=== PATIENT | female | born 1985 | race African-American/Black ===

== ENCOUNTER → 2017-11-16 | Outpatient (CLI) | payer OTHER | END | disposition home or self-care (01) | LOC: C.LAB1850 15:55 | PROVIDERS: ATTEND Obstetrics & Gynecology | DX: Z34.82 Encounter for supervision of other normal pregnancy, second trimester (principal); Z3A.00 Weeks of gestation of pregnancy not specified ==

== ENCOUNTER 2018-06-05 04:02 | Inpatient (IN) ==
[2018-06-05] MEDS ORDERED: ONDANSETRON 4 MG OD TAB ONE (04:14)
[2018-06-05] MEDS ORDERED: METOCLOPRAMIDE HCL INJ 5 MG/ML 2 ML VIAL IV STA (04:15)
[2018-06-05] MEDS ORDERED: ONDANSETRON 4 MG OD TAB PO STA (04:15)
[2018-06-05] MEDS ORDERED: SODIUM CHLORIDE 0.9% 1000ML 1,000 ML IV SCH ×2 (04:15→08:00)
[2018-06-05] MEDS: HYDROmorphone INJ 1 MG/ML SYRINGE IV PRN ×4 (04:26→06:47)
[2018-06-05 04:38] LABS: Basophils # (auto) 0.02 K/uL (0-0.2); Basophils % (auto) 0.2 %; Eosinophils # (auto) 0.07 K/uL (0-0.5); Eosinophils % (auto) 0.6 %; Hematocrit (blood only) 37.9 % (37-47); Hemoglobin 12.5 g/dL (12.0-16.0); Immature Granulocytes # (auto) 0.02 K/uL (0.00-0.02); Immature Granulocytes % (auto) 0.2 %; Lymphocytes # (auto) 1.43 K/uL (1.2-3.4); Lymphocytes % (auto) 13.1 %; Mean Corpuscular Volume 78.5 fL (80-100); Mean Platelet Volume 10.9 fL (7.4-10.4); Monocytes % (auto) 5.5 %; Neutrophils # (auto) 8.79 K/uL (1.4-6.5); Neutrophils % (auto) 80.4 %; Platelet Count 328 K/uL (130-400); RDW Coefficient of Variation 15.3 % (11.5-14.5); Red Blood Count 4.83 M/uL (4.2-5.4); White Blood Count 10.93 K/uL (4.8-10.8)
[2018-06-05 04:58] LABS: Albumin Level 3.6 gm/dl (3.4-5.0); BUN Creatinine Ratio 10.3 (10-20); Calcium 9.3 mg/dl (8.5-10.1); Est GFR (African American) 65.6; Est GFR (Non-African American) 56.6; Potassium 3.5 mmol/L (3.5-5.1)
[2018-06-05 05:08] LABS: Pregnancy Test, Serum Negative (Negative)
[2018-06-05 05:17] LABS: Albumin Globulin Ratio 0.8 (0.9-2); Bilirubin,Total 3.6 mg/dl (0.2-1); Globulin 4.5 gm/dl (2.5-4.0); Total Protein 8.1 gm/dl (6.4-8.2)
[2018-06-05] MEDS ORDERED: cefOXitin 2,000 MG/60 ML BAG IV STA (05:32)
--- NOTE | 2018-06-05 05:55 | History & Physical Report ---
Date of Service June 05, 2018 Assessment & Plan (1) Cholecystitis: Patient afebrile, hemodynamically stable, non-toxic in appearance. In considerable upper abdominal pain -Admit to medical floor -NPO -NSS at 125mL/hr x 2 liters -Zosyn 3.375gm IV q 8 -Dilaudid 1mg IV q 2 hours PRN -Zofran PRN nausea -Awaiting results of CT abdomen prior to transfer to floor - patient s/p c- section 5 weeks ago -Consult General Surgery - appreciate assistance -Consult GI - appreciate assistance (2) Choledocholithiasis: Plan as above. -Pain, nausea control -Zosyn -GI and Surgical consults -Repeat labs in AM - CBC, LFTs, BMP. (3) state: -Breast pump at bedside for use as needed -Continue PNV daily F/E/N- NSS at 125mL/hr x 2 liters, electrolytes WNL, NPO Ppx - SCDs to bilateral LE Code - Full Dispo - Admit to medical floor for acute cholecystitis/choledocholithiasis History of Present Illness Chief Complaint: RUQ pain Primary Care Provider: Vivek Urban, Patient is a 32yo female presenting with RUQ pain, intermittent x 1 week, more severe this AM since 02:00. Associated with nausea and non-bloody/non-bilious vomiting. Patient denies fevers, chills, sweats, diarrhea or constipation. No additional complaints at this time. She is PP s/p 5 weeks ago. ER Course: Cefoxitin, Dilaudid, Zofran, NSS Allergies Allergy/AdvReac Type Severity Reaction Status Date / Time Sulfa (Sulfonamide AdvReac Intermediate Nausea/Vomi Verified 06/05/18 04:25 Antibiotics) ting Home Medications Home Medications Medication Instructions Recorded Confirmed Type PNV cmb#95-ferrous fumarate-FA 1 tab PO DAILY 01/08/18 06/05/18 History [] acetaminophen 1,000 mg PO Q6 PRN 01/08/18 06/05/18 History oxycodone-acetaminophen [Percocet] 1 - 2 tab PO Q4H PRN #20 tab 05/01/18 Rx Past Med/Surg History Family History Other Family history non-contributory Social History marital status: Current Living Situation: Spouse Feels Safe at Home: Yes Smoking Status: Never smoker Hx Alcohol Use: No Hx Substance Use: No Review of Systems All systems reviewed & are unremarkable except as noted in HPI & below Physical Exam 2 Vital Signs (Past 24 Hours): Last Vital Signs Temp 36.3 C L 06/05/18 04:06 Pulse 68 06/05/18 05:25 Resp 18 06/05/18 05:25 BP 156/107 H 06/05/18 05:25 Pulse Ox 98 06/05/18 05:25 Physical Exam: General: patient in mild distress secondary to abdominal pain , AA&O x 4 Skin: warm, dry, intact, no rashes or lesions HEENT: NC/AT, PERRL, EOMI, anicteric sclera, conjunctiva without injection, external ear normal to inspection and nontender, nares patent, moist mucus membranes, dentition intact, no oropharyngeal lesions, neck supple, trachea midline, no LAD, no thyromegaly, no JVD Heart: +S1/S2, regular, no m/r/g Lungs: equal air entry bilaterally, no rales/rhonchi/wheezes Abd: +BS, soft, nondistended, diffusely tender in RUQ/LUQ, no rebound/guarding , negative Cummins's, no masses/organomegaly/ascites Ext: warm, 2+ pulses in UE/LE bilaterally, no clubbing/cyanosis or edema Neuro: nonfocal, patient AA&O x 4, speech intact, no facial droop, moving all extremities on command with equal strength 5/5 Results & Data Diagnostic Findings Dilated CBD at 1cm. GB stones, distention, pericholecystic fluid and edema and wall thickness consistent with choledocholithiasis. PANC: DUCT 3 mm. TRACE FLUID AROUND PANC AND SPLENIC VEIN. CBD AT HEAD OF PANC 1 cm. LIVER: 19.4 cm. ECHOGENIC. DILATED DUCTS RL AND LL. TRACE FF IN MORRISONS POUCH. GB: STONES IN FUNDUS, SLUDGE, AND DISTENDED GB VIS PREVIOUSLY. NEW FROM PREVIOUS: MODERATE PERICHOLECYSTIC FLUID, WALL EDEMA, THICKENED WALL 4.4 mm, RING DOWN ARTIFACT IN FUNDAL WALL, SMALL STONES ?DEEP WITHIN NECK VS CYSTIC DUCT. PT GIVEN PAIN MEDS PRIOR TO EVAL, UNABLE TO ASSESS CUMMINS'S Code Status & VTE Plan Code Status full VTE Prophylaxis Plan VTE Prophylaxis will be ordered: Yes Critical Care Time Critical Care Time: No
--- NOTE | 2018-06-05 06:31 | Emergency Department Note ---
Entered by Oscar Brown acting as a scribe for Stephon Alvarado MD History of Present Illness General Chief complaint: Abdominal Pain Stated complaint: ACUTE GALLBLADDER PAIN Time Seen by Provider: 06/05/18 04:09 Source: patient Mode of arrival: ambulatory Limitations: no limitations History of Present Illness Onset (ago): week(s) 1 Location: abdomen Pain Consistency: + other (Waxing and waning) Relieved By: + none Associated symptoms: + nausea/vomiting The patient is a 32 year old female who presents to the ER due to complaints of waxing and waning right-sided abdominal pain that began a week ago and has worsened over the past two hours. Patient states she believes the pain is due to her gallbladder as she has a history of gallbladder problems. Patient adds that she has also been nauseas and vomiting. She states she last ate saltine crackers 6 hours ago. She adds that she had a 5 weeks ago and took her last two pain medications from her tonight but vomited them back up. Home Medications Home Medications Medication Instructions Recorded Confirmed Type PNV cmb#[id number] fumarate-FA 1 tab PO DAILY 01/08/18 06/05/18 History [] acetaminophen 1,000 mg PO Q6 PRN 01/08/18 06/05/18 History oxycodone-acetaminophen [Percocet] 1 - 2 tab PO Q4H PRN #20 tab 05/01/18 Rx Allergies Allergy/AdvReac Type Severity Reaction Status Date / Time Sulfa (Sulfonamide AdvReac Intermediate Nausea/Vomi Verified 06/05/18 04:25 Antibiotics) ting Past Med/Surg History Medical History Gastroesophageal reflux in History of depression Surgical History History of section Done for failure to progress, 10 days over due date. JONATHAN Leary. Had epidural dosed for C/S. S/P wrist surgery CYST REMOVAL (LEFT) Family History Other Family history non-contributory Social History marital status: Current Living Situation: Spouse and Family Other Information That Helps Us Care for You: No Feels Safe at Home: Yes Safety Concerns: Feels Safe At This Time Smoking Status: Never smoker Do You Dip or Chew Tobacco: No Hx Alcohol Use: No Hx Substance Use: No Beliefs That Will Affect Care: None Preferred Language: Hungarian Communication Ability: Effective Extrusion Engineer Required: No Review of Systems See HPI for pertinent positives & negatives. and A total of 10 systems reviewed and were otherwise negative Physical Exam Vital Signs Vital Signs - 24 hr 06/06/18 14:42 06/06/18 19:15 06/06/18 19:20 Temperature 37.1 C 37.9 C H 37.7 C H Temperature Source Oral Oral Oral Pulse Rate [Left Finger] 109 H Pulse Rate [Right Finger] 99 H Pulse Rhythm [Left Finger] Pulse Rhythm [Right Finger] Regular Pulse Strength [Left Finger] Pulse Strength [Right Finger] Bounding Respiratory Rate 16 16 Respiratory Effort / Characteristics Non-Labored Respiratory Depth Normal Blood Pressure [Left Arm] 161/110 H 155/53 H Blood Pressure [Right Arm] Blood Pressure Mean [Left Arm] 127 87 Blood Pressure Mean [Right Arm] Blood Pressure Position [Left Arm] Lying Blood Pressure Position [Right Arm] Pulse Oximetry 90 92 Oxygen Delivery Method Room Air Room Air 06/06/18 23:00 06/07/18 07:20 06/07/18 11:52 Temperature 37.2 C 36.9 C 36.8 C Temperature Source Oral Oral Oral Pulse Rate [Left Finger] 102 H 104 H 123 H Pulse Rate [Right Finger] Pulse Rhythm [Left Finger] Pulse Rhythm [Right Finger] Pulse Strength [Left Finger] Pulse Strength [Right Finger] Respiratory Rate 16 17 18 Respiratory Effort / Characteristics Respiratory Depth Blood Pressure [Left Arm] 127/88 152/90 H Blood Pressure [Right Arm] 141/91 H Blood Pressure Mean [Left Arm] 101 110 Blood Pressure Mean [Right Arm] 107 Blood Pressure Position [Left Arm] Lying Standing Blood Pressure Position [Right Arm] Lying Pulse Oximetry 91 95 95 Oxygen Delivery Method Room Air Room Air 06/07/18 13:20 06/07/18 13:37 Temperature 37.8 C H Temperature Source Oral Pulse Rate [Left Finger] 115 H Pulse Rate [Right Finger] Pulse Rhythm [Left Finger] Regular Pulse Rhythm [Right Finger] Pulse Strength [Left Finger] Normal Pulse Strength [Right Finger] Respiratory Rate 18 Respiratory Effort / Characteristics Non-Labored Respiratory Depth Normal Blood Pressure [Left Arm] 157/111 H Blood Pressure [Right Arm] 165/101 H Blood Pressure Mean [Left Arm] 126 Blood Pressure Mean [Right Arm] 122 Blood Pressure Position [Left Arm] Semi-fowlers Blood Pressure Position [Right Arm] Sitting Pulse Oximetry 94 Oxygen Delivery Method Room Air GENERAL: Patient is a healthy-appearing well-nourished female HEAD: Normocephalic atraumatic EYES: Ocular movements intact pupils equal and react to light OROPHARYNX mucous membranes are moist no exudates present no erythema or edema present NECK: Supple no nuchal rigidity CHEST: Good equal expansion LUNGS: Clear and equal to auscultation CARDIAC: Normal S1 and S2 ABDOMEN: Soft tender in RUQ no guarding BACK: No CVA tenderness EXTREMITIES: No pain upon palpation normal muscle strength in all groups no clubbing cyanosis or edema NEURO: Patient is following commands is answering questions appropriately. Alert and oriented x3 Cranial Nerves 2-12 grossly intact Course 0411: Past medical records reviewed. The patient was evaluated in room A9B, and a complete history and physical examination were performed. 0545: Upon reevaluation, the patient will be further evaluated. I updated the patient on his treatment plan and findings. Patient is agreeable to the treatment plan. Patient will be assessed for further evaluation. Consultations Consultation #1: I reviewed the patient's case with Dr. Kennedy. She will evaluate the patient for further management. Time: 05:37 Administered Medications Hydromorphone HCl (Dilaudid Fence Laborer) 25 mg IV PRN PRN; Protocol PRN Reason: Pain Stop: 06/19/18 09:44 Last Admin: 06/06/18 07:10 Dose: 25 mg Admin: 06/05/18 10:39 Dose: 25 mg Lactated Ringer's (Lr) 1,000 mls @ 80 mls/hr IV .[id number] DEON Stop: 07/06/18 11:29 Last Admin: 06/07/18 14:04 Dose: Not Given Infusion: 06/07/18 14:02 Dose: 80 mls/hr Infusion: 06/07/18 12:27 Dose: 175 mls/hr Admin: 06/07/18 10:16 Dose: 150 mls/hr Infusion: 06/07/18 10:08 Dose: 150 mls/hr Infusion: 06/07/18 09:09 Dose: 150 mls/hr Infusion: 06/07/18 08:36 Dose: 0 mls/hr Infusion: 06/07/18 07:32 Dose: 150 mls/hr Admin: 06/07/18 02:55 Dose: 150 mls/hr Infusion: 06/07/18 02:19 Dose: 0 mls/hr Admin: 06/06/18 19:37 Dose: 150 mls/hr Infusion: 06/06/18 17:48 Dose: 150 mls/hr Infusion: 06/06/18 14:20 Dose: 150 mls/hr Infusion: 06/06/18 13:33 Dose: 150 mls/hr Admin: 06/06/18 11:44 Dose: 200 mls/hr Ioversol (Optiray 320 100ml) 93 ml IV ONCE PRN PRN Reason: Interaction Checking Stop: 06/09/18 07:37 Last Admin: 06/05/18 07:38 Dose: 93 ml Ioversol (Optiray 320 100ml) 92 ml IV ONCE PRN PRN Reason: Interaction Checking Stop: 06/11/18 12:54 Last Admin: 06/07/18 12:56 Dose: 92 ml Prenat Multivit/Avery/Iron/Folic Ac ( Vitamin) 1 tab PO DAILY DEON Stop: 07/05/18 08:59 Last Admin: 06/07/18 08:37 Dose: 1 tab Admin: 06/06/18 07:25 Dose: 1 tab Admin: 06/05/18 08:23 Dose: 1 tab Discontinued Medications Hydromorphone HCl (Dilaudid) 1 mg IV Q15M PRN PRN Reason: Pain Stop: 06/19/18 04:14 Last Admin: 06/05/18 06:47 Dose: 1 mg Admin: 06/05/18 05:43 Dose: 1 mg Admin: 06/05/18 04:44 Dose: 1 mg Admin: 06/05/18 04:26 Dose: 1 mg Hydromorphone HCl (Dilaudid) 1 mg IV Q2H PRN PRN Reason: Pain Stop: 06/19/18 07:59 Last Admin: 06/05/18 08:21 Dose: 1 mg Hydromorphone HCl (Dilaudid) 1.5 mg IV NOW STA Stop: 06/05/18 09:56 Last Admin: 06/05/18 10:11 Dose: 1.5 mg Sodium Chloride (Nss 1000ml) 1,000 mls @ 999 mls/hr IV .Q1H1M DEON Stop: 06/05/18 05:15 Last Infusion: 06/05/18 05:19 Dose: Admin: 06/05/18 04:25 Dose: 999 mls/hr Cefoxitin Sodium (Mefoxin) 2,000 mg in 60 mls @ 100 mls/hr IV NOW STA Stop: 06/05/18 06:07 Last Infusion: 06/05/18 06:54 Dose: 0 mls/hr Admin: 06/05/18 06:14 Dose: 100 mls/hr Promethazine HCl 12.5 mg/ (Sodium Chloride) 50.5 mls @ 202 mls/hr IV NOW STA Stop: 06/05/18 07:07 Last Admin: 06/05/18 07:11 Dose: Not Given Sodium Chloride (Nss 1000ml) 1,000 mls @ 200 mls/hr IV .Q5H DEON Stop: 06/05/18 17:59 Last Infusion: 06/05/18 10:12 Dose: 0 mls/hr Admin: 06/05/18 08:15 Dose: 125 mls/hr Piperacillin Sod/Tazobactam (Sod 3.375 gm/ Dextrose) 115 mls @ 200 mls/hr IV NOW STA Stop: 06/05/18 08:51 Last Infusion: 06/05/18 08:58 Dose: 0 mls/hr Admin: 06/05/18 08:21 Dose: 200 mls/hr Lactated Ringer's (Lr) 1,000 mls @ 200 mls/hr IV .Q5H DEON Stop: 07/05/18 09:59 Last Admin: 06/05/18 20:39 Dose: Not Given Infusion: 06/05/18 15:20 Dose: 0 mls/hr Admin: 06/05/18 10:11 Dose: 200 mls/hr Sodium Chloride (Nss 1000ml) 1,000 mls @ 200 mls/hr IV .Q5H DEON Stop: 06/19/18 10:14 Last Infusion: 06/06/18 11:44 Dose: 0 mls/hr Admin: 06/06/18 07:24 Dose: 200 mls/hr Infusion: 06/06/18 06:57 Dose: 200 mls/hr Infusion: 06/06/18 06:54 Dose: 200 mls/hr Admin: 06/06/18 01:56 Dose: 200 mls/hr Infusion: 06/06/18 01:30 Dose: 200 mls/hr Admin: 06/05/18 20:30 Dose: 200 mls/hr Admin: 06/05/18 10:14 Dose: Not Given Piperacillin Sod/Tazobactam (Sod 3.375 gm/ Dextrose) 115 mls @ 230 mls/hr IV Q8H DEON Stop: 06/06/18 18:00 Last Infusion: 06/06/18 16:00 Dose: 0 mls/hr Admin: 06/06/18 15:14 Dose: 230 mls/hr Infusion: 06/06/18 10:05 Dose: 0 mls/hr Infusion: 06/06/18 06:54 Dose: 28.8 mls/hr Admin: 06/06/18 05:57 Dose: 28.8 mls/hr Infusion: 06/06/18 01:10 Dose: 0 mls/hr Admin: 06/05/18 21:10 Dose: 28.8 mls/hr Infusion: 06/05/18 19:25 Dose: 0 mls/hr Admin: 06/05/18 15:12 Dose: 28.8 mls/hr Lactated Ringer's (Lr) 1,000 mls @ 999 mls/hr IV .Q1H1M ONE Stop: 06/06/18 15:39 Last Infusion: 06/06/18 17:50 Dose: 0 mls/hr Admin: 06/06/18 16:20 Dose: 999 mls/hr Piperacillin Sod/Tazobactam (Sod 3.375 gm/ Dextrose) 115 mls @ 230 mls/hr IV Q6H DEON; Protocol Stop: 06/15/18 13:59 Last Infusion: 06/07/18 09:09 Dose: 0 mls/hr Admin: 06/07/18 08:32 Dose: 230 mls/hr Infusion: 06/07/18 02:55 Dose: 0 mls/hr Admin: 06/07/18 02:18 Dose: 230 mls/hr Infusion: 06/06/18 22:03 Dose: 0 mls/hr Admin: 06/06/18 20:47 Dose: 230 mls/hr Indomethacin (Indocin) 100 mg UT ONE ONE Stop: 06/05/18 09:54 Last Admin: 06/05/18 17:27 Dose: 100 mg Indomethacin (Indocin) 100 mg UT NOW STA Stop: 06/05/18 15:43 Last Admin: 06/05/18 19:40 Dose: Not Given Labetalol HCl (Normodyne) Confirm Administered Dose 10 mg IV .STK-MED ONE Stop: 06/05/18 18:08 Last Admin: 06/05/18 18:08 Dose: 10 mg Methylnaltrexone [place] (Relistor) 12 mg SQ ONE ONE Stop: 06/06/18 16:01 Last Admin: 06/06/18 16:25 Dose: 12 mg Metoclopramide HCl (Reglan) 10 mg IV NOW STA Stop: 06/05/18 04:16 Last Admin: 06/05/18 04:25 Dose: 10 mg Ondansetron HCl (Zofran Odt) Confirm Administered Dose 4 mg .ROUTE .STK-MED ONE Stop: 06/05/18 04:15 Last Admin: 06/05/18 04:18 Dose: 4 mg Ondansetron HCl (Zofran Odt) 4 mg PO NOW STA Stop: 06/05/18 04:16 Last Admin: 06/05/18 04:18 Dose: Not Given Promethazine HCl (Phenergan) Confirm Administered Dose 12.5 mg IV .STK-MED ONE Stop: 06/05/18 07:08 Last Admin: 06/05/18 07:11 Dose: 12.5 mg Propranolol HCl (Inderal) 40 mg PO NOW STA Stop: 06/06/18 01:00 Last Admin: 06/06/18 01:21 Dose: 40 mg Medical Decision Making Differential Diagnosis Differential diagnosis: Etiologies such as biliary colic, cholecystitis, hepatitis, pancreatitis, cardiac disease, pancreatitis, gastritis, peptic ulcer disease, appendicitis, cystitis, diverticulitis, mesenteric ischemia, inflammatory bowel disease, ileus , bowel obstruction, testicular torsion, aortic pathology, shingles, as well as others were considered. Medical Records Attestation: I reviewed the patient's medical records. Home Medications Current Medication List: was personally reviewed by me Laboratory Data Attestation: I reviewed the patient's lab results. Result diagrams: 06/07/18 06:54 06/07/18 06:54 Lab Results 06/05/18 06/05/18 06/05/18 Range/Units 04:25 04:25 04:25 WBC 10.93 H (4.8-10.8) K/uL RBC 4.83 (4.2-5.4) M/uL Hgb 12.5 (12.0-16.0) g/dL Hct 37.9 (37-47) % MCV 78.5 L (80-100) fL MCH 25.9 (25-34) pg MCHC 33.0 (32-36) g/dL RDW Std Deviation 44.0 (36.4-46.3) fL RDW Coeff of Latoya 15.3 H (11.5-14.5) % Plt Count 328 (130-400) K/uL MPV 10.9 H (7.4-10.4) fL Immature Gran % (Auto) 0.2 % Neut % (Auto) 80.4 % Lymph % (Auto) 13.1 % Mobile % (Auto) 5.5 % Eos % (Auto) 0.6 % Baso % (Auto) 0.2 % Immature Gran # (Auto) 0.02 (0.00-0.02) K/uL Neut # (Auto) 8.79 H (1.4-6.5) K/uL Lymph # (Auto) 1.43 (1.2-3.4) K/uL Mobile # (Auto) 0.60 H (0.11-0.59) K/uL Eos # (Auto) 0.07 (0-0.5) K/uL Baso # (Auto) 0.02 (0-0.2) K/uL PT (9.0-12.0) Seconds INR (0.9-1.1) Sodium 139 (136-145) mmol/L Potassium 3.5 (3.5-5.1) mmol/L Chloride 106 (98-107) mmol/L Carbon Dioxide 25 (21-32) mmol/L Anion Gap 8.0 (3-11) BUN 13 (7-18) mg/dl Creatinine 1.27 H (0.6-1.2) mg/dl Est Cr Clr Drug Dosing 73.0 ml/min Est GFR ( Amer) 65.6 Est GFR (Non-Af Amer) 56.6 BUN/Creatinine Ratio 10.3 (10-20) Glucose 132 H (70-99) mg/dl Calcium 9.3 (8.5-10.1) mg/dl Total Bilirubin 3.6 H (0.2-1) mg/dl Direct Bilirubin (0-0.2) mg/dl AST 423 H (15-37) U/L ALT 425 H (12-78) U/L Alkaline Phosphatase 244 H (45-117) U/L Total Protein 8.1 (6.4-8.2) gm/dl Albumin 3.6 (3.4-5.0) gm/dl Globulin 4.5 H (2.5-4.0) gm/dl Albumin/Globulin Ratio 0.8 L (0.9-2) Lipase 76503 H (73-393) U/L HCG, Qual Negative (Negative) Urine Color Urine Appearance (Clear) Urine pH (4.5-7.5) Ur Specific [place] (1.000-1.030) Urine Protein (Negative) Urine Glucose (UA) (Negative) Urine Ketones (Negative) Urine Blood (Negative) Urine Nitrite (Negative) Urine Bilirubin (Negative) Urine Urobilinogen (Negative) Ur Leukocyte Esterase (Negative) Urine WBC (Auto) (0-5) /hpf Urine RBC (Auto) (0-4) /hpf U Hyaline Cast (Auto) (0-5) /lpf U Epithel Cells (Auto) (0-5) /lpf Urine Bacteria (Auto) (Negative) Ur Renal Epithelial Cell (0-5) /lpf Urine Crystals Calcium Oxalate Crystal (None Prsent) Granular Casts (0) /lpf 06/05/18 06/05/18 06/06/18 Range/Units 04:25 06:45 07:37 WBC (4.8-10.8) K/uL RBC (4.2-5.4) M/uL Hgb (12.0-16.0) g/dL Hct (37-47) % MCV (80-100) fL MCH (25-34) pg MCHC (32-36) g/dL RDW Std Deviation (36.4-46.3) fL RDW Coeff of Latoya (11.5-14.5) % Plt Count (130-400) K/uL MPV (7.4-10.4) fL Immature Gran % (Auto) % Neut % (Auto) % Lymph % (Auto) % Mobile % (Auto) % Eos % (Auto) % Baso % (Auto) % Immature Gran # (Auto) (0.00-0.02) K/uL Neut # (Auto) (1.4-6.5) K/uL Lymph # (Auto) (1.2-3.4) K/uL Mobile # (Auto) (0.11-0.59) K/uL Eos # (Auto) (0-0.5) K/uL Baso # (Auto) (0-0.2) K/uL PT 10.7 (9.0-12.0) Seconds INR 1.1 (0.9-1.1) Sodium 138 (136-145) mmol/L Potassium 4.0 (3.5-5.1) mmol/L Chloride 107 (98-107) mmol/L Carbon Dioxide 25 (21-32) mmol/L Anion Gap 6.0 (3-11) BUN 15 (7-18) mg/dl Creatinine 0.99 (0.6-1.2) mg/dl Est Cr Clr Drug Dosing 93.7 ml/min Est GFR ( Amer) 88.6 Est GFR (Non-Af Amer) 76.5 BUN/Creatinine Ratio 15.4 (10-20) Glucose 112 H (70-99) mg/dl Calcium 8.3 L (8.5-10.1) mg/dl Total Bilirubin (0.2-1) mg/dl Direct Bilirubin (0-0.2) mg/dl AST (15-37) U/L ALT (12-78) U/L Alkaline Phosphatase (45-117) U/L Total Protein (6.4-8.2) gm/dl Albumin (3.4-5.0) gm/dl Globulin (2.5-4.0) gm/dl Albumin/Globulin Ratio (0.9-2) Lipase 46161 H (73-393) U/L HCG, Qual (Negative) Urine Color Dark Yellow Urine Appearance Cloudy H (Clear) Urine pH 5.0 (4.5-7.5) Ur Specific [place] 1.017 (1.000-1.030) Urine Protein Negative (Negative) Urine Glucose (UA) Negative (Negative) Urine Ketones Trace H (Negative) Urine Blood 2+ H (Negative) Urine Nitrite Negative (Negative) Urine Bilirubin 2+ H (Negative) Urine Urobilinogen Negative (Negative) Ur Leukocyte Esterase Trace H (Negative) Urine WBC (Auto) 1-5 (0-5) /hpf Urine RBC (Auto) 0-4 (0-4) /hpf U Hyaline Cast (Auto) 1-5 (0-5) /lpf U Epithel Cells (Auto) 20-30 H (0-5) /lpf Urine Bacteria (Auto) Negative (Negative) Ur Renal Epithelial Cell (0-5) /lpf Urine Crystals Not Reportable Calcium Oxalate Crystal Present H (None Prsent) Granular Casts (0) /lpf 06/06/18 06/06/18 06/07/18 Range/Units 07:37 07:37 06:54 WBC 15.24 H 19.00 H (4.8-10.8) K/uL RBC 4.67 4.35 (4.2-5.4) M/uL Hgb 11.6 L 10.7 L (12.0-16.0) g/dL Hct 36.8 L 33.6 L (37-47) % MCV 78.8 L 77.2 L (80-100) fL MCH 24.8 L 24.6 L (25-34) pg MCHC 31.5 L 31.8 L (32-36) g/dL RDW Std Deviation 45.5 45.7 (36.4-46.3) fL RDW Coeff of Latoya 15.9 H 16.2 H (11.5-14.5) % Plt Count 345 301 (130-400) K/uL MPV 10.8 H 11.2 H (7.4-10.4) fL Immature Gran % (Auto) 0.2 % Neut % (Auto) 88.0 % Lymph % (Auto) 5.7 % Mobile % (Auto) 6.0 % Eos % (Auto) 0.0 % Baso % (Auto) 0.1 % Immature Gran # (Auto) 0.03 H (0.00-0.02) K/uL Neut # (Auto) 13.42 H (1.4-6.5) K/uL Lymph # (Auto) 0.87 L (1.2-3.4) K/uL Mobile # (Auto) 0.91 H (0.11-0.59) K/uL Eos # (Auto) 0.00 (0-0.5) K/uL Baso # (Auto) 0.01 (0-0.2) K/uL PT (9.0-12.0) Seconds INR (0.9-1.1) Sodium (136-145) mmol/L Potassium (3.5-5.1) mmol/L Chloride (98-107) mmol/L Carbon Dioxide (21-32) mmol/L Anion Gap (3-11) BUN (7-18) mg/dl Creatinine (0.6-1.2) mg/dl Est Cr Clr Drug Dosing ml/min Est GFR ( Amer) Est GFR (Non-Af Amer) BUN/Creatinine Ratio (10-20) Glucose (70-99) mg/dl Calcium (8.5-10.1) mg/dl Total Bilirubin 1.3 H D (0.2-1) mg/dl Direct Bilirubin 0.6 H (0-0.2) mg/dl AST 330 H (15-37) U/L ALT 425 H (12-78) U/L Alkaline Phosphatase 165 H (45-117) U/L Total Protein 6.7 (6.4-8.2) gm/dl Albumin 2.9 L (3.4-5.0) gm/dl Globulin (2.5-4.0) gm/dl Albumin/Globulin Ratio (0.9-2) Lipase (73-393) U/L HCG, Qual (Negative) Urine Color Urine Appearance (Clear) Urine pH (4.5-7.5) Ur Specific [place] (1.000-1.030) Urine Protein (Negative) Urine Glucose (UA) (Negative) Urine Ketones (Negative) Urine Blood (Negative) Urine Nitrite (Negative) Urine Bilirubin (Negative) Urine Urobilinogen (Negative) Ur Leukocyte Esterase (Negative) Urine WBC (Auto) (0-5) /hpf Urine RBC (Auto) (0-4) /hpf U Hyaline Cast (Auto) (0-5) /lpf U Epithel Cells (Auto) (0-5) /lpf Urine Bacteria (Auto) (Negative) Ur Renal Epithelial Cell (0-5) /lpf Urine Crystals Calcium Oxalate Crystal (None Prsent) Granular Casts (0) /lpf 06/07/18 06/07/18 Range/Units 06:54 12:37 WBC (4.8-10.8) K/uL RBC (4.2-5.4) M/uL Hgb (12.0-16.0) g/dL Hct (37-47) % MCV (80-100) fL MCH (25-34) pg MCHC (32-36) g/dL RDW Std Deviation (36.4-46.3) fL RDW Coeff of Latoya (11.5-14.5) % Plt Count (130-400) K/uL MPV (7.4-10.4) fL Immature Gran % (Auto) % Neut % (Auto) % Lymph % (Auto) % Mobile % (Auto) % Eos % (Auto) % Baso % (Auto) % Immature Gran # (Auto) (0.00-0.02) K/uL Neut # (Auto) (1.4-6.5) K/uL Lymph # (Auto) (1.2-3.4) K/uL [place] # (Auto) (0.11-0.59) K/uL Eos # (Auto) (0-0.5) K/uL Baso # (Auto) (0-0.2) K/uL PT (9.0-12.0) Seconds INR (0.9-1.1) Sodium 135 L (136-145) mmol/L Potassium 3.6 (3.5-5.1) mmol/L Chloride 103 (98-107) mmol/L Carbon Dioxide 26 (21-32) mmol/L Anion Gap 6.0 (3-11) BUN 12 (7-18) mg/dl Creatinine 0.81 (0.6-1.2) mg/dl Est Cr Clr Drug Dosing 114.5 ml/min Est GFR ( Amer) 113.0 Est GFR (Non-Af Amer) 97.5 BUN/Creatinine Ratio 14.7 (10-20) Glucose 109 H (70-99) mg/dl Calcium 8.5 (8.5-10.1) mg/dl Total Bilirubin 1.0 (0.2-1) mg/dl Direct Bilirubin 0.5 H (0-0.2) mg/dl AST 105 H (15-37) U/L ALT 221 H (12-78) U/L Alkaline Phosphatase 130 H (45-117) U/L Total Protein 6.3 L (6.4-8.2) gm/dl Albumin 2.6 L (3.4-5.0) gm/dl Globulin (2.5-4.0) gm/dl Albumin/Globulin Ratio (0.9-2) Lipase 4189 H (73-393) U/L HCG, Qual (Negative) Urine Color Dark Yellow Urine Appearance Cloudy H (Clear) Urine pH 6.0 (4.5-7.5) Ur Specific [place] 1.036 H (1.000-1.030) Urine Protein 1+ H (Negative) Urine Glucose (UA) Negative (Negative) Urine Ketones Trace H (Negative) Urine Blood 2+ H (Negative) Urine Nitrite Negative (Negative) Urine Bilirubin Negative (Negative) Urine Urobilinogen Negative (Negative) Ur Leukocyte Esterase 2+ H (Negative) Urine WBC (Auto) >30 H (0-5) /hpf Urine RBC (Auto) 5-10 H (0-4) /hpf U Hyaline Cast (Auto) 10-30 H (0-5) /lpf U Epithel Cells (Auto) >30 H (0-5) /lpf Urine Bacteria (Auto) Negative (Negative) Ur Renal Epithelial Cell 10-20 H (0-5) /lpf Urine Crystals Calcium Oxalate Crystal Present H (None Prsent) Granular Casts 1-5 H (0) /lpf Imaging Data Radiologist's Impression: Radiology results as stated below per my review and the radiologist's interpretation: US RUQ: Dilated CBD, 1 cm. Gallbladder stones, distension, pericholecystic fluid, intramural edema, and wall thickening at 4 mm, consistent with cholecystitis. Radiologist: Wilber Ludwig MD CT abd pelvis oral and IV con CLINICAL HISTORY: 32 years-old Female presenting with Pt c/o RUQ abd pain. TECHNIQUE: Multidetector CT of the abdomen and pelvis was performed after the administration of oral and intravenous contrast. IV contrast: 93 mL of Optiray 320. One or more dose lowering techniques were used consistent with the principles of ALARA (as low as reasonably achievable), including automatic exposure control, mA or kV adjustment to individual patient size, and/or use of iterative reconstruction. COMPARISON: Ultrasound of the abdomen performed earlier today. CT DOSE (mGy.cm): The estimated cumulative dose is 545.48 mGy.cm. FINDINGS: Water Resource Engineer topogram: Unremarkable. Lung bases: Minimal dependent changes likely atelectasis. Top normal cardiac size. No pericardial or pleural effusion. Liver: Normal morphology. No liver lesion. Patent hepatic vasculature. Biliary: Mild central predominant intrahepatic biliary ductal dilatation. The common duct is not well delineated due to the significant surrounding edema. Significant gallbladder wall thickening, mucosal hyperenhancement, and mild distention. Layering gallstones evident at the fundus. Pancreas: Diffusely edematous pancreatic parenchyma with exuberant surrounding peripancreatic fluid. The degree of parenchymal edema makes assessment for nonenhancing portions of the pancreatic parenchyma difficult. Due to the degree of edema, the pancreatic duct is also not well-defined linear dated. Spleen: Normal. Splenule noted. Splenic artery and vein patent. Adrenal glands: Normal. Kidneys and ureters: Normal. No hydronephrosis. Bladder: Incompletely evaluated secondary to underdistention. Pelvic organs: Uterus and ovaries normal. Bowel: The cecum is medialized and displaced in the left upper quadrant. There is no resulting obstruction. An underlying internal hernia cannot be excluded. No evidence of small bowel malrotation. Mild wall thickening of the duodenum descending and horizontal portion may be present. Peritoneal cavity: Small amount of abdominal pelvic free fluid. No free intraperitoneal gas. Exuberant retroperitoneal fluid centered at the pancreas on both the dorsum and the ventral aspects of the pancreas involving the entire length of the pancreatic head to the tail. Fluid tracks inferiorly in the retroperitoneum, left greater than right. Lymph nodes: No enlarged lymph nodes in the abdomen or pelvis. Vasculature: Aorta and IVC patent and normal in caliber. Abdominal wall: Postsurgical changes of prior Pfannenstiel incision suspected. Mild nonspecific body wall edema. Musculoskeletal: Normal. IMPRESSION: 1. Either severe interstitial edematous pancreatitis or developing necrotizing pancreatitis. This is presumably due to choledocholithiasis. Exuberant associated acute peripancreatic fluid. No intraparenchymal collection. 2. Cholelithiasis with acute calculus cholecystitis evidenced by gallbladder wall thickening, mild distention, and surrounding inflammatory change. Surgical consultation advised. 3. Small volume ascites. The report will be called/faxed according to standard departmental protocol. Blood Pressure Blood Pressure Findings: Elevated blood pressure Blood Pressure Disposition: further management by hospitalist ODALIS Narrative This is a 32-year-old female who presents emergency department complaining of epigastric pain. Using shared medical decision making the patient was sent for a CAT scan of the abdomen and pelvis as well as an ultrasound. The patient's laboratory work is concerning for choledocholithiasis with an elevation in her lipase as well as her liver enzymes. Patient was placed on broad-spectrum antibiotics. She was given Dilaudid for her pain. Repeat examination revealed improvement in the patient's symptoms. I did discuss the case with the on-call hospitalist who agreed to admit the patient. Patient was in agreement with the treatment plan. Impression & Plan Abdominal pain, Choledocholithiasis Critical Care Time I have personally spent greater than 30 minutes of critical care time in the direct management of this patient. This includes bedside care, interpretation of diagnostic studies, and testing, discussion with consultants, patient, and family members, and other required patient management activities. This 30 minutes is in excess of all separately billable procedures. Discharge Plan Visit Data *Final* Discharge Date/Time: 06/05/18 07:38 Chief Complaint: Abdominal Pain Stated Complaint: ACUTE GALLBLADDER PAIN ED Provider: Stephon Alvarado Discharge Problem: Abdominal pain, Choledocholithiasis Patient Disposition: Admitted As Inpatient Discharge Instructions Interventions: ED Discharge Assessment Last Done: 06/05/18 07:38 The scribe's documentation has been prepared under my direction and personally reviewed by me in its entirety. I confirm that the note above accurately reflects all work, treatment, procedures, and medical decision making performed by me.
[2018-06-05] MEDS ORDERED: PROMETHAZINE HCL 12.5 MG in SODIUM CHLORIDE 0.9% 50 ML IV STA (06:53)
[2018-06-05] MEDS ORDERED: PROMETHAZINE 12.5 MG/50.5 ML NSS IV ONE (07:07)
[2018-06-05 07:22] LABS: Appearance Urine Cloudy (Clear); Bacteria Urine Automated Negative (Negative); Blood Urine 2+ (Negative); Color Urine Dark Yellow; Epithelial Cell Urine Auto 20-30 /lpf (0-5); Glucose Urine UA Negative (Negative); Ketones Urine Trace (Negative); Leukocyte Esterase Urine Trace (Negative); Nitrite Urine Negative (Negative); Protein Urine Negative (Negative); RBC Urine Automated 0-4 /hpf (0-4); Specific Gravity Urine 1.017 (1.000-1.030); Urobilinogen Urine Negative (Negative)
--- NOTE | 2018-06-05 07:31 | Ultrasound Report ---
US abdomen limited CLINICAL HISTORY: 32 years-old Female presenting with RUQ R/o Gallbladder. TECHNIQUE: Real-time grayscale and limited color Doppler ultrasound imaging of the abdomen limited to the right upper quadrant was performed. COMPARISON: 02/07/2018.. FINDINGS: Pancreas: Visualized portions of the pancreatic parenchyma normal, however, there is pancreatic ducta l prominence. There is also trace fluid along the dorsum of the pancreatic neck. Trace fluid is also evident along the ventral pancreatic body. Liver: Normal echogenicity and echotexture. The liver measures 19.4 cm in maximal sagittal dimension. No sonographic evidence of hepatic mass. Main portal vein patent with normal directional flow. Biliary: Mild to moderate diffuse intrahepatic biliary ductal dilatation. Common bile duct measures u p to 10 mm in diameter at the level of the liver hilum and pancreatic head. No sonographic evidence o f choledocholithiasis Gallbladder: The gallbladder is distended measuring over 15 cm in long axis. Layering sludge and gall stones evident at the gallbladder neck as well as shadowing gallstones at the fundus. Pericholecystic fluid also present. There is gallbladder wall thickening. Additionally hyperechogenic foci in the ga llbladder wall may indicate underlying adenomyomatosis or less likely intramural gas. Unable to asses s sonographic Cummins's sign. Right kidney: Normal in appearance without evidence of hydronephrosis. Ascites: No large free fluid.. Other: None. IMPRESSION: 1. Acute calculus cholecystitis. Surgical consultation warranted. Given the presence of intrahepatic and extra hepatic biliary ductal as well as borderline pancreatic ductal dilatation, impacted choled ocholithiasis at the ampulla of Vater cannot be excluded. 2. Hyperechogenic foci in the gallbladder wall may indicate underlying pneumatosis or, less likely, emphysematous cholecystitis. 3. Borderline hepatomegaly. The report will be called/faxed according to standard departmental protocol. Electronically signed by: Brandon Gonzales M.D. 06/05/2018 7:29 AM
[2018-06-05 07:37] LABS: Bilirubin Urine 2+ (Negative); Ictotest Urine Positive (Negative)
[2018-06-05] MEDS ORDERED: IOVERSOL 100ml IV PRN (07:38)
[2018-06-05 07:56] LABS: Calcium Oxalate Crystals Urine Present (None Prsent)
[2018-06-05] MEDS ORDERED: DOCUSATE SODIUM 100 MG CAP PO PRN (08:00)
[2018-06-05] MEDS ORDERED: HYDROmorphone INJ 1 MG/ML SYRINGE IV PRN ×2 (08:00→09:36)
[2018-06-05] MEDS ORDERED: ACETAMINOPHEN 65 ML IV PRN (08:00)
[2018-06-05] MEDS ORDERED: ONDANSETRON INJ 2 MG/ML 2 ML VIAL IV PRN ×2 (08:00→16:00)
[2018-06-05] MEDS ORDERED: PIPERACILL/TAZOBAC CONSULT ACTIVE PRN (08:00)
--- NOTE | 2018-06-05 08:05 | CT Scan Report ---
CT abd pelvis oral and IV con CLINICAL HISTORY: 32 years-old Female presenting with Pt c/o RUQ abd pain. TECHNIQUE: Multidetector CT of the abdomen and pelvis was performed after the administration of oral and intravenous contrast. IV contrast: 93 mL of Optiray 320. One or more dose lowering techniques wer e used consistent with the principles of ALARA (as low as reasonably achievable), including automatic exposure control, mA or kV adjustment to individual patient size, and/or use of iterative reconstruc tion. COMPARISON: Ultrasound of the abdomen performed earlier today. CT DOSE (mGy.cm): The estimated cumulative dose is 545.48 mGy.cm. FINDINGS: Housing Inspector topogram: Unremarkable. Lung bases: Minimal dependent changes likely atelectasis. Top normal cardiac size. No pericardial or pleural effusion. Liver: Normal morphology. No liver lesion. Patent hepatic vasculature. Biliary: Mild central predominant intrahepatic biliary ductal dilatation. The common duct is not well delineated due to the significant surrounding edema. Significant gallbladder wall thickening, mucosa l hyperenhancement, and mild distention. Layering gallstones evident at the fundus. Pancreas: Diffusely edematous pancreatic parenchyma with exuberant surrounding peripancreatic fluid. The degree of parenchymal edema makes assessment for nonenhancing portions of the pancreatic parenchy ma difficult. Due to the degree of edema, the pancreatic duct is also not well-defined linear dated. Spleen: Normal. Splenule noted. Splenic artery and vein patent. Adrenal glands: Normal. Kidneys and ureters: Normal. No hydronephrosis. Bladder: Incompletely evaluated secondary to underdistention. Pelvic organs: Uterus and ovaries normal. Bowel: The cecum is medialized and displaced in the left upper quadrant. There is no resulting obstru ction. An underlying internal hernia cannot be excluded. No evidence of small bowel malrotation. Mild wall thickening of the duodenum descending and horizontal portion may be present. Peritoneal cavity: Small amount of abdominal pelvic free fluid. No free intraperitoneal gas. Exuberan t retroperitoneal fluid centered at the pancreas on both the dorsum and the ventral aspects of the pa ncreas involving the entire length of the pancreatic head to the tail. Fluid tracks inferiorly in the retroperitoneum, left greater than right. Lymph nodes: No enlarged lymph nodes in the abdomen or pelvis. Vasculature: Aorta and IVC patent and normal in caliber. Abdominal wall: Postsurgical changes of prior Pfannenstiel incision suspected. Mild nonspecific body wall edema. Musculoskeletal: Normal. IMPRESSION: 1. Either severe interstitial edematous pancreatitis or developing necrotizing pancreatitis. This is presumably due to choledocholithiasis. Exuberant associated acute peripancreatic fluid. No intrapare nchymal collection. 2. Cholelithiasis with acute calculus cholecystitis evidenced by gallbladder wall thickening, mild d istention, and surrounding inflammatory change. Surgical consultation advised. 3. Small volume ascites. The report will be called/faxed according to standard departmental protocol. Electronically signed by: Brandon Gonzales M.D. 06/05/2018 8:03 AM
[2018-06-05] MEDS ORDERED: PIPERACILLIN/TAZOBACTAM 3.375 GM in DEXTROSE 5% 100 ML IV STA (08:17)
[2018-06-05] MEDS: PRENATAL VITAMIN 1 TAB PO SCH (08:23)
[2018-06-05 08:26] LABS: INR 1.1 (0.9-1.1); Prothrombin Time 10.7 Seconds (9.0-12.0)
--- NOTE | 2018-06-05 09:37 | Surgery Consultation ---
Date of Consultation June 05, 2018 Assessment & Plan (1) Biliary acute pancreatitis: Eventual lap alejandra once pancreatitis resolves, could be several days or more. GI is seeing for possible ERCP. I increased IVF and analgesics. Continue Zosyn. Will follow. as above. pt seen. recommend lap alejandra this admission once pancreatitis improves. will follow along closely. History of Present Illness Attending Physician: Valentín Moore DO History of Present Illness 32 y/o female 5 weeks with 1 week increasing abdominal pain becoming severe overnight with back pain, N/V. Was in the ER once for biliary symptoms during . Continues to have severe pain. Allergies Allergy/AdvReac Type Severity Reaction Status Date / Time Sulfa (Sulfonamide AdvReac Intermediate Nausea/Vomi Verified 06/05/18 04:25 Antibiotics) ting Home Medications Home Medications Medication Instructions Recorded Confirmed Type PNV cmb#95-ferrous fumarate-FA 1 tab PO DAILY 01/08/18 06/05/18 History [] acetaminophen 1,000 mg PO Q6 PRN 01/08/18 06/05/18 History oxycodone-acetaminophen [Percocet] 1 - 2 tab PO Q4H PRN #20 tab 05/01/18 Rx Patient History Medical History Gastroesophageal reflux in History of depression Surgical History History of section Done for failure to progress, 10 days over due date. [place], [place]. Had epidural dosed for C/S. S/P wrist surgery CYST REMOVAL (LEFT) Family History Other Family history non-contributory Social History marital status: Current Living Situation: Spouse and Family Other Information That Helps Us Care for You: No Feels Safe at Home: Yes Safety Concerns: Feels Safe At This Time Smoking Status: Never smoker Do You Dip or Chew Tobacco: No Hx Alcohol Use: No Hx Substance Use: No Beliefs That Will Affect Care: None Preferred Language: Guinean Communication Ability: Effective Agricultural Sciences Professor Required: No Review of Systems Constitutional: no fever and no chills Gastrointestinal: + abdominal pain, + nausea and + vomiting Physical Exam 2 Vital Signs (Past 24 Hours): Last Vital Signs Temp 36.6 C 06/05/18 08:00 Pulse 59 L 06/05/18 08:00 Resp 18 06/05/18 08:00 BP 166/109 H 06/05/18 08:00 Pulse Ox 97 06/05/18 08:00 Constitutional: + in distress Respiratory: normal respiratory effort, lungs clear to auscultation Cardiovascular: RRR, no murmur, no edema Gastrointestinal (Abdomen): Percussion/Palpation: + abdomen tender (epigastric )
[2018-06-05] MEDS ORDERED: INDOMETHACIN 50 MG SUPP PR ONE (09:53)
[2018-06-05] MEDS ORDERED: HYDROmorphone INJ 2 MG/ML SYR/VIAL IV STA (09:55)
--- NOTE | 2018-06-05 10:03 | Gastrointestinal Consultation ---
Date of Consultation June 05, 2018 Assessment & Plan (1) Cholecystitis: (2) Choledocholithiasis: (3) Biliary acute pancreatitis: Pt is a 32 y/o female w RUQ abd pain, n/v, elevated LFTs and lipase; imaging studies suspicious for gallstone pancreatitis, developing nectrotizing pancreatitis. - Keep NPO - IVF w LR@ 200ml/hr - Plan for ERCP this afternoon with Dr. Guerrero. Procedure risks, benefits had been explained to pt and . Pls send Indomethacin 100mg NV to OR holding to be given pre ERCP - Symptomatic management w antiemetics and analgesics prn. - Surgery consulted, appreciate recs. Supervising Physician Co-Signing Physician Notes I performed a history and physical examination of the patient, including specifically on physical exam - soft, nontender abdomen. I have discussed the patient's management with [place]. Please refer to the nurse practitioner's note for the documented findings and plan of care. Elevated Bilirubin with dilated CBD, high probability for CBD stone, Needs ERCP. Mild acute pancreatitis. History of Present Illness Reason for Consultation: Gallstone pancreatitis Requesting Physician: Dr. Valentín Moore Attending Physician: Dr. Reny Guerrero History of Present Illness Pt is a 32 y/o Patient w c/o RUQ abd pain, nausea, vomiting x 1 week but became worse starting 3 days ago. She is 5 weeks s/p Csection. Upon eval her labs showed mildly elevated WBC 10.6, H/H normal. Cr 1.2 (increased from baseline), LFTs are up: Tbili 3.6, AST/ALT in 400s, Alk phos 200s, Lipase 62K. Abd imaging w CT abd/pelvis and u/s showed possible necrotizing pancreatitis, w suspected choledocholithiasis, cholelithiasis, cholecystitis, and presence of intra/extra hepatic biliary ductal dilation, borderline pancreatic duct dilation. Allergies Allergy/AdvReac Type Severity Reaction Status Date / Time Sulfa (Sulfonamide AdvReac Intermediate Nausea/Vomi Verified 06/05/18 04:25 Antibiotics) ting Home Medications Home Medications Medication Instructions Recorded Confirmed Type PNV cmb#95-ferrous fumarate-FA 1 tab PO DAILY 01/08/18 06/05/18 History [] acetaminophen 1,000 mg PO Q6 PRN 01/08/18 06/05/18 History oxycodone-acetaminophen [Percocet] 1 - 2 tab PO Q4H PRN #20 tab 05/01/18 Rx Patient History Medical History Gastroesophageal reflux in History of depression Surgical History History of section Done for failure to progress, 10 days over due date. [place]. Had epidural dosed for C/S. S/P wrist surgery CYST REMOVAL (LEFT) Family History Other Family history non-contributory Social History marital status: Current Living Situation: Spouse and Family Other Information That Helps Us Care for You: No Feels Safe at Home: Yes Safety Concerns: Feels Safe At This Time Smoking Status: Never smoker Do You Dip or Chew Tobacco: No Second Hand Exposure: No Tobacco Cessation Education Requested by Patient: No Hx Alcohol Use: No Hx Substance Use: No Beliefs That Will Affect Care: None Preferred Language: Croatian Communication Ability: Effective Call Center Recruiter Required: No Review of Systems Constitutional: as per Subjective / HPI Respiratory: no cough and no dyspnea Cardiovascular: no chest pain, no lightheadedness and no edema Gastrointestinal: as per Subjective / HPI, + abdominal pain, + nausea and + vomiting Physical Exam 2 Vital Signs (Past 24 Hours): Last Vital Signs Temp 36.6 C 06/05/18 08:00 Pulse 59 L 06/05/18 08:00 Resp 18 06/05/18 08:00 BP 166/109 H 06/05/18 08:00 Pulse Ox 97 06/05/18 08:00 Constitutional: WD/WN, vitals as above well groomed, cooperative and + in distress (c/o pain ) Eyes: PERRL, conjunctivae normal, anicteric sclerae ENMT: external ear and nose normal, oropharynx normal Respiratory: normal respiratory effort, lungs clear to auscultation Cardiovascular: RRR, no murmur, no edema Gastrointestinal (Abdomen): Percussion/Palpation: + abdomen tender and abdomen soft Skin: no rashes, warm and dry no jaundice Neurologic: Motor/Sensory: no asterixis Psychiatric: A+Ox3, euthymic affect Lymphatic: no lymphedema Results & Data Laboratory Results Laboratory Results - last 48 hr 06/05/18 06/05/18 06/05/18 04:25 04:25 04:25 WBC 10.93 H RBC 4.83 Hgb 12.5 Hct 37.9 MCV 78.5 L MCH 25.9 MCHC 33.0 RDW Std Deviation 44.0 RDW Coeff of Latoya 15.3 H Plt Count 328 MPV 10.9 H Immature Gran % (Auto) 0.2 Neut % (Auto) 80.4 Lymph % (Auto) 13.1 [place] % (Auto) 5.5 Eos % (Auto) 0.6 Baso % (Auto) 0.2 Immature Gran # (Auto) 0.02 Neut # (Auto) 8.79 H Lymph # (Auto) 1.43 [place] # (Auto) 0.60 H Eos # (Auto) 0.07 Baso # (Auto) 0.02 PT INR Sodium 139 Potassium 3.5 Chloride 106 Carbon Dioxide 25 Anion Gap 8.0 BUN 13 Creatinine 1.27 H Est Cr Clr Drug Dosing 73.0 Est GFR ( Amer) 65.6 Est GFR (Non-Af Amer) 56.6 BUN/Creatinine Ratio 10.3 Glucose 132 H Calcium 9.3 Total Bilirubin 3.6 H AST 423 H ALT 425 H Alkaline Phosphatase 244 H Total Protein 8.1 Albumin 3.6 Globulin 4.5 H Albumin/Globulin Ratio 0.8 L Lipase 53502 H HCG, Qual Negative Urine Color Urine Appearance Urine pH Ur Specific [place] Urine Protein Urine Glucose (UA) Urine Ketones Urine Blood Urine Nitrite Urine Bilirubin Urine Urobilinogen Ur Leukocyte Esterase Urine WBC (Auto) Urine RBC (Auto) U Hyaline Cast (Auto) U Epithel Cells (Auto) Urine Bacteria (Auto) Urine Crystals Calcium Oxalate Crystal 06/05/18 06/05/18 04:25 06:45 WBC RBC Hgb Hct MCV MCH MCHC RDW Std Deviation RDW Coeff of Latoya Plt Count MPV Immature Gran % (Auto) Neut % (Auto) Lymph % (Auto) [place] % (Auto) Eos % (Auto) Baso % (Auto) Immature Gran # (Auto) Neut # (Auto) Lymph # (Auto) [place] # (Auto) Eos # (Auto) Baso # (Auto) PT 10.7 INR 1.1 Sodium Potassium Chloride Carbon Dioxide Anion Gap BUN Creatinine Est Cr Clr Drug Dosing Est GFR ( Amer) Est GFR (Non-Af Amer) BUN/Creatinine Ratio Glucose Calcium Total Bilirubin AST ALT Alkaline Phosphatase Total Protein Albumin Globulin Albumin/Globulin Ratio Lipase HCG, Qual Urine Color Dark Yellow Urine Appearance Cloudy H Urine pH 5.0 Ur Specific [place] 1.017 Urine Protein Negative Urine Glucose (UA) Negative Urine Ketones Trace H Urine Blood 2+ H Urine Nitrite Negative Urine Bilirubin 2+ H Urine Urobilinogen Negative Ur Leukocyte Esterase Trace H Urine WBC (Auto) 1-5 Urine RBC (Auto) 0-4 U Hyaline Cast (Auto) 1-5 U Epithel Cells (Auto) 20-30 H Urine Bacteria (Auto) Negative Urine Crystals Not Reportable Calcium Oxalate Crystal Present H Diagnostic Findings CT abd/pelvis and u/s reviewed
[2018-06-05] MEDS ORDERED: NALOXONE HCL 0.4 MG/1 ML VIAL/CARP IV PRN (10:09)
[2018-06-05] MEDS: LACTATED RINGER'S 1,000 ML IV SCH ×2 (10:11→20:39)
[2018-06-05] MEDS: SODIUM CHLORIDE 0.9% 1000ML 1,000 ML IV SCH ×2 (10:14→20:30)
[2018-06-05] MEDS: HYDROmorphone HCL 0.5MG/ML 50 ML CASSETTE IV PRN (10:39)
[2018-06-05] MEDS: PIPERACILLIN/TAZOBACTAM 3.375 GM in DEXTROSE 5% 100 ML IV SCH ×2 (15:12→21:10)
[2018-06-05] MEDS ORDERED: INDOMETHACIN 50 MG SUPP PR STA (15:42)
--- NOTE | 2018-06-05 15:56 | Anesthesiology Consultation ---
Date of Service June 05, 2018 Assessment & Plan (1) Encounter for pre-operative examination: Chart Review Chart Review: Acceptable Risk for Surgery Consults Requested none ASA ASA2 Proposed Anesthesia Anesthesia Type: General Risk / Benefits Reviewed With: PT / POA / Parent / Guardian, Accepts Plan and Informed Consent Obtained NPO Date Last Intake of Fluids: 06/05/18 Time Last Intake of Fluids: 05:45 Last Intake of Fluids Comment: CT contrast Date Last Intake of Solids: 06/04/18 Time Last Intake of Solids: 00:00 Last Intake of Solids Comment: saltine crackers but states she vomitted them up History Surgery Operation Date: 06/05/18 11:50 Proposed Procedures p Endoscopic Retrograde Cholangiopancreatogram - Reny Guerrero MD Height/Weight Height: 5 ft 5 in Weight: 93.1 kg Allergies Allergy/AdvReac Type Severity Reaction Status Date / Time Sulfa (Sulfonamide AdvReac Intermediate Nausea/Vomi Verified 06/05/18 04:25 Antibiotics) ting Medications Home Medications Medication Instructions Recorded Confirmed Last Taken PNV cmb#95-ferrous fumarate-FA 1 tab PO DAILY 01/08/18 06/05/18 06/04/18 [] acetaminophen 1,000 mg PO Q6 PRN 01/08/18 06/05/18 06/04/18 19:00 oxycodone-acetaminophen [Percocet] 1 - 2 tab PO Q4H PRN #20 tab 05/01/1806/05/18 Active Medications Generic Name Dose Route Start Last Admin Trade Name Freq PRN Reason Stop Dose Admin Hydromorphone HCl 25 mg 06/05/18 09:45 06/05/18 10:39 Dilaudid Quality Officer IV 06/19/18 09:44 25 mg PRN PRN Administration Pain Protocol Lactated Ringer's 1,000 mls @ 200 mls/hr 06/05/18 10:00 06/05/18 15:20 Lr IV 07/05/18 09:59 Infused .Q5H DEON Infusion Sodium Chloride 1,000 mls @ 15 mls/hr 06/05/18 10:15 06/05/18 10:14 Nss 1000ml IV 06/19/18 10:14 Not Given .Q24H DENO Piperacillin Sod/Tazobactam 115 mls @ 28.75 mls/hr 06/05/18 14:00 06/05/18 15 :12 Sod 3.375 gm/ Dextrose IV 06/15/18 13:59 28.8 mls/hr Q8H DEON Administration Protocol Ioversol 93 ml 06/05/18 07:38 06/05/18 07:38 Optiray 320 100ml IV 06/09/18 07:37 93 ml ONCE PRN Administration Interaction Checking Prenat Multivit/Masonry Inspector/Iron/Folic Ac 1 tab 06/05/18 09:00 06/05/18 08:23 Vitamin PO 07/05/18 08:59 1 tab DAILY DEON Administration Past Medical History Medical History Gastroesophageal reflux in History of depression Past Family History Family History Other Family history non-contributory Past Surgical History Surgical History History of section Done for failure to progress, 10 days over due date. [place], [place]. Had epidural dosed for C/S. S/P wrist surgery CYST REMOVAL (LEFT) Past Anesthesia History No Hx of Anesthesia Complications and No Family Hx of Anesthesia Complications History of PONV No Motion Sickness Screening History of Motion Sickness: No Social History Smoking Status: Never smoker Do You Dip or Chew Tobacco: No Hx Alcohol Use: No Hx Substance Use: No substance use type: does not use Exercise / Class Metabolic Activity II 4-5 Yardwork/Stairs/Walk up hill Physical Exam Vital Signs Last Vital Signs Temp 98.6 F 06/05/18 15:37 Pulse 79 06/05/18 15:37 Resp 16 06/05/18 15:37 BP 156/104 H 06/05/18 15:37 Pulse Ox 98 06/05/18 15:37 ENMT Mouth: no dentition abnormality Thyromental Distance: > or= 3.5 Finger Breadths Mallampati Class: II Neck normal visual inspection Respiratory normal respiratory effort Auscultation: lungs clear to auscultation bilaterally Cardiovascular Rate/Rhythm: regular rate and regular rhythm Testing Laboratory Results 06/05/18 04:25 06/05/18 04:25 PT 10.7 Seconds (9.0-12.0) 06/05/18 04:25 INR 1.1 (0.9-1.1) 06/05/18 04:25 Urine Color Dark Yellow 06/05/18 06:45 Urine Appearance Cloudy (Clear) H 06/05/18 06:45 Urine pH 5.0 (4.5-7.5) 06/05/18 06:45 Ur Specific [place] 1.017 (1.000-1.030) 06/05/18 06:45 Urine Protein Negative (Negative) 06/05/18 06:45 Urine Glucose (UA) Negative (Negative) 06/05/18 06:45 Urine Ketones Trace (Negative) H 06/05/18 06:45 Urine Nitrite Negative (Negative) 06/05/18 06:45 Ur Leukocyte Esterase Trace (Negative) H 06/05/18 06:45 Urine WBC (Auto) 1-5 /hpf (0-5) 06/05/18 06:45 Urine RBC (Auto) 0-4 /hpf (0-4) 06/05/18 06:45 U Hyaline Cast (Auto) 1-5 /lpf (0-5) 06/05/18 06:45 U Epithel Cells (Auto) 20-30 /lpf (0-5) H 06/05/18 06:45 Urine Bacteria (Auto) Negative (Negative) 06/05/18 06:45
[2018-06-05] MEDS ORDERED: ePHEDrine sulfate 50 MG/ML AMP IV PRN (16:00)
[2018-06-05] MEDS ORDERED: fentaNYL citrate 100 MCG/2 ML VIAL IV PRN (16:00)
[2018-06-05] MEDS ORDERED: ATROPINE SULFATE 0.1 MG/ML 10ML SYR IV PRN (16:00)
[2018-06-05] MEDS ORDERED: SUCCINYLCHOLINE CHLORIDE 20 MG/ML 10 ML VIAL ONE (16:15)
[2018-06-05] MEDS ORDERED: PROPOFOL IV EMULSION 10 MG/ML 20 ML VIAL IV ONE (16:15)
[2018-06-05] MEDS ORDERED: LIDOCAINE HCL 2% 2 ML VIAL/AMP(20MG/ML) INFIL ONE (16:15)
[2018-06-05] MEDS ORDERED: fentaNYL citrate 100 MCG/2 ML VIAL ONE ×2 (16:15→17:01)
[2018-06-05] MEDS ORDERED: MIDAZOLAM HCL 1 MG/ML 2ML VIAL ONE (16:15)
[2018-06-05] MEDS ORDERED: ONDANSETRON INJ 2 MG/ML 2 ML VIAL ONE (17:00)
--- NOTE | 2018-06-05 17:24 | Operative Report ---
Post Operative Report Pre & Post Diagnosis Operation Date: 06/05/18 11:50 <No data on this case meets the specified criteria> Procedure Operation Date: 06/05/18 11:50 <No data on this case meets the specified criteria> Surgeon Reny Guerrero MD Crocheter Hand None Estimated Blood Loss 0 Findings See Below (Shpincterotomy, balloown sweep, CBD stone removal, CBD and PD stenting.) Specimens None Description of Procedure ERCP I attest to the content of the Intraoperative Record and any orders documented therein. Any exceptions are noted below.
--- NOTE | 2018-06-05 17:43 | GI REPORT ---
Patient Name: Mayela Daniel Procedure Date: 06/05/2018 1:44 PM Date of : 1985 Admit Type: Inpatient Age: 32 Gender: Female Attending MD: Reny Guerrero MD Procedure: ERCP Providers: Reny Guerrero MD Referring MD: Valentín Moore, Roxanne Kennedy Do, Bravo Martinez MD Indications: Abdominal pain of suspected biliary origin, Evaluation and possible treatment of bile duct stone(s), Jaundice, Elevated liver enzymes, Gallstone associated acute pancreatitis Medicines: General Anesthesia Complications: No immediate complications. Estimated Blood Loss: Estimated blood loss: none. Procedure: Pre-Anesthesia Assessment: - Prior to the procedure, a History and Physical was performed, and patient medications and allergies were reviewed. The patient is competent. The risks and benefits of the procedure and the sedation options and risks were discussed with the patient. All questions were answered and informed consent was obtained. Patient identification and proposed procedure were verified by the physician and the nurse in the procedure room. Mental Status Examination: alert and oriented. Airway Examination: normal oropharyngeal airway and neck mobility. Respiratory Examination: clear to auscultation. CV Examination: normal. ASA Grade Assessment: II - A patient with mild systemic disease. After reviewing the risks and benefits, the patient was deemed in satisfactory condition to undergo the procedure. The anesthesia plan was to use general anesthesia. Immediately prior to administration of medications, the patient was re-assessed for adequacy to receive sedatives. The heart rate, respiratory rate, oxygen saturations, blood pressure, adequacy of pulmonary ventilation, and response to care were monitored throughout the procedure. The physical status of the patient was re-assessed after the procedure. After obtaining informed consent, the scope was passed under direct vision. Throughout the procedure, the patient's blood pressure, pulse, and oxygen saturations were monitored continuously. The scope was introduced through the mouth, and advanced to the duodenum and used to inject contrast into the bile duct. The ERCP was accomplished without difficulty. The patient tolerated the procedure well. Findings: The corporate associate film was normal. The esophagus was successfully intubated under direct vision. The scope was advanced to a normal major papilla in the descending duodenum without detailed examination of the pharynx, larynx and associated structures, and upper GI tract. The upper GI tract was grossly normal. The ventral pancreatic duct was inadvertently cannulated with the Fusion OMNI sphincterotome. The guidewire was kept in place to assist in biliary cannulation (double wire technique) and to place a prophylactic PD stent. A 0.035 inch straight standard wire was passed into the biliary tree from the first attempt. The Fusion OMNI sphincterotome was passed over the guidewire and the bile duct was then deeply cannulated. Contrast was injected. I personally interpreted the bile duct images. Ductal flow of contrast was adequate. Image quality was adequate. Contrast extended to the main bile duct. The main bile duct was moderately dilated. The largest diameter was 9 mm. The lower third of the main bile duct contained filling defect(s) thought to be a stone. Biliary sphincterotomy was made with a monofilament Fusion OMNI sphincterotome using ERBE electrocautery. There was no post-sphincterotomy bleeding. The biliary tree was swept with an 11.5 mm balloon starting at the bifurcation. Sludge was swept from the duct. One stone was removed. No stones remained. One 5 Fr by 7 cm plastic stent with a 3/4 external pigtail and no internal flaps was placed into the ventral pancreatic duct. Clear fluid flowed through the stent. The stent was in good position. One 10 Fr by 7 cm plastic stent with a single external flap and a single internal flap was placed into the common bile duct. Bile flowed through the stent. The stent was in good position. Indomethacin 100 mg was given via suppository to decrease the risk of post-ERCP pancreatitis (PEP). The total fluoroscopy exposure time was 1 minute and 21 seconds. Impression: - A filling defect consistent with a stone was seen on the cholangiogram. The entire main bile duct was moderately dilated. - Choledocholithiasis was found. Complete removal was accomplished by biliary sphincterotomy and balloon extraction. - One plastic stent was placed into the ventral pancreatic duct. - One plastic stent was placed into the common bile duct. Recommendation: - [facility]. - Clear liquid diet today. - IV Hydration. - Monitor LFTs. - Repeat ERCP in 4- 6 weeks to remove stent. - Refer to a surgeon for cholecystectomy prior to discharge. Reny Guerrero MD 06/05/2018 5:42:52 PM This report has been signed electronically. Note Initiated On: 06/05/2018 1:44 PM Number of Addenda: 0 I attest to the content of the Intraoperative Record and orders documented therein, exceptions below {[id number]}
--- NOTE | 2018-06-05 17:43 | Fluoroscopy Report ---
[place] ERCP biliary ductal CLINICAL HISTORY: EXPLORE DUCTS COMPARISON STUDY: CT of the abdomen and pelvis and abdominal ultrasound June 05, 2018. FLUOROSCOPY TIME: 1 minute and 21 seconds. FLUOROSCOPIC IMAGES: 8 FINDINGS: These images demonstrate cannulation of the common bile duct with balloon sweep through the common bile duct. Final image demonstrates placement of a biliary stent as well as a pancreatic sten t. Contrast within the gallbladder is noted. IMPRESSION: Fluoroscopic images from ERCP with placement of biliary and pancreatic stents. Electronically signed by: Rubén Nicholson M.D. 06/05/2018 5:42 PM
[2018-06-05] MEDS ORDERED: LABETALOL HCL IV 5 MG/ML 20ML IV STA (18:05)
[2018-06-05] MEDS ORDERED: LABETALOL HCL IV 5 MG/ML 20ML IV ONE (18:07)
--- NOTE | 2018-06-05 18:13 | XRay Report ---
XR chest 1V portable CLINICAL HISTORY: Respiratory difficulty COMPARISON STUDY: 01/08/2018 FINDINGS: The heart is mildly enlarged. There is mild soft tissue prominence the right paratracheal r egion which may in part be due to film rotation the AP portable technique. There are patchy bilateral airspace opacities. These could be atelectatic or secondary to aspiration. There are no significant pleural effusions.[ IMPRESSION: 1. Mild cardiomegaly 2. Patchy bilateral airspace opacities, atelectasis versus aspiration. Clinical and radiographic foll ow-up is recommended 3. Mild soft tissue prominence of the right paratracheal region. Electronically signed by: Khadar Adamson M.D. 06/05/2018 6:11 PM
--- NOTE | 2018-06-05 18:39 | Anesthesiology Progress Note ---
Date of Service June 05, 2018 Anesthesia Post Procedure Vital Signs Vital Signs: Temp Pulse Pulse Pulse Pulse Pulse Resp 06/05/18 17:45 97.7 F 105 H 24 06/05/18 15:37 98.6 F 79 16 06/05/18 15:10 98.1 F 69 17 06/05/18 13:10 98.1 F 65 20 06/05/18 11:40 97.9 F 58 L 17 06/05/18 10:40 98.2 F 70 16 06/05/18 08:00 97.9 F 59 L 18 06/05/18 07:38 67 18 06/05/18 06:38 65 18 06/05/18 05:25 68 18 06/05/18 04:06 97.3 F L 84 24 BP BP BP Pulse Ox 06/05/18 17:45 134/84 93 06/05/18 15:37 156/104 H 98 06/05/18 15:10 166/106 H 96 06/05/18 13:10 154/108 H 100 06/05/18 11:40 163/101 H 99 06/05/18 10:40 162/108 H 93 06/05/18 08:00 166/109 H 97 06/05/18 07:38 157/103 H 98 06/05/18 06:38 166/111 H 98 06/05/18 05:25 156/107 H 98 06/05/18 04:06 148/90 H 99 Pain Intensity Medial Abdomen: Pain Intensity: 0 Notes Mental Status: alert / awake / arousable and participated in evaluation Patient Amnestic to Procedure: Yes Nausea / Vomiting: adequately controlled Pain: adequately controlled Airway Patency, RR, SpO2: stable & adequate BP & HR: stable & adequate Hydration State: stable & adequate Anesthetic Complications: see Notes below and Pt Satisfied with anesthetic care Notes: see attached progress note
--- NOTE | 2018-06-05 18:43 | Anesthesiology Progress Note ---
Date of Service June 05, 2018 Subjective The patient underwent an ERCP under general anesthesia with endotracheal tube. The patient was induced under general anesthesia using rapid sequence induction. The induction/intubation were uneventful, but prior to endotracheal tube insertion, there was noted bile in the oropharynx. The oropharynx was suctioned. The endotracheal tube was inserted in the trachea, and there was no visual evidence of bile in the tube and the patient's lung sounds were clear. The patient's vital signs were stable throughout the procedure. Prior to extubation, it was noted that there was some bile in the endotracheal tube. The tube was suctioned, and the patient was extubated uneventfully. I ordered a CXR in PACU, which stated "Patchy bilateral airspace opacities, atelectasis versus aspiration." Again, the patient was resting comfortably in PACU. She stated no issues with her breathing. Her lung sounds were clear. I spoke with Dr. Guerrero about the patient's status. I also spoke with Dr. Moore, who is following the patient. I also spoke to the patient about the likely aspiration of bile, and I told her to notify her nurse if she has any issues with her breathing or increased coughing. A continuous pulse oximeter was ordered. Outside of her baseline hypertension, the patient's vital signs were stable throughout her PACU stay. Physical Exam Vital Signs Last Vital Signs Temp 97.7 F 06/05/18 17:45 Pulse 105 H 06/05/18 17:45 Resp 24 06/05/18 17:45 BP 134/84 06/05/18 17:45 Pulse Ox 93 06/05/18 17:45 Respiratory normal respiratory effort; no respiratory distress Auscultation: lungs clear to auscultation bilaterally Results & Data Medications Administered Hydromorphone HCl (Dilaudid Manager Trade Marketing) 25 mg IV PRN PRN; Protocol PRN Reason: Pain Stop: 06/19/18 09:44 Last Admin: 06/05/18 10:39 Dose: 25 mg Lactated Ringer's (Lr) 1,000 mls @ 200 mls/hr IV .Q5H DEON Stop: 07/05/18 09:59 Last Infusion: 06/05/18 15:20 Dose: 0 mls/hr Admin: 06/05/18 10:11 Dose: 200 mls/hr Sodium Chloride (Nss 1000ml) 1,000 mls @ 15 mls/hr IV .Q24H DEON Stop: 06/19/18 10:14 Last Admin: 06/05/18 10:14 Dose: Not Given Piperacillin Sod/Tazobactam (Sod 3.375 gm/ Dextrose) 115 mls @ 28.75 mls/hr IV Q8H DEON; Protocol Stop: 06/15/18 13:59 Last Admin: 06/05/18 15:12 Dose: 28.8 mls/hr Ioversol (Optiray 320 100ml) 93 ml IV ONCE PRN PRN Reason: Interaction Checking Stop: 06/09/18 07:37 Last Admin: 06/05/18 07:38 Dose: 93 ml Prenat Multivit/[place]/Iron/Folic Ac ( Vitamin) 1 tab PO DAILY DEON Stop: 07/05/18 08:59 Last Admin: 06/05/18 08:23 Dose: 1 tab
--- NOTE | 2018-06-05 21:31 | Hospitalist Progress Note ---
Date of Service June 05, 2018 Subjective Pt admitted in the AM of 06/05. U/S and CT suggests acute cholecystitis and choledocholithiais; suggests possible pneumatosis of the GB and possibly necrotizing pancreatitis Appears to be in severe pain and given loading dose of dilaudid and SENIOR UI DESIGNER initiated. Reassessment in afternoon and she is looking more comfortable than the AM but still not completely relieved. She then went for ERCP with sphincterotomy and stents of the pancreatic duct and CBD She was noted to have some bile in the airway prior to intubation and also on the ET tube on extubation but doing well from a respiratory standpoint at this time She is actively but confirmed she plans to pump/dump while on pain medication Discussed with Gen Surg this AM; planning on cholecystectomy this week but awaiting clinical improvement prior to surgical intervention Physical Exam 2 Vital Signs (Past 24 Hours): Last Vital Signs Temp 36.5 C 06/05/18 19:28 Pulse 93 H 06/05/18 20:58 Resp 17 06/05/18 20:58 BP 144/89 H 06/05/18 20:58 Pulse Ox 97 06/05/18 20:58 Constitutional: well developed, well nourished, + acute distress and + ill appearing Eyes: + anicteric sclerae Neck: trachea midline Respiratory: normal respiratory effort, lungs clear to auscultation Cardiovascular: Rate/Rhythm: regular rate and regular rhythm Gastrointestinal (Abdomen): Inspection/Auscultation: normal bowel sounds Percussion/Palpation: + abdomen tender and abdomen soft; no guarding and abdomen not rigid Musculoskeletal: Head/Neck/Chest: normocephalic and neck supple Skin: no rashes, warm and dry healed incision Neurologic: moves all extremities Psychiatric: Orientation: alert and oriented x 3
[2018-06-06] MEDS ORDERED: PROPRANOLOL HCL 10 MG TAB PO STA (00:59)
[2018-06-06] MEDS: SODIUM CHLORIDE 0.9% 1000ML 1,000 ML IV SCH ×2 (01:56→07:24)
[2018-06-06] MEDS: PIPERACILLIN/TAZOBACTAM 3.375 GM in DEXTROSE 5% 100 ML IV SCH ×3 (05:57→20:47)
[2018-06-06] MEDS: HYDROmorphone HCL 0.5MG/ML 50 ML CASSETTE IV PRN (07:10)
[2018-06-06] MEDS: PRENATAL VITAMIN 1 TAB PO SCH (07:25)
--- NOTE | 2018-06-06 08:01 | Surgery Progress Note ---
Date of Service June 06, 2018 Assessment & Plan (1) Biliary acute pancreatitis: s/p ERCP AM labs pending will need lap alejandra this admission after pancreatitis improves perhaps later this week will follow along closely Subjective still with abdominal pain but improved from yesterday Physical Exam 2 Vital Signs (Past 24 Hours): Last Vital Signs Temp 37.0 C 06/06/18 07:28 Pulse 87 06/06/18 07:28 Resp 18 06/06/18 07:28 BP 142/96 H 06/06/18 07:28 Pulse Ox 92 06/06/18 07:28 Physical Exam: alert. mild discomfort abd: soft. +diffuse upper abd ttp.
[2018-06-06 08:14] LABS: Basophils # (auto) 0.01 K/uL (0-0.2); Basophils % (auto) 0.1 %; Hematocrit (blood only) 36.8 % (37-47); Hemoglobin 11.6 g/dL (12.0-16.0); Immature Granulocytes # (auto) 0.03 K/uL (0.00-0.02); Immature Granulocytes % (auto) 0.2 %; Lymphocytes # (auto) 0.87 K/uL (1.2-3.4); Lymphocytes % (auto) 5.7 %; Mean Corpuscular Hgb Conc 31.5 g/dL (32-36); Mean Corpuscular Volume 78.8 fL (80-100); Mean Platelet Volume 10.8 fL (7.4-10.4); Monocytes # (auto) 0.91 K/uL (0.11-0.59); Neutrophils # (auto) 13.42 K/uL (1.4-6.5); Platelet Count 345 K/uL (130-400); RDW Coefficient of Variation 15.9 % (11.5-14.5); RDW Standard Deviation 45.5 fL (36.4-46.3); Red Blood Count 4.67 M/uL (4.2-5.4); White Blood Count 15.24 K/uL (4.8-10.8)
[2018-06-06 08:25] LABS: BUN Creatinine Ratio 15.4 (10-20); Calcium 8.3 mg/dl (8.5-10.1); Creatinine Clr Calc Pharmacy 93.7 ml/min; Est GFR (African American) 88.6; Est GFR (Non-African American) 76.5
[2018-06-06 08:56] LABS: Albumin Level 2.9 gm/dl (3.4-5.0); Bilirubin Direct 0.6 mg/dl (0-0.2); Bilirubin,Total 1.3 mg/dl (0.2-1); Total Protein 6.7 gm/dl (6.4-8.2)
--- NOTE | 2018-06-06 11:01 | Anesthesiology Progress Note ---
Date of Service June 06, 2018 Patient seen in her room; pt. is not in any visible resp. distress;pt denies having any significant SOB or dyspnea; pt has consistent pulse ox spo2% 93 on RA ;on auscultation BS's are clear. Physical Exam Vital Signs Last Vital Signs Temp 37.0 C 06/06/18 07:28 Pulse 87 06/06/18 07:28 Resp 18 06/06/18 07:28 BP 142/96 H 06/06/18 07:28 Pulse Ox 92 06/06/18 07:28 Results & Data Medications Administered Hydromorphone HCl (Dilaudid Electronic Equipment Set Up Operator) 25 mg IV PRN PRN; Protocol PRN Reason: Pain Stop: 06/19/18 09:44 Last Admin: 06/06/18 07:10 Dose: 25 mg Admin: 06/05/18 10:39 Dose: 25 mg Sodium Chloride (Nss 1000ml) 1,000 mls @ 200 mls/hr IV .Q5H DEON Stop: 06/19/18 10:14 Last Admin: 06/06/18 07:24 Dose: 200 mls/hr Infusion: 06/06/18 06:57 Dose: 200 mls/hr Infusion: 06/06/18 06:54 Dose: 200 mls/hr Admin: 06/06/18 01:56 Dose: 200 mls/hr Infusion: 06/06/18 01:30 Dose: 200 mls/hr Admin: 06/05/18 20:30 Dose: 200 mls/hr Admin: 06/05/18 10:14 Dose: Not Given Piperacillin Sod/Tazobactam (Sod 3.375 gm/ Dextrose) 115 mls @ 28.75 mls/hr IV Q8H DEON; Protocol Stop: 06/15/18 13:59 Last Infusion: 06/06/18 10:05 Dose: 0 mls/hr Infusion: 06/06/18 06:54 Dose: 28.8 mls/hr Admin: 06/06/18 05:57 Dose: 28.8 mls/hr Infusion: 06/06/18 01:10 Dose: 0 mls/hr Admin: 06/05/18 21:10 Dose: 28.8 mls/hr Infusion: 06/05/18 19:25 Dose: 0 mls/hr Admin: 06/05/18 15:12 Dose: 28.8 mls/hr Ioversol (Optiray 320 100ml) 93 ml IV ONCE PRN PRN Reason: Interaction Checking Stop: 06/09/18 07:37 Last Admin: 06/05/18 07:38 Dose: 93 ml Prenat Multivit/[place]/Iron/Folic Ac ( Vitamin) 1 tab PO DAILY DEON Stop: 07/05/18 08:59 Last Admin: 06/06/18 07:25 Dose: 1 tab Admin: 06/05/18 08:23 Dose: 1 tab
--- NOTE | 2018-06-06 11:21 | Gastroenterology Progress Note ---
Date of Service June 06, 2018 Assessment & Plan (1) Cholecystitis: Present on Admission?: Yes (2) Choledocholithiasis: Present on Admission?: Yes (3) Biliary acute pancreatitis: Pt is a 32 y/o female w RUQ abd pain, n/v, elevated LFTs and lipase; imaging studies suspicious for gallstone pancreatitis, developing nectrotizing pancreatitis. ERCP performed 06/05/18 w choledocholithiasis removal, biliary sphincterectomy, stent placements in CBD and ventral pancreatic ducts. LFTs and Lipase improving, symptomatically better. - OK to start sips of CL - IVF w LR@ 150ml/hr - Monitor LFTs and Lipase - Symptomatic management w antiemetics and analgesics prn. - Surgery following, plan for lap cholecystectomy during this admission. - She will need repeat ERCP in 4-6 week's time to remove her stents. We will help schedule Attg add: I interviewed and examined pt, reviewed chart and labs. Pt with persistent, albeit improved pain. Mild tachy, O2 sat 90-99.On dilaudid RECOVERER. + lack of hunger, min flatus. Plan relistor for possible narc induced ileus, CT if pain is persistent to eval for panc necrosis. Diet as stewart - at present stewart clear liquids, will follow. Suspect low O2 sat is related to splinting, narcs - follow for now, encourage mobility and IS, and cont SCD's for DVT prophy. Present on Admission?: Yes Subjective Pt s/p ERCP yesterday for choledoholithiasis extraction, biliary sphincterectomy and plastic stents placement in CBD and ventral pancreatic ducts. She is on RECOVERER pump. Having still some abd pain but better than yesterday. No N/V, but not much of an appetite. LFTs and Lipase decreasing. Afebrile overnight. Physical Exam 2 Vital Signs (Past 24 Hours): Last Vital Signs Temp 37.0 C 06/06/18 07:28 Pulse 87 06/06/18 07:28 Resp 18 06/06/18 07:28 BP 142/96 H 06/06/18 07:28 Pulse Ox 92 06/06/18 07:28 Constitutional: WD/WN, vitals as above well groomed, cooperative and comfortable Eyes: PERRL, conjunctivae normal, anicteric sclerae ENMT: external ear and nose normal, oropharynx normal Respiratory: normal respiratory effort, lungs clear to auscultation Cardiovascular: RRR, no murmur, no edema Gastrointestinal (Abdomen): normal bowel sounds, soft, nontender, no hepatosplenomegaly Skin: no rashes, warm and dry no jaundice Neurologic: Motor/Sensory: no asterixis Psychiatric: A+Ox3, euthymic affect Lymphatic: no lymphedema Results & Data Laboratory Results Laboratory Results - last 48 hr 06/05/18 06/05/18 06/05/18 04:25 04:25 04:25 WBC 10.93 H RBC 4.83 Hgb 12.5 Hct 37.9 MCV 78.5 L MCH 25.9 MCHC 33.0 RDW Std Deviation 44.0 RDW Coeff of Latoya 15.3 H Plt Count 328 MPV 10.9 H Immature Gran % (Auto) 0.2 Neut % (Auto) 80.4 Lymph % (Auto) 13.1 Bonner % (Auto) 5.5 Eos % (Auto) 0.6 Baso % (Auto) 0.2 Immature Gran # (Auto) 0.02 Neut # (Auto) 8.79 H Lymph # (Auto) 1.43 Bonner # (Auto) 0.60 H Eos # (Auto) 0.07 Baso # (Auto) 0.02 PT INR Sodium 139 Potassium 3.5 Chloride 106 Carbon Dioxide 25 Anion Gap 8.0 BUN 13 Creatinine 1.27 H Est Cr Clr Drug Dosing 73.0 Est GFR ( Amer) 65.6 Est GFR (Non-Af Amer) 56.6 BUN/Creatinine Ratio 10.3 Glucose 132 H Calcium 9.3 Total Bilirubin 3.6 H Direct Bilirubin AST 423 H ALT 425 H Alkaline Phosphatase 244 H Total Protein 8.1 Albumin 3.6 Globulin 4.5 H Albumin/Globulin Ratio 0.8 L Lipase 98768 H HCG, Qual Negative Urine Color Urine Appearance Urine pH Ur Specific [place] Urine Protein Urine Glucose (UA) Urine Ketones Urine Blood Urine Nitrite Urine Bilirubin Urine Urobilinogen Ur Leukocyte Esterase Urine WBC (Auto) Urine RBC (Auto) U Hyaline Cast (Auto) U Epithel Cells (Auto) Urine Bacteria (Auto) Urine Crystals Calcium Oxalate Crystal 06/05/18 06/05/18 06/06/18 04:25 06:45 07:37 WBC RBC Hgb Hct MCV MCH MCHC RDW Std Deviation RDW Coeff of Latoya Plt Count MPV Immature Gran % (Auto) Neut % (Auto) Lymph % (Auto) Bonner % (Auto) Eos % (Auto) Baso % (Auto) Immature Gran # (Auto) Neut # (Auto) Lymph # (Auto) Bonner # (Auto) Eos # (Auto) Baso # (Auto) PT 10.7 INR 1.1 Sodium 138 Potassium 4.0 Chloride 107 Carbon Dioxide 25 Anion Gap 6.0 BUN 15 Creatinine 0.99 Est Cr Clr Drug Dosing 93.7 Est GFR ( Amer) 88.6 Est GFR (Non-Af Amer) 76.5 BUN/Creatinine Ratio 15.4 Glucose 112 H Calcium 8.3 L Total Bilirubin Direct Bilirubin AST ALT Alkaline Phosphatase Total Protein Albumin Globulin Albumin/Globulin Ratio Lipase 49356 H HCG, Qual Urine Color Dark Yellow Urine Appearance Cloudy H Urine pH 5.0 Ur Specific [place] 1.017 Urine Protein Negative Urine Glucose (UA) Negative Urine Ketones Trace H Urine Blood 2+ H Urine Nitrite Negative Urine Bilirubin 2+ H Urine Urobilinogen Negative Ur Leukocyte Esterase Trace H Urine WBC (Auto) 1-5 Urine RBC (Auto) 0-4 U Hyaline Cast (Auto) 1-5 U Epithel Cells (Auto) 20-30 H Urine Bacteria (Auto) Negative Urine Crystals Not Reportable Calcium Oxalate Crystal Present H 06/06/18 06/06/18 07:37 07:37 WBC 15.24 H RBC 4.67 Hgb 11.6 L Hct 36.8 L MCV 78.8 L MCH 24.8 L MCHC 31.5 L RDW Std Deviation 45.5 RDW Coeff of Latoya 15.9 H Plt Count 345 MPV 10.8 H Immature Gran % (Auto) 0.2 Neut % (Auto) 88.0 Lymph % (Auto) 5.7 Bonner % (Auto) 6.0 Eos % (Auto) 0.0 Baso % (Auto) 0.1 Immature Gran # (Auto) 0.03 H Neut # (Auto) 13.42 H Lymph # (Auto) 0.87 L Bonner # (Auto) 0.91 H Eos # (Auto) 0.00 Baso # (Auto) 0.01 PT INR Sodium Potassium Chloride Carbon Dioxide Anion Gap BUN Creatinine Est Cr Clr Drug Dosing Est GFR ( Amer) Est GFR (Non-Af Amer) BUN/Creatinine Ratio Glucose Calcium Total Bilirubin 1.3 H D Direct Bilirubin 0.6 H AST 330 H ALT 425 H Alkaline Phosphatase 165 H Total Protein 6.7 Albumin 2.9 L Globulin Albumin/Globulin Ratio Lipase HCG, Qual Urine Color Urine Appearance Urine pH Ur Specific [place] Urine Protein Urine Glucose (UA) Urine Ketones Urine Blood Urine Nitrite Urine Bilirubin Urine Urobilinogen Ur Leukocyte Esterase Urine WBC (Auto) Urine RBC (Auto) U Hyaline Cast (Auto) U Epithel Cells (Auto) Urine Bacteria (Auto) Urine Crystals Calcium Oxalate Crystal
[2018-06-06] MEDS: LACTATED RINGER'S 1,000 ML IV SCH ×2 (11:44→19:37)
--- NOTE | 2018-06-06 13:10 | Anesthesiology Progress Note ---
Date of Service June 06, 2018 Anesthesia Post Procedure Vital Signs Vital Signs: Temp Pulse Pulse Pulse Resp BP BP 06/06/18 12:47 37.0 C 95 H 18 156/88 H 06/06/18 07:28 37.0 C 87 18 06/06/18 03:05 36.9 C 80 18 06/05/18 23:54 36.8 C 93 H 15 147/103 H 06/05/18 22:05 36.9 C 95 H 17 142/94 H 06/05/18 20:58 93 H 17 144/89 H 06/05/18 19:55 88 17 142/91 H 06/05/18 19:28 36.5 C 88 17 138/90 06/05/18 19:00 36.6 C 64 18 145/101 H 06/05/18 18:50 87 16 06/05/18 18:46 82 15 147/104 H 06/05/18 18:45 82 17 06/05/18 18:40 37.0 C 86 18 06/05/18 18:37 80 16 06/05/18 18:36 84 17 153/101 H 06/05/18 18:35 83 18 06/05/18 18:31 85 20 147/104 H 06/05/18 18:30 82 17 06/05/18 18:26 88 19 147/101 H 06/05/18 18:25 82 15 06/05/18 18:21 80 17 149/101 H 06/05/18 18:20 80 16 06/05/18 18:16 82 17 148/102 H 06/05/18 18:15 86 17 06/05/18 18:11 87 22 133/106 H 06/05/18 18:10 89 18 06/05/18 18:06 89 19 06/05/18 18:05 87 21 148/106 H 06/05/18 18:01 90 21 146/101 H 06/05/18 18:00 92 H 23 06/05/18 17:56 91 H 22 149/100 H 06/05/18 17:55 99 H 14 06/05/18 17:51 98 H 18 144/98 H 06/05/18 17:50 99 H 19 06/05/18 17:45 36.5 C 104 H 105 H 25 H 134/84 134/84 06/05/18 15:37 37 C 79 16 06/05/18 15:10 36.7 C 69 17 166/106 H 06/05/18 13:10 36.7 C 65 20 BP Pulse Ox 06/06/18 12:47 95 06/06/18 07:28 142/96 H 92 06/06/18 03:05 143/99 H 99 06/05/18 23:54 99 06/05/18 22:05 98 06/05/18 20:58 97 06/05/18 19:55 97 06/05/18 19:28 96 06/05/18 19:00 93 06/05/18 18:50 97 06/05/18 18:46 98 06/05/18 18:45 98 06/05/18 18:40 98 06/05/18 18:37 98 06/05/18 18:36 98 06/05/18 18:35 98 06/05/18 18:31 99 06/05/18 18:30 99 06/05/18 18:26 99 06/05/18 18:25 98 06/05/18 18:21 99 06/05/18 18:20 99 06/05/18 18:16 98 06/05/18 18:15 97 06/05/18 18:11 98 06/05/18 18:10 99 06/05/18 18:06 98 06/05/18 18:05 98 06/05/18 18:01 98 06/05/18 18:00 98 06/05/18 17:56 97 06/05/18 17:55 96 06/05/18 17:51 96 06/05/18 17:50 95 06/05/18 17:45 93 06/05/18 15:37 156/104 H 98 06/05/18 15:10 96 06/05/18 13:10 154/108 H 100 Notes Mental Status: alert / awake / arousable and participated in evaluation Nausea / Vomiting: adequately controlled Pain: adequately controlled Airway Patency, RR, SpO2: stable & adequate BP & HR: stable & adequate Hydration State: stable & adequate
[2018-06-06] MEDS ORDERED: LACTATED RINGER'S 1,000 ML IV ONE (14:39)
[2018-06-06] MEDS ORDERED: METHYLNALTREXONE BROMIDE 12 MG/0.6 ML VIAL SQ ONE (16:00)
--- NOTE | 2018-06-06 17:44 | Hospitalist Progress Note ---
Date of Service June 06, 2018 Assessment & Plan (1) Choledocholithiasis with acute cholecystitis: - Remains afebrile and hemodynamically stable; WBC is elevating and will monitor - S/P ERCP with stone removal and stents x 2 (pancreatic/CBD) placed and will need repeat ERCP in 4-6 weeks for stent removal - Started on clear liquids and will monitor closely for tolerance; may need to consider KUB vs repeat CT in AM pending pain control/bowel movements and monitor for ileus - Zosyn therapy; Aggressive IVFs; Continue Dilaudid VULCANIZED FIBER UNIT OPERATOR for now - Daily BMP/Hepatic Panel - GI and Gen Surg following - appreciate recommendations - anticipating cholecystectomy later this week Present on Admission?: Yes (2) Necrotizing pancreatitis: - CT evidence of such - possible; Zosyn and treatment as above - Consideration for repeat CT prior to D/C but definitely will need on in coming weeks for monitoring - [place] [id number] [place] [id number] with some symptom improvement but still clinically ill Present on Admission?: Yes (3) state: - S/P C Section with well healed incision; breast pump provided at bedside - patient aware to pump/dump due to pain medication Present on Admission?: Yes (4) DVT prophylaxis: Disposition: Planning on cholecystectomy prior to discharge but awaiting acute nature to calm down to reduce surgical risk; will be slow to advance diet pending tolerance; suspect prolonged stay due to severe nature of illness - possible 5-7 days Subjective Reports ongoing abdominal pain but slightly improved and does look more comfortable than yesterday but remains ill appearing. She is about to try some clear liquids and discussed going slowly and stop if her pain worsens She is using the VULCANIZED FIBER UNIT OPERATOR pretty consistent so normally getting about 1 mg an hour and will monitor for adjustments Constitutional: + fatigue, + weakness and + anorexia; no fever and no chills Respiratory: no cough and no dyspnea Cardiovascular: no chest pain, no palpitations and no edema Gastrointestinal: + abdominal pain and + bloating; no nausea, no vomiting, no constipation and no diarrhea/loose stools Genitourinary (Female): no dysuria Integumentary: no rash Physical Exam 2 Vital Signs (Past 24 Hours): Last Vital Signs Temp 37.1 C 06/06/18 14:42 Pulse 99 H 06/06/18 14:42 Resp 16 06/06/18 14:42 BP 161/110 H 06/06/18 14:42 Pulse Ox 90 06/06/18 14:42 Constitutional: well developed, well nourished, + acute distress and + ill appearing Eyes: + anicteric sclerae Neck: trachea midline Respiratory: normal respiratory effort, lungs clear to auscultation Cardiovascular: Rate/Rhythm: regular rate and regular rhythm Gastrointestinal (Abdomen): Inspection/Auscultation: normal bowel sounds Percussion/Palpation: + abdomen tender and abdomen soft (but slightly bloated); no guarding and abdomen not rigid Musculoskeletal: Head/Neck/Chest: normocephalic and neck supple Skin: no rashes, warm and dry Neurologic: moves all extremities Psychiatric: Orientation: alert and oriented x 3
[2018-06-07] MEDS: PIPERACILLIN/TAZOBACTAM 3.375 GM in DEXTROSE 5% 100 ML IV SCH ×3 (02:18→14:43)
[2018-06-07] MEDS: LACTATED RINGER'S 1,000 ML IV SCH ×5 (02:55→23:00)
[2018-06-07 07:31] LABS: Hematocrit (blood only) 33.6 % (37-47); Hemoglobin 10.7 g/dL (12.0-16.0); Mean Corpuscular Hgb Conc 31.8 g/dL (32-36); Mean Corpuscular Volume 77.2 fL (80-100); Mean Platelet Volume 11.2 fL (7.4-10.4); Platelet Count 301 K/uL (130-400); RDW Coefficient of Variation 16.2 % (11.5-14.5); RDW Standard Deviation 45.7 fL (36.4-46.3); Red Blood Count 4.35 M/uL (4.2-5.4)
[2018-06-07 08:08] LABS: Albumin Level 2.6 gm/dl (3.4-5.0); BUN Creatinine Ratio 14.7 (10-20); Bilirubin Direct 0.5 mg/dl (0-0.2); Calcium 8.5 mg/dl (8.5-10.1); Creatinine Clr Calc Pharmacy 114.5 ml/min; Est GFR (Non-African American) 97.5; Potassium 3.6 mmol/L (3.5-5.1)
[2018-06-07 08:11] LABS: Total Protein 6.3 gm/dl (6.4-8.2)
--- NOTE | 2018-06-07 08:21 | Surgery Progress Note ---
Date of Service June 07, 2018 Assessment & Plan (1) Biliary acute pancreatitis: lipase trending down, waiting for bowel function to return lap alejandra possibly in 1-2 days, will recheck tomorrow AM, NPO tonight as above. clinically improving but still symptomatic labs improving. lipase down to 4,000 will re-eval tomorrow for possible lap alejandra Subjective no flatus or BM, pain 6-7, tolerating clears Physical Exam 2 Vital Signs (Past 24 Hours): Last Vital Signs Temp 36.9 C 06/07/18 07:20 Pulse 104 H 06/07/18 07:20 Resp 17 06/07/18 07:20 BP 141/91 H 06/07/18 07:20 Pulse Ox 95 06/07/18 07:20 Gastrointestinal (Abdomen): Inspection/Auscultation: + abdomen distended ( slightly) Percussion/Palpation: + abdomen tender (mild epigastric)
[2018-06-07] MEDS: PRENATAL VITAMIN 1 TAB PO SCH (08:37)
--- NOTE | 2018-06-07 09:07 | Gastroenterology Progress Note ---
Date of Service June 07, 2018 Assessment & Plan (1) Biliary acute pancreatitis: (2) Choledocholithiasis with acute cholecystitis: Pt is a 32 y/o female w RUQ abd pain, n/v, elevated LFTs and lipase; imaging studies suspicious for gallstone pancreatitis, developing nectrotizing pancreatitis. ERCP performed 06/05/18 w choledocholithiasis removal, biliary sphincterectomy, stent placements in CBD and ventral pancreatic ducts. LFTs and Lipase improving, symptomatically a bit better. Mild fever overnight. Still not passing flatus, abd pain same, no much of appetite. WBC increasing, LFTs, Lipase trending down - Recommend infectious workup (blood cx, urine culture) given fever, increasing WBC despite being on Zosyn - Consider repeat CT abd/pelvis to check for necrosis of pancreas. - CL diet; advance as tolerated. If not having good PO intake, will consider NGT feeding temporarily. - IVF w LR@ 150ml/hr - Encouraged use of incentive spirometry and ambulation to prevent pneumonia and DVTs. - Colace and Senna while on IMPROVEMENT COORDINATOR; will repeat Relistor tomorrow if still not passing flatus or BM - Monitor LFTs and Lipase - Symptomatic management w antiemetics and analgesics prn. - Surgery following, plan for lap cholecystectomy maybe tomorrow - She will need repeat ERCP in 4-6 week's time to remove her stents. We will help schedule Attg add: I interviewed and examined pt, reviewed chart and labs. She reports persistent abd pain with only slight improvement. She is not passing flatus, and has poor appetite, although stewart small amts clears. She is ambulating. On exam, she appears mildly uncomfortable; she does not appear toxic. She is tachy and midly hypertensive. Her oral and scleral mucosa are mildly dry. She reports abd pain but does not wince with mild abd pressure. BS are diminished. Labs show improved transaminases. Her creat is WNL, WBC increased to 19. A/P: GSP, s/p ERCP with cont'd improvement in LFTs. Her O2 sats are good and creat WNL, but given persistent pain and diff with PO, as well as rising WBC, will repeat CT to eval for panc necrosis. Cont senna, PRN relistor for ileus; if continues to have diff stewart PO over next 1-2 days, consider NG for feeds. Consider resuming DVT prophylaxis with heparin, if OK with surgery service. Encourage ambulation and Incentive spirometry. Surg following for possible alejandra. Present on Admission?: Yes Subjective Pt w mild fever last night (37.7C). WBC up to 19K. Still low appetite but denies N/V. Abd pain still present. On IMPROVEMENT COORDINATOR Dilaudid. Not passing flatus, no BM Physical Exam 2 Vital Signs (Past 24 Hours): Last Vital Signs Temp 36.9 C 06/07/18 07:20 Pulse 104 H 06/07/18 07:20 Resp 17 06/07/18 07:20 BP 141/91 H 06/07/18 07:20 Pulse Ox 95 06/07/18 07:20 Constitutional: WD/WN, vitals as above well groomed, cooperative and comfortable Eyes: PERRL, conjunctivae normal, anicteric sclerae ENMT: external ear and nose normal, oropharynx normal Respiratory: normal respiratory effort, lungs clear to auscultation Cardiovascular: RRR, no murmur, no edema Gastrointestinal (Abdomen): Percussion/Palpation: + abdomen tender (RUQ) and abdomen soft absent bowel sounds Skin: no rashes, warm and dry no jaundice Neurologic: Motor/Sensory: no asterixis Psychiatric: A+Ox3, euthymic affect Lymphatic: no lymphedema Results & Data Laboratory Results Laboratory Results - last 72 hr 06/05/18 06/05/18 06/05/18 04:25 04:25 04:25 WBC 10.93 H RBC 4.83 Hgb 12.5 Hct 37.9 MCV 78.5 L MCH 25.9 MCHC 33.0 RDW Std Deviation 44.0 RDW Coeff of Latoya 15.3 H Plt Count 328 MPV 10.9 H Immature Gran % (Auto) 0.2 Neut % (Auto) 80.4 Lymph % (Auto) 13.1 Warrick % (Auto) 5.5 Eos % (Auto) 0.6 Baso % (Auto) 0.2 Immature Gran # (Auto) 0.02 Neut # (Auto) 8.79 H Lymph # (Auto) 1.43 Warrick # (Auto) 0.60 H Eos # (Auto) 0.07 Baso # (Auto) 0.02 PT INR Sodium 139 Potassium 3.5 Chloride 106 Carbon Dioxide 25 Anion Gap 8.0 BUN 13 Creatinine 1.27 H Est Cr Clr Drug Dosing 73.0 Est GFR ( Amer) 65.6 Est GFR (Non-Af Amer) 56.6 BUN/Creatinine Ratio 10.3 Glucose 132 H Calcium 9.3 Total Bilirubin 3.6 H Direct Bilirubin AST 423 H ALT 425 H Alkaline Phosphatase 244 H Total Protein 8.1 Albumin 3.6 Globulin 4.5 H Albumin/Globulin Ratio 0.8 L Lipase 87454 H HCG, Qual Negative Urine Color Urine Appearance Urine pH Ur Specific Gorman Urine Protein Urine Glucose (UA) Urine Ketones Urine Blood Urine Nitrite Urine Bilirubin Urine Urobilinogen Ur Leukocyte Esterase Urine WBC (Auto) Urine RBC (Auto) U Hyaline Cast (Auto) U Epithel Cells (Auto) Urine Bacteria (Auto) Urine Crystals Calcium Oxalate Crystal 06/05/18 06/05/18 06/06/18 04:25 06:45 07:37 WBC RBC Hgb Hct MCV MCH MCHC RDW Std Deviation RDW Coeff of Latoya Plt Count MPV Immature Gran % (Auto) Neut % (Auto) Lymph % (Auto) Warrick % (Auto) Eos % (Auto) Baso % (Auto) Immature Gran # (Auto) Neut # (Auto) Lymph # (Auto) Warrick # (Auto) Eos # (Auto) Baso # (Auto) PT 10.7 INR 1.1 Sodium 138 Potassium 4.0 Chloride 107 Carbon Dioxide 25 Anion Gap 6.0 BUN 15 Creatinine 0.99 Est Cr Clr Drug Dosing 93.7 Est GFR ( Amer) 88.6 Est GFR (Non-Af Amer) 76.5 BUN/Creatinine Ratio 15.4 Glucose 112 H Calcium 8.3 L Total Bilirubin Direct Bilirubin AST ALT Alkaline Phosphatase Total Protein Albumin Globulin Albumin/Globulin Ratio Lipase 49107 H HCG, Qual Urine Color Dark Yellow Urine Appearance Cloudy H Urine pH 5.0 Ur Specific Gorman 1.017 Urine Protein Negative Urine Glucose (UA) Negative Urine Ketones Trace H Urine Blood 2+ H Urine Nitrite Negative Urine Bilirubin 2+ H Urine Urobilinogen Negative Ur Leukocyte Esterase Trace H Urine WBC (Auto) 1-5 Urine RBC (Auto) 0-4 U Hyaline Cast (Auto) 1-5 U Epithel Cells (Auto) 20-30 H Urine Bacteria (Auto) Negative Urine Crystals Not Reportable Calcium Oxalate Crystal Present H 06/06/18 06/06/18 06/07/18 07:37 07:37 06:54 WBC 15.24 H 19.00 H RBC 4.67 4.35 Hgb 11.6 L 10.7 L Hct 36.8 L 33.6 L MCV 78.8 L 77.2 L MCH 24.8 L 24.6 L MCHC 31.5 L 31.8 L RDW Std Deviation 45.5 45.7 RDW Coeff of Latoya 15.9 H 16.2 H Plt Count 345 301 MPV 10.8 H 11.2 H Immature Gran % (Auto) 0.2 Neut % (Auto) 88.0 Lymph % (Auto) 5.7 Warrick % (Auto) 6.0 Eos % (Auto) 0.0 Baso % (Auto) 0.1 Immature Gran # (Auto) 0.03 H Neut # (Auto) 13.42 H Lymph # (Auto) 0.87 L Warrick # (Auto) 0.91 H Eos # (Auto) 0.00 Baso # (Auto) 0.01 PT INR Sodium Potassium Chloride Carbon Dioxide Anion Gap BUN Creatinine Est Cr Clr Drug Dosing Est GFR ( Amer) Est GFR (Non-Af Amer) BUN/Creatinine Ratio Glucose Calcium Total Bilirubin 1.3 H D Direct Bilirubin 0.6 H AST 330 H ALT 425 H Alkaline Phosphatase 165 H Total Protein 6.7 Albumin 2.9 L Globulin Albumin/Globulin Ratio Lipase HCG, Qual Urine Color Urine Appearance Urine pH Ur Specific Gorman Urine Protein Urine Glucose (UA) Urine Ketones Urine Blood Urine Nitrite Urine Bilirubin Urine Urobilinogen Ur Leukocyte Esterase Urine WBC (Auto) Urine RBC (Auto) U Hyaline Cast (Auto) U Epithel Cells (Auto) Urine Bacteria (Auto) Urine Crystals Calcium Oxalate Crystal 06/07/18 06:54 WBC RBC Hgb Hct MCV MCH MCHC RDW Std Deviation RDW Coeff of Latoya Plt Count MPV Immature Gran % (Auto) Neut % (Auto) Lymph % (Auto) Warrick % (Auto) Eos % (Auto) Baso % (Auto) Immature Gran # (Auto) Neut # (Auto) Lymph # (Auto) Warrick # (Auto) Eos # (Auto) Baso # (Auto) PT INR Sodium 135 L Potassium 3.6 Chloride 103 Carbon Dioxide 26 Anion Gap 6.0 BUN 12 Creatinine 0.81 Est Cr Clr Drug Dosing 114.5 Est GFR ( Amer) 113.0 Est GFR (Non-Af Amer) 97.5 BUN/Creatinine Ratio 14.7 Glucose 109 H Calcium 8.5 Total Bilirubin 1.0 Direct Bilirubin 0.5 H AST 105 H ALT 221 H Alkaline Phosphatase 130 H Total Protein 6.3 L Albumin 2.6 L Globulin Albumin/Globulin Ratio Lipase 4189 H HCG, Qual Urine Color Urine Appearance Urine pH Ur Specific Gorman Urine Protein Urine Glucose (UA) Urine Ketones Urine Blood Urine Nitrite Urine Bilirubin Urine Urobilinogen Ur Leukocyte Esterase Urine WBC (Auto) Urine RBC (Auto) U Hyaline Cast (Auto) U Epithel Cells (Auto) Urine Bacteria (Auto) Urine Crystals Calcium Oxalate Crystal
--- NOTE | 2018-06-07 10:38 | XRay Report ---
XR chest 1V portable CLINICAL HISTORY: 32 years-old Female presenting with Aspiration event. TECHNIQUE: Portable upright AP view of the chest was obtained. COMPARISON: 06/05/2018. FINDINGS: Cardiac silhouette mildly enlarged. Pulmonary basilar prominence. Increased bibasilar opacities, left greater than right. Small pleural effusion suggested also new from prior. No large pneumothorax. Oss eous structures normal. Upper abdomen normal. IMPRESSION: 1. Bibasilar opacities new and/or increased from prior. Aspiration and/or atelectasis primary diagno stic considerations. 2. New small left pleural effusion. 3. Mild cardiomegaly with mild volume overload. Electronically signed by: Brandon Gonzales M.D. 06/07/2018 10:36 AM
[2018-06-07 12:51] LABS: Appearance Urine Cloudy (Clear); Bacteria Urine Automated Negative (Negative); Bilirubin Urine Negative (Negative); Blood Urine 2+ (Negative); Color Urine Dark Yellow; Epithelial Cell Urine Auto >30 /lpf (0-5); Glucose Urine UA Negative (Negative); Ketones Urine Trace (Negative); Leukocyte Esterase Urine 2+ (Negative); Nitrite Urine Negative (Negative); Protein Urine 1+ (Negative); Specific Gravity Urine 1.036 (1.000-1.030); Urobilinogen Urine Negative (Negative); WBC Urine Automated >30 /hpf (0-5)
[2018-06-07] MEDS ORDERED: IOVERSOL 100ml IV PRN (12:55)
[2018-06-07 13:13] LABS: Calcium Oxalate Crystals Urine Present (None Prsent)
--- NOTE | 2018-06-07 13:20 | CT Scan Report ---
CT abd pelvis oral and IV con CLINICAL HISTORY: 32 years-old Female presenting with pancreatitis, r/o infected necrosis. TECHNIQUE: Multidetector CT of the abdomen and pelvis was performed after the administration of oral and intravenous contrast. IV contrast: 92 mL of Optiray 320. One or more dose lowering techniques wer e used consistent with the principles of ALARA (as low as reasonably achievable), including automatic exposure control, mA or kV adjustment to individual patient size, and/or use of iterative reconstruc tion. COMPARISON: 06/05/2018. CT DOSE (mGy.cm): The estimated cumulative dose is 898.19 mGy.cm. FINDINGS: Talkback Host topogram: Common bile duct stent now in place as well as a pancreatic duct stent. Lung bases: Extensive bibasilar dependent consolidation new from prior consistent with extensive atel ectasis. Normal heart size. Trace right and small left pleural effusions new from prior. Liver: Normal morphology. No liver lesion. Patent hepatic vasculature. Biliary: Common bile duct now in place. Vicarious excretion of contrast in the gallbladder. The gallb ladder is not significantly distended though there is persistent gallbladder wall thickening, likely secondarily reactive. No intrahepatic or extra hepatic ductal or ductal dilatation. Pancreas: Significant interval worsening of the appearance of the pancreas with nonenhancement of the majority of the pancreatic tail sparing the most distal portion as well as nonenhancement of the drew creatic body. The nonenhancing portion of the pancreatic tail and body demonstrates suggestion of a d eveloping collection. No gas is evident within this. The pancreatic neck and head demonstrate heterog eneous enhancement. The pancreatic duct stent is now in place, which extends to the pancreatic neck. Significant surrounding fluid within the lesser sac, retroperitoneum, left greater than right, and tr acking within the root of the small bowel mesentery as well as the mesentery of the splenic flexure. Spleen: Normal. Splenule noted. Splenic artery and vein patent and normal in caliber. Adrenal glands: Normal. Kidneys and ureters: Subcapsular fluid noted along the anterior aspect of the upper pole the left kid sayda. Renal parenchyma otherwise normal apart from a simple cyst at the upper pole the left kidney. No nephrolithiasis or hydronephrosis. Ureters poorly evaluated the grossly nondistended. Bladder: Incompletely evaluated secondary to underdistention. Pelvic organs: Uterus and ovaries normal. Bowel: The cecum is now located within the right abdomen. No bowel obstruction. Duodenal wall thicken ing evident. Peritoneal cavity: Interval increase in volume of ascites, now small to moderate with a greater pelvi c component. No free intraperitoneal gas. Greater extension of exuberant retroperitoneal fluid into t he extraperitoneal pelvis. Lymph nodes: Numerous subcentimeter prominent lymph nodes in the small bowel mesentery, nonspecific a nd likely reactive. Vasculature: Aorta and IVC patent and normal in caliber. Abdominal wall: Mild body wall edema, worsened from prior. Postsurgical changes of tendon still incis ion. Musculoskeletal: Normal. IMPRESSION: 1. Necrotizing pancreatitis with developing acute necrotic collection in the pancreatic body-tail. N o evidence of gas within this collection to suggest infection. 2. Findings concerning for a significant length of discontinuity/incompetency of the pancreatic duct within the intervening necrotic pancreatic body-proximal tail between the viable distal-most tail wi th the viable pancreatic neck-head. 3. Severe surrounding inflammatory change with exuberant retroperitoneal fluid tracking to the pelvi s. No vascular complication apparent at this time. 4. Volume overload with anasarca, increasing ascites, and bilateral pleural effusions. 5. Increasing bibasilar atelectasis. Electronically signed by: Brandon Gonzales M.D. 06/07/2018 1:19 PM
--- NOTE | 2018-06-07 14:04 | Anesthesiology Progress Note ---
Date of Service June 07, 2018 Subjective The patient is s/p ERCP POD#1. The patient complains of some abdominal discomfort with minimal appetite. The patient states having an occasional cough , but she does not state any other issues with her breathing. Her O2 saturations have been stable on room air being in the mid 90s. CXR showed "Bibasilar opacities new and/or increased from prior. Aspiration and/or atelectasis primary diagnostic considerations." I spoke with the GI team concerning the patient. The patient has a working diagnosis of necrotizing pancreatitis. The patient remains on antibiotic therapy. We will continue to follow the patient during her stay. Physical Exam Vital Signs Last Vital Signs Temp 100.0 F H 06/07/18 13:20 Pulse 115 H 06/07/18 13:20 Resp 18 06/07/18 13:20 BP 157/111 H 06/07/18 13:37 Pulse Ox 94 06/07/18 13:20 Respiratory normal respiratory effort Auscultation: + diminished lung sounds (at bases); no rhonchi and no wheezes Cardiovascular Rate/Rhythm: + tachycardic Results & Data Medications Administered Hydromorphone HCl (Dilaudid Welder Gas Automatic) 25 mg IV PRN PRN; Protocol PRN Reason: Pain Stop: 06/19/18 09:44 Last Admin: 06/06/18 07:10 Dose: 25 mg Admin: 06/05/18 10:39 Dose: 25 mg Lactated Ringer's (Lr) 1,000 mls @ 80 mls/hr IV .[id number] DEON Stop: 07/06/18 11:29 Last Infusion: 06/07/18 12:27 Dose: 175 mls/hr Admin: 06/07/18 10:16 Dose: 150 mls/hr Infusion: 06/07/18 10:08 Dose: 150 mls/hr Infusion: 06/07/18 09:09 Dose: 150 mls/hr Infusion: 06/07/18 08:36 Dose: 0 mls/hr Infusion: 06/07/18 07:32 Dose: 150 mls/hr Admin: 06/07/18 02:55 Dose: 150 mls/hr Infusion: 06/07/18 02:19 Dose: 0 mls/hr Admin: 06/06/18 19:37 Dose: 150 mls/hr Infusion: 06/06/18 17:48 Dose: 150 mls/hr Infusion: 06/06/18 14:20 Dose: 150 mls/hr Infusion: 06/06/18 13:33 Dose: 150 mls/hr Admin: 06/06/18 11:44 Dose: 200 mls/hr Piperacillin Sod/Tazobactam (Sod 3.375 gm/ Dextrose) 115 mls @ 230 mls/hr IV Q6H DEON; Protocol Stop: 06/15/18 13:59 Last Infusion: 06/07/18 09:09 Dose: 0 mls/hr Admin: 06/07/18 08:32 Dose: 230 mls/hr Infusion: 06/07/18 02:55 Dose: 0 mls/hr Admin: 06/07/18 02:18 Dose: 230 mls/hr Infusion: 06/06/18 22:03 Dose: 0 mls/hr Admin: 06/06/18 20:47 Dose: 230 mls/hr Ioversol (Optiray 320 100ml) 93 ml IV ONCE PRN PRN Reason: Interaction Checking Stop: 06/09/18 07:37 Last Admin: 06/05/18 07:38 Dose: 93 ml Ioversol (Optiray 320 100ml) 92 ml IV ONCE PRN PRN Reason: Interaction Checking Stop: 06/11/18 12:54 Last Admin: 06/07/18 12:56 Dose: 92 ml Prenat Multivit/Palmer/Iron/Folic Ac ( Vitamin) 1 tab PO DAILY DEON Stop: 07/05/18 08:59 Last Admin: 06/07/18 08:37 Dose: 1 tab Admin: 06/06/18 07:25 Dose: 1 tab Admin: 06/05/18 08:23 Dose: 1 tab
[2018-06-07] MEDS ORDERED: IMIPENEM/CILASTATIN SODIUM 1,000 MG in DEXTROSE 5% 100 ML IV ONE (14:45)
[2018-06-07] MEDS ORDERED: CALCIUM CARBONATE 500 MG CHEWABLE TAB PO PRN (17:44)
[2018-06-07] MEDS ORDERED: PANTOprazole 40 MG in SYRINGE 0 ML IV STA (17:51)
--- NOTE | 2018-06-07 18:02 | Hospitalist Progress Note ---
Date of Service June 07, 2018 Assessment & Plan (1) Choledocholithiasis with acute cholecystitis: - Remains afebrile and hemodynamically stable; WBC is elevating and now febrile even on antibiotics - S/P ERCP with stone removal and stents x 2 (pancreatic/CBD) placed and will need repeat ERCP in 4-6 weeks for stent removal - Started on clear liquids and will monitor closely for tolerance - only tolerating small amounts - Continue Dilaudid EXPERIMENTAL ASSEMBLER for now - Daily BMP/Hepatic Panel Present on Admission?: Yes (2) Necrotizing pancreatitis: - Initial CT with possible necrotizing pancreatitis but with repeat today is confirmed with significant worsening compared to initial CT with possible developing collection, no gas is evident; CT concerning for significant length of discontinuity/incompetency of the pancreatic duct within the intervening necrotic pancreatic body-proximal tail between the viable distal-most tail with the viable pancreatic neck-head; evidence of volume overload with anasarca, increasing ascites, and b/l pleural effusions - Broaden antibiotics to Imipenem 1 g IV Q8H - ID consultation due to protocol - Lipase now at 4000 down from [id number] on admission but remains symptomatic - Due to CT findings, did discuss transfer to tertiary care center due to extensive findings of pancreatitis. Pt to discuss with family about which facility. - GI and Gen Surg following - discussed with attending/gen surg/GI - planning on tertiary care transfer to [place] possibly tomorrow - Dr. Knott with the hospitalist service - anticipating beds after discharges tomorrow Prolonged time: Start time 10:30-11:30 and 2:00-2:30 PM. This time includes chart review, patient assessment, intervention, discussion with specialists ( Gen Surg/GI), tertiary care facilitation, and reassessment. Present on Admission?: Yes (3) Sepsis: - This was ultimately present on admission but signs/symptoms progressive ; presence of significant leukocytosis, tachycardia, febrile with source of gallbladder and necrotizing pancreatitis - Treatment as above; Monitor on telemetry at this time Present on Admission?: Yes (4) state: - S/P C Section with well healed incision; breast pump provided at bedside - patient aware to pump/dump due to pain medication Present on Admission?: Yes (5) DVT prophylaxis: Disposition: Ultimately needs a cholecystectomy however acute concern of pancreatitis; [facility] - Dr. Knott with the hospitalist service anticipate discharge tomorrow Subjective Constitutional: + fatigue, + weakness and + anorexia; no fever and no chills Ear, Nose, Mouth, Throat: no sore throat and no dysphagia Respiratory: no cough, no dyspnea and no dyspnea on exertion Cardiovascular: no chest pain and no palpitations Gastrointestinal: + abdominal pain, + bloating and + constipation; no nausea, no vomiting and no diarrhea/loose stools Genitourinary (Female): no dysuria Integumentary: no rash Physical Exam 2 Vital Signs (Past 24 Hours): Last Vital Signs Temp 37.5 C 06/07/18 15:24 Pulse 114 H 06/07/18 15:24 Resp 17 06/07/18 15:24 BP 160/112 H 06/07/18 15:24 Pulse Ox 93 06/07/18 15:24 Constitutional: well developed, well nourished and + ill appearing; no acute distress Eyes: + anicteric sclerae ENMT: Ears: no hearing impairment Neck: trachea midline Respiratory: normal respiratory effort Auscultation: + diminished lung sounds (bases b/l) Cardiovascular: Rate/Rhythm: regular rhythm and + tachycardic Gastrointestinal (Abdomen): Inspection/Auscultation: + abnormal bowel sounds ( absent) Percussion/Palpation: + abdomen tender and abdomen soft; no guarding and abdomen not rigid Musculoskeletal: Head/Neck/Chest: normocephalic, head atraumatic and neck supple Skin: no rashes, warm and dry Neurologic: moves all extremities Psychiatric: Orientation: alert and oriented x 3
[2018-06-07] MEDS ORDERED: SENNA 8.6 MG TAB PO SCH (21:00)
[2018-06-08] MEDS ORDERED: DiphenhydrAMINE HCL 50 MG/ML VIAL IV STA (00:33)
[2018-06-08] MEDS: HYDROmorphone HCL 0.5MG/ML 50 ML CASSETTE IV PRN ×2 (00:49→09:14)
[2018-06-08] MEDS ORDERED: IMIPENEM/CILASTATIN SODIUM 1,000 MG in DEXTROSE 5% 100 ML IV SCH (02:00)
[2018-06-08] MEDS: LACTATED RINGER'S 1,000 ML IV SCH ×2 (04:35→10:46)
[2018-06-08 08:59] LABS: Hematocrit (blood only) 31.2 % (37-47); Hemoglobin 10.2 g/dL (12.0-16.0); Mean Corpuscular Hgb Conc 32.7 g/dL (32-36); Mean Corpuscular Volume 77.6 fL (80-100); Mean Platelet Volume 10.8 fL (7.4-10.4); Platelet Count 299 K/uL (130-400); RDW Coefficient of Variation 16.7 % (11.5-14.5); RDW Standard Deviation 47.4 fL (36.4-46.3); Red Blood Count 4.02 M/uL (4.2-5.4); White Blood Count 17.38 K/uL (4.8-10.8)
[2018-06-08] MEDS ORDERED: METHYLNALTREXONE BROMIDE 12 MG/0.6 ML VIAL SQ SCH (09:00)
[2018-06-08] MEDS ORDERED: PIPERACILL/TAZOBAC CONSULT ACTIVE PRN (09:12)
[2018-06-08] MEDS ORDERED: FUROSEMIDE 40 MG in SYRINGE 0 ML IV ONE (09:20)
[2018-06-08 09:28] LABS: Albumin Level 2.4 gm/dl (3.4-5.0); BUN Creatinine Ratio 12.8 (10-20); Bilirubin Direct 0.4 mg/dl (0-0.2); Calcium 8.5 mg/dl (8.5-10.1); Creatinine Clr Calc Pharmacy 134.5 ml/min; Est GFR (African American) 135.4; Est GFR (Non-African American) 116.8; Potassium 3.3 mmol/L (3.5-5.1)
[2018-06-08] MEDS: PRENATAL VITAMIN 1 TAB PO SCH (09:29)
[2018-06-08] MEDS ORDERED: PIPERACILLIN/TAZOBACTAM 3.375 GM in DEXTROSE 5% 100 ML IV ONE (09:30)
[2018-06-08 09:31] LABS: Bilirubin,Total 0.8 mg/dl (0.2-1); Total Protein 6.3 gm/dl (6.4-8.2)
[2018-06-08] MEDS ORDERED: ENOXAPARIN INJ 40 MG/0.4 ML SYR SQ SCH (10:00)
--- NOTE | 2018-06-08 10:19 | Infectious Disease Consult ---
Date of Consultation June 08, 2018 Assessment & Plan (1) Necrotizing pancreatitis: 32-year-old female with cholecystitis, choledocholithiasis, status post ERCP with stent placement, now with developing necrotizing pancreatitis with possible early abscess formation. Patient to continue on broad-spectrum antibiotics pending transfer to tertiary care center later today. History of Present Illness Reason for Consultation: Imipenem useprotocol/necrotizing pancreatitis Attending Physician: Valentín Moore DO History of Present Illness 32-year-old female who is status post section approximately 5 weeks ago , was admitted to the hospital several days ago with 2-3 days of progressively worsening right upper quadrant abdominal pain with nausea and vomiting. Was found on CT scan to have evidence of cholecystitis with biliary ductal dilatation consistent with choledocholithiasis, and patient has now undergone ERCP with removal of stone and placement of stents. She has developed evidence of necrotizing pancreatitis, and follow-up CT scan shows possible early abscess development in the distal pancreas. Patient was initially on IV vancomycin and Zosyn, changed to IV imipenem. Has been persistently febrile, although abdominal pain has improved. Now awaiting transfer to tertiary care center. Abdominal pain currently 3 out of 10 in intensity. Allergies Allergy/AdvReac Type Severity Reaction Status Date / Time Sulfa (Sulfonamide AdvReac Intermediate Nausea/Vomi Verified 06/05/18 04:25 Antibiotics) ting Home Medications Home Medications Medication Instructions Recorded Confirmed Type PNV cmb#95-ferrous fumarate-FA 1 tab PO DAILY 01/08/18 06/05/18 History [] acetaminophen 1,000 mg PO Q6 PRN 01/08/18 06/05/18 History oxycodone-acetaminophen [Percocet] 1 - 2 tab PO Q4H PRN #20 tab 05/01/18 Rx Patient History Medical History Gastroesophageal reflux in History of depression Surgical History History of section Done for failure to progress, 10 days over due date. [place], [place]. Had epidural dosed for C/S. S/P wrist surgery CYST REMOVAL (LEFT) Family History Other Family history non-contributory Social History marital status: Current Living Situation: Spouse and Family Other Information That Helps Us Care for You: No Feels Safe at Home: Yes Safety Concerns: Feels Safe At This Time Smoking Status: Never smoker Do You Dip or Chew Tobacco: No Hx Alcohol Use: No Hx Substance Use: No Beliefs That Will Affect Care: None Preferred Language: Cuban Review of Systems Constitutional: + fever and + weakness Eyes: no problem reported Ear, Nose, Mouth, Throat: no problem reported Respiratory: no problem reported Cardiovascular: no problem reported Gastrointestinal: as per Subjective / HPI Genitourinary (Female): no problem reported Musculoskeletal: no problem reported Integumentary: no problem reported Neurologic: no problem reported Psychiatric: no problem reported Endocrine: no problem reported Hematologic / Lymphatic: no problem reported Allergy / Immunological: no problem reported Physical Exam 2 Vital Signs (Past 24 Hours): Last Vital Signs Temp 37.4 C 06/08/18 07:52 Pulse 111 H 06/08/18 07:52 Resp 14 06/08/18 07:52 BP 176/117 H 06/08/18 07:52 Pulse Ox 90 06/08/18 07:52 Constitutional: WD/WN, vitals as above comfortable; no acute distress Eyes: PERRL, conjunctivae normal, anicteric sclerae ENMT: external ear and nose normal, oropharynx normal Neck: trachea midline, no thyromegaly neck nontender Respiratory: normal respiratory effort, lungs clear to auscultation normal percussion; does not use accessory muscles Cardiovascular: Rate/Rhythm: regular rate and regular rhythm Heart Sounds: normal S1 and normal S2; no gallop, no murmur and no cardiac rub Vessels: normal peripheral pulses; no JVD Gastrointestinal (Abdomen): Inspection/Auscultation: abdomen normal to inspection, + abdomen distended and + hypoactive bowel sounds Percussion/ Palpation: + abdomen tender; no hepatosplenomegaly and no abdominal mass Musculoskeletal: no cyanosis or clubbing, extremities motor strength 5/5 Spine: thoracic spine normal to inspection and lumbar spine normal to inspection ; no cervical spinal tenderness Skin: no rashes, warm and dry normal turgor; no lesions Neurologic: patellar DTR's 2+ bilat, sensation intact no focal motor deficits Psychiatric: A+Ox3, euthymic affect Orientation: cooperative Lymphatic: no cervical or axillary lymphadenopathy no inguinal lymphadenopathy Results & Data Laboratory Results Short CBC 06/08/18 Range/Units 08:20 WBC 17.38 H (4.8-10.8) K/uL Hgb 10.2 L (12.0-16.0) g/dL Hct 31.2 L (37-47) % Plt Count 299 (130-400) K/uL BMP 06/08/18 08:20 Sodium 135 L Potassium 3.3 L Chloride 102 Carbon Dioxide 26 BUN 9 Creatinine 0.69 Glucose 97 Calcium 8.5 Liver Function 06/08/18 Range/Units 08:20 Total Bilirubin 0.8 (0.2-1) mg/dl Direct Bilirubin 0.4 H (0-0.2) mg/dl AST 48 H (15-37) U/L ALT 130 H (12-78) U/L Alkaline Phosphatase 118 H (45-117) U/L Albumin 2.4 L (3.4-5.0) gm/dl Urine 06/07/18 Range/Units 12:37 Urine Color Dark Yellow Urine Appearance Cloudy H (Clear) Urine pH 6.0 (4.5-7.5) Ur Specific [place] 1.036 H (1.000-1.030) Urine Protein 1+ H (Negative) Urine Glucose (UA) Negative (Negative) Diagnostic Findings CT abd pelvis oral and IV con CLINICAL HISTORY: 32 years-old Female presenting with pancreatitis, r/o infected necrosis. TECHNIQUE: Multidetector CT of the abdomen and pelvis was performed after the administration of oral and intravenous contrast. IV contrast: 92 mL of Optiray 320. One or more dose lowering techniques were used consistent with the principles of ALARA (as low as reasonably achievable), including automatic exposure control, mA or kV adjustment to individual patient size, and/or use of iterative reconstruction. COMPARISON: 06/05/2018. CT DOSE (mGy.cm): The estimated cumulative dose is 898.19 mGy.cm. FINDINGS: Termite Helper topogram: Common bile duct stent now in place as well as a pancreatic duct stent. Lung bases: Extensive bibasilar dependent consolidation new from prior consistent with extensive atelectasis. Normal heart size. Trace right and small left pleural effusions new from prior. Liver: Normal morphology. No liver lesion. Patent hepatic vasculature. Biliary: Common bile duct now in place. Vicarious excretion of contrast in the gallbladder. The gallbladder is not significantly distended though there is persistent gallbladder wall thickening, likely secondarily reactive. No intrahepatic or extra hepatic ductal or ductal dilatation. Pancreas: Significant interval worsening of the appearance of the pancreas with nonenhancement of the majority of the pancreatic tail sparing the most distal portion as well as nonenhancement of the pancreatic body. The nonenhancing portion of the pancreatic tail and body demonstrates suggestion of a developing collection. No gas is evident within this. The pancreatic neck and head demonstrate heterogeneous enhancement. The pancreatic duct stent is now in place , which extends to the pancreatic neck. Significant surrounding fluid within the lesser sac, retroperitoneum, left greater than right, and tracking within the root of the small bowel mesentery as well as the mesentery of the splenic flexure. Spleen: Normal. Splenule noted. Splenic artery and vein patent and normal in caliber. Adrenal glands: Normal. Kidneys and ureters: Subcapsular fluid noted along the anterior aspect of the upper pole the left kidney. Renal parenchyma otherwise normal apart from a simple cyst at the upper pole the left kidney. No nephrolithiasis or hydronephrosis. Ureters poorly evaluated the grossly nondistended. Bladder: Incompletely evaluated secondary to underdistention. Pelvic organs: Uterus and ovaries normal. Bowel: The cecum is now located within the right abdomen. No bowel obstruction. Duodenal wall thickening evident. Peritoneal cavity: Interval increase in volume of ascites, now small to moderate with a greater pelvic component. No free intraperitoneal gas. Greater extension of exuberant retroperitoneal fluid into the extraperitoneal pelvis. Lymph nodes: Numerous subcentimeter prominent lymph nodes in the small bowel mesentery, nonspecific and likely reactive. Vasculature: Aorta and IVC patent and normal in caliber. Abdominal wall: Mild body wall edema, worsened from prior. Postsurgical changes of tendon still incision. Musculoskeletal: Normal. IMPRESSION: 1. Necrotizing pancreatitis with developing acute necrotic collection in the pancreatic body-tail. No evidence of gas within this collection to suggest infection. 2. Findings concerning for a significant length of discontinuity/incompetency of the pancreatic duct within the intervening necrotic pancreatic body-proximal tail between the viable distal-most tail with the viable pancreatic neck-head. 3. Severe surrounding inflammatory change with exuberant retroperitoneal fluid tracking to the pelvis. No vascular complication apparent at this time. 4. Volume overload with anasarca, increasing ascites, and bilateral pleural effusions. 5. Increasing bibasilar atelectasis. Electronically signed by: Brandon Gonzales M.D. 06/07/2018 1:19 PM Dictated: 06/07/18 1303 Name: ANMOL PENA Acct: [id number] Status: ADM [place] : 1985 [facility] [place] Date: Age: 32 Sex: F Dis Date: Loc: ICU Medical [address] [place] [address]/Bed: E203-1 Spec: [id number] Collected: 06/07/18 Received: 06/07/[address]: Lydia Rutledge , CHAIM Copy To: Yonatan Miller, Mariposa Lai, Valentín Hair, D.O. Arnoldo Blackwood, Jemal Vela MD Sisitki, William L., Jr, Quinn Recinos, Paul Fleming, Cecile Cristobal , Milton Burnett , Vivek Pascual , Roxanne Arthur, D.O. Bravo Martinez M.D. Miguel Araujo, DMD Self, Referred Source: Blood OV Order: Ordered: Blood Culture Comments: Comment Default is separate sites, same time Blood culture drawn venously from Right Hand. Procedure Result Verified Site Blood Culture PENDING
[2018-06-08] MEDS ORDERED: PANTOprazole 40 MG in SYRINGE 0 ML IV SCH (11:00)
--- NOTE | 2018-06-08 11:38 | Gastroenterology Progress Note ---
Date of Service June 08, 2018 Assessment & Plan (1) Biliary acute pancreatitis: (2) Choledocholithiasis with acute cholecystitis: Pt is a 32 y/o female w cholecystitis, gallstone pancreatitis, developing nectrotizing pancreatitis. ERCP performed 06/05/18 w choledocholithiasis removal , biliary sphincterectomy, stent placements in CBD and ventral pancreatic ducts. LFTs, Lipase coming down. But she's still spiking mild fever and WBC up. Yesterday repeat CT abd/pelvis obtained which showed nectrotizing pancreatitis w signs of pancreatic duct loss. Arrangements [place] [facility] [place] but she is awaiting bed availability. She reported Bm and passing flatus, no n/v, abd pain, and is hungry today. But still spiking mild fever. LFTs still decreasing, Cr normal. - Changed IV antibx back to Zosyn - IVF reduced to 125ml/hr; strict I&O - Lasix 40mg IV x1 dose today as she is developing anasarca, volume overload - CL diet - Encouraged use of incentive spirometry and ambulation to prevent pneumonia and DVTs. Lovenox 40mg subQ daily ordered for DVT prophylaxis. - Colace and Senna while on FORM CARPENTER - Monitor LFTs and Lipase - Symptomatic management w antiemetics and analgesics prn. - Surgery aware of new CT scan findings, no plans for lap cholecystectomy today - Awaiting [facility] transfer when bed is available today - She will need repeat ERCP in 4-6 week's time to remove her stents. We will help schedule Attg add: I interviewed and examined pt, reviewed chart and labs, agree with plan as above. Pt with better control of abd pain, FORM CARPENTER dose adjusted. Had BM, hungry. Denies SOB. On exam, she does appear to have mild incr WOB. VS show HTn, tachy, o2 sat in the low 90's She has bibasilar crackles. Abd is tender in epigastrium. She has no pedal edema. A/p: Nec panc - Appears to have mild vol overload - d/w primary service; will turn down fluids, follow exam/imaging, single dose of lasix. Plan CT chest if persistent low sat r/o PE. Encourage IS, DVT prophy, ambulation. Trial of clears today, cont bowel regimen with senna + relistor. Complete empiric abx x 7 days for cholecystitis. Subjective Pt w mild fever last night (37.7C). WBC down to 17K. She had a BM and passed flatus, denies N/V and reports abd pain is improved. Wants to eat. Yesterday, transfer to [facility] had been arranged but still awaiting bed availability Constitutional: as per Subjective / HPI Gastrointestinal: as per Subjective / HPI Physical Exam 2 Vital Signs (Past 24 Hours): Last Vital Signs Temp 37.4 C 06/08/18 07:52 Pulse 111 H 06/08/18 07:52 Resp 14 06/08/18 07:52 BP 176/117 H 06/08/18 07:52 Pulse Ox 90 06/08/18 07:52 Constitutional: WD/WN, vitals as above well groomed, cooperative and comfortable Eyes: PERRL, conjunctivae normal, anicteric sclerae ENMT: external ear and nose normal, oropharynx normal Respiratory: normal respiratory effort diminished especially on LLL, otherwise normal. Cardiovascular: RRR, no murmur, no edema Gastrointestinal (Abdomen): normal bowel sounds, soft, nontender, no hepatosplenomegaly Skin: no rashes, warm and dry no jaundice Neurologic: Motor/Sensory: no asterixis Psychiatric: A+Ox3, euthymic affect Lymphatic: no lymphedema
[2018-06-08] MEDS ORDERED: POTASSIUM CHLORIDE 20 MEQ TABCR PO STA (11:48)
[2018-06-08] MEDS ORDERED: PIPERACILLIN/TAZOBACTAM 3.375 GM in DEXTROSE 5% 100 ML IV SCH (14:00)
--- NOTE | 2018-06-08 14:39 | Surgery Progress Note ---
Date of Service June 08, 2018 Assessment & Plan (1) Necrotizing pancreatitis: very serious problem that I still believe should be transferred to a tertiary center as soon as we can--still potential for detioration continue conservative management will continue to follow along closely Subjective pt seen. still with moderate pain but is slightly improved from yesterday. no new complaints. Physical Exam 2 Vital Signs (Past 24 Hours): Last Vital Signs Temp 36.6 C 06/08/18 12:19 Pulse 118 H 06/08/18 12:19 Resp 24 06/08/18 12:19 BP 160/111 H 06/08/18 12:19 Pulse Ox 90 06/08/18 12:19 Physical Exam: oriented. in mild/moderate discomfort abd: soft. +epigastric ttp. no rigidity or guarding
[2018-06-08] MEDS ORDERED: DOCUSATE SODIUM 100 MG CAP PO SCH (15:00)
[2018-06-08] MEDS ORDERED: METHYLNALTREXONE BROMIDE 12 MG/0.6 ML VIAL SQ ONE (15:00)
[2018-06-08] MEDS ORDERED: HYDROmorphone INJ 1 MG/ML SYRINGE IV STA (16:10)
--- NOTE | 2018-06-08 17:01 | Discharge Summary ---
Date of Service June 08, 2018 Admission HPI Per Admitting Provider Patient is a 32yo female presenting with RUQ pain, intermittent x 1 week, more severe this AM since 02:00. Associated with nausea and non-bloody/non-bilious vomiting. Patient denies fevers, chills, sweats, diarrhea or constipation. No additional complaints at this time. She is PP s/p 5 weeks ago. ER Course: Cefoxitin, Dilaudid, Zofran, NSS Principal Diagnosis Acute Cholecystitis and Choledocholithiasis/Necrotizing Pancreatitis Discharge Exam Constitutional well developed, well nourished and + ill appearing; no acute distress Eyes + anicteric sclerae ENMT Ears: no hearing impairment Neck trachea midline Respiratory normal respiratory effort, lungs clear to auscultation normal respiratory effort Auscultation: + diminished lung sounds (bases b/l) Cardiovascular Rate/Rhythm: regular rhythm and + tachycardic Gastrointestinal (Abdomen) Inspection/Auscultation: + abnormal bowel sounds (absent) Percussion/Palpation: + abdomen tender and abdomen soft; no guarding and abdomen not rigid Musculoskeletal Head/Neck/Chest: normocephalic, head atraumatic and neck supple Skin no rashes, warm and dry Neurologic moves all extremities Psychiatric Orientation: alert and oriented x 3 Discharge Data Allergies Allergy/AdvReac Type Severity Reaction Status Date / Time Sulfa (Sulfonamide AdvReac Intermediate Nausea/Vomi Verified 06/05/18 04:25 Antibiotics) ting Consultations 06/05/18 05:33 ED Decision to Admit Stat 06/05/18 08:00 Consult General Surgery Routine 06/05/18 08:27 Consult Gastroenterology Routine 06/07/18 15:15 Consult Infectious Diseases Routine Procedures Performed Operation Date: 06/05/18 11:50 Actual Procedures p Endoscopic Retrograde Cholangiopancreatogram, Sphincterotomy, stone removal, stent placement. - Reny Guerrero MD Operation Date: 06/08/18 07:30 <No data on this case meets the specified criteria> Ordered Studies CT abd pelvis oral and IV con FINDINGS: Construction Representative topogram: Common bile duct stent now in place as well as a pancreatic duct stent. Lung bases: Extensive bibasilar dependent consolidation new from prior consistent with extensive atelectasis. Normal heart size. Trace right and small left pleural effusions new from prior. Liver: Normal morphology. No liver lesion. Patent hepatic vasculature. Biliary: Common bile duct now in place. Vicarious excretion of contrast in the gallbladder. The gallbladder is not significantly distended though there is persistent gallbladder wall thickening, likely secondarily reactive. No intrahepatic or extra hepatic ductal or ductal dilatation. Pancreas: Significant interval worsening of the appearance of the pancreas with nonenhancement of the majority of the pancreatic tail sparing the most distal portion as well as nonenhancement of the pancreatic body. The nonenhancing portion of the pancreatic tail and body demonstrates suggestion of a developing collection. No gas is evident within this. The pancreatic neck and head demonstrate heterogeneous enhancement. The pancreatic duct stent is now in place , which extends to the pancreatic neck. Significant surrounding fluid within the lesser sac, retroperitoneum, left greater than right, and tracking within the root of the small bowel mesentery as well as the mesentery of the splenic flexure. Spleen: Normal. Splenule noted. Splenic artery and vein patent and normal in caliber. Adrenal glands: Normal. Kidneys and ureters: Subcapsular fluid noted along the anterior aspect of the upper pole the left kidney. Renal parenchyma otherwise normal apart from a simple cyst at the upper pole the left kidney. No nephrolithiasis or hydronephrosis. Ureters poorly evaluated the grossly nondistended. Bladder: Incompletely evaluated secondary to underdistention. Pelvic organs: Uterus and ovaries normal. Bowel: The cecum is now located within the right abdomen. No bowel obstruction. Duodenal wall thickening evident. Peritoneal cavity: Interval increase in volume of ascites, now small to moderate with a greater pelvic component. No free intraperitoneal gas. Greater extension of exuberant retroperitoneal fluid into the extraperitoneal pelvis. Lymph nodes: Numerous subcentimeter prominent lymph nodes in the small bowel mesentery, nonspecific and likely reactive. Vasculature: Aorta and IVC patent and normal in caliber. Abdominal wall: Mild body wall edema, worsened from prior. Postsurgical changes of tendon still incision. Musculoskeletal: Normal. IMPRESSION: 1. Necrotizing pancreatitis with developing acute necrotic collection in the pancreatic body-tail. No evidence of gas within this collection to suggest infection. 2. Findings concerning for a significant length of discontinuity/incompetency of the pancreatic duct within the intervening necrotic pancreatic body-proximal tail between the viable distal-most tail with the viable pancreatic neck-head. 3. Severe surrounding inflammatory change with exuberant retroperitoneal fluid tracking to the pelvis. No vascular complication apparent at this time. 4. Volume overload with anasarca, increasing ascites, and bilateral pleural effusions. 5. Increasing bibasilar atelectasis. Hospital Course (1) Choledocholithiasis with acute cholecystitis: - S/P ERCP with stone removal and stents x 2 (pancreatic/CBD) placed and will need repeat ERCP in 4-6 weeks approximately for stent removal - Started on clear liquids and tolerating and getting her appetite back - Dilaudid BRUSHER MACHINE utilized during admission due to severe pain - Ultimately will need cholecystectomy (2) Necrotizing pancreatitis: - Initial CT with possible necrotizing pancreatitis but with repeat on it is confirmed with significant worsening compared to initial CT with possible developing collection, no gas is evident; CT concerning for significant length of discontinuity/incompetency of the pancreatic duct within the intervening necrotic pancreatic body-proximal tail between the viable distal -most tail with the viable pancreatic neck-head; evidence of volume overload with anasarca, increasing ascites, and b/l pleural effusions -- Given Lasix 40 mg x 1 dose today and aggressive IVF reduced down to 125 mL /hr - Broaden antibiotics to Imipenem 1 g IV Q8H but with discussion with GI they recommended to remain on Zosyn - Lipase now [place] 4000 [place] [id number] on admission and appetite resuming and pain improving but not completely resolved - GI and Gen Surg following - discussed with attending/gen surg/GI - planning on tertiary care transfer to [place] today - Dr. Knott with the hospitalist service (3) Sepsis: - This was ultimately present on admission but signs/symptoms progressive ; presence of significant leukocytosis, tachycardia, febrile with source of gallbladder and necrotizing pancreatitis - WBC improving but still intermittent fevers; BCx pending (4) state: - S/P C Section with well healed incision; breast pump provided at bedside - patient aware to pump/dump due to pain medication (5) DVT prophylaxis: Disposition: Ultimately needs a cholecystectomy however acute concern of necrotizing pancreatitis; [facility] to [facility] - Dr. Knott with the hospitalist service Total Time Total Time Spent Total Time Spent (In Minutes): Greater than 30 minutes Discharge Plan Discharge Items Patient Disposition: Transfer Acute Care Hospital Reason For Visit: RUQ PAIN, CHOLEDOCHOLITHIASIS Discharge Diagnosis: Acute Cholecystitis with Choledocholithiasis; Necrotizing Pancreatitis Discharge Goals: Decrease discomfort, Improve disease control and Learn about illness Activity: Resume your previous activity Non-emergency contact: Primary Care Provider Call non-emergency contact if: you have any medication questions, your symptoms worsen and your pain is not controlled Diet: Clear liquid Addtl Provider Instructions: Acute Cholecystitis with Choledocholithiasis: - She is S/P ERCP on 06/05 with stone extraction and stent placement x 2 in pancreatic ducts and CBD - Lipase significantly improved [place] 4189 [place] [address]31 but still symptomatic but improving - LFTs improving with AST 48 and ALT 130; Total Bili is now WNL - Was treated with Zosyn therapy and WBC continues to rise to 19 and now spiking fevers and converted to Imipenem 1 g IV Q8H but per GI recommendations they did prefer Zosyn therapy and converted back - She is tachycardic and hypertensive but otherwise stable at this time - Repeat CT on 06/07 due to minimal pain relief even on Dilaudid BRUSHER MACHINE with no BM since 06/05 and minimal flatus and worsening labs/fever - Given dose of Relistor on 06/06; Colace and Senna for bowel regimen and moved bowels on 06/08 - Ultimately needs a cholecystectomy CT abd pelvis oral and IV con FINDINGS: Construction Representative topogram: Common bile duct stent now in place as well as a pancreatic duct stent. Lung bases: Extensive bibasilar dependent consolidation new from prior consistent with extensive atelectasis. Normal heart size. Trace right and small left pleural effusions new from prior. Liver: Normal morphology. No liver lesion. Patent hepatic vasculature. Biliary: Common bile duct now in place. Vicarious excretion of contrast in the gallbladder. The gallbladder is not significantly distended though there is persistent gallbladder wall thickening, likely secondarily reactive. No intrahepatic or extra hepatic ductal or ductal dilatation. Pancreas: Significant interval worsening of the appearance of the pancreas with nonenhancement of the majority of the pancreatic tail sparing the most distal portion as well as nonenhancement of the pancreatic body. The nonenhancing portion of the pancreatic tail and body demonstrates suggestion of a developing collection. No gas is evident within this. The pancreatic neck and head demonstrate heterogeneous enhancement. The pancreatic duct stent is now in place , which extends to the pancreatic neck. Significant surrounding fluid within the lesser sac, retroperitoneum, left greater than right, and tracking within the root of the small bowel mesentery as well as the mesentery of the splenic flexure. Spleen: Normal. Splenule noted. Splenic artery and vein patent and normal in caliber. Adrenal glands: Normal. Kidneys and ureters: Subcapsular fluid noted along the anterior aspect of the upper pole the left kidney. Renal parenchyma otherwise normal apart from a simple cyst at the upper pole the left kidney. No nephrolithiasis or hydronephrosis. Ureters poorly evaluated the grossly nondistended. Bladder: Incompletely evaluated secondary to underdistention. Pelvic organs: Uterus and ovaries normal. Bowel: The cecum is now located within the right abdomen. No bowel obstruction. Duodenal wall thickening evident. Peritoneal cavity: Interval increase in volume of ascites, now small to moderate with a greater pelvic component. No free intraperitoneal gas. Greater extension of exuberant retroperitoneal fluid into the extraperitoneal pelvis. Lymph nodes: Numerous subcentimeter prominent lymph nodes in the small bowel mesentery, nonspecific and likely reactive. Vasculature: Aorta and IVC patent and normal in caliber. Abdominal wall: Mild body wall edema, worsened from prior. Postsurgical changes of tendon still incision. Musculoskeletal: Normal. IMPRESSION: 1. Necrotizing pancreatitis with developing acute necrotic collection in the pancreatic body-tail. No evidence of gas within this collection to suggest infection. 2. Findings concerning for a significant length of discontinuity/incompetency of the pancreatic duct within the intervening necrotic pancreatic body-proximal tail between the viable distal-most tail with the viable pancreatic neck-head. 3. Severe surrounding inflammatory change with exuberant retroperitoneal fluid tracking to the pelvis. No vascular complication apparent at this time. 4. Volume overload with anasarca, increasing ascites, and bilateral pleural effusions. 5. Increasing bibasilar atelectasis. Necrotizing Pancreatitis: - Per CT scan report about - Imipenem 1 g IV Q8H started on 06/07 but recommendations back to Zosyn therapy - Lip[place] improving [place] [id number] down to 4189 - Beginning to exhibit signs of excessive volume overload; kidney function/ electrolytes stable; glucose stable; calcium WNL -- Currently getting LR at 125 mL/hr and has return of appetite Aspiration Event: - She was found to have some bile in airway during intubation for ERCP and was suctioned but there was some remaining bile on endotracheal tube when removed - Was placed on continuous O2 which revealed good O2 sats on room air - CXR/CT suggests bibasilar opacities - atelectasis vs aspiration state: - Approx. 6 weeks - S/P with well healed incision; breast pump provided - patient aware to pump/dump due to pain medication Prescriptions: Continue acetaminophen 500 mg Tablet 1,000 mg PO Q6 PRN (Reason: Fever Or Pain) RF: 0 PNV [id number] fumarate-FA [] 28 mg iron- 800 mcg Tablet 1 tab PO DAILY RF: 0 oxycodone-acetaminophen [Percocet] 5-325 mg Tablet 1 - 2 tab PO Q4H PRN (Reason: pain) Qty: 20 RF: 0 Stand-Alone Forms: [facility] Discharge Orders: Discharge Order (Routine); Ordered 06/08/18 Ordered By: Lydia Rutledge Admission Data Admit Date/Time: 06/05/18 06:10 Attending Provider: Valentín Moore Admit Provider: Roxanne Kennedy Primary Care Provider: Vivek Urban Other Providers: Roxanne Kennedy ; Yonatan Miller ; Mariposa Gonzalez ; Arnoldo Blackwood ; Jemal Aburto ; Rosales Adame Jr ; Quinn Martinez ; Paul Razo ; Cecile Mcdonald ; Milton Reyes ; Miguel Araujo ; Bravo Martinez ; Gold Langston Service: Medical Other Interventions: Discharge Summary Assessment (RN) Last Done: 06/08/18 16:11 Pending Studies at Discharge: No DC Date/Time DO NOT enter until pt leaves facility: 06/08/18 17:23 Supervising Physician Co-Signing Physician Notes Attending note: patient seen and examined with Lydia Rutledge PA-C. I agree with her discharge summary. - Necrotizing pancreatitis: patient slowly improving, still in a great deal of pain, could get worse prior to getting better tolerating clear liquid diet today, moving bowels twice today still needs dilaudid BRUSHER MACHINE for pain control will transfer to [place] given the severity of necrosis on CT and obliteration of pancreatic duct general surgery concerned that she may require surgical intervention and this would be best done at tertiary care - Calculous cholecystitis: continue Zosyn, will need cholecystectomy but waiting on pancreatitis to improve - Elevated blood pressure: likely due to pain and inflammation reviewed records, no evidence of HTN or pre-ecclampsia during
== END 2018-06-08 17:23 | disposition short-term general hospital (02) | DRG 776 ==
LOC: ED 04:02 → SUATTDRO 06:10 → 3W 06:10 → 2E 06-07 12:51

== ENCOUNTER 2018-06-27 19:31 | Inpatient (IN) ==
--- NOTE | 2018-06-27 20:43 | Emergency Department Note ---
ED Visit Note I assisted Dr. Vasquez in the evaluation and management of this patient. Please see his note for full visit details. Alecia Mckinney, PGY2 Resident Physician [facility] . Resident Activity Tracking Resident Involvement: Resident Care Provided Care Provided: Adult ED
[2018-06-27] MEDS ORDERED: MoRPHine SULFATE 4 MG/ML 1 ML CARP\\VIAL IV STA (21:03)
[2018-06-27 21:16] LABS: Basophils # (auto) 0.03 K/uL (0-0.2); Basophils % (auto) 0.3 %; Eosinophils # (auto) 0.18 K/uL (0-0.5); Eosinophils % (auto) 1.9 %; Hematocrit (blood only) 27.3 % (37-47); Hemoglobin 8.8 g/dL (12.0-16.0); Immature Granulocytes # (auto) 0.02 K/uL (0.00-0.02); Immature Granulocytes % (auto) 0.2 %; Lymphocytes # (auto) 2.48 K/uL (1.2-3.4); Lymphocytes % (auto) 25.7 %; Mean Corpuscular Hgb Conc 32.2 g/dL (32-36); Mean Corpuscular Volume 78.2 fL (80-100); Mean Platelet Volume 9.9 fL (7.4-10.4); Monocytes # (auto) 0.74 K/uL (0.11-0.59); Monocytes % (auto) 7.7 %; Neutrophils % (auto) 64.2 %; Platelet Count 482 K/uL (130-400); RDW Coefficient of Variation 15.5 % (11.5-14.5); RDW Standard Deviation 44.4 fL (36.4-46.3); Red Blood Count 3.49 M/uL (4.2-5.4); White Blood Count 9.65 K/uL (4.8-10.8)
[2018-06-27 21:35] LABS: Albumin Level 3.3 gm/dl (3.4-5.0); Calcium 9.2 mg/dl (8.5-10.1); Creatinine Clr Calc Pharmacy 92.3 ml/min; Est GFR (African American) 90.8; Est GFR (Non-African American) 78.4; Potassium 3.4 mmol/L (3.5-5.1)
[2018-06-27 21:38] LABS: Albumin Globulin Ratio 0.7 (0.9-2); Bilirubin,Total 0.5 mg/dl (0.2-1); Globulin 4.9 gm/dl (2.5-4.0); Ovalocytes 1+; Total Protein 8.2 gm/dl (6.4-8.2)
--- NOTE | 2018-06-27 21:54 | Ultrasound Report ---
ABDOMINAL ULTRASOUND, RIGHT UPPER QUADRANT HISTORY: known cholecystitis, pancreatitis. COMPARISON: Abdomen and pelvis CT 06/22/2018. FINDINGS: Pancreas: Edematous pancreas consistent with acute pancreatitis. Redemonstration of the 5 cm complex fluid collection at the pancreatic tail. This remains unchanged. Liver: Mildly enlarged measuring 19 centers in length. No hepatic masses. Gallbladder: No gallbladder wall thickening. A few small gallstones at the fundus. The gallbladder wa ll may be slightly edematous. However, this could be reactive to the pancreatitis. CBD: Common bile duct stent is noted. No definite bile duct dilatation. Right kidney: No hydronephrosis. IMPRESSION: 1. Edematous pancreas consistent with acute pancreatitis. Redemonstration of the 5 cm complex fluid c ollection at the pancreatic tail. This remains unchanged. This could represent an abscess or pseudocy st. There are 2. Cholelithiasis. No gallbladder wall thickening. However, the gallbladder wall may be slightly james atous. This could be reactive to the pancreatitis. 3. A common bile duct stent is noted. No bile duct dilatation. Electronically signed by: Narinder Radford M.D. 06/27/2018 9:53 PM
[2018-06-27 22:04] LABS: Appearance Urine Clear (Clear); Bacteria Urine Automated Negative (Negative); Bilirubin Urine Negative (Negative); Blood Urine Negative (Negative); Color Urine Yellow; Epithelial Cell Urine Auto >30 /lpf (0-5); Glucose Urine UA Negative (Negative); Ketones Urine Negative (Negative); Leukocyte Esterase Urine Trace (Negative); Nitrite Urine Negative (Negative); Protein Urine Negative (Negative); RBC Urine Automated 0-4 /hpf (0-4); Specific Gravity Urine 1.021 (1.000-1.030); Urobilinogen Urine Negative (Negative); pH Urine 7.5 (4.5-7.5)
--- NOTE | 2018-06-27 22:20 | Emergency Department Note ---
Entered by Adriana Pablo acting as a scribe for History of Present Illness General Chief complaint: Abdominal Pain Stated complaint: ABDOMINAL PAIN W/BREATHING, HX- PANCREATITIS, GALL Time Seen by Provider: 06/27/18 20:20 Source: patient Mode of arrival: ambulatory Limitations: no limitations History of Present Illness Provider complaint: abdominal pain Onset (ago): hour(s) (today) Location: abdomen Pain Consistency: + other (worsening) Maximum Pain Intensity: 10 Current Pain Intensity: 8 Quality: + other (post-op) Exacerbated By: + movement Associated symptoms: + loss of appetite and + nausea/vomiting The patient is a 32 year old female who presents to the Emergency Room with c omplaints of a worsening abdominal pain that began this afternoon. The patient reports that last month she had biliary stents placed for her pancreatitis, and notes she is scheduled to have them removed by the end of this month. She states that she has had pain since which she rates a 2/10, but this afternoon the pain worsened to an 8/10. She notes that the pain is worsened with movement or any mi nimal activity. The patient reports that she had a follow-up CT done last which showed worsening pancreatitis. The patient states that she has been nauseous and has had a loss of appetite. Impression for CT of abdomen/pelvis performed on 06/22: 1. Interval evolution of necrotizing pancreatitis with more well-defined acute necrotic collections in the pancreatic body-tail, the largest measuring 4.9 cm in diameter. New collection measuring 2.8 cm along the gastric serosa the region of the lesser sac. No evidence of gas within these collections to suggest infect ion. 2. Viable pancreatic parenchyma primarily in the pancreatic head and neck as well as at the distal most pancreatic tail. Discontinuity of the pancreatic duct between the distalmost tail and pancreatic neck suspected. 3. Decreased retroperitoneal inflammatory change. 4. Resolved bilateral pleural effusions and anasarca with near resolution of ascites. 5. Improved aeration of the lung bases. Home Medications Home Medications Medication Instructions Recorded Confirmed Type PNV cmb#95-ferrous fumarate-FA 1 tab PO DAILY 01/08/18 06/27/18 History [] acetaminophen 1,000 mg PO Q6 PRN 01/08/18 06/27/18 History escitalopram oxalate [Lexapro] 10 mg PO HS 06/27/18 06/27/18 History ondansetron 4 mg PO TID PRN 06/27/18 06/27/18 History tramadol 1 tab PO TID PRN 06/27/18 06/27/18 History Allergies Allergy/AdvReac Type Severity Reaction Status Date / Time Sulfa (Sulfonamide AdvReac Intermediate Nausea/Vomi Verified 06/27/18 22:37 Antibiotics) ting Past Med/Surg History Medical History Pancreatitis History of depression Surgical History History of ERCP History of section Done for failure to progress, 10 days over due date. [place], [place]. Had epidural dosed for C/S. TOTAL OF 2 C-SECTIONS S/P wrist surgery CYST REMOVAL (LEFT) 2005 Family History Other Family history non-contributory Social History Preferred Language: German Beliefs That Will Affect Care: None marital status: Current Living Situation: Spouse and Family Feels Safe at Home: Yes Smoking Status: Never smoker Hx Alcohol Use: No Hx Substance Use: No Review of Systems See HPI for pertinent positives & negatives. and A total of 10 systems reviewed and were otherwise negative Physical Exam Vital Signs Vital Signs - 24 hr 06/27/18 19:41 06/27/18 21:50 06/27/18 23:06 Temperature 36.7 C Temperature Source Oral Sepsis Recent Fever Within 48 Hours No Sepsis New/Unexplained Change in Mental Status No Sepsis Action Taken by Nursing No Action Required Pulse Rate 106 H Pulse Rate [Right Finger] 67 91 H Pulse Rhythm [Right Finger] Regular Pulse Strength [Right Finger] Normal Respiratory Rate 16 18 18 Respiratory Effort / Characteristics Non-Labored Non-Labored Spontaneous Respiratory Depth Normal Normal Respiratory Pattern Regular Regular Blood Pressure 147/87 H Blood Pressure [Right Arm] 115/72 132/83 Blood Pressure Mean 107 Blood Pressure Mean [Right Arm] 86 99 Blood Pressure Position [Right Arm] Sitting Sitting Pulse Oximetry 100 98 100 Oxygen Delivery Method Room Air Room Air Room Air GENERAL: Patient is in no acute distress. HEENT: No acute trauma, normocephalic atraumatic, mucous membranes moist, no n jennifer congestion, no scleral icterus. NECK: No stridor, no adenopathy, no meningismus, trachea is midline. LUNGS: Clear to auscultation bilaterally, no wheeze, no rhonchi, breath sounds equal. HEART: Without murmurs gallops or rubs, regular rate and rhythm. ABDOMEN: Soft, bowel sounds positive, no hernias, no peritonitis. Moderately tender in both upper quadrants and epigastrium. EXTREMITIES: No cyanosis or edema, full range of motion of all the joints without pain or difficulty, no signs for acute trauma. NEUROLOGIC: Oriented x 3, no acute motor or sensory deficits, no focal weakness. SKIN: No rash, no jaundice, no diaphoresis. Course 2054: Past medical records reviewed. The patient was evaluated in room A11A, and a complete history and physical examination were performed. 2205: I reviewed the patient's case with Dr. Kennedy - [facility] Hospitalist. She will evaluate the patient for further management. Administered Medications Discontinued Medications Morphine Sulfate (Morphine Sulfate) 4 mg IV NOW STA Stop: 06/27/18 21:04 Last Admin: 06/27/18 21:12 Dose: 4 mg Documented by: [id number] Medical Decision Making Differential Diagnosis Differential Diagnosis includes: pancreatitis, acute cholecystitis, biliary obstruction, bowel perforation, pneumonia, anemia, electrolyte imbalance, and musculoskeletal pain. Medical Records Attestation: I reviewed the patient's medical records. Home Medications Current Medication List: was personally reviewed by me Laboratory Data Attestation: I reviewed the patient's lab results. Result diagrams: 06/27/18 21:07 06/27/18 21:07 Lab Results 06/27/18 06/27/18 06/27/18 Range/Units 21:07 21:07 21:50 WBC 9.65 (4.8-10.8) K/uL RBC 3.49 L (4.2-5.4) M/uL Hgb 8.8 L (12.0-16.0) g/dL Hct 27.3 L (37-47) % MCV 78.2 L (80-100) fL MCH 25.2 (25-34) pg MCHC 32.2 (32-36) g/dL RDW Std Deviation 44.4 (36.4-46.3) fL RDW Coeff of Latoya 15.5 H (11.5-14.5) % Plt Count 482 H (130-400) K/uL MPV 9.9 (7.4-10.4) fL Immature Gran % (Auto) 0.2 % Neut % (Auto) 64.2 % Lymph % (Auto) 25.7 % [place] % (Auto) 7.7 % Eos % (Auto) 1.9 % Baso % (Auto) 0.3 % Immature Gran # (Auto) 0.02 (0.00-0.02) K/uL Neut # (Auto) 6.20 (1.4-6.5) K/uL Lymph # (Auto) 2.48 (1.2-3.4) K/uL [place] # (Auto) 0.74 H (0.11-0.59) K/uL Eos # (Auto) 0.18 (0-0.5) K/uL Baso # (Auto) 0.03 (0-0.2) K/uL Ovalocytes 1+ Sodium 138 (136-145) mmol/L Potassium 3.4 L (3.5-5.1) mmol/L Chloride 104 (98-107) mmol/L Carbon Dioxide 27 (21-32) mmol/L Anion Gap 7.0 (3-11) BUN 8 (7-18) mg/dl Creatinine 0.97 (0.6-1.2) mg/dl Est Cr Clr Drug Dosing 92.3 ml/min Est GFR ( Amer) 90.8 Est GFR (Non-Af Amer) 78.4 BUN/Creatinine Ratio 8.0 L (10-20) Glucose 89 (70-99) mg/dl Calcium 9.2 (8.5-10.1) mg/dl Total Bilirubin 0.5 (0.2-1) mg/dl AST 28 (15-37) U/L ALT 38 (12-78) U/L Alkaline Phosphatase 99 (45-117) U/L POC Troponin I (0-0.045) ng/ml Total Protein 8.2 (6.4-8.2) gm/dl Albumin 3.3 L (3.4-5.0) gm/dl Globulin 4.9 H (2.5-4.0) gm/dl Albumin/Globulin Ratio 0.7 L (0.9-2) Lipase 684 H (73-393) U/L Urine Color Urine Appearance (Clear) Urine pH (4.5-7.5) Ur Specific [place] (1.000-1.030) Urine Protein (Negative) Urine Glucose (UA) (Negative) Urine Ketones (Negative) Urine Blood (Negative) Urine Nitrite (Negative) Urine Bilirubin (Negative) Urine Urobilinogen (Negative) Ur Leukocyte Esterase (Negative) Urine WBC (Auto) (0-5) /hpf Urine RBC (Auto) (0-4) /hpf U Hyaline Cast (Auto) (0-5) /lpf U Epithel Cells (Auto) (0-5) /lpf Urine Bacteria (Auto) (Negative) POC Ur Test NEG (NEG) 06/27/18 06/27/18 Range/Units 21:50 22:24 WBC (4.8-10.8) K/uL RBC (4.2-5.4) M/uL Hgb (12.0-16.0) g/dL Hct (37-47) % MCV (80-100) fL MCH (25-34) pg MCHC (32-36) g/dL RDW Std Deviation (36.4-46.3) fL RDW Coeff of Latoya (11.5-14.5) % Plt Count (130-400) K/uL MPV (7.4-10.4) fL Immature Gran % (Auto) % Neut % (Auto) % Lymph % (Auto) % [place] % (Auto) % Eos % (Auto) % Baso % (Auto) % Immature Gran # (Auto) (0.00-0.02) K/uL Neut # (Auto) (1.4-6.5) K/uL Lymph # (Auto) (1.2-3.4) K/uL [place] # (Auto) (0.11-0.59) K/uL Eos # (Auto) (0-0.5) K/uL Baso # (Auto) (0-0.2) K/uL Ovalocytes Sodium (136-145) mmol/L Potassium (3.5-5.1) mmol/L Chloride (98-107) mmol/L Carbon Dioxide (21-32) mmol/L Anion Gap (3-11) BUN (7-18) mg/dl Creatinine (0.6-1.2) mg/dl Est Cr Clr Drug Dosing ml/min Est GFR ( Amer) Est GFR (Non-Af Amer) BUN/Creatinine Ratio (10-20) Glucose (70-99) mg/dl Calcium (8.5-10.1) mg/dl Total Bilirubin (0.2-1) mg/dl AST (15-37) U/L ALT (12-78) U/L Alkaline Phosphatase (45-117) U/L POC Troponin I < 0.03 (0-0.045) ng/ml Total Protein (6.4-8.2) gm/dl Albumin (3.4-5.0) gm/dl Globulin (2.5-4.0) gm/dl Albumin/Globulin Ratio (0.9-2) Lipase (73-393) U/L Urine Color Yellow Urine Appearance Clear (Clear) Urine pH 7.5 (4.5-7.5) Ur Specific [place] 1.021 (1.000-1.030) Urine Protein Negative (Negative) Urine Glucose (UA) Negative (Negative) Urine Ketones Negative (Negative) Urine Blood Negative (Negative) Urine Nitrite Negative (Negative) Urine Bilirubin Negative (Negative) Urine Urobilinogen Negative (Negative) Ur Leukocyte Esterase Trace H (Negative) Urine WBC (Auto) 1-5 (0-5) /hpf Urine RBC (Auto) 0-4 (0-4) /hpf U Hyaline Cast (Auto) 1-5 (0-5) /lpf U Epithel Cells (Auto) >30 H (0-5) /lpf Urine Bacteria (Auto) Negative (Negative) POC Ur Test (NEG) Imaging Data Radiologist's Impression: Radiology results as stated below per my review and the radiologist's interpretation: ABDOMINAL ULTRASOUND, RIGHT UPPER QUADRANT HISTORY: known cholecystitis, pancreatitis. COMPARISON: Abdomen and pelvis CT 06/22/2018. FINDINGS: Pancreas: Edematous pancreas consistent with acute pancreatitis. Redemonstration of the 5 cm complex fluid collection at the pancreatic tail. This remains unchanged. Liver: Mildly enlarged measuring 19 centers in length. No hepatic masses. Gallbladder: No gallbladder wall thickening. A few small gallstones at the fundus. The gallbladder wall may be slightly edematous. However, this could be reactive to the pancreatitis. CBD: Common bile duct stent is noted. No definite bile duct dilatation. Right kidney: No hydronephrosis. IMPRESSION: 1. Edematous pancreas consistent with acute pancreatitis. Redemonstration of the 5 cm complex fluid collection at the pancreatic tail. This remains unchanged. This could represent an abscess or pseudocyst. There are 2. Cholelithiasis. No gallbladder wall thickening. However, the gallbladder wall may be slightly edematous. This could be reactive to the pancreatitis. 3. A common bile duct stent is noted. No bile duct dilatation. Electronically signed by: Narinder Radford M.D. 06/27/2018 9:53 PM XR chest 1V portable HISTORY: epigastric low rib pain COMPARISON: Chest 06/07/2018. FINDINGS: Small linear density at the right lung base remains. This is improved and likely represents resolving atelectasis. The lungs are otherwise clear. No pleural effusions. No pneumothorax. The heart is normal in size. No evidence for pulmonary edema. IMPRESSION: No acute process. Electronically signed by: Narinder Radford M.D. 06/27/2018 11:08 PM Blood Pressure Blood Pressure Findings: Elevated blood pressure Blood Pressure Disposition: further management by hospitalist [facility] Narrative There is no leukocytosis. There is an anemia present, it appears the patient has a history of this looking back at previous testing. No significant electrolyte abnormality or kidney failure. No hepatitis. There is evidence for pancreatitis with an elevation of the lipase. Her lipase value today is higher than her last recorded value. Urinalysis does not show evidence for infection. Chest x-ray does not show pneumonia or free air, no mediastinal widening. Gallbladder ultrasound shows evidence for acute pancreatitis, no significant biliary ductal dilatation. The biliary stent was seen in proper position. There was some thickening of the gallbladder wall thought possibly secondary to the pancreatitis itself. The patient received IV morphine for pain, she has been resting more comfortably. The patient appears to have worsening pancreatitis not only by laboratory testing but also by recent CT imaging and by today's ultrasound imaging. She presents with increasing pain. I do believe a hospital stay is warranted. I spoke to the patient and case worker. The on-call hospitalist was consulted. Impression & Plan Acute pancreatitis, Failure of outpatient treatment, Epigastric abdominal pain Discharge Plan Visit Data Chief Complaint: Abdominal Pain Stated Complaint: ABDOMINAL PAIN W/BREATHING, HX- PANCREATITIS, GALL ED Provider: Tien Vasquez ED Midlevel Provider: Alecia Mckinney Discharge Problem: Acute pancreatitis, Failure of outpatient treatment, Epigastric abdominal pain Patient Disposition: Being Evaluated by Hospitalist Forms Stand Alone Forms: Call Back Authorization, My [facility] Prescriptions Prescriptions: No Action acetaminophen 500 mg Tablet 1,000 mg PO Q6 PRN (Reason: Fever Or Pain) RF: 0 PNV cmb#95-ferrous fumarate-FA [] 28 mg iron- 800 mcg Tablet 1 tab PO DAILY RF: 0 tramadol 50 mg Tablet 1 tab PO TID PRN (Reason: Pain) RF: 0 ondansetron 4 mg Tablet,Disintegrating 4 mg PO TID PRN (Reason: Nausea) RF: 0 escitalopram oxalate [Lexapro] 5 mg Tablet 10 mg PO HS RF: 0 Referrals Referrals: Vivek Urban DO [Primary Care Provider] - Discharge Problem: Acute pancreatitis Qualifiers: Pancreatitis type: unspecified pancreatitis type Acute pancreatitis complication: unspecified Qualified Code(s): K85.90 - Acute pancreatitis without necrosis or infection, unspecified The scribe's documentation has been prepared under my direction and personally reviewed by me in its entirety. I confirm that the note above accurately reflects all work, treatment, procedures, and medical decision making performed by me.
--- NOTE | 2018-06-27 23:06 | History & Physical Report ---
Date of Service June 27, 2018 Assessment & Plan (1) Acute pancreatitis: Patient with history of necrotozing pancreatitis, choledocholithiasis with cholecystitis, fluid collection noted on CT imaging from 06/22/18 which was redemonstrated and stable on ultrasound today. She had an ERCP performed on 06/06 with stone removal and stents x 2. Worsening epigastric discomfort today. Labs relatively stable with normal WBC=9.65 (was 11.58 on 06/21), Lipase of 684 (was 520 on 06/21/18). LFTs otherwise unremarkable. -Admit to medical floor -NPO -LR at 80mL/hr x 2 liters -Zofran PRN nausea -Dilaudid PRN pain -General Surgery and GI consultation - will defer further imaging studies to their expertise -Repeat CBC, BMP and LFTs in AM -Obtain records from [place] (2) state: Stable. She is still using a breast pump. 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 She had an ERCP performed on 06/05/[address] Guerrero which revealed choledocholithiasis with moderate dilation of the main bile duct. She had biliary sphincterotomy with balloon extraction and placement of a plastic stent in the ventral pancreatic duct as well as a plastic stent in the CBD. The procedure was well tolerated with no complications. On hospital day 3 she developed worsening abdominal pain as well as leukocytosis, tachycardia and fever. Repeat imaging with suggestion of early abscess development in the distal pancreas. She was transferred to [facility] service fo Dr. Knott on 06/08/18. She remained at [place] x 4 days and reports that her antibiotics were discontinued and her diet was advanced. She had no additional procedures performed while at [place]. She was dishcarged home and has since followed up with he PCP and General Surgery. She is scheduled for repeat ERCP with stent removal and cholecystectomy on 10 July 2018. Patient states that she has had chronic epigastric discomfort 2-3/10 since her initial presentation. She has had occasional episodes of increased abdominal pain that have been short in duration. She reports that this afternoon she had acute worsening of her abdominal pain, now 7-8/10. Pain is dull ache as well as sharp, bandlike across the upper abdomen. It is worse with movement and deep breathing. Also with mild nausea. No vomiting, no diarrhea or constipation although she reports inconsistent BMs since the initial episode of pancreatitis. ER Course: Morphine 4mg IV Allergies Allergy/AdvReac Type Severity Reaction Status Date / Time Sulfa (Sulfonamide AdvReac Intermediate Nausea/Vomi Verified 06/27/18 22:37 Antibiotics) ting Home Medications Home Medications Medication Instructions Recorded Confirmed Type PNV cmb#95-ferrous fumarate-FA 1 tab PO DAILY 01/08/18 06/27/18 History [] acetaminophen 1,000 mg PO Q6 PRN 01/08/18 06/27/18 History escitalopram oxalate [Lexapro] 10 mg PO HS 06/27/18 06/27/18 History ondansetron 4 mg PO TID PRN 06/27/18 06/27/18 History tramadol 1 tab PO TID PRN 06/27/18 06/27/18 History Past Med/Surg History Medical History Pancreatitis History of depression Surgical History History of ERCP History of section Done for failure to progress, 10 days over due date. [place], [place]. Had epidural dosed for C/S. TOTAL OF 2 C-SECTIONS S/P wrist surgery CYST REMOVAL (LEFT) 2005 Family History Other Family history non-contributory Social History Preferred Language: Serbian Beliefs That Will Affect Care: None marital status: Current Living Situation: Spouse and Family Feels Safe at Home: Yes Smoking Status: Never smoker Hx Alcohol Use: No Hx Substance Use: No Review of Systems All systems reviewed & are unremarkable except as noted in HPI & below Physical Exam Vital Signs (Past 24 Hours): Last Vital Signs Temp 36.7 C 06/27/18 19:41 Pulse 67 06/27/18 21:50 Resp 18 06/27/18 21:50 BP 115/72 06/27/18 21:50 Pulse Ox 98 06/27/18 21:50 Physical Exam: General: patient resting comfortably, NAD, non-toxic in appearance, AA&O x 4 Skin: warm, dry, intact, no rashes or lesions HEENT: NC/AT, PERRL, EOMI, anicteric sclera, conjunctiva without injection, external ear normal to inspection and nontender, nares patent, moist mucus membranes, dentition intact, no oropharyngeal lesions, neck supple, trachea midline, no LAD, no thyromegaly, no JVD Heart: +S1/S2, regular, no m/r/g Lungs: equal air entry bilaterally, no rales/rhonchi/wheezes Abd: +BS, soft, tender in the epigastric region with voluntary guarding, no masses/organomegaly/ascites Ext: warm, 2+ pulses in UE/LE bilaterally, no clubbing/cyanosis or edema Neuro: nonfocal, patient AA&O x 4, speech intact, no facial droop, moving all extremities on command with equal strength 5/5 Results & Data Laboratory Results Lab Results 06/27/18 06/27/18 06/27/18 Range/Units 21:07 21:07 21:50 WBC 9.65 (4.8-10.8) K/uL RBC 3.49 L (4.2-5.4) M/uL Hgb 8.8 L (12.0-16.0) g/dL Hct 27.3 L (37-47) % MCV 78.2 L (80-100) fL MCH 25.2 (25-34) pg MCHC 32.2 (32-36) g/dL RDW Std Deviation 44.4 (36.4-46.3) fL RDW Coeff of Latoya 15.5 H (11.5-14.5) % Plt Count 482 H (130-400) K/uL MPV 9.9 (7.4-10.4) fL Immature Gran % (Auto) 0.2 % Neut % (Auto) 64.2 % Lymph % (Auto) 25.7 % Morrill % (Auto) 7.7 % Eos % (Auto) 1.9 % Baso % (Auto) 0.3 % Immature Gran # (Auto) 0.02 (0.00-0.02) K/uL Neut # (Auto) 6.20 (1.4-6.5) K/uL Lymph # (Auto) 2.48 (1.2-3.4) K/uL Morrill # (Auto) 0.74 H (0.11-0.59) K/uL Eos # (Auto) 0.18 (0-0.5) K/uL Baso # (Auto) 0.03 (0-0.2) K/uL Ovalocytes 1+ Sodium 138 (136-145) mmol/L Potassium 3.4 L (3.5-5.1) mmol/L Chloride 104 (98-107) mmol/L Carbon Dioxide 27 (21-32) mmol/L Anion Gap 7.0 (3-11) BUN 8 (7-18) mg/dl Creatinine 0.97 (0.6-1.2) mg/dl Est Cr Clr Drug Dosing 92.3 ml/min Est GFR ( Amer) 90.8 Est GFR (Non-Af Amer) 78.4 BUN/Creatinine Ratio 8.0 L (10-20) Glucose 89 (70-99) mg/dl Calcium 9.2 (8.5-10.1) mg/dl Total Bilirubin 0.5 (0.2-1) mg/dl AST 28 (15-37) U/L ALT 38 (12-78) U/L Alkaline Phosphatase 99 (45-117) U/L POC Troponin I (0-0.045) ng/ml Total Protein 8.2 (6.4-8.2) gm/dl Albumin 3.3 L (3.4-5.0) gm/dl Globulin 4.9 H (2.5-4.0) gm/dl Albumin/Globulin Ratio 0.7 L (0.9-2) Lipase 684 H (73-393) U/L Urine Color Urine Appearance (Clear) Urine pH (4.5-7.5) Ur Specific [place] (1.000-1.030) Urine Protein (Negative) Urine Glucose (UA) (Negative) Urine Ketones (Negative) Urine Blood (Negative) Urine Nitrite (Negative) Urine Bilirubin (Negative) Urine Urobilinogen (Negative) Ur Leukocyte Esterase (Negative) Urine WBC (Auto) (0-5) /hpf Urine RBC (Auto) (0-4) /hpf U Hyaline Cast (Auto) (0-5) /lpf U Epithel Cells (Auto) (0-5) /lpf Urine Bacteria (Auto) (Negative) POC Ur Test NEG (NEG) 06/27/18 06/27/18 Range/Units 21:50 22:24 WBC (4.8-10.8) K/uL RBC (4.2-5.4) M/uL Hgb (12.0-16.0) g/dL Hct (37-47) % MCV (80-100) fL MCH (25-34) pg MCHC (32-36) g/dL RDW Std Deviation (36.4-46.3) fL RDW Coeff of Latoya (11.5-14.5) % Plt Count (130-400) K/uL MPV (7.4-10.4) fL Immature Gran % (Auto) % Neut % (Auto) % Lymph % (Auto) % Morrill % (Auto) % Eos % (Auto) % Baso % (Auto) % Immature Gran # (Auto) (0.00-0.02) K/uL Neut # (Auto) (1.4-6.5) K/uL Lymph # (Auto) (1.2-3.4) K/uL Morrill # (Auto) (0.11-0.59) K/uL Eos # (Auto) (0-0.5) K/uL Baso # (Auto) (0-0.2) K/uL Ovalocytes Sodium (136-145) mmol/L Potassium (3.5-5.1) mmol/L Chloride (98-107) mmol/L Carbon Dioxide (21-32) mmol/L Anion Gap (3-11) BUN (7-18) mg/dl Creatinine (0.6-1.2) mg/dl Est Cr Clr Drug Dosing ml/min Est GFR ( Amer) Est GFR (Non-Af Amer) BUN/Creatinine Ratio (10-20) Glucose (70-99) mg/dl Calcium (8.5-10.1) mg/dl Total Bilirubin (0.2-1) mg/dl AST (15-37) U/L ALT (12-78) U/L Alkaline Phosphatase (45-117) U/L POC Troponin I < 0.03 (0-0.045) ng/ml Total Protein (6.4-8.2) gm/dl Albumin (3.4-5.0) gm/dl Globulin (2.5-4.0) gm/dl Albumin/Globulin Ratio (0.9-2) Lipase (73-393) U/L Urine Color Yellow Urine Appearance Clear (Clear) Urine pH 7.5 (4.5-7.5) Ur Specific [place] 1.021 (1.000-1.030) Urine Protein Negative (Negative) Urine Glucose (UA) Negative (Negative) Urine Ketones Negative (Negative) Urine Blood Negative (Negative) Urine Nitrite Negative (Negative) Urine Bilirubin Negative (Negative) Urine Urobilinogen Negative (Negative) Ur Leukocyte Esterase Trace H (Negative) Urine WBC (Auto) 1-5 (0-5) /hpf Urine RBC (Auto) 0-4 (0-4) /hpf U Hyaline Cast (Auto) 1-5 (0-5) /lpf U Epithel Cells (Auto) >30 H (0-5) /lpf Urine Bacteria (Auto) Negative (Negative) POC Ur Test (NEG) Diagnostic Findings CT abd pelvis oral and IV con - 22 JUNE 2018 CLINICAL HISTORY: 32 years-old Female presenting with Pancreatitis, history of ERCP and stent placement, follow-up. TECHNIQUE: Multidetector CT of the abdomen and pelvis was performed after the administration of oral and intravenous contrast. IV contrast: 94 mL of Optiray 320. One or more dose lowering techniques were used consistent with the principles of ALARA (as low as reasonably achievable), including automatic exposure control, mA or kV adjustment to individual patient size, and/or use of iterative reconstruction. COMPARISON: 06/07/2018. CT DOSE (mGy.cm): The estimated cumulative dose is 907.21 mGycm. FINDINGS: Vamp Throater topogram: Common bile duct stent now in place as well as a pancreatic duct stent. Lung bases: Normal heart size. Resolved prior pleural effusions. Bandlike opacities in the left lung base likely atelectasis. Overall significant decrease in bibasilar atelectasis. Liver: Normal morphology. No liver lesion. Patent hepatic vasculature. Biliary: Common bile duct stent remains in place. No intrahepatic or hepatic biliary ductal dilatation. Trace gallbladder wall thickening with gallstones in the nondistended gallbladder. Pancreas: Pancreatic duct stent remains in place. Circumscribed multilocular intrapancreatic collections primarily involving the pancreatic body and tail. The largest collection measures 4.9 cm in diameter. Indications between these loculations may be present. These collections may also extend beyond the pancreatic parenchyma, including inferior tract-like extension at the level of pancreatic neck. 2.8 cm rim-enhancing collection along the serosa of the posterior wall of the stomach in the region of the lesser sac (series 3 image 87). Smaller collection in the uncinate process. No gas within the collections is apparent. The pancreatic head and neck demonstrate the greatest degree of preserved parenchymal enhancement. There is also preservation of parenchymal enhancement of the distalmost pancreatic tail (series 3 image 125). Significant interval decrease in diffuse peripancreatic fluid with only trace retroperitoneal fluid now present. 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 Normal caliber of the patent splenic artery. Splenic parenchyma normal. Splenule noted. Persistent perisplenic fluid though decreased from prior. Adrenal glands: Normal. Kidneys and ureters: Resolution of prior subcapsular fluid along the upper pole the left kidney. Kidneys normal in their enhancement. No hydronephrosis. Ureters nondilated. Bladder: Incompletely evaluated secondary to underdistention. Pelvic organs: Uterus and ovaries normal. Bowel: Normal appendix. No bowel obstruction. Mild small bowel wall thickening involving the duodenum and proximal jejunum, likely reactive. Peritoneal cavity: Significant decrease in ascites with only trace pelvic ascites now present. Significant decrease in retroperitoneal fluid. No free intraperitoneal gas. No extraluminal gas. Lymph nodes: Numerous subcentimeter prominent lymph nodes in the small bowel mesentery, nonspecific and likely reactive. Vasculature: Aorta and IVC patent and normal in caliber. Abdominal wall: Decreased body wall edema. Postsurgical changes from prior Pfannenstiel incision suggested. Musculoskeletal: Normal. IMPRESSION: 1. Interval evolution of necrotizing pancreatitis with more well-defined acute necrotic collections in the pancreatic body-tail, the largest measuring 4.9 cm in diameter. New collection measuring 2.8 cm along the gastric serosa the region of the lesser sac. No evidence of gas within these collections to suggest infection. 2. Viable pancreatic parenchyma primarily in the pancreatic head and neck as well as at the distal most pancreatic tail. Discontinuity of the pancreatic duct between the distalmost tail and pancreatic neck suspected. 3. Decreased retroperitoneal inflammatory change. 4. Resolved bilateral pleural effusions and anasarca with near resolution of ascites. 5. Improved aeration of the lung bases. Electronically signed by: Brandon Gonzales M.D. 06/22/2018 10:39 AM Dictated: 06/22/18 1027 Transcribed: 06/22/18 1027 ABDOMINAL ULTRASOUND, RIGHT UPPER QUADRANT HISTORY: known cholecystitis, pancreatitis. COMPARISON: Abdomen and pelvis CT 06/22/2018. FINDINGS: Pancreas: Edematous pancreas consistent with acute pancreatitis. Redemonstration of the 5 cm complex fluid collection at the pancreatic tail. This remains unchanged. Liver: Mildly enlarged measuring 19 centers in length. No hepatic masses. Gallbladder: No gallbladder wall thickening. A few small gallstones at the fundus. The gallbladder wall may be slightly edematous. However, this could be reactive to the pancreatitis. CBD: Common bile duct stent is noted. No definite bile duct dilatation. Right kidney: No hydronephrosis. IMPRESSION: 1. Edematous pancreas consistent with acute pancreatitis. Redemonstration of the 5 cm complex fluid collection at the pancreatic tail. This remains unchanged. This could represent an abscess or pseudocyst. There are 2. Cholelithiasis. No gallbladder wall thickening. However, the gallbladder wall may be slightly edematous. This could be reactive to the pancreatitis. 3. A common bile duct stent is noted. No bile duct dilatation. Electronically signed by: Narinder Radford M.D. 06/27/2018 9:53 PM Dictated: 06/27/[id number] Transcribed: 06/27/182148 XR chest 1V portable HISTORY: epigastric low rib pain COMPARISON: Chest 06/07/2018. FINDINGS: Small linear density at the right lung base remains. This is improved and likely represents resolving atelectasis. The lungs are otherwise clear. No pleural effusions. No pneumothorax. The heart is normal in size. No evidence for pulmonary edema. IMPRESSION: No acute process. Electronically signed by: Narinder Radford M.D. 06/27/2018 11:08 PM Dictated: 06/27/18 2307 Transcribed: 06/27/18 2307 Code Status & VTE Plan Code Status FULL VTE Prophylaxis Plan VTE Prophylaxis will be ordered: Yes Critical Care Time Critical Care Time: No (1) Acute pancreatitis Acute pancreatitis complication: unspecified Pancreatitis type: unspecified pancreatitis type Qualified Code(s): K85.90 - Acute pancreatitis without necrosis or infection, unspecified
--- NOTE | 2018-06-27 23:10 | XRay Report ---
XR chest 1V portable HISTORY: epigastric low rib pain COMPARISON: Chest 06/07/2018. FINDINGS: Small linear density at the right lung base remains. This is improved and likely represents resolving atelectasis. The lungs are otherwise clear. No pleural effusions. No pneumothorax. The hea rt is normal in size. No evidence for pulmonary edema. IMPRESSION: No acute process. Electronically signed by: Narinder Radford M.D. 06/27/2018 11:08 PM
[2018-06-28] MEDS ORDERED: DOCUSATE SODIUM 100 MG CAP PO PRN (00:31)
[2018-06-28] MEDS ORDERED: POTASSIUM CHLORIDE 10 MEQ TABCR PO STA (00:31)
[2018-06-28 00:48] LABS: Phosphorus 4.2 mg/dl (2.5-4.9)
[2018-06-28] MEDS: LACTATED RINGER'S 1,000 ML IV SCH ×2 (01:03→14:00)
[2018-06-28] MEDS: ONDANSETRON INJ 2 MG/ML 2 ML VIAL IV PRN (01:46)
[2018-06-28] MEDS ORDERED: NON-FORMULARY MEDICATION (Pnv Cmb#95-Ferrous Fumarate-Fa [Prenatal] 1 TAB) PO SCH (09:00)
[2018-06-28] MEDS ORDERED: ACETAMINOPHEN 65 ML IV ONE (09:01)
[2018-06-28 09:20] LABS: Basophils # (auto) 0.02 K/uL (0-0.2); Basophils % (auto) 0.2 %; Eosinophils # (auto) 0.14 K/uL (0-0.5); Eosinophils % (auto) 1.6 %; Hematocrit (blood only) 27.3 % (37-47); Hemoglobin 8.6 g/dL (12.0-16.0); Immature Granulocytes # (auto) 0.02 K/uL (0.00-0.02); Immature Granulocytes % (auto) 0.2 %; Lymphocytes % (auto) 19.4 %; Mean Corpuscular Hgb Conc 31.5 g/dL (32-36); Monocytes # (auto) 0.58 K/uL (0.11-0.59); Monocytes % (auto) 6.6 %; Neutrophils # (auto) 6.31 K/uL (1.4-6.5); Platelet Count 444 K/uL (130-400); RDW Coefficient of Variation 15.5 % (11.5-14.5); RDW Standard Deviation 44.5 fL (36.4-46.3); White Blood Count 8.77 K/uL (4.8-10.8)
[2018-06-28 09:40] LABS: Microcytosis Present
[2018-06-28 09:54] LABS: BUN Creatinine Ratio 8.8 (10-20); Calcium 9.4 mg/dl (8.5-10.1); Est GFR (African American) 105.1; Est GFR (Non-African American) 90.7; Potassium 4.3 mmol/L (3.5-5.1)
[2018-06-28] MEDS: HYDROmorphone INJ 1 MG/ML SYRINGE IV PRN ×2 (11:33→22:48)
--- NOTE | 2018-06-28 14:00 | Gastrointestinal Consultation ---
Date of Consultation June 28, 2018 Assessment & Plan (1) Necrotizing pancreatitis: Pt is a 32 y/o female admitted for persistent epigastric abd pain. Hx of gallstone pancreatitis s/p ERCP on 06/05/18 w choledocholithiaiss removal, sphincterectomy, ventral and biliary stenting; She developed necrotizing pancreatitis w fluid collection near body-tail and now gastric serosa region seen on most recently CT scan in 06/22. She is however clinically better than she was a few weeks ago. Not febrile, normal renal and liver functions, Lipase is overall decreased. She feels hungry, wants to start some liquids. Suspect her abdominal pain symptoms is a slight flare of her pancreatitis. - Increased IVF of LR to 125mL/hr - Ok to start CL diet - Symptomatic management w antiemetics and analgesics prn - Will defer repeat CT abd/pelvis at this time unless develops more abd pain or concerning signs of infection to r/o intraabdominal abscess. - Will consideration supplementation with pancreatic enzyme - We will follow her along. Supervising Physician Co-Signing Physician Notes I have personally seen and examined the patient with GABRIELA Haile. Her note reflects my exam and findings. I agree with her impression and plan. Patient already wants to start eating. I would go slow and start with clears only. Follow symptoms and advance diet slowly. Pain could be from a slight pancreatitis flare or from stents. Alireza Doyle M.D. History of Present Illness Reason for Consultation: Pancreatitis Requesting Physician: Dr. Yenifer Clark Attending Physician: Dr. Alireza Doyle History of Present Illness Patient is a 32yo female who presented to ED w c/o epigastric abd pain that's persistent associated w mild nausea. She has a hx of gallstone pancreatitis, s/p ERCP on 06/05 w choledhocholithiasis removal, biliary sphincterectomy and stent placements in CBD and ventral ducts. She developed necrotizing pancreatitis, CT signs of pancreas duct discontinuity, with worsening abd pain, leukocytosis and febrile episodes. She was eventually transferred to [facility], remained there from 06/08/18 to 06/12/18. She was seen by GI service there, treated with antibiotics, diet advancement but no further intervention. Upon DC from [facility] she is still w some epigastric abd pain, and would take Tylenol or Tramadol on PRN basis. She is no longer on antibx. She came to ED yesterday as her abd pain is more persistent. Pt's admission labs showed no signs of leukocytosis. She is afebrile. Her LFTs are normal. Lipase in 600s, previously 64K. She had her last CT abd/pelvis on 06/22/18: which showed interval evolution of necrotizing pancreatitis with more well-defined acute necrotic collections in the pancreatic body-tail, the largest measuring 4.9 cm in diameter. New collection measuring 2.8 cm along the gastric serosa the region of the lesser sac. No evidence of gas within these collections to suggest infection.There is viable pancreatic parenchyma primarily in the pancreatic head and neck as well as at the distal most pancreatic tail. Discontinuity of the pancreatic duct between the distalmost tail and pancreatic neck suspected. She does have decreased retroperitoneal inflammatory change, resolved bilateral pleural effusions and anasarca with near resolution of ascites and improved aeration of the lung bases. She is currently scheduled for repeat ERCP for stent removal as well as lap cholecytectomy on 07/10/18. Allergies Allergy/AdvReac Type Severity Reaction Status Date / Time Sulfa (Sulfonamide AdvReac Intermediate Nausea/Vomi Verified 06/27/18 22:37 Antibiotics) ting Home Medications Home Medications Medication Instructions Recorded Confirmed Type PNV cmb#95-ferrous fumarate-FA 1 tab PO DAILY 01/08/18 06/27/18 History [] acetaminophen 1,000 mg PO Q6 PRN 01/08/18 06/27/18 History escitalopram oxalate [Lexapro] 10 mg PO HS 06/27/18 06/27/18 History ondansetron 4 mg PO TID PRN 06/27/18 06/27/18 History tramadol 1 tab PO TID PRN 06/27/18 06/27/18 History Patient History Medical History Pancreatitis History of depression Surgical History History of ERCP History of section Done for failure to progress, 10 days over due date. [place], [place]. Had epidural dosed for C/S. TOTAL OF 2 C-SECTIONS S/P wrist surgery CYST REMOVAL (LEFT) 2005 Family History Other Family history non-contributory Social History Communication Ability: Effective Beliefs That Will Affect Care: None marital status: Current Living Situation: Spouse Other Information That Helps Us Care for You: No Feels Safe at Home: Yes Safety Concerns: Feels Safe At This Time Smoking Status: Never smoker Hx Alcohol Use: No Hx Substance Use: No Review of Systems Constitutional: as per Subjective / HPI Respiratory: no cough and no dyspnea Cardiovascular: no chest pain, no lightheadedness and no edema Gastrointestinal: + abdominal pain and + nausea; no vomiting Physical Exam Vital Signs (Past 24 Hours): Last Vital Signs Temp 36.3 C L 06/28/18 12:05 Pulse 83 06/28/18 12:05 Resp 18 06/28/18 12:05 BP 128/78 06/28/18 12:05 Pulse Ox 99 06/28/18 12:05 Constitutional: WD/WN, vitals as above well groomed, cooperative and comfortable Eyes: PERRL, conjunctivae normal, anicteric sclerae ENMT: external ear and nose normal, oropharynx normal Respiratory: normal respiratory effort, lungs clear to auscultation Cardiovascular: RRR, no murmur, no edema Gastrointestinal (Abdomen): Inspection/Auscultation: normal bowel sounds; abdomen not distended Percussion/Palpation: + abdomen tender (mild TTP RUQ are) and abdomen soft Skin: no rashes, warm and dry no jaundice Neurologic: Motor/Sensory: no asterixis Psychiatric: A+Ox3, euthymic affect Lymphatic: no lymphedema Results & Data Laboratory Results Laboratory Results - last 72 hr 06/27/18 06/27/18 06/27/18 21:07 21:07 21:50 WBC 9.65 RBC 3.49 L Hgb 8.8 L Hct 27.3 L MCV 78.2 L MCH 25.2 MCHC 32.2 RDW Std Deviation 44.4 RDW Coeff of Latoya 15.5 H Plt Count 482 H MPV 9.9 Immature Gran % (Auto) 0.2 Neut % (Auto) 64.2 Lymph % (Auto) 25.7 Sac % (Auto) 7.7 Eos % (Auto) 1.9 Baso % (Auto) 0.3 Immature Gran # (Auto) 0.02 Neut # (Auto) 6.20 Lymph # (Auto) 2.48 Sac # (Auto) 0.74 H Eos # (Auto) 0.18 Baso # (Auto) 0.03 Microcytosis Ovalocytes 1+ Sodium 138 Potassium 3.4 L Chloride 104 Carbon Dioxide 27 Anion Gap 7.0 BUN 8 Creatinine 0.97 Est Cr Clr Drug Dosing 92.3 Est GFR ( Amer) 90.8 Est GFR (Non-Af Amer) 78.4 BUN/Creatinine Ratio 8.0 L Glucose 89 Calcium 9.2 Phosphorus 4.2 Magnesium 2.0 Total Bilirubin 0.5 AST 28 ALT 38 Alkaline Phosphatase 99 POC Troponin I Total Protein 8.2 Albumin 3.3 L Globulin 4.9 H Albumin/Globulin Ratio 0.7 L Lipase 684 H Urine Color Urine Appearance Urine pH Ur Specific [place] Urine Protein Urine Glucose (UA) Urine Ketones Urine Blood Urine Nitrite Urine Bilirubin Urine Urobilinogen Ur Leukocyte Esterase Urine WBC (Auto) Urine RBC (Auto) U Hyaline Cast (Auto) U Epithel Cells (Auto) Urine Bacteria (Auto) POC Ur Test NEG 06/27/18 06/27/18 06/28/18 21:50 22:24 08:46 WBC 8.77 RBC 3.50 L Hgb 8.6 L Hct 27.3 L MCV 78.0 L MCH 24.6 L MCHC 31.5 L RDW Std Deviation 44.5 RDW Coeff of Latoya 15.5 H Plt Count 444 H MPV 10.0 Immature Gran % (Auto) 0.2 Neut % (Auto) 72.0 Lymph % (Auto) 19.4 Sac % (Auto) 6.6 Eos % (Auto) 1.6 Baso % (Auto) 0.2 Immature Gran # (Auto) 0.02 Neut # (Auto) 6.31 Lymph # (Auto) 1.70 Sac # (Auto) 0.58 Eos # (Auto) 0.14 Baso # (Auto) 0.02 Microcytosis Present Ovalocytes Sodium Potassium Chloride Carbon Dioxide Anion Gap BUN Creatinine Est Cr Clr Drug Dosing Est GFR ( Amer) Est GFR (Non-Af Amer) BUN/Creatinine Ratio Glucose Calcium Phosphorus Magnesium Total Bilirubin AST ALT Alkaline Phosphatase POC Troponin I < 0.03 Total Protein Albumin Globulin Albumin/Globulin Ratio Lipase Urine Color Yellow Urine Appearance Clear Urine pH 7.5 Ur Specific [place] 1.021 Urine Protein Negative Urine Glucose (UA) Negative Urine Ketones Negative Urine Blood Negative Urine Nitrite Negative Urine Bilirubin Negative Urine Urobilinogen Negative Ur Leukocyte Esterase Trace H Urine WBC (Auto) 1-5 Urine RBC (Auto) 0-4 U Hyaline Cast (Auto) 1-5 U Epithel Cells (Auto) >30 H Urine Bacteria (Auto) Negative POC Ur Test 06/28/18 08:46 WBC RBC Hgb Hct MCV MCH MCHC RDW Std Deviation RDW Coeff of Latoya Plt Count MPV Immature Gran % (Auto) Neut % (Auto) Lymph % (Auto) Sac % (Auto) Eos % (Auto) Baso % (Auto) Immature Gran # (Auto) Neut # (Auto) Lymph # (Auto) Sac # (Auto) Eos # (Auto) Baso # (Auto) Microcytosis Ovalocytes Sodium 138 Potassium 4.3 D Chloride 105 Carbon Dioxide 26 Anion Gap 7.0 BUN 8 Creatinine 0.86 Est Cr Clr Drug Dosing 103.0 Est GFR ( Amer) 105.1 Est GFR (Non-Af Amer) 90.7 BUN/Creatinine Ratio 8.8 L Glucose 84 Calcium 9.4 Phosphorus Magnesium Total Bilirubin AST ALT Alkaline Phosphatase POC Troponin I Total Protein Albumin Globulin Albumin/Globulin Ratio Lipase Urine Color Urine Appearance Urine pH Ur Specific [place] Urine Protein Urine Glucose (UA) Urine Ketones Urine Blood Urine Nitrite Urine Bilirubin Urine Urobilinogen Ur Leukocyte Esterase Urine WBC (Auto) Urine RBC (Auto) U Hyaline Cast (Auto) U Epithel Cells (Auto) Urine Bacteria (Auto) POC Ur Test
--- NOTE | 2018-06-28 16:07 | Surgery Consultation ---
Date of Consultation June 28, 2018 Assessment & Plan (1) Necrotizing pancreatitis: 32 year-old with history of gallstone pancreatitis s/p ERCP with biliary sphincterotomy and stent placement on 06/05/2018 in which she developed necrotizing pancreatitis and was transferred to [facility]. She was discharged from [facility] and followed-up with Dr. Rayo and scheduled for outpatient ERCP for stent removal and cholecystectomy on 07/10/2018. Increasing abdominal pain and nausea. Repeat CT scan on 06/22/2018 showing well defined necrotic fluid collections however no evidence of gas to suggest infection. Labs show no leukocytosis, t. bili and LFTS wnl, lipase 600s. Abdomen is soft, tender in epigastric and RUQ, no peritonitis, rigidity , or guarding. CT scan on Plan: Would like to give more time to allow for pancreatitis to resolve prior to entertaining cholecystectomy. The ultrasound showed gallstones but no signs of gallbladder wall thickening or pericholecystic fluid to suggest acute cholecystitis therefore emergent cholecystectomy not required at this time. Would keep outpatient cholecystectomy and ERCP scheduled for 07/10/18 Continue clear liquids for now as she tolerated well Continue IV fluids, pain management as needed, IV Zofran as needed Continue medical management No surgical intervention at this time, please call with any questions or concerns Dr. Rayo has seen and examined pt, agrees with above. (2) Cholelithiasis: See plan above History of Present Illness Reason for Consultation: Necrotizing pancreatitis Requesting Physician: Yenifer Clark Attending Physician: Yenifer Clark MD History of Present Illness Mayela is a pleasant 32 year old female who presented to emergency department last evening with c/o epigastric abdominal pain that's persistent associated with nausea. She was admitted to [facility] in May for gallstone pancreatitis and underwent ERCP on 06/05 with choledhocholithiasis removal, biliary sphincterectomy and stent placements in CBD and ventral ducts. She developed necrotizing pancreatitis, CT signs of pancreas duct discontinuity, with worsening abd pain, leukocytosis and febrile episodes. She was eventually transferred to [facility], remained there from 06/08/18 to 06/12/18. She was seen by GI service there, treated with antibiotics, diet advancement but no further intervention. She was discharged on antibiotics. She follow-up with Dr. Rayo in the office and is scheduled for ERCP for stent removal as well as lap cholecystectomy on 07/10/2018. She came to ED yesterday as her abdominal pain was more persistent. Pt's admission labs showed no signs of leukocytosis. She is afebrile. Her LFTs are normal. Lipase in 600s, previously 64K. She had her last CT abd/pelvis on 06/22/18: which showed interval evolution of necrotizing pancreatitis with more well-defined acute necrotic collections in the pancreatic body-tail, the largest measuring 4.9 cm in diameter. New collection measuring 2.8 cm along the gastric serosa the region of the lesser sac. No evidence of gas within these collections to suggest infection.There is viable pancreatic parenchyma primarily in the pancreatic head and neck as well as at the distal most pancreatic tail. Discontinuity of the pancreatic duct between the distalmost tail and pancreatic neck suspected. She does have decreased retroperitoneal inflammatory change, resolved bilateral pleural effusions and anasarca with near resolution of ascites and improved aeration of the lung bases. Allergies Allergy/AdvReac Type Severity Reaction Status Date / Time Sulfa (Sulfonamide AdvReac Intermediate Nausea/Vomi Verified 06/27/18 22:37 Antibiotics) ting Home Medications Home Medications Medication Instructions Recorded Confirmed Type PNV cmb#95-ferrous fumarate-FA 1 tab PO DAILY 01/08/18 06/27/18 History [] acetaminophen 1,000 mg PO Q6 PRN 01/08/18 06/27/18 History escitalopram oxalate [Lexapro] 10 mg PO HS 06/27/18 06/27/18 History ondansetron 4 mg PO TID PRN 06/27/18 06/27/18 History tramadol 1 tab PO TID PRN 06/27/18 06/27/18 History Patient History Medical History Pancreatitis History of depression Surgical History History of ERCP History of section Done for failure to progress, 10 days over due date. [place]. Had epidural dosed for C/S. TOTAL OF 2 C-SECTIONS S/P wrist surgery CYST REMOVAL (LEFT) 2005 Family History Other Family history non-contributory Social History Communication Ability: Effective Beliefs That Will Affect Care: None marital status: Current Living Situation: Spouse Other Information That Helps Us Care for You: No Feels Safe at Home: Yes Safety Concerns: Feels Safe At This Time Smoking Status: Never smoker Hx Alcohol Use: No Hx Substance Use: No Review of Systems Constitutional: as per Subjective / HPI Physical Exam Vital Signs (Past 24 Hours): Last Vital Signs Temp 36.7 C 06/28/18 15:12 Pulse 76 06/28/18 15:12 Resp 16 06/28/18 15:12 BP 128/78 06/28/18 15:12 Pulse Ox 96 06/28/18 15:12 Constitutional: WD/WN, vitals as above no acute distress and not ill appearing Respiratory: no respiratory distress Gastrointestinal (Abdomen): Inspection/Auscultation: abdomen not distended Percussion/Palpation: + abdomen tender (epigastric and RUQ) and abdomen soft; no guarding and abdomen not rigid Skin: no rashes, warm and dry Psychiatric: A+Ox3, euthymic affect Results & Data Laboratory Results 06/28/18 06/28/18 06/27/18 Range/Units 08:46 08:46 22:24 WBC 8.77 (4.8-10.8) K/uL RBC 3.50 L (4.2-5.4) M/uL Hgb 8.6 L (12.0-16.0) g/dL Hct 27.3 L (37-47) % MCV 78.0 L (80-100) fL MCH 24.6 L (25-34) pg MCHC 31.5 L (32-36) g/dL RDW Std Deviation 44.5 (36.4-46.3) fL RDW Coeff of Latoya 15.5 H (11.5-14.5) % Plt Count 444 H (130-400) K/uL MPV 10.0 (7.4-10.4) fL Immature Gran % (Auto) 0.2 % Neut % (Auto) 72.0 % Lymph % (Auto) 19.4 % Ida % (Auto) 6.6 % Eos % (Auto) 1.6 % Baso % (Auto) 0.2 % Immature Gran # (Auto) 0.02 (0.00-0.02) K/uL Neut # (Auto) 6.31 (1.4-6.5) K/uL Lymph # (Auto) 1.70 (1.2-3.4) K/uL Ida # (Auto) 0.58 (0.11-0.59) K/uL Eos # (Auto) 0.14 (0-0.5) K/uL Baso # (Auto) 0.02 (0-0.2) K/uL Microcytosis Present Ovalocytes Sodium 138 (136-145) mmol/L Potassium 4.3 D (3.5-5.1) mmol/L Chloride 105 (98-107) mmol/L Carbon Dioxide 26 (21-32) mmol/L Anion Gap 7.0 (3-11) BUN 8 (7-18) mg/dl Creatinine 0.86 (0.6-1.2) mg/dl Est Cr Clr Drug Dosing 103.0 ml/min Est GFR ( Amer) 105.1 Est GFR (Non-Af Amer) 90.7 BUN/Creatinine Ratio 8.8 L (10-20) Glucose 84 (70-99) mg/dl Calcium 9.4 (8.5-10.1) mg/dl Phosphorus (2.5-4.9) mg/dl Magnesium (1.8-2.4) mg/dl Total Bilirubin (0.2-1) mg/dl AST (15-37) U/L ALT (12-78) U/L Alkaline Phosphatase (45-117) U/L POC Troponin I < 0.03 (0-0.045) ng/ml Total Protein (6.4-8.2) gm/dl Albumin (3.4-5.0) gm/dl Globulin (2.5-4.0) gm/dl Albumin/Globulin Ratio (0.9-2) Lipase (73-393) U/L Urine Color Urine Appearance (Clear) Urine pH (4.5-7.5) Ur Specific [place] (1.000-1.030) Urine Protein (Negative) Urine Glucose (UA) (Negative) Urine Ketones (Negative) Urine Blood (Negative) Urine Nitrite (Negative) Urine Bilirubin (Negative) Urine Urobilinogen (Negative) Ur Leukocyte Esterase (Negative) Urine WBC (Auto) (0-5) /hpf Urine RBC (Auto) (0-4) /hpf U Hyaline Cast (Auto) (0-5) /lpf U Epithel Cells (Auto) (0-5) /lpf Urine Bacteria (Auto) (Negative) POC Ur Test (NEG) 06/27/18 06/27/18 06/27/18 Range/Units 21:50 21:50 21:07 WBC (4.8-10.8) K/uL RBC (4.2-5.4) M/uL Hgb (12.0-16.0) g/dL Hct (37-47) % MCV (80-100) fL MCH (25-34) pg MCHC (32-36) g/dL RDW Std Deviation (36.4-46.3) fL RDW Coeff of Latoya (11.5-14.5) % Plt Count (130-400) K/uL MPV (7.4-10.4) fL Immature Gran % (Auto) % Neut % (Auto) % Lymph % (Auto) % Ida % (Auto) % Eos % (Auto) % Baso % (Auto) % Immature Gran # (Auto) (0.00-0.02) K/uL Neut # (Auto) (1.4-6.5) K/uL Lymph # (Auto) (1.2-3.4) K/uL Ida # (Auto) (0.11-0.59) K/uL Eos # (Auto) (0-0.5) K/uL Baso # (Auto) (0-0.2) K/uL Microcytosis Ovalocytes Sodium 138 (136-145) mmol/L Potassium 3.4 L (3.5-5.1) mmol/L Chloride 104 (98-107) mmol/L Carbon Dioxide 27 (21-32) mmol/L Anion Gap 7.0 (3-11) BUN 8 (7-18) mg/dl Creatinine 0.97 (0.6-1.2) mg/dl Est Cr Clr Drug Dosing 92.3 ml/min Est GFR ( Amer) 90.8 Est GFR (Non-Af Amer) 78.4 BUN/Creatinine Ratio 8.0 L (10-20) Glucose 89 (70-99) mg/dl Calcium 9.2 (8.5-10.1) mg/dl Phosphorus 4.2 (2.5-4.9) mg/dl Magnesium 2.0 (1.8-2.4) mg/dl Total Bilirubin 0.5 (0.2-1) mg/dl AST 28 (15-37) U/L ALT 38 (12-78) U/L Alkaline Phosphatase 99 (45-117) U/L POC Troponin I (0-0.045) ng/ml Total Protein 8.2 (6.4-8.2) gm/dl Albumin 3.3 L (3.4-5.0) gm/dl Globulin 4.9 H (2.5-4.0) gm/dl Albumin/Globulin Ratio 0.7 L (0.9-2) Lipase 684 H (73-393) U/L Urine Color Yellow Urine Appearance Clear (Clear) Urine pH 7.5 (4.5-7.5) Ur Specific [place] 1.021 (1.000-1.030) Urine Protein Negative (Negative) Urine Glucose (UA) Negative (Negative) Urine Ketones Negative (Negative) Urine Blood Negative (Negative) Urine Nitrite Negative (Negative) Urine Bilirubin Negative (Negative) Urine Urobilinogen Negative (Negative) Ur Leukocyte Esterase Trace H (Negative) Urine WBC (Auto) 1-5 (0-5) /hpf Urine RBC (Auto) 0-4 (0-4) /hpf U Hyaline Cast (Auto) 1-5 (0-5) /lpf U Epithel Cells (Auto) >30 H (0-5) /lpf Urine Bacteria (Auto) Negative (Negative) POC Ur Test NEG (NEG) 06/27/18 Range/Units 21:07 WBC 9.65 (4.8-10.8) K/uL RBC 3.49 L (4.2-5.4) M/uL Hgb 8.8 L (12.0-16.0) g/dL Hct 27.3 L (37-47) % MCV 78.2 L (80-100) fL MCH 25.2 (25-34) pg MCHC 32.2 (32-36) g/dL RDW Std Deviation 44.4 (36.4-46.3) fL RDW Coeff of Latyoa 15.5 H (11.5-14.5) % Plt Count 482 H (130-400) K/uL MPV 9.9 (7.4-10.4) fL Immature Gran % (Auto) 0.2 % Neut % (Auto) 64.2 % Lymph % (Auto) 25.7 % Ida % (Auto) 7.7 % Eos % (Auto) 1.9 % Baso % (Auto) 0.3 % Immature Gran # (Auto) 0.02 (0.00-0.02) K/uL Neut # (Auto) 6.20 (1.4-6.5) K/uL Lymph # (Auto) 2.48 (1.2-3.4) K/uL Ida # (Auto) 0.74 H (0.11-0.59) K/uL Eos # (Auto) 0.18 (0-0.5) K/uL Baso # (Auto) 0.03 (0-0.2) K/uL Microcytosis Ovalocytes 1+ Sodium (136-145) mmol/L Potassium (3.5-5.1) mmol/L Chloride (98-107) mmol/L Carbon Dioxide (21-32) mmol/L Anion Gap (3-11) BUN (7-18) mg/dl Creatinine (0.6-1.2) mg/dl Est Cr Clr Drug Dosing ml/min Est GFR ( Amer) Est GFR (Non-Af Amer) BUN/Creatinine Ratio (10-20) Glucose (70-99) mg/dl Calcium (8.5-10.1) mg/dl Phosphorus (2.5-4.9) mg/dl Magnesium (1.8-2.4) mg/dl Total Bilirubin (0.2-1) mg/dl AST (15-37) U/L ALT (12-78) U/L Alkaline Phosphatase (45-117) U/L POC Troponin I (0-0.045) ng/ml Total Protein (6.4-8.2) gm/dl Albumin (3.4-5.0) gm/dl Globulin (2.5-4.0) gm/dl Albumin/Globulin Ratio (0.9-2) Lipase (73-393) U/L Urine Color Urine Appearance (Clear) Urine pH (4.5-7.5) Ur Specific [place] (1.000-1.030) Urine Protein (Negative) Urine Glucose (UA) (Negative) Urine Ketones (Negative) Urine Blood (Negative) Urine Nitrite (Negative) Urine Bilirubin (Negative) Urine Urobilinogen (Negative) Ur Leukocyte Esterase (Negative) Urine WBC (Auto) (0-5) /hpf Urine RBC (Auto) (0-4) /hpf U Hyaline Cast (Auto) (0-5) /lpf U Epithel Cells (Auto) (0-5) /lpf Urine Bacteria (Auto) (Negative) POC Ur Test (NEG) Diagnostic Findings ABDOMINAL ULTRASOUND, RIGHT UPPER QUADRANT HISTORY: known cholecystitis, pancreatitis. COMPARISON: Abdomen and pelvis CT 06/22/2018. FINDINGS: Pancreas: Edematous pancreas consistent with acute pancreatitis. Redemonstration of the 5 cm complex fluid collection at the pancreatic tail. This remains unchanged. Liver: Mildly enlarged measuring 19 centers in length. No hepatic masses. Gallbladder: No gallbladder wall thickening. A few small gallstones at the fundus. The gallbladder wall may be slightly edematous. However, this could be reactive to the pancreatitis. CBD: Common bile duct stent is noted. No definite bile duct dilatation. Right kidney: No hydronephrosis. IMPRESSION: 1. Edematous pancreas consistent with acute pancreatitis. Redemonstration of the 5 cm complex fluid collection at the pancreatic tail. This remains unchanged. This could represent an abscess or pseudocyst. There are 2. Cholelithiasis. No gallbladder wall thickening. However, the gallbladder wall may be slightly edematous. This could be reactive to the pancreatitis. 3. A common bile duct stent is noted. No bile duct dilatation. CT abd pelvis oral and IV con CLINICAL HISTORY: 32 years-old Female presenting with Pancreatitis, history of ERCP and stent placement, follow-up. TECHNIQUE: Multidetector CT of the abdomen and pelvis was performed after the administration of oral and intravenous contrast. IV contrast: 94 mL of Optiray 320. One or more dose lowering techniques were used consistent with the principles of ALARA (as low as reasonably achievable), including automatic exposure control, mA or kV adjustment to individual patient size, and/or use of iterative reconstruction. COMPARISON: 06/07/2018. CT DOSE (mGy.cm): The estimated cumulative dose is 907.21 mGycm. FINDINGS: Announcer topogram: Common bile duct stent now in place as well as a pancreatic duct stent. Lung bases: Normal heart size. Resolved prior pleural effusions. Bandlike opacities in the left lung base likely atelectasis. Overall significant decrease in bibasilar atelectasis. Liver: Normal morphology. No liver lesion. Patent hepatic vasculature. Biliary: Common bile duct stent remains in place. No intrahepatic or hepatic biliary ductal dilatation. Trace gallbladder wall thickening with gallstones in the nondistended gallbladder. Pancreas: Pancreatic duct stent remains in place. Circumscribed multilocular intrapancreatic collections primarily involving the pancreatic body and tail. The largest collection measures 4.9 cm in diameter. Indications between these loculations may be present. These collections may also extend beyond the pancreatic parenchyma, including inferior tract-like extension at the level of pancreatic neck. 2.8 cm rim-enhancing collection along the serosa of the posterior wall of the stomach in the region of the lesser sac (series 3 image 87). Smaller collection in the uncinate process. No gas within the collections is apparent. The pancreatic head and neck demonstrate the greatest degree of preserved parenchymal enhancement. There is also preservation of parenchymal enhancement of the distalmost pancreatic tail (series 3 image 125). Significant interval decrease in diffuse peripancreatic fluid with only trace retroperitoneal fluid now present. 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 Normal caliber of the patent splenic artery. Splenic parenchyma normal. Splenule noted. Persistent perisplenic fluid though decreased from prior. Adrenal glands: Normal. Kidneys and ureters: Resolution of prior subcapsular fluid along the upper pole the left kidney. Kidneys normal in their enhancement. No hydronephrosis. Ureters nondilated. Bladder: Incompletely evaluated secondary to underdistention. Pelvic organs: Uterus and ovaries normal. Bowel: Normal appendix. No bowel obstruction. Mild small bowel wall thickening involving the duodenum and proximal jejunum, likely reactive. Peritoneal cavity: Significant decrease in ascites with only trace pelvic ascites now present. Significant decrease in retroperitoneal fluid. No free intraperitoneal gas. No extraluminal gas. Lymph nodes: Numerous subcentimeter prominent lymph nodes in the small bowel mesentery, nonspecific and likely reactive. Vasculature: Aorta and IVC patent and normal in caliber. Abdominal wall: Decreased body wall edema. Postsurgical changes from prior Pfannenstiel incision suggested. Musculoskeletal: Normal. IMPRESSION: 1. Interval evolution of necrotizing pancreatitis with more well-defined acute necrotic collections in the pancreatic body-tail, the largest measuring 4.9 cm in diameter. New collection measuring 2.8 cm along the gastric serosa the region of the lesser sac. No evidence of gas within these collections to suggest infection. 2. Viable pancreatic parenchyma primarily in the pancreatic head and neck as well as at the distal most pancreatic tail. Discontinuity of the pancreatic duct between the distalmost tail and pancreatic neck suspected. 3. Decreased retroperitoneal inflammatory change. 4. Resolved bilateral pleural effusions and anasarca with near resolution of ascites. 5. Improved aeration of the lung bases.
--- NOTE | 2018-06-28 16:44 | Family Medicine Progress Note ---
Date of Service June 28, 2018 Assessment & Plan (1) Abdominal pain: 32-year-old female with a recent history of choledocholithiasis, cholecystitis and acute necrotizing pancreatitis presents with worsening abdominal pain. She is hospitalized between June 05 till June 08 where she received sphincterotomy and stent in the common bile duct. She is slated for cholecystectomy on 07/10/2018. She states that her abdominal pain has been controlled since discharge on the , but the pain became severe at the time of admission. Acute pancreatitis The patient is afebrile, vitals are stable she does not have leukocytosis Treating the patient supportively with IV fluids, Zofran for nausea, as needed Dilaudid for abdominal pain General surgery consulted, appreciate recommendationsno surgical interventions at this time, recommend outpatient cholecystectomy and ERCP on 07/10/2018 GI consulted, appreciate recommendationsrecommend the possibility of adding pancreatic enzymes to regimen state Continue Lexapro 10 mg Patient using breast pump, will pump and dump on pain medications FEN Advancing diet to clear liquids, continue fluids at 125 cc/h DVT prophylaxis SCDs, ambulate CODE STATUS Full (2) Necrotizing pancreatitis: Supervising Physician Co-Signing Physician Notes Resident Physician Supervision Note: I independently interviewed and examined the patient and verified the weldon history and physical, reviewed labs and image studies, discussed the case with the resident Dr. Ojeda and agree with the findings and care plan. Subjective 32-year-old female with a recent history of choledocholithiasis, cholecystitis and acute necrotizing pancreatitis presents with worsening abdominal pain. She is hospitalized between June 05 till June 08 where she received sphincterotomy and stent in the common bile duct. She is slated for cholecystectomy on 07/10/2018. She states that her abdominal pain has been controlled since discharge on the , but the pain became severe at the time of admission. This morning, the patient is doing quite well. She denies any abdominal pain, nausea/vomiting/diarrhea. She does report having a headache. Constitutional; no fevers, chills, night sweats Cardio; no chest pain, no palpitations, no shortness of breath Abdomen; mild 2 out of 10 epigastric abdominal pain improved compared to last night, no nausea/vomiting/diarrhea Physical Exam Vital Signs (Past 24 Hours): Last Vital Signs Temp 36.7 C 06/28/18 15:12 Pulse 76 06/28/18 15:12 Resp 16 06/28/18 15:12 BP 128/78 06/28/18 15:12 Pulse Ox 96 06/28/18 15:12 Constitutional: WD/WN, vitals as above Eyes: PERRL, conjunctivae normal, anicteric sclerae ENMT: external ear and nose normal, oropharynx normal Neck: trachea midline, no thyromegaly Respiratory: normal respiratory effort, lungs clear to auscultation Cardiovascular: RRR, no murmur, no edema Gastrointestinal (Abdomen): normal bowel sounds, soft, nontender, no hepatosplenomegaly Musculoskeletal: no cyanosis or clubbing, extremities motor strength 5/5 Skin: no rashes, warm and dry Neurologic: patellar DTR's 2+ bilat, sensation intact Psychiatric: A+Ox3, euthymic affect Results & Data Laboratory Results Laboratory Last Values WBC 8.77 K/uL (4.8-10.8) 06/28/18 08:46 RBC 3.50 M/uL (4.2-5.4) L 06/28/18 08:46 Hgb 8.6 g/dL (12.0-16.0) L 06/28/18 08:46 Hct 27.3 % (37-47) L 06/28/18 08:46 MCV 78.0 fL (80-100) L 06/28/18 08:46 MCH 24.6 pg (25-34) L 06/28/18 08:46 MCHC 31.5 g/dL (32-36) L 06/28/18 08:46 RDW Std Deviation 44.5 fL (36.4-46.3) 06/28/18 08:46 RDW Coeff of Latoya 15.5 % (11.5-14.5) H 06/28/18 08:46 Plt Count 444 K/uL (130-400) H 06/28/18 08:46 MPV 10.0 fL (7.4-10.4) 06/28/18 08:46 Immature Gran % (Auto) 0.2 % 06/28/18 08:46 Neut % (Auto) 72.0 % 06/28/18 08:46 Lymph % (Auto) 19.4 % 06/28/18 08:46 [place] % (Auto) 6.6 % 06/28/18 08:46 Eos % (Auto) 1.6 % 06/28/18 08:46 Baso % (Auto) 0.2 % 06/28/18 08:46 Immature Gran # (Auto) 0.02 K/uL (0.00-0.02) 06/28/18 08:46 Neut # (Auto) 6.31 K/uL (1.4-6.5) 06/28/18 08:46 Lymph # (Auto) 1.70 K/uL (1.2-3.4) 06/28/18 08:46 [place] # (Auto) 0.58 K/uL (0.11-0.59) 06/28/18 08:46 Eos # (Auto) 0.14 K/uL (0-0.5) 06/28/18 08:46 Baso # (Auto) 0.02 K/uL (0-0.2) 06/28/18 08:46 Microcytosis Present 06/28/18 08:46 Ovalocytes 1+ 06/27/18 21:07 Sodium 138 mmol/L (136-145) 06/28/18 08:46 Potassium 4.3 mmol/L (3.5-5.1) D 06/28/18 08:46 Chloride 105 mmol/L (98-107) 06/28/18 08:46 Carbon Dioxide 26 mmol/L (21-32) 06/28/18 08:46 Anion Gap 7.0 (3-11) 06/28/18 08:46 BUN 8 mg/dl (7-18) 06/28/18 08:46 Creatinine 0.86 mg/dl (0.6-1.2) 06/28/18 08:46 Est Cr Clr Drug Dosing 103.0 ml/min 06/28/18 08:46 Est GFR ( Amer) 105.1 06/28/18 08:46 Est GFR (Non-Af Amer) 90.7 06/28/18 08:46 BUN/Creatinine Ratio 8.8 (10-20) L 06/28/18 08:46 Glucose 84 mg/dl (70-99) 06/28/18 08:46 Calcium 9.4 mg/dl (8.5-10.1) 06/28/18 08:46 Phosphorus 4.2 mg/dl (2.5-4.9) 06/27/18 21:07 Magnesium 2.0 mg/dl (1.8-2.4) 06/27/18 21:07 Total Bilirubin 0.5 mg/dl (0.2-1) 06/27/18 21:07 AST 28 U/L (15-37) 06/27/18 21:07 ALT 38 U/L (12-78) 06/27/18 21:07 Alkaline Phosphatase 99 U/L (45-117) 06/27/18 21:07 POC Troponin I < 0.03 ng/ml (0-0.045) 06/27/18 22:24 Total Protein 8.2 gm/dl (6.4-8.2) 06/27/18 21:07 Albumin 3.3 gm/dl (3.4-5.0) L 06/27/18 21:07 Globulin 4.9 gm/dl (2.5-4.0) H 06/27/18 21:07 Albumin/Globulin Ratio 0.7 (0.9-2) L 06/27/18 21:07 Lipase 684 U/L (73-393) H 06/27/18 21:07 Urine Color Yellow 06/27/18 21:50 Urine Appearance Clear (Clear) 06/27/18 21:50 Urine pH 7.5 (4.5-7.5) 06/27/18 21:50 Ur Specific [place] 1.021 (1.000-1.030) 06/27/18 21:50 Urine Protein Negative (Negative) 06/27/18 21:50 Urine Glucose (UA) Negative (Negative) 06/27/18 21:50 Urine Ketones Negative (Negative) 06/27/18 21:50 Urine Blood Negative (Negative) 06/27/18 21:50 Urine Nitrite Negative (Negative) 06/27/18 21:50 Urine Bilirubin Negative (Negative) 06/27/18 21:50 Urine Urobilinogen Negative (Negative) 06/27/18 21:50 Ur Leukocyte Esterase Trace (Negative) H 06/27/18 21:50 Urine WBC (Auto) 1-5 /hpf (0-5) 06/27/18 21:50 Urine RBC (Auto) 0-4 /hpf (0-4) 06/27/18 21:50 U Hyaline Cast (Auto) 1-5 /lpf (0-5) 06/27/18 21:50 U Epithel Cells (Auto) >30 /lpf (0-5) H 06/27/18 21:50 Urine Bacteria (Auto) Negative (Negative) 06/27/18 21:50 POC Ur Test NEG (NEG) 06/27/18 21:50 Resident Activity Tracking Resident Involvement: Resident Care Provided Care Provided: Adult Hospital Medicine (1) Abdominal pain Abdominal location: unspecified location Qualified Code(s): R10.9 - Unspecified abdominal pain
[2018-06-28] MEDS ORDERED: ACETAMINOPHEN 500 MG TAB ONE (18:05)
[2018-06-28] MEDS: ESCITALOPRAM OXALATE 10 MG TAB PO SCH (20:31)
[2018-06-29] MEDS: HYDROmorphone INJ 1 MG/ML SYRINGE IV PRN ×3 (07:16→20:34)
[2018-06-29 09:27] LABS: Basophils # (auto) 0.02 K/uL (0-0.2); Basophils % (auto) 0.3 %; Eosinophils # (auto) 0.18 K/uL (0-0.5); Eosinophils % (auto) 2.4 %; Hemoglobin 8.4 g/dL (12.0-16.0); Immature Granulocytes # (auto) 0.01 K/uL (0.00-0.02); Immature Granulocytes % (auto) 0.1 %; Lymphocytes # (auto) 1.36 K/uL (1.2-3.4); Lymphocytes % (auto) 17.9 %; Mean Corpuscular Hgb Conc 31.1 g/dL (32-36); Mean Corpuscular Volume 78.5 fL (80-100); Mean Platelet Volume 9.9 fL (7.4-10.4); Monocytes # (auto) 0.53 K/uL (0.11-0.59); Neutrophils % (auto) 72.3 %; Platelet Count 408 K/uL (130-400); RDW Coefficient of Variation 15.3 % (11.5-14.5); RDW Standard Deviation 44.2 fL (36.4-46.3); Red Blood Count 3.44 M/uL (4.2-5.4)
[2018-06-29] MEDS ORDERED: IRON SUCROSE 100 MG in SYRINGE 0 ML IV ONE (09:30)
[2018-06-29 09:44] LABS: Albumin Level 2.9 gm/dl (3.4-5.0); BUN Creatinine Ratio 8.8 (10-20); Bilirubin Direct 0.2 mg/dl (0-0.2); Calcium 9.1 mg/dl (8.5-10.1); Creatinine Clr Calc Pharmacy 108.1 ml/min; Est GFR (African American) 111.3; Potassium 4.1 mmol/L (3.5-5.1)
[2018-06-29 09:46] LABS: Bilirubin,Total 0.5 mg/dl (0.2-1); Total Protein 7.7 gm/dl (6.4-8.2)
[2018-06-29 10:01] LABS: RBC Morphology Unremarkable
--- NOTE | 2018-06-29 11:49 | Gastroenterology Progress Note ---
Date of Service June 29, 2018 Assessment & Plan (1) Necrotizing pancreatitis: Pt is a 32 y/o female admitted for persistent epigastric abd pain. Hx of gallstone pancreatitis s/p ERCP on 06/05/18 w choledocholithiaiss removal, sphincterectomy, ventral and biliary stenting; She developed necrotizing pancreatitis w fluid collection near body-tail and now gastric serosa region seen on most recently CT scan in 06/22. Suspect her abdominal pain symptoms is a slight flare of her pancreatitis. - Restart IVF of LR @125mL/hr - Advanced to FL diet - Symptomatic management w antiemetics and analgesics prn - Will defer repeat CT abd/pelvis at this time unless develops more abd pain or concerning signs of infection to r/o intraabdominal abscess. - Will consideration supplementation with pancreatic enzyme if having diarrhea. - I have encouraged her to ambulate more. Recommend DVT prophylaxis. - Colace 100mg BID to prevent ileus. - We will follow her along. Currently she is scheduled for ERCP w biliary stent removal and lap cholecystectomy on 07/10/18 Supervising Physician Co-Signing Physician Notes I have personally seen and examined the patient with GABRIELA Haile. Her note reflects my exam and findings. I agree with her impression and plan. Pt still having pain. She was able to ambulate today which is great. Cont aggressive IV hydration. Clears only since her light diet may have exacerbated her symptoms. If her pain has not improved tomorrow, consider a repeat CT ( we have been trying to avoid further radiation exposure). Alireza Doyle M.D. Subjective Pt sitting up in bed. Did report a couple of more intense pain overnight. Denies any N/V. Tolerating CL diet. Would like to try a bit more solid food. She isn't ambulating much. Less passage of flatus today compared to yesterday. Denies BM x 2 days IVF DC'd overnight. Renal function and UOP good, but she reports urine is orange in color. Physical Exam Vital Signs (Past 24 Hours): Last Vital Signs Temp 36.4 C L 06/29/18 07:46 Pulse 80 06/29/18 07:46 Resp 18 06/29/18 07:46 BP 123/81 06/29/18 07:46 Pulse Ox 96 06/29/18 07:46 Constitutional: WD/WN, vitals as above well groomed, cooperative and comfortable Eyes: PERRL, conjunctivae normal, anicteric sclerae ENMT: external ear and nose normal, oropharynx normal Respiratory: normal respiratory effort, lungs clear to auscultation Cardiovascular: RRR, no murmur, no edema Gastrointestinal (Abdomen): Inspection/Auscultation: + hypoactive bowel sounds Percussion/Palpation: + abdomen tender (RUQ) and abdomen soft Skin: no rashes, warm and dry no jaundice Neurologic: Motor/Sensory: no asterixis Psychiatric: A+Ox3, euthymic affect Lymphatic: no lymphedema Results & Data Laboratory Results Laboratory Results - last 48 hr 06/27/18 06/27/18 06/27/18 21:07 21:07 21:50 WBC 9.65 RBC 3.49 L Hgb 8.8 L Hct 27.3 L MCV 78.2 L MCH 25.2 MCHC 32.2 RDW Std Deviation 44.4 RDW Coeff of Latoya 15.5 H Plt Count 482 H MPV 9.9 Immature Gran % (Auto) 0.2 Neut % (Auto) 64.2 Lymph % (Auto) 25.7 [place] % (Auto) 7.7 Eos % (Auto) 1.9 Baso % (Auto) 0.3 Immature Gran # (Auto) 0.02 Neut # (Auto) 6.20 Lymph # (Auto) 2.48 [place] # (Auto) 0.74 H Eos # (Auto) 0.18 Baso # (Auto) 0.03 RBC Morphology Microcytosis Ovalocytes 1+ Sodium 138 Potassium 3.4 L Chloride 104 Carbon Dioxide 27 Anion Gap 7.0 BUN 8 Creatinine 0.97 Est Cr Clr Drug Dosing 92.3 Est GFR ( Amer) 90.8 Est GFR (Non-Af Amer) 78.4 BUN/Creatinine Ratio 8.0 L Glucose 89 Calcium 9.2 Phosphorus 4.2 Magnesium 2.0 Total Bilirubin 0.5 Direct Bilirubin AST 28 ALT 38 Alkaline Phosphatase 99 POC Troponin I Total Protein 8.2 Albumin 3.3 L Globulin 4.9 H Albumin/Globulin Ratio 0.7 L Lipase 684 H Urine Color Urine Appearance Urine pH Ur Specific [place] Urine Protein Urine Glucose (UA) Urine Ketones Urine Blood Urine Nitrite Urine Bilirubin Urine Urobilinogen Ur Leukocyte Esterase Urine WBC (Auto) Urine RBC (Auto) U Hyaline Cast (Auto) U Epithel Cells (Auto) Urine Bacteria (Auto) POC Ur Test NEG 06/27/18 06/27/18 06/28/18 21:50 22:24 08:46 WBC 8.77 RBC 3.50 L Hgb 8.6 L Hct 27.3 L MCV 78.0 L MCH 24.6 L MCHC 31.5 L RDW Std Deviation 44.5 RDW Coeff of [place] 15.5 H Plt Count 444 H MPV 10.0 Immature Gran % (Auto) 0.2 Neut % (Auto) 72.0 Lymph % (Auto) 19.4 [place] % (Auto) 6.6 Eos % (Auto) 1.6 Baso % (Auto) 0.2 Immature Gran # (Auto) 0.02 Neut # (Auto) 6.31 Lymph # (Auto) 1.70 [place] # (Auto) 0.58 Eos # (Auto) 0.14 Baso # (Auto) 0.02 RBC Morphology Microcytosis Present Ovalocytes Sodium Potassium Chloride Carbon Dioxide Anion Gap BUN Creatinine Est Cr Clr Drug Dosing Est GFR ( Amer) Est GFR (Non-Af Amer) BUN/Creatinine Ratio Glucose Calcium Phosphorus Magnesium Total Bilirubin Direct Bilirubin AST ALT Alkaline Phosphatase POC Troponin I < 0.03 Total Protein Albumin Globulin Albumin/Globulin Ratio Lipase Urine Color Yellow Urine Appearance Clear Urine pH 7.5 Ur Specific [place] 1.021 Urine Protein Negative Urine Glucose (UA) Negative Urine Ketones Negative Urine Blood Negative Urine Nitrite Negative Urine Bilirubin Negative Urine Urobilinogen Negative Ur Leukocyte Esterase Trace H Urine WBC (Auto) 1-5 Urine RBC (Auto) 0-4 U Hyaline Cast (Auto) 1-5 U Epithel Cells (Auto) >30 H Urine Bacteria (Auto) Negative POC Ur Test 06/28/18 06/29/18 06/29/18 08:46 09:01 09:01 WBC 7.60 RBC 3.44 L Hgb 8.4 L Hct 27.0 L MCV 78.5 L MCH 24.4 L MCHC 31.1 L RDW Std Deviation 44.2 RDW Coeff of [place]oya 15.3 H Plt Count 408 H MPV 9.9 Immature Gran % (Auto) 0.1 Neut % (Auto) 72.3 Lymph % (Auto) 17.9 [place] % (Auto) 7.0 Eos % (Auto) 2.4 Baso % (Auto) 0.3 Immature Gran # (Auto) 0.01 Neut # (Auto) 5.50 Lymph # (Auto) 1.36 [place] # (Auto) 0.53 Eos # (Auto) 0.18 Baso # (Auto) 0.02 RBC Morphology Unremarkable Microcytosis Ovalocytes Sodium 138 139 Potassium 4.3 D 4.1 Chloride 105 105 Carbon Dioxide 26 26 Anion Gap 7.0 8.0 BUN 8 7 Creatinine 0.86 0.82 Est Cr Clr Drug Dosing 103.0 108.1 Est GFR ( Amer) 105.1 111.3 Est GFR (Non-Af Amer) 90.7 96.0 BUN/Creatinine Ratio 8.8 L 8.8 L Glucose 84 84 Calcium 9.4 9.1 Phosphorus Magnesium Total Bilirubin 0.5 Direct Bilirubin 0.2 AST 21 ALT 27 Alkaline Phosphatase 94 POC Troponin I Total Protein 7.7 Albumin 2.9 L Globulin Albumin/Globulin Ratio Lipase 673 H Urine Color Urine Appearance Urine pH Ur Specific [place] Urine Protein Urine Glucose (UA) Urine Ketones Urine Blood Urine Nitrite Urine Bilirubin Urine Urobilinogen Ur Leukocyte Esterase Urine WBC (Auto) Urine RBC (Auto) U Hyaline Cast (Auto) U Epithel Cells (Auto) Urine Bacteria (Auto) POC Ur Test
[2018-06-29] MEDS: LACTATED RINGER'S 1,000 ML IV SCH ×2 (12:10→20:16)
--- NOTE | 2018-06-29 15:06 | Family Medicine Progress Note ---
Date of Service June 29, 2018 Assessment & Plan (1) Necrotizing pancreatitis: 32-year-old female with a recent history of choledocholithiasis, cholecystitis and acute necrotizing pancreatitis presents with worsening abdominal pain. She is hospitalized between June 05 till June 08 where she received sphincterotomy and stent in the common bile duct. She is slated for cholecystectomy on 07/10/2018. She states that her abdominal pain has been controlled since discharge on the , but the pain became severe at the time of admission. Acute necrotizing pancreatitis The patient is afebrile, vitals are stable she does not have leukocytosis Treating the patient supportively with IV fluids, Zofran for nausea, as needed Dilaudid for abdominal pain General surgery consulted, appreciate recommendationsno surgical interventions at this time, recommend outpatient cholecystectomy and ERCP on 07/10/2018 GI consulted, appreciate recommendationspatient continues to have persistent abdominal pain with advancement of diet to clear liquid. We will continue fluids and closely monitor for fevers and worsening abdominal pain. Will consider abdominal CT if the abdominal pain continues into tomorrow. Iron deficency anemia -considering state and currently milking - will give one dose venofer 100mgs. -continue MVI daily. state Continue Lexapro 10 mg Patient using breast pump, will pump and dump on pain medications FEN Advancing diet to clear liquids, continue fluids at 125 cc/h DVT prophylaxis SCDs, ambulate CODE STATUS Full Disposition; following recommendations of GIclosely monitoring for fever, persistent or worsening abdominal pain. Continue IV fluids and consider repeating CT tomorrow if the patient's abdominal pain is persisting or worsening. (2) Cholelithiasis: (3) Cholecystitis: Supervising Physician Co-Signing Physician Notes Resident Physician Supervision Note: I independently interviewed and examined the patient and verified the weldon history and physical, reviewed labs and image studies, discussed the case with the resident Dr. Ojeda and agree with the findings and care plan. Subjective 32-year-old female with a recent history of choledocholithiasis, cholecystitis and acute necrotizing pancreatitis presents with worsening abdominal pain. She is hospitalized between June 05 till June 08 where she received sphincterotomy and stent in the common bile duct. She is slated for cholecystectomy on 07/10/2018. She states that her abdominal pain has been controlled since discharge on the , but the pain became severe at the time of admission. Patient's abdominal pain continues today. She reports nausea. Today the patient was having clear liquids and was having worsening abdominal symptoms. Constitutional; no fevers, chills, night sweats Cardio; no chest pain, no palpitations, no shortness of breath Abdomen; abdominal pain, epigastric. Patient is nauseous, no vomiting, no diarrhea Physical Exam Vital Signs (Past 24 Hours): Last Vital Signs Temp 36.8 C 06/29/18 11:10 Pulse 88 06/29/18 11:10 Resp 18 06/29/18 11:10 BP 125/85 06/29/18 11:10 Pulse Ox 96 06/29/18 11:10 Constitutional: WD/WN, vitals as above Eyes: PERRL, conjunctivae normal, anicteric sclerae ENMT: external ear and nose normal, oropharynx normal Neck: trachea midline, no thyromegaly Respiratory: normal respiratory effort, lungs clear to auscultation Cardiovascular: RRR, no murmur, no edema Gastrointestinal (Abdomen): Inspection/Auscultation: normal bowel sounds; abdomen not distended Percussion/Palpation: + abdomen tender (epigastric) Musculoskeletal: no cyanosis or clubbing, extremities motor strength 5/5 Skin: no rashes, warm and dry Neurologic: patellar DTR's 2+ bilat, sensation intact Psychiatric: A+Ox3, euthymic affect Results & Data Laboratory Results Laboratory Last Values WBC 7.60 K/uL (4.8-10.8) 06/29/18 09: RBC 3.44 M/uL (4.2-5.4) L 06/29/18 09: Hgb 8.4 g/dL (12.0-16.0) L 06/29/18 09: Hct 27.0 % (37-47) L 06/29/18 09: MCV 78.5 fL (80-100) L 06/29/18 09: MCH 24.4 pg (25-34) L 06/29/18 09:01 MCHC 31.1 g/dL (32-36) L 06/29/18 09:01 RDW Std Deviation 44.2 fL (36.4-46.3) 06/29/18 09: RDW Coeff of Latoya 15.3 % (11.5-14.5) H 06/29/18 09:01 Plt Count 408 K/uL (130-400) H 06/29/18 09:01 MPV 9.9 fL (7.4-10.4) 06/29/18 09:01 Immature Gran % (Auto) 0.1 % 06/29/18 09:01 Neut % (Auto) 72.3 % 06/29/18 09:01 Lymph % (Auto) 17.9 % 06/29/18 09:01 [place] % (Auto) 7.0 % 06/29/18 09:01 Eos % (Auto) 2.4 % 06/29/18 09:01 Baso % (Auto) 0.3 % 06/29/18 09:01 Immature Gran # (Auto) 0.01 K/uL (0.00-0.02) 06/29/18 09:01 Neut # (Auto) 5.50 K/uL (1.4-6.5) 06/29/18 09:01 Lymph # (Auto) 1.36 K/uL (1.2-3.4) 06/29/18 09:01 [place] # (Auto) 0.53 K/uL (0.11-0.59) 06/29/18 09:01 Eos # (Auto) 0.18 K/uL (0-0.5) 06/29/18 09:01 Baso # (Auto) 0.02 K/uL (0-0.2) 06/29/18 09:01 RBC Morphology Unremarkable 06/29/18 09:01 Microcytosis Present 06/28/18 08:46 Ovalocytes 1+ 06/27/18 21:07 Sodium 139 mmol/L (136-145) 06/29/18 09:01 Potassium 4.1 mmol/L (3.5-5.1) 06/29/18 09:01 Chloride 105 mmol/L (98-107) 06/29/18 09:01 Carbon Dioxide 26 mmol/L (21-32) 06/29/18 09:01 Anion Gap 8.0 (3-11) 06/29/18 09:01 BUN 7 mg/dl (7-18) 06/29/18 09:01 Creatinine 0.82 mg/dl (0.6-1.2) 06/29/18 09:01 Est Cr Clr Drug Dosing 108.1 ml/min 06/29/18 09:01 Est GFR ( Amer) 111.3 06/29/18 09:01 Est GFR (Non-Af Amer) 96.0 06/29/18 09:01 BUN/Creatinine Ratio 8.8 (10-20) L 06/29/18 09:01 Glucose 84 mg/dl (70-99) 06/29/18 09:01 Calcium 9.1 mg/dl (8.5-10.1) 06/29/18 09:01 Phosphorus 4.2 mg/dl (2.5-4.9) 06/27/18 21:07 Magnesium 2.0 mg/dl (1.8-2.4) 06/27/18 21:07 Total Bilirubin 0.5 mg/dl (0.2-1) 06/29/18 09:01 Direct Bilirubin 0.2 mg/dl (0-0.2) 06/29/18 09:01 AST 21 U/L (15-37) 06/29/18 09:01 ALT 27 U/L (12-78) 06/29/18 09:01 Alkaline Phosphatase 94 U/L (45-117) 06/29/18 09:01 POC Troponin I < 0.03 ng/ml (0-0.045) 06/27/18 22:24 Total Protein 7.7 gm/dl (6.4-8.2) 06/29/18 09:01 Albumin 2.9 gm/dl (3.4-5.0) L 06/29/18 09:01 Globulin 4.9 gm/dl (2.5-4.0) H 06/27/18 21:07 Albumin/Globulin Ratio 0.7 (0.9-2) L 06/27/18 21:07 Lipase 673 U/L (73-393) H 06/29/18 09:01 Urine Color Yellow 06/27/18 21:50 Urine Appearance Clear (Clear) 06/27/18 21:50 Urine pH 7.5 (4.5-7.5) 06/27/18 21:50 Ur Specific [place] 1.021 (1.000-1.030) 06/27/18 21:50 Urine Protein Negative (Negative) 06/27/18 21:50 Urine Glucose (UA) Negative (Negative) 06/27/18 21:50 Urine Ketones Negative (Negative) 06/27/18 21:50 Urine Blood Negative (Negative) 06/27/18 21:50 Urine Nitrite Negative (Negative) 06/27/18 21:50 Urine Bilirubin Negative (Negative) 06/27/18 21:50 Urine Urobilinogen Negative (Negative) 06/27/18 21:50 Ur Leukocyte Esterase Trace (Negative) H 06/27/18 21:50 Urine WBC (Auto) 1-5 /hpf (0-5) 06/27/18 21:50 Urine RBC (Auto) 0-4 /hpf (0-4) 06/27/18 21:50 U Hyaline Cast (Auto) 1-5 /lpf (0-5) 06/27/18 21:50 U Epithel Cells (Auto) >30 /lpf (0-5) H 06/27/18 21:50 Urine Bacteria (Auto) Negative (Negative) 06/27/18 21:50 POC Ur Test NEG (NEG) 06/27/18 21:50 Resident Activity Tracking Resident Involvement: Resident Care Provided Care Provided: Adult Hospital Medicine
[2018-06-29] MEDS: DOCUSATE SODIUM 100 MG CAP PO SCH (20:30)
[2018-06-29] MEDS: ESCITALOPRAM OXALATE 10 MG TAB PO SCH (20:30)
[2018-06-29] MEDS: ACETAMINOPHEN 500 MG TAB PO PRN (20:42)
[2018-06-30] MEDS: LACTATED RINGER'S 1,000 ML IV SCH ×3 (04:13→20:08)
[2018-06-30 04:29] LABS: Basophils # (auto) 0.02 K/uL (0-0.2); Basophils % (auto) 0.3 %; Eosinophils # (auto) 0.21 K/uL (0-0.5); Eosinophils % (auto) 2.9 %; Hematocrit (blood only) 26.3 % (37-47); Immature Granulocytes # (auto) 0.01 K/uL (0.00-0.02); Immature Granulocytes % (auto) 0.1 %; Lymphocytes # (auto) 1.82 K/uL (1.2-3.4); Lymphocytes % (auto) 25.5 %; Mean Corpuscular Hgb Conc 30.4 g/dL (32-36); Mean Corpuscular Volume 79.5 fL (80-100); Mean Platelet Volume 10.1 fL (7.4-10.4); Monocytes # (auto) 0.69 K/uL (0.11-0.59); Monocytes % (auto) 9.7 %; Neutrophils # (auto) 4.38 K/uL (1.4-6.5); Neutrophils % (auto) 61.5 %; Platelet Count 379 K/uL (130-400); RDW Coefficient of Variation 15.3 % (11.5-14.5); RDW Standard Deviation 44.8 fL (36.4-46.3); Red Blood Count 3.31 M/uL (4.2-5.4); White Blood Count 7.13 K/uL (4.8-10.8)
[2018-06-30] MEDS: HYDROmorphone INJ 1 MG/ML SYRINGE IV PRN ×4 (04:39→20:08)
[2018-06-30 04:48] LABS: Echinocytes 1+; Ovalocytes 1+
[2018-06-30 04:49] LABS: Albumin Level 2.7 gm/dl (3.4-5.0); BUN Creatinine Ratio 5.3 (10-20); Bilirubin Direct 0.2 mg/dl (0-0.2); Calcium 8.7 mg/dl (8.5-10.1); Creatinine Clr Calc Pharmacy 108.1 ml/min; Est GFR (African American) 111.3; Potassium 3.6 mmol/L (3.5-5.1)
[2018-06-30 04:52] LABS: Bilirubin,Total 0.4 mg/dl (0.2-1); Total Protein 7.3 gm/dl (6.4-8.2)
[2018-06-30] MEDS: DOCUSATE SODIUM 100 MG CAP PO SCH ×2 (08:30→21:22)
--- NOTE | 2018-06-30 11:10 | Anesthesiology Consultation ---
Date of Service June 30, 2018 Assessment & Plan (1) Encounter for pre-operative examination: Chart Review Chart Review: Pending: Refer to Additional Notes / Consult section (Patient is currently an inpatient, we will await clearance pending discharge) History Height/Weight Height: 5 ft 5 in Weight: 85.1 kg Allergies Allergy/AdvReac Type Severity Reaction Status Date / Time Sulfa (Sulfonamide AdvReac Intermediate Nausea/Vomi Verified 06/27/18 22:37 Antibiotics) ting Medications Home Medications Medication Instructions Recorded Confirmed Last Taken PNV [id number] fumarate-FA 1 tab PO DAILY 01/08/18 06/27/18 06/27/18 [] acetaminophen 1,000 mg PO Q6 PRN 01/08/18 06/27/18 06/27/18 13:00 1000 MG escitalopram oxalate [Lexapro] 10 mg PO HS 06/27/18 06/27/18 06/26/18 ondansetron 4 mg PO TID PRN 06/27/18 06/27/18 Unknown tramadol 1 tab PO TID PRN 06/27/18 06/27/18 06/23/18 08:00 Active Medications Generic Name Dose Route Start Last Admin Trade Name Freq PRN Reason Stop Dose Admin Acetaminophen 500 mg 06/28/18 17:59 06/29/18 20:42 Tylenol PO 07/28/18 17:58 500 mg Q4H PRN Administration Pain Docusate Sodium 100 mg 06/29/18 21:00 06/30/18 08:30 Colace PO 07/29/18 20:59 100 mg BID DEON Administration Escitalopram Oxalate 10 mg 06/28/18 21:00 06/29/18 20:30 Lexapro PO 07/28/18 20:59 10 mg HS DEON Administration Hydromorphone HCl 1 mg 06/28/18 00:31 06/30/18 10:44 Dilaudid IV 07/12/18 00:30 1 mg Q2H PRN Administration Pain Lactated Ringer's 1,000 mls @ 125 mls/hr 06/29/18 12:00 06/30/18 04:13 Lr IV 07/29/18 11:59 125 mls/hr .Q8H DEON Administration Ondansetron HCl 4 mg 06/28/18 00:31 06/28/18 01:46 Zofran IV 07/28/18 00:30 4 mg Q6H PRN Administration Nausea Past Medical History Medical History Pancreatitis History of depression Past Family History Family History Other Family history non-contributory Past Surgical History Surgical History History of ERCP History of section Done for failure to progress, 10 days over due date. [place], [place]. Had epidural dosed for C/S. TOTAL OF 2 C-SECTIONS S/P wrist surgery CYST REMOVAL (LEFT) 2005 Past Anesthesia History Other (h/o aspiration PNA for ERCP 06/05/18 despite RSI, easy airway grade 1 view) Social History Smoking Status: Never smoker Do You Dip or Chew Tobacco: No Hx Alcohol Use: No Hx Substance Use: No substance use type: does not use Exercise / Class Metabolic Activity II 4-5 Yardwork/Stairs/Walk up hill Physical Exam Vital Signs Last Vital Signs Temp 98.1 F 06/29/18 23:44 Pulse 83 06/30/18 07:30 Resp 18 06/30/18 07:30 BP 119/74 06/30/18 07:30 Pulse Ox 96 06/30/18 07:30 Testing Electrocardiogram Date: 01/08/18 Findings: + ST @ (105 bpm) Laboratory Results 06/30/18 04:03 06/30/18 04:03 Urine Color Yellow 06/27/18 21:50 Urine Appearance Clear (Clear) 06/27/18 21:50 Urine pH 7.5 (4.5-7.5) 06/27/18 21:50 Ur Specific [place] 1.021 (1.000-1.030) 06/27/18 21:50 Urine Protein Negative (Negative) 06/27/18 21:50 Urine Glucose (UA) Negative (Negative) 06/27/18 21:50 Urine Ketones Negative (Negative) 06/27/18 21:50 Urine Nitrite Negative (Negative) 06/27/18 21:50 Ur Leukocyte Esterase Trace (Negative) H 06/27/18 21:50 Urine WBC (Auto) 1-5 /hpf (0-5) 06/27/18 21:50 Urine RBC (Auto) 0-4 /hpf (0-4) 06/27/18 21:50 U Hyaline Cast (Auto) 1-5 /lpf (0-5) 06/27/18 21:50 U Epithel Cells (Auto) >30 /lpf (0-5) H 06/27/18 21:50 Urine Bacteria (Auto) Negative (Negative) 06/27/18 21:50 06/27/18 21:50 POC Ur Test NEG
--- NOTE | 2018-06-30 13:38 | Gastroenterology Progress Note ---
Date of Service June 30, 2018 Assessment & Plan (1) Necrotizing pancreatitis: Pt is a 32 y/o female admitted for persistent epigastric abd pain. Hx of gallstone pancreatitis s/p ERCP on 06/05/18 w choledocholithiaiss removal, sphincterectomy, ventral and biliary stenting; She developed necrotizing pancreatitis w fluid collection near body-tail and now gastric serosa region seen on most recently CT scan in 06/22. Suspect her abdominal pain symptoms is a slight flare of her pancreatitis. Will arrange repeat CT pancreatic protocol to verify no new areas of necrosis, no significant enlarging of pseudocysts. - Continue LR @125mL/hr - Continue clear liquid diet with plan for slow advance as tolerated. - Symptomatic management w antiemetics and analgesics prn - - Will consideration supplementation with pancreatic enzyme if having diarrhea. - I have encouraged her to ambulate more. Recommend DVT prophylaxis. - Colace 100mg BID to prevent ileus. - We will follow her along. Currently she is scheduled for ERCP w biliary stent removal and lap cholecystectomy on 07/10/18 Supervising Physician Co-Signing Physician Notes I have personally seen and examined the patient with GABRIELA Daniel. Her note reflects my exam and findings. I agree with her impression and plan. Pt continues to struggle with abdominal pain and diet limited to clears. Given this we will order a pancreatic miesha CT looking for collection. Alireza Doyle M.D. Subjective Ms. Daniel is a 32 yr old female with a hx of gallstone pancreatitis - nectrotizing with a 5 cm pancreatic pseudocyst on imaging. She is improved but still with 4 episodes of severe pain in the past 24 hrs, improved each time fairly quickly with analgesics. On clear liquid becuase increased pain when tried full liquids yesterday. Appears well. Hemodynamically stable. Able to sit up in bed. Pleasant, conversational. Gastrointestinal: + abdominal pain and + nausea; no vomiting Physical Exam Vital Signs (Past 24 Hours): Last Vital Signs Temp 36.7 C 06/29/18 23:44 Pulse 83 06/30/18 07:30 Resp 18 06/30/18 07:30 BP 119/74 06/30/18 07:30 Pulse Ox 96 06/30/18 07:30 Constitutional: WD/WN, vitals as above Eyes: PERRL, conjunctivae normal, anicteric sclerae ENMT: external ear and nose normal, oropharynx normal Neck: trachea midline, no thyromegaly Respiratory: normal respiratory effort, lungs clear to auscultation Cardiovascular: RRR, no murmur, no edema Gastrointestinal (Abdomen): Inspection/Auscultation: abdomen normal to inspection; abdomen not distended and no abdominal edema Percussion/Palpation: + abdomen tender (periumbilical and epigastric areas) and abdomen soft Musculoskeletal: no cyanosis or clubbing, extremities motor strength 5/5 Skin: no rashes, warm and dry Neurologic: PERRL, EOMI, accommodation nl, no face palsy, no dysarthria Psychiatric: A+Ox3, euthymic affect Lymphatic: no cervical or axillary lymphadenopathy
[2018-06-30] MEDS ORDERED: IOVERSOL 100ml IV PRN (14:22)
--- NOTE | 2018-06-30 15:13 | CT Scan Report ---
CT pancreas 3-phase wo/w con CLINICAL HISTORY: 32 years-old Female presenting with r/o new pancreatic necrosis or enlarging pseudo cyst. TECHNIQUE: Multidetector CT of the abdomen was performed before and after the administration of intra venous contrast. IV contrast: 94 mL of Optiray 320. One or more dose lowering techniques were used co nsistent with the principles of ALARA (as low as reasonably achievable), including automatic exposure control, mA or kV adjustment to individual patient size, and/or use of iterative reconstruction. COMPARISON: 06/22/2018. CT DOSE (mGy.cm): The estimated cumulative dose is 922.00 mGy.cm. FINDINGS: Cloth Bleaching Supervisor topogram: Plastic common bile duct and pancreatic duct stents noted. Lung bases: Normal heart size. No pericardial or pleural effusion. Elevation of the left hemidiaphrag m. Increased bibasilar atelectasis greater on the left. Liver: Normal morphology. Density consistent with mild hepatic steatosis. Biliary: No intrahepatic or extrahepatic ductal or ductal dilatation. A plastic common bile duct sten t remains in place. Normal gallbladder. Pancreas: Pancreatic duct stent remains in place terminating at the level the pancreatic neck. Interv al evolution of the prior loculated intraparenchymal peripancreatic fluid collections. The collection along the serosa of the stomach in the region of the lesser sac is ill-defined and minimally apparen t. The dominant collection occupying the majority of the pancreatic body and tail now contains a focu s of gas. This collection measures up to 4.1 x 2.7 cm in maximal axial dimensions on a single slice g rade there is a suspected tract emanating from the stomach (series 7 image 113). This may imply drain age or fistulization. This collection previously measured up to 4.9 cm in diameter. The collection no w contains gas. The collection likely extends through small sinus tracts to a more inferior collectio n located anterior to the pancreatic body measuring 1.8 x 1.3 cm (series 7 image 144) the series. Thi s is slightly increased in size from prior and was more easily demonstrable as a continuation of the larger collection on the prior exam. The smaller collection in the region of the uncinate and pancrea tic head is no longer present. Small collection evident in the pancreatic tail measuring 1.7 cm, whic h is slightly decreased in size from prior the enhancing portion of the pancreas is noted in the dist al most pancreatic tail as well as in the pancreatic head. The degree of parenchymal edema limits len luation. Persistent surrounding peripancreatic fluid. Spleen: Normal. The splenic artery patent and normal in caliber. Persistent stenosis of the splenic v ein from the pancreatic body to the portal confluence similar to prior exam. Adrenal glands: Normal. Kidneys and ureters: Normal. No hydronephrosis. Bowel: Gastric wall thickening likely reactive to the adjacent inflammatory change and peripancreatic fluid collections. No bowel obstruction. Peritoneal cavity: Trace abdominal ascites. Trace retroperitoneal fluid with peripancreatic fluid col lection along the splenic hilum similar to prior. Lymph nodes: No enlarged lymph nodes in the abdomen. Vasculature: Aorta and IVC patent and normal in caliber. Abdominal wall: Mild body wall edema. Musculoskeletal: Normal. IMPRESSION: 1. Gas noted within the dominant walled off necrosis within the pancreatic body and tail. Unless the re has been instrumentation such as attempted transgastric drainage, this is highly suspicious for in fection. 2. Overall collections are slightly smaller than on the prior exam though the degree of associated i nflammatory change/fat autodigestion is similar to increased from prior. Wall off necrosis evident jason th within the pancreas and tracking to the lesser sac and splenic hilum. 3. Overall worsened pancreatic parenchymal edema, which limits evaluation for viable tissue. Allowin g for this, stable distribution of enhancing pancreatic parenchyma in the distalmost tail and pancrea tic head. 4. Reactive gastric wall thickening. Apparent tract to the gastric lumen from the dominant walled of f necrotic collection may be postprocedural or indicate a developing fistula. 5. Bibasilar atelectasis, left greater than right. The report will be called/faxed according to standard departmental protocol. Electronically signed by: Brandon Gonzales M.D. 06/30/2018 3:12 PM
--- NOTE | 2018-06-30 20:53 | Family Medicine Progress Note ---
Date of Service June 30, 2018 Assessment & Plan (1) Necrotizing pancreatitis: 32F with a PMHx of 9 weeks ago, who was admitted in late May and transferred to and discharged from [place] for acute necrotizing pancreatitis presents with worsening abdominal pain. She is hospitalized between June 05 till June 08 where she received sphincterotomy and stent in the common bile duct. She was slated for cholecystectomy on 07/10/2018. She states that her abdominal pain has been controlled since discharge on the , but the pain became severe at the time of admission. Acute necrotizing pancreatitis The patient is afebrile, vitals are stable she does not have leukocytosis Treating the patient supportively with IV fluids, Zofran for nausea, as needed Dilaudid for abdominal pain General surgery consulted, appreciate recommendationsno surgical interventions at this time, recommend outpatient cholecystectomy and ERCP on 07/10/2018 GI consulted, appreciate recommendationspatient continues to have persistent abdominal pain with advancement of diet to clear liquid. CT of abdomen shows sign of gas and possible infection. After discussion with GI, no Abx indicated at present time. Iron deficency anemia -received one dose venofer 100mgs considering state and currently milking -continue MVI daily. state Continue Lexapro 10 mg Patient using breast pump, will pump and dump on pain medications FEN Advancing diet to clear liquids, continue fluids at 125 cc/h DVT prophylaxis Hep SQ BID. CODE STATUS Full (2) Cholelithiasis: (3) Cholecystitis: Supervising Physician Co-Signing Physician Notes Resident Physician Supervision Note: I independently interviewed and examined the patient and verified the weldon history and physical, reviewed labs and image studies, discussed the case with the resident Dr. Mccabe and agree with the findings and care plan. Subjective Pt reports feeling the same as yesterday. She is tolerating PO. No vomiting or fevers overnight. Has some intermittent abdominal pain. Abdomen is still pump operator. Pt is still pumping and dumping her breastmilk. Her children visited her yesterday. ROS: No chest pain, no SOB, no dyspnea on exertion, no palpitations, no fevers, no chills, no vomiting, no diarrhea, no dysuria, no rash. Physical Exam Vital Signs (Past 24 Hours): Last Vital Signs Temp 36.3 C L 06/30/18 15:31 Pulse 96 H 03/15/19 15:21 Resp 18 06/30/18 15:21 BP 146/86 H 06/30/18 15:21 Pulse Ox 99 06/30/18 15:21 Constitutional: WD/WN, vitals as above well groomed, cooperative and comfortable; no acute distress and not ill appearing Eyes: PERRL, conjunctivae normal, anicteric sclerae ENMT: external ear and nose normal, oropharynx normal Neck: trachea midline, no thyromegaly Respiratory: normal respiratory effort, lungs clear to auscultation no respiratory distress Cardiovascular: RRR, no murmur, no edema Gastrointestinal (Abdomen): Inspection/Auscultation: abdomen normal to inspection; no abdominal edema Percussion/Palpation: + abdomen tender (periumbilical and epigastric areas) and abdomen soft; no guarding and abdomen not rigid Musculoskeletal: no cyanosis or clubbing, extremities motor strength 5/5 Skin: no rashes, warm and dry no jaundice Neurologic: patellar DTR's 2+ bilat, sensation intact and PERRL, EOMI, accommodation nl, no face palsy, no dysarthria Motor/Sensory: no asterixis Psychiatric: A+Ox3, euthymic affect Lymphatic: no cervical or axillary lymphadenopathy no lymphedema Resident Activity Tracking Resident Involvement: Resident Care Provided Care Provided: Adult Hospital Medicine
[2018-06-30] MEDS: ESCITALOPRAM OXALATE 10 MG TAB PO SCH (21:22)
[2018-06-30 22:28] LABS: INR 1.2 (0.9-1.1); Prothrombin Time 12.3 Seconds (9.0-12.0)
[2018-06-30] MEDS: HEPARIN SOD 5,000 UNIT/0.5 ML VIAL SQ SCH (23:00)
[2018-07-01] MEDS: HYDROmorphone INJ 1 MG/ML SYRINGE IV PRN ×4 (02:43→22:11)
[2018-07-01] MEDS: LACTATED RINGER'S 1,000 ML IV SCH ×3 (02:45→18:05)
[2018-07-01] MEDS: ONDANSETRON INJ 2 MG/ML 2 ML VIAL IV PRN (05:41)
[2018-07-01] MEDS: ACETAMINOPHEN 500 MG TAB PO PRN ×3 (05:43→18:05)
[2018-07-01 08:02] LABS: Albumin Level 2.4 gm/dl (3.4-5.0); Bilirubin Direct 0.2 mg/dl (0-0.2); Bilirubin,Total 0.4 mg/dl (0.2-1); Total Protein 6.7 gm/dl (6.4-8.2)
[2018-07-01] MEDS: DOCUSATE SODIUM 100 MG CAP PO SCH ×2 (08:45→20:23)
[2018-07-01] MEDS: HEPARIN SOD 5,000 UNIT/0.5 ML VIAL SQ SCH ×2 (08:45→21:24)
--- NOTE | 2018-07-01 11:36 | Family Medicine Progress Note ---
Date of Service July 01, 2018 Assessment & Plan (1) Necrotizing pancreatitis: 32F with a PMHx of 9 weeks ago, who was admitted in late May and transferred to and discharged from [place] for acute necrotizing pancreatitis presents with worsening abdominal pain. She is hospitalized between June 05 till June 08 where she received sphincterotomy and stent in the common bile duct. She was slated for cholecystectomy on 07/10/2018. She states that her abdominal pain has been controlled since discharge on the , but the pain became severe at the time of admission. 1) Acute necrotizing pancreatitis The patient is afebrile, vitals are stable she does not have leukocytosis Supportive Tx with IV fluids, Zofran for nausea, as needed Dilaudid for abdominal pain General surgery consulted, appreciate recommendationsno surgical interventions at this time, recommend outpatient cholecystectomy and ERCP on 07/10/2018 GI consulted, appreciate recommendationspatient continues to have persistent abdominal pain with advancement of diet to clear liquid. CT of abdomen shows sign of gas and possible infection. After discussion with GI, no Abx indicated at present time. -To discharge home Once tolerating diet better 2) Iron deficency anemia -received one dose venofer 100mgs considering state and currently milking -continue MVI daily. 3) state Continue Lexapro 10 mg Patient using breast pump, will pump and dump on pain medications 4) Tachycardia - pain currently well controlled - will check cbc and follow HR this afternoon 5) Elevated INR - 1.2 - Might be due to patient current inflammatory state - will recheck FEN Advanced diet to clear liquids, continue fluids - 125ml/hr DVT prophylaxis Hep SQ BID. CODE STATUS Full Supervising Physician Co-Signing Physician Notes Resident Physician Supervision Note: I independently interviewed and examined the patient and verified the weldon history and physical, reviewed labs and image studies, discussed the case with the resident Dr. Olivera and agree with the findings and care plan. Subjective Patient feels the same as she did yesterday. Still w/ waves of intermittent sharp pain in her abdomen that does not radiate to her back but is made worse after eating. She has also had bout of nausea. She has not had a bowel movement in 4 days. She is urinating without any issues. She is eating a liquid diet without issues. She denies any fevers, chills, chest pain, cough, palpitations, shortness of breath Review of Systems All systems reviewed & are unremarkable except as noted in HPI & below Physical Exam Vital Signs (Past 24 Hours): Last Vital Signs Temp 37.0 C 07/01/18 08:38 Pulse 111 H 07/01/18 08:38 Resp 18 07/01/18 08:38 BP 129/90 07/01/18 08:38 Pulse Ox 96 07/01/18 08:38 Physical Exam: Gen: alert and in no acute distress Abdomen: mild diffuse tenderness throughout w/out any rebound or guarding, normal bs Cardiac: RRR, no murmurs Lungs: normal vesicular breath sounds without any wheeze or crackles Lower extremities: no edema in the lower extremities, strong pulses
[2018-07-01 11:49] LABS: Hematocrit (blood only) 22.9 % (37-47); Hemoglobin 7.3 g/dL (12.0-16.0); Mean Corpuscular Hgb Conc 31.9 g/dL (32-36); Mean Corpuscular Volume 77.6 fL (80-100); Mean Platelet Volume 9.8 fL (7.4-10.4); Platelet Count 303 K/uL (130-400); RDW Coefficient of Variation 15.3 % (11.5-14.5); RDW Standard Deviation 43.9 fL (36.4-46.3); Red Blood Count 2.95 M/uL (4.2-5.4); White Blood Count 6.13 K/uL (4.8-10.8)
[2018-07-01 11:57] LABS: INR 1.3 (0.9-1.1); Prothrombin Time 13.1 Seconds (9.0-12.0)
--- NOTE | 2018-07-01 19:49 | Progress Note ---
DATE: 07/01/2018 HISTORY OF PRESENT ILLNESS: Ms. Hilton is doing a little bit better today. She has family and her children at the bedside. She has had no fevers. She has no vomiting. She was able to take some Jell-O, beef broth and a little bit of sorbet this morning, though she did get some increase in abdominal pain that tends to pass. She has been trying to ambulate as best as she can. PHYSICAL EXAMINATION: VITAL SIGNS: During this visit, her blood pressure is 116/77, pulse is 75, temperature is 37. SKIN: Anicteric. EYES: Show anicteric sclerae. MOUTH: Clear lesions. CHEST: Clear. HEART: Regular rate and rhythm. ABDOMEN: Soft with good bowel sounds. She has some tenderness to deep palpation but no rebound. No masses. EXTREMITIES: Warm with good distal pulses. NEUROLOGIC: She is grossly intact and alert and oriented x3. LABORATORY DATA: Her white blood cell count is 6, which has been stable. Liver enzymes remain normal. We reviewed her pancreatic CAT scan extensively this morning and I even discussed this with Dr. Guerrero last night and the CAT scan shows dominant walled off necrosis in the body and tail of the pancreas, overall collections are slightly smaller than the previous exam. There are still remaining inflammatory changes, reactive gastric wall thickening related to the inflammation. There is some evidence of gas noted within the dominant walled off necrosis. IMPRESSION AND PLAN: We had a lengthy discussion about the process of her necrotizing pancreatitis in that this is developing as expected. It is reassuring that the necrotic debris is becoming walled off and even though there is evidence of gas within it, she has not had a fever or elevated white count, and after discussing this with my colleague, we think it is best that we avoid antibiotics for now. We even discussed with the patient and family potential for going home. She has just been requiring pain medications and her diet, and this could be done at home. She already is extensively plugged in with our gastroenterology service and surgery and has all her followup already established as needed. My recommendation if she does go home that she should be on a light low fat diet and she should be able to eat whatever she can tolerate and keep well hydrated. She should keep up with certain foods that will help with bowel movements since she will be on some narcotics such as prunes, pears and apples. She should ambulate as best she can. I have discussed this with the hospitalist service sending her home on some pain killers to get her into next week when she will be able to follow up with her outpatient followup. The patient and family understand my recommendations. PACO
[2018-07-01] MEDS: ESCITALOPRAM OXALATE 10 MG TAB PO SCH (20:23)
[2018-07-02] MEDS: LACTATED RINGER'S 1,000 ML IV SCH ×2 (01:57→10:24)
[2018-07-02] MEDS: HYDROmorphone INJ 1 MG/ML SYRINGE IV PRN ×2 (03:16→09:51)
[2018-07-02] MEDS: ONDANSETRON INJ 2 MG/ML 2 ML VIAL IV PRN (03:28)
[2018-07-02 06:41] LABS: INR 1.3 (0.9-1.1)
[2018-07-02 06:53] LABS: Albumin Level 2.5 gm/dl (3.4-5.0); BUN Creatinine Ratio 5.9 (10-20); Calcium 8.6 mg/dl (8.5-10.1); Creatinine Clr Calc Pharmacy 116.6 ml/min; Est GFR (Non-African American) 105.3
[2018-07-02 06:56] LABS: Albumin Globulin Ratio 0.6 (0.9-2); Bilirubin,Total 0.3 mg/dl (0.2-1); Globulin 4.2 gm/dl (2.5-4.0); Total Protein 6.7 gm/dl (6.4-8.2)
[2018-07-02] MEDS: HEPARIN SOD 5,000 UNIT/0.5 ML VIAL SQ SCH (08:22)
[2018-07-02] MEDS: DOCUSATE SODIUM 100 MG CAP PO SCH (08:22)
[2018-07-02] MEDS: ACETAMINOPHEN 500 MG TAB PO PRN (08:22)
[2018-07-02 09:50] LABS: Basophils # (auto) 0.02 K/uL (0-0.2); Basophils % (auto) 0.3 %; Eosinophils # (auto) 0.12 K/uL (0-0.5); Eosinophils % (auto) 1.9 %; Hematocrit (blood only) 24.5 % (37-47); Hemoglobin 7.7 g/dL (12.0-16.0); Immature Granulocytes # (auto) 0.01 K/uL (0.00-0.02); Immature Granulocytes % (auto) 0.2 %; Lymphocytes # (auto) 1.31 K/uL (1.2-3.4); Lymphocytes % (auto) 21.1 %; Mean Corpuscular Hgb Conc 31.4 g/dL (32-36); Mean Platelet Volume 10.1 fL (7.4-10.4); Monocytes # (auto) 0.58 K/uL (0.11-0.59); Monocytes % (auto) 9.3 %; Neutrophils # (auto) 4.17 K/uL (1.4-6.5); Neutrophils % (auto) 67.2 %; Platelet Count 309 K/uL (130-400); RDW Coefficient of Variation 15.1 % (11.5-14.5); RDW Standard Deviation 43.1 fL (36.4-46.3); Red Blood Count 3.14 M/uL (4.2-5.4); White Blood Count 6.21 K/uL (4.8-10.8)
[2018-07-02 10:14] LABS: Microcytosis Present; Ovalocytes 1+; Toxic Granulation 1+
--- NOTE | 2018-07-02 10:58 | Discharge Summary ---
Date of Service July 02, 2018 Admission HPI Per Admitting Provider Patient is a 32yo female recently admitted to [facility] from 06/05 - 06/08 with acute necrotizing pancreatitis, cholecystitis and choledocholithiasis. She had an ERCP performed on 06/05/[address] Guerrero which revealed choledocholithiasis with moderate dilation of the main bile duct. She had biliary sphincterotomy with balloon extraction and placement of a plastic stent in the ventral pancreatic duct as well as a plastic stent in the CBD. The procedure was well tolerated with no complications. On hospital day 3 she developed worsening abdominal pain as well as leukocytosis, tachycardia and fever. Repeat imaging with suggestion of early abscess development in the distal pancreas. She was transferred to [facility] service fo Dr. Knott on 06/08/18. She remained at [facility] x 4 days and reports that her antibiotics were discontinued and her diet was advanced. She had no additional procedures performed while at [facility]. She was dishcarged home and has since followed up with he PCP and General Surgery. She is scheduled for repeat ERCP with stent removal and cholecystectomy on 10 July 2018. Patient states that she has had chronic epigastric discomfort 2-3/10 since her initial presentation. She has had occasional episodes of increased abdominal pain that have been short in duration. She reports that this afternoon she had acute worsening of her abdominal pain, now 7-8/10. Pain is dull ache as well as sharp, bandlike across the upper abdomen. It is worse with movement and deep breathing. Also with mild nausea. No vomiting, no diarrhea or constipation although she reports inconsistent BMs since the initial episode of pancreatitis. ER Course: Morphine 4mg IV Principal Diagnosis Necrotizing pancreatitis Discharge Exam Gen: alert and in no acute distress Abdomen: mild diffuse tenderness throughout w/out any rebound or guarding, normal bs Cardiac: RRR, no murmurs Lungs: normal vesicular breath sounds without any wheeze or crackles Lower extremities: no edema in the lower extremities, strong pulses Discharge Data Allergies Allergy/AdvReac Type Severity Reaction Status Date / Time Sulfa (Sulfonamide AdvReac Intermediate Nausea/Vomi Verified 06/27/18 22:37 Antibiotics) ting Consultations 06/27/18 22:12 ED Decision to Admit Stat 06/28/18 00:31 Consult Gastroenterology Routine Consult General Surgery Routine 07/02/18 10:34 Consult Case Management - Discharge Planning Routine Ordered Studies 06/27/18 20:47 US gallbladder Stat 06/30/18 13:38 CT pancreas 3-phase wo/w con Routine Hospital Course (1) Necrotizing pancreatitis: (1) Necrotizing pancreatitis: 32F with a PMHx of 9 weeks ago, who presented to [facility] with worsening abdominal pain. She was admitted to [facility] Jun 05 - due to a stone in the CBD. She had an ERCP and stent placement x2. On Jun 08 she was found to have worsening abdominal pain and CT scan of the abdomen showed necrotizing pancreatitis therefore she was transferred to [facility]. She was discharged from [facility] on Jun 12 w/ prn tramadol to take at home. Then on June 27 2018 she presented to [facility] due to worsening abdominal pain. A CT scan showed necrotizing pancreatitis without any infection; therefore abx were not administered. It showed dominant walled off necrosis in the body and tail of the pancreas, reactive gastric wall thickening related to the inflammation and some evidence of gas noted within the dominant walled off necrosis. GI felt that on 07/02 since the patients symptoms had been stable for a few days, her vitals were stable and her labs were stable it was safe for her to be discharged w/ close follow up with GI as an outpatient and her PCP. She was given strict dietary instructions and was given a script for pain medication. 1) Acute necrotizing pancreatitis Upon discharge the patient is afebrile, vitals are stable she does not have leukocytosis Supportive Tx with IV fluids, Zofran for nausea while in hospital General surgery consulted, appreciate recommendationsno surgical int erventions at this time, recommend outpatient cholecystectomy and ERCP on 07/10/2018 GI consulted, appreciate recommendations After discussion with GI, no Abx indicated at present time. -Discharged home w/ low fat diet, oxycodone 10mg q8 for 1 week #21 tab - F/U with PCP and GI 2) Iron deficency anemia - received one dose venofer 100mgs considering state and currently milking -continue MVI daily - hgb 7.7 and stable upon discharge - consider repeat venofer infusions in outpatient setting if having poor oral intake 3) state Continue Lexapro 10 mg Patient using breast pump, will pump and dump on pain medications 4) Elevated INR - 1.3 - Likely secondary to patients inflammatory state - f/u lab as outpatient Total Time Total Time Spent Total Time Spent (In Minutes): 30 Discharge Plan Discharge Items Patient Disposition: Home - Self-Care Reason For Visit: PANCREATITIS Discharge Diagnosis: Necrotizing pancreatitis Discharge Goals: Decrease discomfort Activity: Resume your previous activity Non-emergency contact: Primary Care Provider Call non-emergency contact if: your symptoms worsen, your pain is not controlled and your pain is worsening Follow-up/Referrals: Vivek Urban, DO [Primary Care Provider] - Diet: Low Fat Addtl Provider Instructions: We will be sending you home with oxycodone for one week until you see GI next week. Please take these as prescribed. Please stick to a light low fat diet and keep well hydrated by drinking plenty of fluids. To help yourself have bowel movements make sure to eat pears, prune and apples. You can also try miralax if needed. We will ask our mental health case manager to set up an appointment for you to see your PCP. If you have any worsening abdominal pain, vomiting, or fevers then come back to the emergency department. Prescriptions: New oxycodone 10 mg tablet 10 mg PO Q8H Qty: 21 RF: 0 Continued acetaminophen 500 mg Tablet 1,000 mg PO Q6 PRN (Reason: Fever Or Pain) RF: 0 PNV [id number]-FA [] 28 mg iron- 800 mcg Tablet 1 tab PO DAILY RF: 0 ondansetron 4 mg Tablet,Disintegrating 4 mg PO TID PRN (Reason: Nausea) RF: 0 escitalopram oxalate [Lexapro] 5 mg Tablet 10 mg PO HS RF: 0 Discontinued tramadol 50 mg Tablet 1 tab PO TID PRN (Reason: Pain) RF: 0 Stand-Alone Forms: Call Back Authorization, [facility], Opioid Pain Management Discharge Orders: Discharge Order (Routine); Ordered 07/02/18 Ordered By: Dale Olivera Admission Data Admit Date/Time: 06/27/18 22:55 Attending Provider: Yenifer Clark Admit Provider: Roxanne Kennedy Primary Care Provider: Vivek Urban Other Providers: Roxanne Kennedy ; Reny Guerrero ; Paul Razo Service: Surgical Services Other Interventions: Discharge Summary Assessment (RN) Last Done: 07/02/18 10:37 DC Date/Time DO NOT enter until pt leaves facility: 07/02/18 11:37 Supervising Physician Co-Signing Physician Notes Resident Physician Supervision Note: I independently interviewed and examined the patient and verified the weldon history and physical, reviewed labs and image studies, discussed the case with the resident Dr. Olivera and agree with the findings and care plan. Time spent in discharge 35 min
== END 2018-07-02 11:37 | disposition home or self-care (01) | DRG 439 ==
LOC: ED 19:31 → SUATTDRO 22:55 → 3N 22:55

== ENCOUNTER 2018-07-25 21:10 | Inpatient (IN) ==
[2018-07-25] MEDS ORDERED: ONDANSETRON INJ 2 MG/ML 2 ML VIAL IV STA (22:02)
[2018-07-25] MEDS ORDERED: HYDROmorphone INJ 0.5 MG/0.5 ML SYR IV STA ×2 (22:02→23:50)
[2018-07-25 22:10] LABS: Basophils # (auto) 0.05 K/uL (0-0.2); Basophils % (auto) 0.8 %; Eosinophils # (auto) 0.23 K/uL (0-0.5); Eosinophils % (auto) 3.5 %; Hematocrit (blood only) 31.5 % (37-47); Immature Granulocytes # (auto) 0.01 K/uL (0.00-0.02); Immature Granulocytes % (auto) 0.2 %; Lymphocytes # (auto) 2.52 K/uL (1.2-3.4); Mean Corpuscular Hgb Conc 31.7 g/dL (32-36); Mean Corpuscular Volume 78.8 fL (80-100); Mean Platelet Volume 10.9 fL (7.4-10.4); Monocytes # (auto) 0.37 K/uL (0.11-0.59); Monocytes % (auto) 5.6 %; Neutrophils # (auto) 3.46 K/uL (1.4-6.5); Neutrophils % (auto) 51.9 %; Platelet Count 303 K/uL (130-400); RDW Coefficient of Variation 17.5 % (11.5-14.5); White Blood Count 6.64 K/uL (4.8-10.8)
[2018-07-25] MEDS ORDERED: SODIUM CHLORIDE 0.9% 1000ML 1,000 ML IV SCH (22:15)
[2018-07-25 22:29] LABS: Albumin Globulin Ratio 1.1 (0.9-2); Albumin Level 4.2 gm/dl (3.4-5.0); Bilirubin,Total 0.5 mg/dl (0.2-1); Calcium 9.6 mg/dl (8.5-10.1); Creatinine Clr Calc Pharmacy 101.3 ml/min; Est GFR (African American) 103.6; Est GFR (Non-African American) 89.4; Globulin 3.9 gm/dl (2.5-4.0); Total Protein 8.1 gm/dl (6.4-8.2)
[2018-07-25 23:07] LABS: Appearance Urine Cloudy (Clear); Bacteria Urine Automated Negative (Negative); Bilirubin Urine Negative (Negative); Blood Urine Negative (Negative); Color Urine Yellow; Epithelial Cell Urine Auto >30 /lpf (0-5); Glucose Urine UA Negative (Negative); Ketones Urine Negative (Negative); Leukocyte Esterase Urine Trace (Negative); Nitrite Urine Positive (Negative); Protein Urine Negative (Negative); RBC Urine Automated 0-4 /hpf (0-4); Urobilinogen Urine Negative (Negative); pH Urine 5.5 (4.5-7.5)
[2018-07-25] MEDS ORDERED: IOVERSOL 100ml IV PRN (23:25)
--- NOTE | 2018-07-26 01:49 | Emergency Department Note ---
History of Present Illness General Chief complaint: Abdominal Pain Stated complaint: INCREASES ABD PAIN,DIZZY- S/P CHOLECYSTECTOMY Source: patient Mode of arrival: ambulatory Limitations: no limitations History of Present Illness Maximum Pain Intensity: 5 This patient is a 32-year-old female who presents to the emergency department complaining of abdominal pain. The patient has been dealing with pancreatitis for the past few months. Her gallbladder was removed 2 weeks ago. She states she has been feeling much better since then, however a few hours ago she began to have epigastric abdominal pain. She states it is a feeling like she is being punched and rates the discomfort a 7/10. Pain is worse with certain movements. She has been slightly dizzy and lightheaded. She denies nausea and vomiting. She denies fevers or changes in bowel movements. The patient took an oxycodone at home without improvement of her pain. Home Medications Home Medications Medication Instructions Recorded Confirmed Type [id number] fumarate-FA 1 tab PO DAILY 07/25/18 07/25/18 History [] ciprofloxacin HCl 500 mg PO BID 07/25/18 07/25/18 History docusate sodium [Stool Softener] 100 mg PO HS 07/25/18 07/25/18 History escitalopram oxalate 10 mg PO HS 07/25/18 07/25/18 History metronidazole 500 mg PO TID 07/25/18 07/25/18 History ondansetron 4 mg PO TID PRN 07/25/18 07/25/18 History Allergies Allergy/AdvReac Type Severity Reaction Status Date / Time Sulfa (Sulfonamide AdvReac Intermediate Nausea/Vomi Verified 07/25/18 23:29 Antibiotics) ting Past Med/Surg History Medical History History of depression Pancreatitis Surgical History History of ERCP History of section 2/2 FAILURE TO PROGRESS; DOSED EPIDURAL TOTAL OF 2 C-SECTIONS S/P wrist surgery CYSTECTOMY (LEFT) Social History Communication Ability: Effective Beliefs That Will Affect Care: None marital status: Current Living Situation: Spouse Other Information That Helps Us Care for You: No Feels Safe at Home: Yes Safety Concerns: Feels Safe At This Time Smoking Status: Never smoker Hx Alcohol Use: No Hx Substance Use: No Review of Systems A total of 10 systems reviewed and were otherwise negative Physical Exam Vital Signs Vital Signs - 24 hr 07/26/18 15:58 07/26/18 23:40 07/27/18 07:08 Temperature 36.3 C L 36.6 C 37.0 C Temperature Source Oral Oral Oral Pulse Rate [Finger] 77 68 85 Respiratory Rate 19 18 18 Blood Pressure [Left Arm] 137/89 154/90 H Blood Pressure [Right Arm] 135/81 Blood Pressure Mean [Left Arm] 105 111 Blood Pressure Mean [Right Arm] 99 Blood Pressure Position [Left Arm] Lying Pulse Oximetry 100 99 99 Oxygen Delivery Method Room Air Room Air VITALS: Vitals are noted on the nurse's note and reviewed by myself. Vital signs stable. GENERAL: This is a 32-year-old female, in no acute distress, nondiaphoretic, well-developed well-nourished. SKIN: The skin was without rashes. EYES: Pupils equal round and reactive to light and accommodation. MOUTH: Mucous membranes moist. Tonsils are not enlarged. Pharynx without erythema or exudate. NECK: Supple without nuchal rigidity. No lymphadenopathy. HEART: Regular rate and rhythm without murmurs gallops or rubs. LUNGS: Clear to auscultation bilaterally without wheezes, rales or rhonchi. No retractions or accessory muscle use. ABDOMEN: Positive bowel sounds x 4. Soft, moderate epigastric tenderness to palpation. No guarding or rebound tenderness. NEURO: Patient was alert and oriented to person place and time. PSYCH: Flat affect, cooperative with examiner. Course Administered Medications Ciprofloxacin (Cipro) 500 mg PO BID [facility] Stop: 08/05/18 08:59 Last Admin: 07/27/18 08:28 Dose: 500 mg Documented by: [id number] Admin: 07/26/18 20:14 Dose: 500 mg Documented by: [id number] Admin: 07/26/18 09:09 Dose: 500 mg Documented by: [id number] Docusate Sodium (Colace) 100 mg PO [facility] Stop: 08/25/18 20:59 Last Admin: 07/26/18 15:56 Dose: 100 mg Documented by: [id number] Escitalopram Oxalate (Lexapro) 10 mg PO [facility] Stop: 08/25/18 20:59 Last Admin: 07/26/18 20:14 Dose: 10 mg Documented by: [id number] Hydromorphone HCl (Dilaudid) 0.5 mg IV Q3H PRN PRN Reason: Pain Stop: 08/09/18 02:52 Last Admin: 07/27/18 08:28 Dose: 0.5 mg Documented by: [id number] Admin: 07/27/18 00:41 Dose: 0.5 mg Documented by: [id number] Admin: 07/26/18 20:15 Dose: 0.5 mg Documented by: [id number] Admin: 07/26/18 15:56 Dose: 0.5 mg Documented by: [id number] Admin: 07/26/18 11:15 Dose: 0.5 mg Documented by: [id number] Admin: 07/26/18 08:05 Dose: 0.5 mg Documented by: [id number] Admin: 07/26/18 04:06 Dose: 0.5 mg Documented by: [id number] Lactated Ringer's (Lr) 1,000 mls @ 200 mls/hr IV .Q5H DEON Stop: 08/25/18 13:29 Last Admin: 07/27/18 11:40 Dose: 200 mls/hr Documented by: [id number] Infusion: 07/27/18 10:35 Dose: 0 mls/hr Documented by: [id number] Admin: 07/27/18 05:31 Dose: 200 mls/hr Documented by: [id number] Infusion: 07/27/18 05:31 Dose: 200 mls/hr Documented by: [id number] Admin: 07/27/18 00:39 Dose: 200 mls/hr Documented by: [id number] Infusion: 07/27/18 00:39 Dose: 200 mls/hr Documented by: [id number] Admin: 07/26/18 19:42 Dose: 200 mls/hr Documented by: [id number] Infusion: 07/26/18 19:42 Dose: 200 mls/hr Documented by: [id number] Admin: 07/26/18 14:45 Dose: 200 mls/hr Documented by: [id number] Ioversol (Optiray 320 100ml) 100 ml IV ONCE PRN PRN Reason: Interaction Checking Stop: 07/29/18 23:24 Last Admin: 07/25/18 23:26 Dose: 93 ml Documented by: [id number] Metronidazole (Flagyl) 500 mg PO TID DEON Stop: 08/05/18 08:59 Last Admin: 07/27/18 08:28 Dose: 500 mg Documented by: [id number] Admin: 07/26/18 20:14 Dose: 500 mg Documented by: [id number] Admin: 07/26/18 14:47 Dose: 500 mg Documented by: [id number] Admin: 07/26/18 09:09 Dose: 500 mg Documented by: [id number] Discontinued Medications Bisacodyl (Dulcolax) 10 mg [place] NOW STA Stop: 07/26/18 13:27 Last Admin: 07/26/18 15:29 Dose: Not Given Documented by: [id number] Hydromorphone HCl (Dilaudid) 0.5 mg IV NOW STA Stop: 07/25/18 22:03 Last Admin: 07/25/18 22:12 Dose: 0.5 mg Documented by: [id number] Hydromorphone HCl (Dilaudid) 0.5 mg IV NOW STA Stop: 07/25/18 23:51 Last Admin: 07/25/18 23:53 Dose: 0.5 mg Documented by: [id number] Sodium Chloride (Nss 1000ml) 1,000 mls @ 999 mls/hr IV .Q1H1M DEON Stop: 07/25/18 23:15 Last Infusion: 07/25/18 23:23 Dose: 0 mls/hr Documented by: [id number] Admin: 07/25/18 22:13 Dose: 999 mls/hr Documented by: [id number] Sodium Chloride (Nss 1000ml) 1,000 mls @ 100 mls/hr IV .Q10H DEON Stop: 08/25/18 14:53 Last Infusion: 07/26/18 16:15 Dose: 0 mls/hr Documented by: [id number] Admin: 07/26/18 14:45 Dose: Not Given Documented by: [id number] Infusion: 07/26/18 11:44 Dose: 100 mls/hr Documented by: [id number] Admin: 07/26/18 10:44 Dose: 400 mls/hr Documented by: [id number] Infusion: 07/26/18 10:38 Dose: 0 mls/hr Documented by: [id number] Admin: 07/26/18 09:23 Dose: Not Given Documented by: [id number] Admin: 07/26/18 08:01 Dose: 400 mls/hr Documented by: [id number] Infusion: 07/26/18 07:35 Dose: 400 mls/hr Documented by: [id number] Infusion: 07/26/18 05:50 Dose: 400 mls/hr Documented by: [id number] Infusion: 07/26/18 04:23 Dose: 100 mls/hr Documented by: [id number] Admin: 07/26/18 03:59 Dose: 400 mls/hr Documented by: [id number] Ondansetron HCl (Zofran) 4 mg IV NOW STA Stop: 07/25/18 22:03 Last Admin: 07/25/18 22:12 Dose: 4 mg Documented by: [id number] Medical Decision Making Differential Diagnosis Differential diagnosis includes pancreatitis, bowel obstruction, gastroenterit is, gastritis, peptic ulcer disease, perforated viscus, among others. Home Medications Current Medication List: was personally reviewed by me Laboratory Data Attestation: I reviewed the patient's lab results. Result diagrams: 07/26/18 05:19 07/26/18 05:19 Lab Results 07/25/18 07/25/18 07/25/18 Range/Units 21:48 21:48 22:55 WBC 6.64 (4.8-10.8) K/uL RBC 4.00 L (4.2-5.4) M/uL Hgb 10.0 L (12.0-16.0) g/dL Hct 31.5 L (37-47) % MCV 78.8 L (80-100) fL MCH 25.0 (25-34) pg MCHC 31.7 L (32-36) g/dL RDW Std Deviation 50.0 H (36.4-46.3) fL RDW Coeff of Latoya 17.5 H (11.5-14.5) % Plt Count 303 (130-400) K/uL MPV 10.9 H (7.4-10.4) fL Immature Gran % (Auto) 0.2 % Neut % (Auto) 51.9 % Lymph % (Auto) 38.0 % Ida % (Auto) 5.6 % Eos % (Auto) 3.5 % Baso % (Auto) 0.8 % Immature Gran # (Auto) 0.01 (0.00-0.02) K/uL Neut # (Auto) 3.46 (1.4-6.5) K/uL Lymph # (Auto) 2.52 (1.2-3.4) K/uL Ida # (Auto) 0.37 (0.11-0.59) K/uL Eos # (Auto) 0.23 (0-0.5) K/uL Baso # (Auto) 0.05 (0-0.2) K/uL Sodium 140 (136-145) mmol/L Potassium (3.5-5.1) mmol/L Chloride 108 H (98-107) mmol/L Carbon Dioxide 21 (21-32) mmol/L Anion Gap 11.0 (3-11) BUN 11 (7-18) mg/dl Creatinine 0.87 (0.6-1.2) mg/dl Est Cr Clr Drug Dosing 101.3 ml/min Est GFR ( Amer) 103.6 Est GFR (Non-Af Amer) 89.4 BUN/Creatinine Ratio 12.0 (10-20) Glucose 86 (70-99) mg/dl Calcium 9.6 (8.5-10.1) mg/dl Total Bilirubin 0.5 (0.2-1) mg/dl AST (15-37) U/L ALT 22 (12-78) U/L Alkaline Phosphatase 74 (45-117) U/L Total Protein 8.1 (6.4-8.2) gm/dl Albumin 4.2 (3.4-5.0) gm/dl Globulin 3.9 (2.5-4.0) gm/dl Albumin/Globulin Ratio 1.1 (0.9-2) Lipase 986 H (73-393) U/L Urine Color Yellow Urine Appearance Cloudy H (Clear) Urine pH 5.5 (4.5-7.5) Ur Specific [place] 1.020 (1.000-1.030) Urine Protein Negative (Negative) Urine Glucose (UA) Negative (Negative) Urine Ketones Negative (Negative) Urine Blood Negative (Negative) Urine Nitrite Positive H (Negative) Urine Bilirubin Negative (Negative) Urine Urobilinogen Negative (Negative) Ur Leukocyte Esterase Trace H (Negative) Urine WBC (Auto) 1-5 (0-5) /hpf Urine RBC (Auto) 0-4 (0-4) /hpf U Hyaline Cast (Auto) 1-5 (0-5) /lpf U Epithel Cells (Auto) >30 H (0-5) /lpf Urine Bacteria (Auto) Negative (Negative) POC Ur Test (NEG) 07/25/18 07/25/18 07/26/18 Range/Units 22:55 23:10 05:19 WBC 5.39 (4.8-10.8) K/uL RBC 4.04 L (4.2-5.4) M/uL Hgb 9.9 L (12.0-16.0) g/dL Hct 32.6 L (37-47) % MCV 80.7 (80-100) fL MCH 24.5 L (25-34) pg MCHC 30.4 L (32-36) g/dL RDW Std Deviation 52.6 H (36.4-46.3) fL RDW Coeff of Latoya 17.8 H (11.5-14.5) % Plt Count 265 (130-400) K/uL MPV 11.2 H (7.4-10.4) fL Immature Gran % (Auto) 0.2 % Neut % (Auto) 43.3 % Lymph % (Auto) 44.7 % Ida % (Auto) 7.2 % Eos % (Auto) 3.7 % Baso % (Auto) 0.9 % Immature Gran # (Auto) 0.01 (0.00-0.02) K/uL Neut # (Auto) 2.33 (1.4-6.5) K/uL Lymph # (Auto) 2.41 (1.2-3.4) K/uL Ida # (Auto) 0.39 (0.11-0.59) K/uL Eos # (Auto) 0.20 (0-0.5) K/uL Baso # (Auto) 0.05 (0-0.2) K/uL Sodium (136-145) mmol/L Potassium (3.5-5.1) mmol/L Chloride (98-107) mmol/L Carbon Dioxide (21-32) mmol/L Anion Gap (3-11) BUN (7-18) mg/dl Creatinine (0.6-1.2) mg/dl Est Cr Clr Drug Dosing ml/min Est GFR ( Amer) Est GFR (Non-Af Amer) BUN/Creatinine Ratio (10-20) Glucose (70-99) mg/dl Calcium (8.5-10.1) mg/dl Total Bilirubin (0.2-1) mg/dl AST (15-37) U/L ALT (12-78) U/L Alkaline Phosphatase (45-117) U/L Total Protein (6.4-8.2) gm/dl Albumin (3.4-5.0) gm/dl Globulin (2.5-4.0) gm/dl Albumin/Globulin Ratio (0.9-2) Lipase (73-393) U/L Urine Color Urine Appearance (Clear) Urine pH (4.5-7.5) Ur Specific [place] (1.000-1.030) Urine Protein (Negative) Urine Glucose (UA) (Negative) Urine Ketones (Negative) Urine Blood (Negative) Urine Nitrite (Negative) Urine Bilirubin (Negative) Urine Urobilinogen (Negative) Ur Leukocyte Esterase (Negative) Urine WBC (Auto) (0-5) /hpf Urine RBC (Auto) (0-4) /hpf U Hyaline Cast (Auto) (0-5) /lpf U Epithel Cells (Auto) (0-5) /lpf Urine Bacteria (Auto) (Negative) POC Ur Test NEG (NEG) 07/26/18 Range/Units 05:19 WBC (4.8-10.8) K/uL RBC (4.2-5.4) M/uL Hgb (12.0-16.0) g/dL Hct (37-47) % MCV (80-100) fL MCH (25-34) pg MCHC (32-36) g/dL RDW Std Deviation (36.4-46.3) fL RDW Coeff of Latoya (11.5-14.5) % Plt Count (130-400) K/uL MPV (7.4-10.4) fL Immature Gran % (Auto) % Neut % (Auto) % Lymph % (Auto) % Ida % (Auto) % Eos % (Auto) % Baso % (Auto) % Immature Gran # (Auto) (0.00-0.02) K/uL Neut # (Auto) (1.4-6.5) K/uL Lymph # (Auto) (1.2-3.4) K/uL Ida # (Auto) (0.11-0.59) K/uL Eos # (Auto) (0-0.5) K/uL Baso # (Auto) (0-0.2) K/uL Sodium 142 (136-145) mmol/L Potassium 3.5 (3.5-5.1) mmol/L Chloride 112 H (98-107) mmol/L Carbon Dioxide 24 (21-32) mmol/L Anion Gap 6.0 (3-11) BUN 7 (7-18) mg/dl Creatinine 0.89 (0.6-1.2) mg/dl Est Cr Clr Drug Dosing 99.0 ml/min Est GFR ( Amer) 100.8 Est GFR (Non-Af Amer) 87.0 BUN/Creatinine Ratio 7.8 L (10-20) Glucose 85 (70-99) mg/dl Calcium 9.2 (8.5-10.1) mg/dl Total Bilirubin (0.2-1) mg/dl AST (15-37) U/L ALT (12-78) U/L Alkaline Phosphatase (45-117) U/L Total Protein (6.4-8.2) gm/dl Albumin (3.4-5.0) gm/dl Globulin (2.5-4.0) gm/dl Albumin/Globulin Ratio (0.9-2) Lipase (73-393) U/L Urine Color Urine Appearance (Clear) Urine pH (4.5-7.5) Ur Specific [place] (1.000-1.030) Urine Protein (Negative) Urine Glucose (UA) (Negative) Urine Ketones (Negative) Urine Blood (Negative) Urine Nitrite (Negative) Urine Bilirubin (Negative) Urine Urobilinogen (Negative) Ur Leukocyte Esterase (Negative) Urine WBC (Auto) (0-5) /hpf Urine RBC (Auto) (0-4) /hpf U Hyaline Cast (Auto) (0-5) /lpf U Epithel Cells (Auto) (0-5) /lpf Urine Bacteria (Auto) (Negative) POC Ur Test (NEG) Imaging Data Attestation: I personally reviewed and interpreted this imaging study as follows: Radiologist's Impression: CT ABDOMEN & PELVIS With Contrast: Fluid within nondistended loops of small bowel and within stomach without bowel wall thickening or surrounding inflammation can be normal or can be seen with gastroenteritis in the right clinical setting. No appendicitis, inflammatory changes of bowel or bowel obstruction. No free fluid. No free air. Pancreas is ill-defined., Consider pancreatitis right clinical setting. Biliary stent in place. Question short elongated cystic lesion along the pancreatic body versus focal ductal dilatation. Cystic lesion splenic hilum measuring 2.9 x 2.8 cm. Consider pseudocyst or abscess. Splenomegaly. Prior cholecystectomy. Radiologist: Florentin Gilliland M.D. Blood Pressure Blood Pressure Findings: Elevated blood pressure Blood Pressure Disposition: further management by hospitalist ODALIS Narrative The patient is a 32-year-old female who presents today complaining of epigastric abdominal pain. Patient has a history of pancreatitis over the past several months and has been in and out of the hospital. She recently had a cholecystectomy. Labs revealed no leukocytosis, stable anemia. Lipase was found to be elevated at 986, which is about double the patient's baseline. CT scan was performed which does show some changes to the pancreas, possibly suggestive of pancreatitis. Given this and patient's recent history, she will be admitted to the hospital service for further evaluation. She was treated with IV fluids as well as Dilaudid and Zofran in the emergency department for symptomatic control. Impression & Plan Acute pancreatitis Discharge Plan Visit Data *Final* Discharge Date/Time: 07/26/18 02:38 Chief Complaint: Abdominal Pain Stated Complaint: INCREASES ABD PAIN,DIZZY- S/P CHOLECYSTECTOMY ED Provider: Bronson Solano ED Midlevel Provider: Martina Underwood Discharge Problem: Acute pancreatitis Patient Disposition: Admitted As Inpatient Condition: Good Discharge Instructions Interventions: ED Discharge Assessment Last Done: 07/26/18 02:38 Discharge Problem: Acute pancreatitis Qualifiers: Pancreatitis type: unspecified pancreatitis type Acute pancreatitis complication: unspecified Qualified Code(s): K85.90 - Acute pancreatitis without necrosis or infection, unspecified
--- NOTE | 2018-07-26 02:17 | History & Physical Report ---
Date of Service July 26, 2018 Assessment & Plan (1) Pancreatitis: 32-year-old female with a recent history of cholecystitis, biliary obstruction and subsequent necrotizing pancreatitis presents with acute epigastric pain since 7 PM tonight. Recurrent pancreatitis The patient's lipase was elevated at 986, stat read showed continual inflammation of the pancreas, and cyst measuring 2.9 x 2.8 cm The patient is afebrile, no white countwe will not start IV antibiotics. Patient is currently completing course of Cipro/Flagyl since her surgery, continue. Treating with aggressive IV hydration, normal saline 400 cc/h, pain control, antiemetics We will have the patient be seen by surgery and gastroenterology, appreciate recommendations Depression Continue escitalopram Chronic anemia Iron deficiency, holding iron supplementation at this time DVT prophylaxis SCDs, ambulate FEN N.p.o., normal saline 400 cc/h CODE STATUS Full (2) Epigastric abdominal pain: (3) Pancreatic cyst: (4) Depression: History of Present Illness Primary Care Provider: Vivek Urban DO 32-year-old female with a recent history of cholecystitis, biliary obstruction and subsequent necrotizing pancreatitis presents with acute epigastric pain since 7 PM tonight. Patient was hospitalized a number of times since May and received a cholecystectomy with biliary and pancreatic stent placement on July 10. Since her surgery, she has been recovering wellshe had some postsurgical pain that has progressively gotten better. She had couple days where she would have a little more tenderness, but no acute abdominal pain symptoms. Today she said that the pain started suddenly and was not exacerbated by food. Her last meal today was lunchtime. She has been watching her diet since the surgery and is decreased her fatty food intake. She has not had any vomiting, no diarrhea. She does have loose stools and is on Cipro Flagyl following the surgery. She states that she did have some dizziness when the abdominal pain started. Allergies Allergy/AdvReac Type Severity Reaction Status Date / Time Sulfa (Sulfonamide AdvReac Intermediate Nausea/Vomi Verified 07/25/18 23:29 Antibiotics) ting Home Medications Home Medications Medication Instructions Recorded Confirmed Type [id number] fumarate-FA 1 tab PO DAILY 07/25/18 07/25/18 History [] ciprofloxacin HCl 500 mg PO BID 07/25/18 07/25/18 History docusate sodium [Stool Softener] 100 mg PO HS 07/25/18 07/25/18 History escitalopram oxalate 10 mg PO HS 07/25/18 07/25/18 History metronidazole 500 mg PO TID 07/25/18 07/25/18 History ondansetron 4 mg PO TID PRN 07/25/18 07/25/18 History Past Med/Surg History Social History Preferred Language: Yakut Communication Ability: Effective Gag Writer Required: No Beliefs That Will Affect Care: None marital status: Current Living Situation: Spouse Other Information That Helps Us Care for You: No Feels Safe at Home: Yes Safety Concerns: Feels Safe At This Time Smoking Status: Never smoker Hx Alcohol Use: No Hx Substance Use: No Review of Systems All systems reviewed & are unremarkable except as noted in HPI & below Physical Exam Vital Signs (Past 24 Hours): Last Vital Signs Temp 36.5 C 07/25/18 21:21 Pulse 87 07/26/18 00:53 Resp 16 07/26/18 00:53 BP 141/95 H 07/26/18 00:53 Pulse Ox 100 07/26/18 00:53 Constitutional: WD/WN, vitals as above ENMT: external ear and nose normal, oropharynx normal Respiratory: normal respiratory effort, lungs clear to auscultation Cardiovascular: RRR, no murmur, no edema Gastrointestinal (Abdomen): Inspection/Auscultation: abdomen normal to inspection, normal bowel sounds and + abdominal surgical incision; abdomen not distended and Evans-Perkins sign absent Percussion/Palpation: + abdomen tender (epigastric) and + abdominal mass (under umbilical scar); no guarding and abdomen not rigid Musculoskeletal: no cyanosis or clubbing, extremities motor strength 5/5 Skin: no rashes, warm and dry Neurologic: PERRL, EOMI, accommodation nl, no face palsy, no dysarthria CN's II-XI intact bilaterally Psychiatric: A+Ox3, euthymic affect Results & Data Laboratory Results Laboratory Last Values WBC 6.64 K/uL (4.8-10.8) 07/25/18 21:48 RBC 4.00 M/uL (4.2-5.4) L 07/25/18 21:48 Hgb 10.0 g/dL (12.0-16.0) L 07/25/18 21:48 Hct 31.5 % (37-47) L 07/25/18 21:48 MCV 78.8 fL (80-100) L 07/25/18 21:48 MCH 25.0 pg (25-34) 07/25/18 21:48 MCHC 31.7 g/dL (32-36) L 07/25/18 21:48 RDW Std Deviation 50.0 fL (36.4-46.3) H 07/25/18 21:48 RDW Coeff of Latoya 17.5 % (11.5-14.5) H 07/25/18 21:48 Plt Count 303 K/uL (130-400) 07/25/18 21:48 MPV 10.9 fL (7.4-10.4) H 07/25/18 21:48 Immature Gran % (Auto) 0.2 % 07/25/18 21:48 Neut % (Auto) 51.9 % 07/25/18 21:48 Lymph % (Auto) 38.0 % 07/25/18 21:48 [place] % (Auto) 5.6 % 07/25/18 21:48 Eos % (Auto) 3.5 % 07/25/18 21:48 Baso % (Auto) 0.8 % 07/25/18 21:48 Immature Gran # (Auto) 0.01 K/uL (0.00-0.02) 07/25/18 21:48 Neut # (Auto) 3.46 K/uL (1.4-6.5) 07/25/18 21:48 Lymph # (Auto) 2.52 K/uL (1.2-3.4) 07/25/18 21:48 [place] # (Auto) 0.37 K/uL (0.11-0.59) 07/25/18 21:48 Eos # (Auto) 0.23 K/uL (0-0.5) 07/25/18 21:48 Baso # (Auto) 0.05 K/uL (0-0.2) 07/25/18 21:48 Sodium 140 mmol/L (136-145) 07/25/18 21:48 Potassium mmol/L (3.5-5.1) 07/25/18 23:10 Chloride 108 mmol/L (98-107) H 07/25/18 21:48 Carbon Dioxide 21 mmol/L (21-32) 07/25/18 21:48 Anion Gap 11.0 (3-11) 07/25/18 21:48 BUN 11 mg/dl (7-18) 07/25/18 21:48 Creatinine 0.87 mg/dl (0.6-1.2) 07/25/18 21:48 Est Cr Clr Drug Dosing 101.3 ml/min 07/25/18 21:48 Est GFR ( Amer) 103.6 07/25/18 21:48 Est GFR (Non-Af Amer) 89.4 07/25/18 21:48 BUN/Creatinine Ratio 12.0 (10-20) 07/25/18 21:48 Glucose 86 mg/dl (70-99) 07/25/18 21:48 Calcium 9.6 mg/dl (8.5-10.1) 07/25/18 21:48 Total Bilirubin 0.5 mg/dl (0.2-1) 07/25/18 21:48 AST U/L (15-37) 07/25/18 23:10 ALT 22 U/L (12-78) 07/25/18 21:48 Alkaline Phosphatase 74 U/L (45-117) 07/25/18 21:48 Total Protein 8.1 gm/dl (6.4-8.2) 07/25/18 21:48 Albumin 4.2 gm/dl (3.4-5.0) 07/25/18 21:48 Globulin 3.9 gm/dl (2.5-4.0) 07/25/18 21:48 Albumin/Globulin Ratio 1.1 (0.9-2) 07/25/18 21:48 Lipase 986 U/L (73-393) H 07/25/18 21:48 Urine Color Yellow 07/25/18 22:55 Urine Appearance Cloudy (Clear) H 07/25/18 22:55 Urine pH 5.5 (4.5-7.5) 07/25/18 22:55 Ur Specific [place] 1.020 (1.000-1.030) 07/25/18 22:55 Urine Protein Negative (Negative) 07/25/18 22:55 Urine Glucose (UA) Negative (Negative) 07/25/18 22:55 Urine Ketones Negative (Negative) 07/25/18 22:55 Urine Blood Negative (Negative) 07/25/18 22:55 Urine Nitrite Positive (Negative) H 07/25/18 22:55 Urine Bilirubin Negative (Negative) 04 22:55 Urine Urobilinogen Negative (Negative) 07/25/18 22:55 Ur Leukocyte Esterase Trace (Negative) H 07/25/18 22:55 Urine WBC (Auto) 1-5 /hpf (0-5) 07/25/18 22:55 Urine RBC (Auto) 0-4 /hpf (0-4) 07/25/18 22:55 U Hyaline Cast (Auto) 1-5 /lpf (0-5) 07/25/18 22:55 U Epithel Cells (Auto) >30 /lpf (0-5) H 07/25/18 22:55 Urine Bacteria (Auto) Negative (Negative) 07/25/18 22:55 POC Ur Test NEG (NEG) 07/25/18 22:55 Supervising Physician Co-Signing Physician Notes Patient seen and examined, chart reviewed, case discussed with Dr. Ojeda and I agree with his assessment and plan as above. Briefly, patient is a 32yo female known to the medicine service with history of acute pancreatitis with bililary obstruction and necrosis with multiple recurrences of pancreatitis. Patient is s/p cholecystectomy 07/10/18 and has biliary and pancreatic stents in place. She presents today with acute epigastric pain. Elevated lipase from prior and CT with old findings, suggestive of acute pancreatitis. On exam she is afebrile, HD stable, non-toxic in appearance Skin - no jaundice HEENT - MMM, neck supple Heart - +S1/S2, regular, no m/r/g Lungs - CTA Abd - +BS, soft, mild tenderness in epigastric area Ext - no edema Labs and images reviewed Assessment/Plan: 32yo female with history of necrotizing pancreatis, s/p cholecystectomy with biliary and pancreatic stent placement presenting with recurrence of pancreatitis. -Admit to medical floor -Aggressive IVF, pain and nausea control -Patient to complete her course of antibiotics from prior surgery -Consult GI and General Surgery - appreciate assistance -Remainder of plan as above Resident Activity Tracking Resident Involvement: Resident Care Provided Care Provided: [facility]
[2018-07-26] MEDS ORDERED: ONDANSETRON INJ 2 MG/ML 2 ML VIAL IV PRN (02:53)
[2018-07-26] MEDS: SODIUM CHLORIDE 0.9% 1000ML 1,000 ML IV SCH ×5 (03:59→14:45)
[2018-07-26] MEDS: HYDROmorphone INJ 0.5 MG/0.5 ML SYR IV PRN ×5 (04:06→20:15)
[2018-07-26 06:44] LABS: Basophils # (auto) 0.05 K/uL (0-0.2); Basophils % (auto) 0.9 %; Eosinophils % (auto) 3.7 %; Hematocrit (blood only) 32.6 % (37-47); Hemoglobin 9.9 g/dL (12.0-16.0); Immature Granulocytes # (auto) 0.01 K/uL (0.00-0.02); Immature Granulocytes % (auto) 0.2 %; Lymphocytes # (auto) 2.41 K/uL (1.2-3.4); Lymphocytes % (auto) 44.7 %; Mean Corpuscular Hgb Conc 30.4 g/dL (32-36); Mean Corpuscular Volume 80.7 fL (80-100); Mean Platelet Volume 11.2 fL (7.4-10.4); Monocytes # (auto) 0.39 K/uL (0.11-0.59); Monocytes % (auto) 7.2 %; Neutrophils # (auto) 2.33 K/uL (1.4-6.5); Neutrophils % (auto) 43.3 %; Platelet Count 265 K/uL (130-400); RDW Coefficient of Variation 17.8 % (11.5-14.5); RDW Standard Deviation 52.6 fL (36.4-46.3); Red Blood Count 4.04 M/uL (4.2-5.4); White Blood Count 5.39 K/uL (4.8-10.8)
[2018-07-26 06:59] LABS: BUN Creatinine Ratio 7.8 (10-20); Calcium 9.2 mg/dl (8.5-10.1); Est GFR (African American) 100.8; Potassium 3.5 mmol/L (3.5-5.1)
--- NOTE | 2018-07-26 07:04 | CT Scan Report ---
CT abd pelvis IV con only CT DOSE: 427.10 mGy.cm HISTORY: Pain. Nausea. epigastric pain, recent alejandra, hx pancreatitis TECHNIQUE: Multiaxial CT images of the abdomen and pelvis were performed following the use of intrave nous contrast. A dose lowering technique was utilized adhering to the principles of ALARA. COMPARISON STUDY: 06/30/2018 FINDINGS: Lung bases are clear. There is a small hiatal hernia. Moderate splenomegaly persists. Liver enhances uniformly. There is been interval cholecystectomy. Pancreatic stent persists. There is a small fluid pocket vers us pseudocyst in the mid pancreatic body measuring 2 cm. This potentially represents residual from a prior larger collection on the prior study. Perigastric collection is improved. There is no evidence for current air within this collection with a current maximum dimension of 1.6 cm. At the splenic hilum is a pseudocyst measuring 2.7 cm at maximum. This is improved in definition from the prior study. Findings of mild edematous change of the peripancreatic tissues consistent with a component of pancre atitis. There is a gentle reactive nonobstructive ileus. The colonic pattern is remarkable for increased feca l load within the colon. The bladder is midline. Uterus is anteflexed. IMPRESSION: 1. Mixed findings compared to the prior study. 2. Findings of pancreatitis. 3. Developing 2.7 cm pseudocyst splenic hilum. 4. Improved and/or diminished volume of a perigastric complex fluid pocket . 5. Interval cholecystectomy. Pancreatic stent in good position. 6. Additional pseudocyst measuring 1.6 cm near the pancreatic body. This is diminished in volume from the prior study. 7. Generalized reactive ileus with increased fecal load within the colon. The above report was generated using voice recognition software. It may contain grammatical, syntax or spelling errors. Electronically signed by: Ruiz Joshua M.D. 07/26/2018 7:02 AM
[2018-07-26] MEDS: metroNIDAZOLE 500 MG TAB PO SCH ×3 (09:09→20:14)
[2018-07-26] MEDS: CIPROFLOXACIN 500 MG TAB PO SCH ×2 (09:09→20:14)
--- NOTE | 2018-07-26 11:21 | Family Medicine Progress Note ---
Date of Service July 26, 2018 Assessment & Plan (1) Pancreatitis: 32-year-old female with a recent history of cholecystitis, biliary obstruction and subsequent necrotizing pancreatitis presents with acute epigastric pain several hours prior to admission 10Apr. 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 [facility] from 06/05/18 - 06/08/18. Transferred to [facility] on 06/08/18 and was admitted through 06/12/18. -Subsequently had laparoscopic cholecystectomy (Dr. Rayo [facility]) on 07/10/2018 and discharged home on 07/05/2018 on ciprofloxacin and metronidazole. Was prescribed oxycodone for symptomatic relief of pain but had not taken her medication in several days. Zofran for nausea. Seen by PCP. -subsequent biliary stent placed as well -plan had been for f/u abd CT Jul -has not had f/u with gen surgery due to pt missing their phone call/miscommunications. On admission: Elevated lipase 986 -abd CT shows interval cholecystectomy, pancreatic stent in good place, small fluid pocket v pseudocyst in mid-pancreatic body ~2cm -- may represent residual from prev larger collection. Improved perigastric collection. Stable pseudocyst at splenic hilum ~2.7cm. Also gentle reactive ileus that is nonobstructive. Fecal load in colon. The patient is afebrile, no white count, is currently completing course of Cipro/Flagyl since her surgery, and this has been continued here. Treating with aggressive IV hydration, normal saline 400 cc/h, pain control, antiemetics, dulcolax C/s general surgery and gastroenterology, appreciate recommendations. FEN/GI: N.p.o., normal saline 400 cc/h DVT ppx: SCDs, ambulate CODE STATUS: FULL DISPO: med/surg Other ongoing medical problems: Depression, Continue escitalopram Iron deficiency anemia Iron deficiency, had been started on Fe supplementation recently, holding iron supplementation at this time (2) Epigastric abdominal pain: (3) Pancreatic cyst: (4) Depression: Supervising Physician Co-Signing Physician Notes Resident Physician Supervision Note: I independently interviewed and examined the patient and verified the weldon history and physical, reviewed labs and image studies, discussed the case with the resident Dr. Ojeda and agree with the findings and care plan. Subjective Patient is seen and examined at the bedside this AM. Abdominal pain much improved with IV dilaudid. Denies nausea. NPO, fluids running. Does not endorse any further complaints at this time. Physical Exam Vital Signs (Past 24 Hours): Last Vital Signs Temp 36.6 C 07/26/18 07:19 Pulse 66 07/26/18 07:19 Resp 18 07/26/18 07:19 BP 126/79 07/26/18 07:19 Pulse Ox 99 07/26/18 07:19 Physical Exam: Vitals noted as above and within normal limits . GENERAL: Awake, alert to person, place, and time, nontoxic-appearing, in no distress HENT: Normocephalic, atraumatic. . Mucus membranes appear moist. EYES: Normal conjunctiva. Sclera non-icteric. EOMI. NECK: Supple. Full range of motion. No JVD RESPIRATORY: Clear to auscultation. Normal work of breathing. CARDIAC: Regular rate, normal rhythm. Extremities warm and well perfused, good capillary refill. ABDOMEN: Inspection: 4 healing laparoscopic scars, no bruising. Soft, non- distended. Mild tenderness to palpation in epigastrum. No rebound or guarding. Small ~3cm soft subdermal mass palpated beneath laparoscopic scar above the umbilicus, this is nontender. Bowel sounds are normal. NEURO: No focal gross focal motor deficits noted. Sensation in tact. CN II-XII grossly in tact. SKIN: Rash not present. No jaundice noted. Right wrist IV site in tact. PSYCH: Appropriate mood and affect. Cooperative. Exam as done by Rebecca Ojeda MD, Clinical Application Specialist. Results & Data Laboratory Results 07/26/18 07/26/18 07/25/18 Range/Units 05:19 05:19 23:10 WBC 5.39 (4.8-10.8) K/uL RBC 4.04 L (4.2-5.4) M/uL Hgb 9.9 L (12.0-16.0) g/dL Hct 32.6 L (37-47) % MCV 80.7 (80-100) fL MCH 24.5 L (25-34) pg MCHC 30.4 L (32-36) g/dL RDW Std Deviation 52.6 H (36.4-46.3) fL RDW Coeff of Latoya 17.8 H (11.5-14.5) % Plt Count 265 (130-400) K/uL MPV 11.2 H (7.4-10.4) fL Immature Gran % (Auto) 0.2 % Neut % (Auto) 43.3 % Lymph % (Auto) 44.7 % Pratt % (Auto) 7.2 % Eos % (Auto) 3.7 % Baso % (Auto) 0.9 % Immature Gran # (Auto) 0.01 (0.00-0.02) K/uL Neut # (Auto) 2.33 (1.4-6.5) K/uL Lymph # (Auto) 2.41 (1.2-3.4) K/uL Pratt # (Auto) 0.39 (0.11-0.59) K/uL Eos # (Auto) 0.20 (0-0.5) K/uL Baso # (Auto) 0.05 (0-0.2) K/uL Sodium 142 (136-145) mmol/L Potassium 3.5 (3.5-5.1) mmol/L Chloride 112 H (98-107) mmol/L Carbon Dioxide 24 (21-32) mmol/L Anion Gap 6.0 (3-11) BUN 7 (7-18) mg/dl Creatinine 0.89 (0.6-1.2) mg/dl Est Cr Clr Drug Dosing 99.0 ml/min Est GFR ( Amer) 100.8 Est GFR (Non-Af Amer) 87.0 BUN/Creatinine Ratio 7.8 L (10-20) Glucose 85 (70-99) mg/dl Calcium 9.2 (8.5-10.1) mg/dl Total Bilirubin (0.2-1) mg/dl AST (15-37) U/L ALT (12-78) U/L Alkaline Phosphatase (45-117) U/L Total Protein (6.4-8.2) gm/dl Albumin (3.4-5.0) gm/dl Globulin (2.5-4.0) gm/dl Albumin/Globulin Ratio (0.9-2) Lipase (73-393) U/L Urine Color Urine Appearance (Clear) Urine pH (4.5-7.5) Ur Specific [place]in[place] (1.000-1.030) Urine Protein (Negative) Urine Glucose (UA) (Negative) Urine Ketones (Negative) Urine Blood (Negative) Urine Nitrite (Negative) Urine Bilirubin (Negative) Urine Urobilinogen (Negative) Ur Leukocyte Esterase (Negative) Urine WBC (Auto) (0-5) /hpf Urine RBC (Auto) (0-4) /hpf U Hyaline Cast (Auto) (0-5) /lpf U Epithel Cells (Auto) (0-5) /lpf Urine Bacteria (Auto) (Negative) POC Ur Test (NEG) 07/25/18 07/25/18 07/25/18 Range/Units 22:55 22:55 21:48 WBC (4.8-10.8) K/uL RBC (4.2-5.4) M/uL Hgb (12.0-16.0) g/dL Hct (37-47) % MCV (80-100) fL MCH (25-34) pg MCHC (32-36) g/dL RDW Std Deviation (36.4-46.3) fL RDW Coeff of Latoya (11.5-14.5) % Plt Count (130-400) K/uL MPV (7.4-10.4) fL Immature Gran % (Auto) % Neut % (Auto) % Lymph % (Auto) % Pratt % (Auto) % Eos % (Auto) % Baso % (Auto) % Immature Gran # (Auto) (0.00-0.02) K/uL Neut # (Auto) (1.4-6.5) K/uL Lymph # (Auto) (1.2-3.4) K/uL Pratt # (Auto) (0.11-0.59) K/uL Eos # (Auto) (0-0.5) K/uL Baso # (Auto) (0-0.2) K/uL Sodium 140 (136-145) mmol/L Potassium (3.5-5.1) mmol/L Chloride 108 H (98-107) mmol/L Carbon Dioxide 21 (21-32) mmol/L Anion Gap 11.0 (3-11) BUN 11 (7-18) mg/dl Creatinine 0.87 (0.6-1.2) mg/dl Est Cr Clr Drug Dosing 101.3 ml/min Est GFR ( Amer) 103.6 Est GFR (Non-Af Amer) 89.4 BUN/Creatinine Ratio 12.0 (10-20) Glucose 86 (70-99) mg/dl Calcium 9.6 (8.5-10.1) mg/dl Total Bilirubin 0.5 (0.2-1) mg/dl AST (15-37) U/L ALT 22 (12-78) U/L Alkaline Phosphatase 74 (45-117) U/L Total Protein 8.1 (6.4-8.2) gm/dl Albumin 4.2 (3.4-5.0) gm/dl Globulin 3.9 (2.5-4.0) gm/dl Albumin/Globulin Ratio 1.1 (0.9-2) Lipase 986 H (73-393) U/L Urine Color Yellow Urine Appearance Cloudy H (Clear) Urine pH 5.5 (4.5-7.5) Ur Specific [place] 1.020 (1.000-1.030) Urine Protein Negative (Negative) Urine Glucose (UA) Negative (Negative) Urine Ketones Negative (Negative) Urine Blood Negative (Negative) Urine Nitrite Positive H (Negative) Urine Bilirubin Negative (Negative) Urine Urobilinogen Negative (Negative) Ur Leukocyte Esterase Trace H (Negative) Urine WBC (Auto) 1-5 (0-5) /hpf Urine RBC (Auto) 0-4 (0-4) /hpf U Hyaline Cast (Auto) 1-5 (0-5) /lpf U Epithel Cells (Auto) >30 H (0-5) /lpf Urine Bacteria (Auto) Negative (Negative) POC Ur Test NEG (NEG) 07/25/18 Range/Units 21:48 WBC 6.64 (4.8-10.8) K/uL RBC 4.00 L (4.2-5.4) M/uL Hgb 10.0 L (12.0-16.0) g/dL Hct 31.5 L (37-47) % MCV 78.8 L (80-100) fL MCH 25.0 (25-34) pg MCHC 31.7 L (32-36) g/dL RDW Std Deviation 50.0 H (36.4-46.3) fL RDW Coeff of Latoya 17.5 H (11.5-14.5) % Plt Count 303 (130-400) K/uL MPV 10.9 H (7.4-10.4) fL Immature Gran % (Auto) 0.2 % Neut % (Auto) 51.9 % Lymph % (Auto) 38.0 % Pratt % (Auto) 5.6 % Eos % (Auto) 3.5 % Baso % (Auto) 0.8 % Immature Gran # (Auto) 0.01 (0.00-0.02) K/uL Neut # (Auto) 3.46 (1.4-6.5) K/uL Lymph # (Auto) 2.52 (1.2-3.4) K/uL Pratt # (Auto) 0.37 (0.11-0.59) K/uL Eos # (Auto) 0.23 (0-0.5) K/uL Baso # (Auto) 0.05 (0-0.2) K/uL Sodium (136-145) mmol/L Potassium (3.5-5.1) mmol/L Chloride (98-107) mmol/L Carbon Dioxide (21-32) mmol/L Anion Gap (3-11) BUN (7-18) mg/dl Creatinine (0.6-1.2) mg/dl Est Cr Clr Drug Dosing ml/min Est GFR ( Amer) Est GFR (Non-Af Amer) BUN/Creatinine Ratio (10-20) Glucose (70-99) mg/dl Calcium (8.5-10.1) mg/dl Total Bilirubin (0.2-1) mg/dl AST (15-37) U/L ALT (12-78) U/L Alkaline Phosphatase (45-117) U/L Total Protein (6.4-8.2) gm/dl Albumin (3.4-5.0) gm/dl Globulin (2.5-4.0) gm/dl Albumin/Globulin Ratio (0.9-2) Lipase (73-393) U/L Urine Color Urine Appearance (Clear) Urine pH (4.5-7.5) Ur Specific Corinne (1.000-1.030) Urine Protein (Negative) Urine Glucose (UA) (Negative) Urine Ketones (Negative) Urine Blood (Negative) Urine Nitrite (Negative) Urine Bilirubin (Negative) Urine Urobilinogen (Negative) Ur Leukocyte Esterase (Negative) Urine WBC (Auto) (0-5) /hpf Urine RBC (Auto) (0-4) /hpf U Hyaline Cast (Auto) (0-5) /lpf U Epithel Cells (Auto) (0-5) /lpf Urine Bacteria (Auto) (Negative) POC Ur Test (NEG) Medications Administered Current Inpatient Medications Bisacodyl (Dulcolax) 10 mg [place] NOW STA Stop: 07/26/18 13:27 Ciprofloxacin (Cipro) 500 mg PO BID DEON Stop: 08/05/18 08:59 Last Admin: 07/26/18 09:09 Dose: 500 mg Documented by: Docusate Sodium (Colace) 100 mg PO HS DEON Stop: 08/25/18 20:59 Escitalopram Oxalate (Lexapro) 10 mg PO HS DEON Stop: 08/25/18 20:59 Hydromorphone HCl (Dilaudid) 0.5 mg IV Q3H PRN PRN Reason: Pain Stop: 08/09/18 02:52 Last Admin: 07/26/18 11:15 Dose: 0.5 mg Documented by: Sodium Chloride (Nss 1000ml) 1,000 mls @ 100 mls/hr IV .Q10H DEON Stop: 08/25/18 03:14 Last Infusion: 07/26/18 11:44 Dose: 100 mls/hr Documented by: Lactated Ringer's (Lr) 1,000 mls @ 200 mls/hr IV .Q5H DEON Stop: 08/25/18 13:29 Ioversol (Optiray 320 100ml) 100 ml IV ONCE PRN PRN Reason: Interaction Checking Stop: 07/29/18 23:24 Last Admin: 07/25/18 23:26 Dose: 93 ml Documented by: Metronidazole (Flagyl) 500 mg PO TID DEON Stop: 08/05/18 08:59 Last Admin: 07/26/18 09:09 Dose: 500 mg Documented by: Ondansetron HCl (Zofran) 4 mg IV Q6H PRN PRN Reason: Nausea Stop: 08/25/18 02:52 Resident Activity Tracking Resident Involvement: Resident Care Provided Care Provided: Adult [facility] Medicine
--- NOTE | 2018-07-26 12:17 | Surgery Consultation ---
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 No fevers, chills, nausea, vomiting, diarrhea. CT scan showing improvement of pancreatic pseudocysts and reactive ileus and increased fecal load in colon. NO leukocytosis, afebrile, t. bili, lfts wnl. Lipase elevated at 986. Plan: No surgical intervention required at this time. Will need GI evaluation given persistent pancreatitis. She was scheduled for repeat CT scan on the to assess pancreatic fluid collection/pseudocysts for the need of Axios stent placement/drainage. Scheduled for ERCP with Dr. Guerrero on August 17 for CBD stent removal. Continue medical management May need bowel regimen give increased fecal load Our services signing off, please call with any questions or concerns (2) Pancreatitis: Plan as above Dr. Rayo has seen and examined pt, agrees with above History of Present Illness Reason for Consultation: epigastric abdominal pain, s/p cholecystectomy Requesting Physician: Yenifer Clark Attending Physician: Yenifer Clark MD History of Present Illness Mayela is a 32 year-old with history of necrotizing pancreatitis secondary to gallstones who is currently 2 weeks s/p laparoscopic cholecystectomy and ERCP with removal of CBD stent and pancreatic stent and further removal of retained choledocholithiasis with placement of new biliary stent placement on 07/10/2018. She did well postoperatively at home in the last two weeks but develop sharp epigastric pain last evening in which narcotic pain medication did not relieve. She also had some dizziness. She denies of any fever, chills, nausea, vomiting, no bloody stools, or diarrhea. She had a follow-up with Dr. Guerrero as an outpatient with planned repeat CT scan on Tuesday the to evaluate pseudocyst and is scheduled for ERCP with stent removal on August 17. ER work-up included labs which showed no leukocytosis. T. bili, lfts, alk phos wnl. Lipase elevated at 986.(in the 500's on discharge post lap alejandra) CT scan of abdomen and pelvis showed improvement of multiple pancreatic pseudocysts with surrounding changes of the pancreas suggest pancreatitis. Mild reactive ileus with increased fecal load. Allergies Allergy/AdvReac Type Severity Reaction Status Date / Time Sulfa (Sulfonamide AdvReac Intermediate Nausea/Vomi Verified 07/25/18 23:29 Antibiotics) ting Home Medications Home Medications Medication Instructions Recorded Confirmed Type [id number] fumarate-FA 1 tab PO DAILY 07/25/18 07/25/18 History [] ciprofloxacin HCl 500 mg PO BID 07/25/18 07/25/18 History docusate sodium [Stool Softener] 100 mg PO HS 07/25/18 07/25/18 History escitalopram oxalate 10 mg PO HS 07/25/18 07/25/18 History metronidazole 500 mg PO TID 07/25/18 07/25/18 History ondansetron 4 mg PO TID PRN 07/25/18 07/25/18 History Patient History Medical History History of depression Pancreatitis Surgical History History of ERCP History of section 2/2 FAILURE TO PROGRESS; DOSED EPIDURAL TOTAL OF 2 C-SECTIONS S/P wrist surgery CYSTECTOMY (LEFT) Social History Preferred Language: Indonesian Communication Ability: Effective Loop Tacker Required: No Beliefs That Will Affect Care: None marital status: Current Living Situation: Spouse Other Information That Helps Us Care for You: No Feels Safe at Home: Yes Safety Concerns: Feels Safe At This Time Smoking Status: Never smoker Hx Alcohol Use: No Hx Substance Use: No Review of Systems Constitutional: as per Subjective / HPI Physical Exam Vital Signs (Past 24 Hours): Last Vital Signs Temp 36.4 C L 07/26/18 11:26 Pulse 77 07/26/18 11:26 Resp 18 07/26/18 11:26 BP 143/71 H 07/26/18 11:26 Pulse Ox 99 07/26/18 11:26 Constitutional: WD/WN, vitals as above no acute distress and not ill appearing Respiratory: normal respiratory effort; no respiratory distress Gastrointestinal (Abdomen): Inspection/Auscultation: abdomen normal to inspection; abdomen not distended Percussion/Palpation: + abdomen tender (epigastric) and abdomen soft; no guarding and abdomen not rigid Skin: + incision (laparoscopic incisions healed nicely, no erythema) Psychiatric: A+Ox3, euthymic affect Results & Data Laboratory Results 07/26/18 07/26/18 07/25/18 Range/Units 05:19 05:19 23:10 WBC 5.39 (4.8-10.8) K/uL RBC 4.04 L (4.2-5.4) M/uL Hgb 9.9 L (12.0-16.0) g/dL Hct 32.6 L (37-47) % MCV 80.7 (80-100) fL MCH 24.5 L (25-34) pg MCHC 30.4 L (32-36) g/dL RDW Std Deviation 52.6 H (36.4-46.3) fL RDW Coeff of Latoya 17.8 H (11.5-14.5) % Plt Count 265 (130-400) K/uL MPV 11.2 H (7.4-10.4) fL Immature Gran % (Auto) 0.2 % Neut % (Auto) 43.3 % Lymph % (Auto) 44.7 % Mcminn % (Auto) 7.2 % Eos % (Auto) 3.7 % Baso % (Auto) 0.9 % Immature Gran # (Auto) 0.01 (0.00-0.02) K/uL Neut # (Auto) 2.33 (1.4-6.5) K/uL Lymph # (Auto) 2.41 (1.2-3.4) K/uL Mcminn # (Auto) 0.39 (0.11-0.59) K/uL Eos # (Auto) 0.20 (0-0.5) K/uL Baso # (Auto) 0.05 (0-0.2) K/uL Sodium 142 (136-145) mmol/L Potassium 3.5 (3.5-5.1) mmol/L Chloride 112 H (98-107) mmol/L Carbon Dioxide 24 (21-32) mmol/L Anion Gap 6.0 (3-11) BUN 7 (7-18) mg/dl Creatinine 0.89 (0.6-1.2) mg/dl Est Cr Clr Drug Dosing 99.0 ml/min Est GFR ( Amer) 100.8 Est GFR (Non-Af Amer) 87.0 BUN/Creatinine Ratio 7.8 L (10-20) Glucose 85 (70-99) mg/dl Calcium 9.2 (8.5-10.1) mg/dl Total Bilirubin (0.2-1) mg/dl AST (15-37) U/L ALT (12-78) U/L Alkaline Phosphatase (45-117) U/L Total Protein (6.4-8.2) gm/dl Albumin (3.4-5.0) gm/dl Globulin (2.5-4.0) gm/dl Albumin/Globulin Ratio (0.9-2) Lipase (73-393) U/L Urine Color Urine Appearance (Clear) Urine pH (4.5-7.5) Ur Specific [place] (1.000-1.030) Urine Protein (Negative) Urine Glucose (UA) (Negative) Urine Ketones (Negative) Urine Blood (Negative) Urine Nitrite (Negative) Urine Bilirubin (Negative) Urine Urobilinogen (Negative) Ur Leukocyte Esterase (Negative) Urine WBC (Auto) (0-5) /hpf Urine RBC (Auto) (0-4) /hpf U Hyaline Cast (Auto) (0-5) /lpf U Epithel Cells (Auto) (0-5) /lpf Urine Bacteria (Auto) (Negative) POC Ur Test (NEG) 07/25/18 07/25/18 07/25/18 Range/Units 22:55 22:55 21:48 WBC (4.8-10.8) K/uL RBC (4.2-5.4) M/uL Hgb (12.0-16.0) g/dL Hct (37-47) % MCV (80-100) fL MCH (25-34) pg MCHC (32-36) g/dL RDW Std Deviation (36.4-46.3) fL RDW Coeff of Latoya (11.5-14.5) % Plt Count (130-400) K/uL MPV (7.4-10.4) fL Immature Gran % (Auto) % Neut % (Auto) % Lymph % (Auto) % Mcminn % (Auto) % Eos % (Auto) % Baso % (Auto) % Immature Gran # (Auto) (0.00-0.02) K/uL Neut # (Auto) (1.4-6.5) K/uL Lymph # (Auto) (1.2-3.4) K/uL Mcminn # (Auto) (0.11-0.59) K/uL Eos # (Auto) (0-0.5) K/uL Baso # (Auto) (0-0.2) K/uL Sodium 140 (136-145) mmol/L Potassium (3.5-5.1) mmol/L Chloride 108 H (98-107) mmol/L Carbon Dioxide 21 (21-32) mmol/L Anion Gap 11.0 (3-11) BUN 11 (7-18) mg/dl Creatinine 0.87 (0.6-1.2) mg/dl Est Cr Clr Drug Dosing 101.3 ml/min Est GFR ( Amer) 103.6 Est GFR (Non-Af Amer) 89.4 BUN/Creatinine Ratio 12.0 (10-20) Glucose 86 (70-99) mg/dl Calcium 9.6 (8.5-10.1) mg/dl Total Bilirubin 0.5 (0.2-1) mg/dl AST (15-37) U/L ALT 22 (12-78) U/L Alkaline Phosphatase 74 (45-117) U/L Total Protein 8.1 (6.4-8.2) gm/dl Albumin 4.2 (3.4-5.0) gm/dl Globulin 3.9 (2.5-4.0) gm/dl Albumin/Globulin Ratio 1.1 (0.9-2) Lipase 986 H (73-393) U/L Urine Color Yellow Urine Appearance Cloudy H (Clear) Urine pH 5.5 (4.5-7.5) Ur Specific [place] 1.020 (1.000-1.030) Urine Protein Negative (Negative) Urine Glucose (UA) Negative (Negative) Urine Ketones Negative (Negative) Urine Blood Negative (Negative) Urine Nitrite Positive H (Negative) Urine Bilirubin Negative (Negative) Urine Urobilinogen Negative (Negative) Ur Leukocyte Esterase Trace H (Negative) Urine WBC (Auto) 1-5 (0-5) /hpf Urine RBC (Auto) 0-4 (0-4) /hpf U Hyaline Cast (Auto) 1-5 (0-5) /lpf U Epithel Cells (Auto) >30 H (0-5) /lpf Urine Bacteria (Auto) Negative (Negative) POC Ur Test NEG (NEG) 07/25/18 Range/Units 21:48 WBC 6.64 (4.8-10.8) K/uL RBC 4.00 L (4.2-5.4) M/uL Hgb 10.0 L (12.0-16.0) g/dL Hct 31.5 L (37-47) % MCV 78.8 L (80-100) fL MCH 25.0 (25-34) pg MCHC 31.7 L (32-36) g/dL RDW Std Deviation 50.0 H (36.4-46.3) fL RDW Coeff of Latoya 17.5 H (11.5-14.5) % Plt Count 303 (130-400) K/uL MPV 10.9 H (7.4-10.4) fL Immature Gran % (Auto) 0.2 % Neut % (Auto) 51.9 % Lymph % (Auto) 38.0 % Mcminn % (Auto) 5.6 % Eos % (Auto) 3.5 % Baso % (Auto) 0.8 % Immature Gran # (Auto) 0.01 (0.00-0.02) K/uL Neut # (Auto) 3.46 (1.4-6.5) K/uL Lymph # (Auto) 2.52 (1.2-3.4) K/uL Mcminn # (Auto) 0.37 (0.11-0.59) K/uL Eos # (Auto) 0.23 (0-0.5) K/uL Baso # (Auto) 0.05 (0-0.2) K/uL Sodium (136-145) mmol/L Potassium (3.5-5.1) mmol/L Chloride (98-107) mmol/L Carbon Dioxide (21-32) mmol/L Anion Gap (3-11) BUN (7-18) mg/dl Creatinine (0.6-1.2) mg/dl Est Cr Clr Drug Dosing ml/min Est GFR ( Amer) Est GFR (Non-Af Amer) BUN/Creatinine Ratio (10-20) Glucose (70-99) mg/dl Calcium (8.5-10.1) mg/dl Total Bilirubin (0.2-1) mg/dl AST (15-37) U/L ALT (12-78) U/L Alkaline Phosphatase (45-117) U/L Total Protein (6.4-8.2) gm/dl Albumin (3.4-5.0) gm/dl Globulin (2.5-4.0) gm/dl Albumin/Globulin Ratio (0.9-2) Lipase (73-393) U/L Urine Color Urine Appearance (Clear) Urine pH (4.5-7.5) Ur Specific [place] (1.000-1.030) Urine Protein (Negative) Urine Glucose (UA) (Negative) Urine Ketones (Negative) Urine Blood (Negative) Urine Nitrite (Negative) Urine Bilirubin (Negative) Urine Urobilinogen (Negative) Ur Leukocyte Esterase (Negative) Urine WBC (Auto) (0-5) /hpf Urine RBC (Auto) (0-4) /hpf U Hyaline Cast (Auto) (0-5) /lpf U Epithel Cells (Auto) (0-5) /lpf Urine Bacteria (Auto) (Negative) POC Ur Test (NEG) Diagnostic Findings CT abd pelvis IV con only CT DOSE: 427.10 mGy.cm HISTORY: Pain. Nausea. epigastric pain, recent alejandra, hx pancreatitis TECHNIQUE: Multiaxial CT images of the abdomen and pelvis were performed following the use of intravenous contrast. A dose lowering technique was utilized adhering to the principles of ALARA. COMPARISON STUDY: 06/30/2018 FINDINGS: Lung bases are clear. There is a small hiatal hernia. Moderate splenomegaly persists. Liver enhances uniformly. There is been interval cholecystectomy. Pancreatic stent persists. There is a small fluid pocket versus pseudocyst in the mid pancreatic body measuring 2 cm. This potentially represents residual from a prior larger collection on the prior study. Perigastric collection is improved. There is no evidence for current air within this collection with a current maximum dimension of 1.6 cm. At the splenic hilum is a pseudocyst measuring 2.7 cm at maximum. This is improved in definition from the prior study. Findings of mild edematous change of the peripancreatic tissues consistent with a component of pancreatitis. There is a gentle reactive nonobstructive ileus. The colonic pattern is remarkable for increased fecal load within the colon. The bladder is midline. Uterus is anteflexed. IMPRESSION: 1. Mixed findings compared to the prior study. 2. Findings of pancreatitis. 3. Developing 2.7 cm pseudocyst splenic hilum. 4. Improved and/or diminished volume of a perigastric complex fluid pocket . 5. Interval cholecystectomy. Pancreatic stent in good position. 6. Additional pseudocyst measuring 1.6 cm near the pancreatic body. This is diminished in volume from the prior study. 7. Generalized reactive ileus with increased fecal load within the colon.
--- NOTE | 2018-07-26 12:36 | Gastrointestinal Consultation ---
Date of Consultation July 26, 2018 Assessment & Plan (1) Pancreatitis: 32 year old female with history of necrotizing gallstone pancreatitis s/p ERCP w/ stenting and cholecysectomy who presents w/ recurrent upper abdominal pain and nausea, no vomiting. LFTs unremarkable, lipase nearly 1,000 CT w/ ileus, mild acute pancreatitis. There are small fluid pocket versus pseudocyst in the mid pancreatic body measuring ? resolution from larger collection on the prior study, improvement of perigastric collection, improving pseydocyst at the splenic hilum. - NPO for bowel rest - Trial clears when ready - Antiemtics PRN - Narcotic analgesia PRN - Can continue OP ABX - Please change fluids to LR 200 mL/hr once bag finishes - Keep ERCP as scheduled for now. Will discuss with attending - likely plan to cancel OP CT. Will need to discuss with Dr. Guerrero as well. Thank you for allowing us to participate in the care of this patient. Please call with any acute changes, questions or concerns. Please see addendum below with additional recommendation from my supervising physician. Present on Admission?: Yes Supervising Physician Co-Signing Physician Notes Late entry: Patient was seen and examined on 07/26 with GABRIELA Barragan whose note reflects our findings and plan. History of Present Illness Reason for Consultation: recurrent panc Requesting Physician: Eduardo Attending Physician: Yenifer Clark MD History of Present Illness 32 year old female with history of gallstone pancreatitis initially presenting in May w/ RUQ pain, nausea and vomiting. At that time, imaging was concerning for biliary dilation, PD dilation, necrotizing pancreatiits w/ suspected choledocholithiasis. She underwent ERCP w/ stone removal and stent placement w/ improvement of symptoms and improvement of her liver function tests. Surgery was involved w/ plans for cholecysctectomy in about 4-6 weeks. She had developed worsening abd pain, repeat abd imaging w/ necrotizing pancreatitis, CT signs of pancreas duct discontinuity, with worsening abd pain, leukocytosis and febrile episodes. She was eventually transferred to [facility], remained there from 06/08/18 to 06/12/18. She was seen by GI service there, treated with antibiotics, diet advancement but no further intervention. She was subsequently re-admitted x 3 w/ recurrent pancreatitis. Is now S/P cholec ystectomy. Notes she was discharged home and had been doing ok. Would have intermittent upper abdominal pain, however, was tolerable. Yesterday notes decreased appetitate and return of 7/10 epigastric pain associated w/ nausea but no vomiting. Pain became uncontrollable and presented to the ED. In the ED she was afebrile w/o leukocytosis. H&H at baseline w/ normal PLT count. Her liver function studies were unremarkable w/ elevated lipase 986. Kidney function normal. ETOH: none in 1-2 years Marijuana: none OTC supplements: none New meds: escitalopram Family history of pancreatitis: none Family history of pancreatic CA: none CT ABD/Pelvis 07/25/18: Findings of pancreatitis.Developing 2.7 cm pseudocyst splenic hilum.Improved and/or diminished volume of a perigastric complex fluid pocket .Interval cholecystectomy. Pancreatic stent in good position. Additional pseudocyst measuring 1.6 cm near the pancreatic body. This is diminished in volume from the prior study.Generalized reactive ileus with increased fecal load within the colon CT Panc protocol 06/30/18: Gas noted within the dominant walled off necrosis within the pancreatic body and tail. Unless there has been instrumentation such as attempted transgastric drainage, this is highly suspicious for infection. Overall collections are slightly smaller than on the prior exam though the degree of associated inflammatory change/fat autodigestion is similar to increased from prior. Wall off necrosis evident both within the pancreas and tracking to the lesser sac and splenic hilum. Overall worsened pancreatic parenchymal edema, which limits evaluation for viable tissue. Allowing for this, stable distribution of enhancing pancreatic parenchyma in the distalmost tail and pancreatic head.Reactive gastric wall thickening. Apparent tract to the gastric lumen from the dominant walled off necrotic collection may be postprocedural or indicate a developing fistula. Bibasilar atelectasis, left greater than right. CT ABD/Pelvis 06/22/18: Interval evolution of necrotizing pancreatitis with more well-defined acute necrotic collections in the pancreatic body-tail, the largest measuring 4.9 cm in diameter. New collection measuring 2.8 cm along the gastric serosa the region of the lesser sac. No evidence of gas within these collections to suggest infection. Viable pancreatic parenchyma primarily in the pancreatic head and neck as well as at the distal most pancreatic tail. Discontinuity of the pancreatic duct between the distalmost tail and pancreatic neck suspected. Decreased retroperitoneal inflammatory change.Resolved bilateral pleural effusions and anasarca with near resolution of ascites.Improved aeration of the lung bases. CT abd/pelvis 06/04/18: possible necrotizing pancreatitis, w suspected choledocholithiasis, cholelithiasis, cholecystitis, and presence of intra/extra hepatic biliary ductal dilation, borderline pancreatic duct dilation. ERCP 07/10/18: Prior biliary sphincterotomy appeared open.A biliary and a pancreatic duct stents were seen in the major papilla. These were removed. The entire main bile duct was dilated. Extensive amount of choledocholithiasis was found. Complete removal was accomplished by balloon extraction.Common bile duct was successfully dilated.One plastic stent was placed into the common bile duct in view of significant choledocholithiasis. ERCP 06/05/18: choledocholithiasis removal, biliary sphincterectomy, stent placements in CBD and ventral pancreatic ducts. Allergies Allergy/AdvReac Type Severity Reaction Status Date / Time Sulfa (Sulfonamide AdvReac Intermediate Nausea/Vomi Verified 07/25/18 23:29 Antibiotics) ting Home Medications Home Medications Medication Instructions Recorded Confirmed Type [id number] fumarate-FA 1 tab PO DAILY 07/25/18 07/25/18 History [] ciprofloxacin HCl 500 mg PO BID 07/25/18 07/25/18 History docusate sodium [Stool Softener] 100 mg PO HS 07/25/18 07/25/18 History escitalopram oxalate 10 mg PO HS 07/25/18 07/25/18 History metronidazole 500 mg PO TID 07/25/18 07/25/18 History ondansetron 4 mg PO TID PRN 07/25/18 07/25/18 History Patient History Medical History History of depression Pancreatitis Surgical History History of ERCP History of section 2/2 FAILURE TO PROGRESS; DOSED EPIDURAL TOTAL OF 2 C-SECTIONS S/P wrist surgery CYSTECTOMY (LEFT) Social History Communication Ability: Effective Beliefs That Will Affect Care: None marital status: Current Living Situation: Spouse Other Information That Helps Us Care for You: No Feels Safe at Home: Yes Safety Concerns: Feels Safe At This Time Smoking Status: Never smoker Hx Alcohol Use: No Hx Substance Use: No Physical Exam Vital Signs (Past 24 Hours): Last Vital Signs Temp 36.4 C L 07/26/18 11:26 Pulse 77 07/26/18 11:26 Resp 18 07/26/18 11:26 BP 143/71 H 07/26/18 11:26 Pulse Ox 99 07/26/18 11:26 Constitutional: well nourished, cooperative and comfortable; no acute distress Respiratory: normal respiratory effort, lungs clear to auscultation Cardiovascular: RRR, no murmur, no edema Gastrointestinal (Abdomen): Inspection/Auscultation: normal bowel sounds Percussion/Palpation: + abdomen tender (mild epigastric pain) and abdomen soft; no guarding and abdomen not rigid Skin: no rashes, warm and dry Results & Data Laboratory Results 07/26/18 07/26/18 07/25/18 Range/Units 05:19 05:19 23:10 WBC 5.39 (4.8-10.8) K/uL RBC 4.04 L (4.2-5.4) M/uL Hgb 9.9 L (12.0-16.0) g/dL Hct 32.6 L (37-47) % MCV 80.7 (80-100) fL MCH 24.5 L (25-34) pg MCHC 30.4 L (32-36) g/dL RDW Std Deviation 52.6 H (36.4-46.3) fL RDW Coeff of Latoya 17.8 H (11.5-14.5) % Plt Count 265 (130-400) K/uL MPV 11.2 H (7.4-10.4) fL Immature Gran % (Auto) 0.2 % Neut % (Auto) 43.3 % Lymph % (Auto) 44.7 % Reynolds % (Auto) 7.2 % Eos % (Auto) 3.7 % Baso % (Auto) 0.9 % Immature Gran # (Auto) 0.01 (0.00-0.02) K/uL Neut # (Auto) 2.33 (1.4-6.5) K/uL Lymph # (Auto) 2.41 (1.2-3.4) K/uL Reynolds # (Auto) 0.39 (0.11-0.59) K/uL Eos # (Auto) 0.20 (0-0.5) K/uL Baso # (Auto) 0.05 (0-0.2) K/uL Sodium 142 (136-145) mmol/L Potassium 3.5 (3.5-5.1) mmol/L Chloride 112 H (98-107) mmol/L Carbon Dioxide 24 (21-32) mmol/L Anion Gap 6.0 (3-11) BUN 7 (7-18) mg/dl Creatinine 0.89 (0.6-1.2) mg/dl Est Cr Clr Drug Dosing 99.0 ml/min Est GFR ( Amer) 100.8 Est GFR (Non-Af Amer) 87.0 BUN/Creatinine Ratio 7.8 L (10-20) Glucose 85 (70-99) mg/dl Calcium 9.2 (8.5-10.1) mg/dl Total Bilirubin (0.2-1) mg/dl AST (15-37) U/L ALT (12-78) U/L Alkaline Phosphatase (45-117) U/L Total Protein (6.4-8.2) gm/dl Albumin (3.4-5.0) gm/dl Globulin (2.5-4.0) gm/dl Albumin/Globulin Ratio (0.9-2) Lipase (73-393) U/L Urine Color Urine Appearance (Clear) Urine pH (4.5-7.5) Ur Specific Bethesda (1.000-1.030) Urine Protein (Negative) Urine Glucose (UA) (Negative) Urine Ketones (Negative) Urine Blood (Negative) Urine Nitrite (Negative) Urine Bilirubin (Negative) Urine Urobilinogen (Negative) Ur Leukocyte Esterase (Negative) Urine WBC (Auto) (0-5) /hpf Urine RBC (Auto) (0-4) /hpf U Hyaline Cast (Auto) (0-5) /lpf U Epithel Cells (Auto) (0-5) /lpf Urine Bacteria (Auto) (Negative) POC Ur Test (NEG) 07/25/18 07/25/18 07/25/18 Range/Units 22:55 22:55 21:48 WBC (4.8-10.8) K/uL RBC (4.2-5.4) M/uL Hgb (12.0-16.0) g/dL Hct (37-47) % MCV (80-100) fL MCH (25-34) pg MCHC (32-36) g/dL RDW Std Deviation (36.4-46.3) fL RDW Coeff of Latoya (11.5-14.5) % Plt Count (130-400) K/uL MPV (7.4-10.4) fL Immature Gran % (Auto) % Neut % (Auto) % Lymph % (Auto) % Reynolds % (Auto) % Eos % (Auto) % Baso % (Auto) % Immature Gran # (Auto) (0.00-0.02) K/uL Neut # (Auto) (1.4-6.5) K/uL Lymph # (Auto) (1.2-3.4) K/uL Reynolds # (Auto) (0.11-0.59) K/uL Eos # (Auto) (0-0.5) K/uL Baso # (Auto) (0-0.2) K/uL Sodium 140 (136-145) mmol/L Potassium (3.5-5.1) mmol/L Chloride 108 H (98-107) mmol/L Carbon Dioxide 21 (21-32) mmol/L Anion Gap 11.0 (3-11) BUN 11 (7-18) mg/dl Creatinine 0.87 (0.6-1.2) mg/dl Est Cr Clr Drug Dosing 101.3 ml/min Est GFR ( Amer) 103.6 Est GFR (Non-Af Amer) 89.4 BUN/Creatinine Ratio 12.0 (10-20) Glucose 86 (70-99) mg/dl Calcium 9.6 (8.5-10.1) mg/dl Total Bilirubin 0.5 (0.2-1) mg/dl AST (15-37) U/L ALT 22 (12-78) U/L Alkaline Phosphatase 74 (45-117) U/L Total Protein 8.1 (6.4-8.2) gm/dl Albumin 4.2 (3.4-5.0) gm/dl Globulin 3.9 (2.5-4.0) gm/dl Albumin/Globulin Ratio 1.1 (0.9-2) Lipase 986 H (73-393) U/L Urine Color Yellow Urine Appearance Cloudy H (Clear) Urine pH 5.5 (4.5-7.5) Ur Specific [place]da 1.020 (1.000-1.030) Urine Protein Negative (Negative) Urine Glucose (UA) Negative (Negative) Urine Ketones Negative (Negative) Urine Blood Negative (Negative) Urine Nitrite Positive H (Negative) Urine Bilirubin Negative (Negative) Urine Urobilinogen Negative (Negative) Ur Leukocyte Esterase Trace H (Negative) Urine WBC (Auto) 1-5 (0-5) /hpf Urine RBC (Auto) 0-4 (0-4) /hpf U Hyaline Cast (Auto) 1-5 (0-5) /lpf U Epithel Cells (Auto) >30 H (0-5) /lpf Urine Bacteria (Auto) Negative (Negative) POC Ur Test NEG (NEG) 07/25/18 Range/Units 21:48 WBC 6.64 (4.8-10.8) K/uL RBC 4.00 L (4.2-5.4) M/uL Hgb 10.0 L (12.0-16.0) g/dL Hct 31.5 L (37-47) % MCV 78.8 L (80-100) fL MCH 25.0 (25-34) pg MCHC 31.7 L (32-36) g/dL RDW Std Deviation 50.0 H (36.4-46.3) fL RDW Coeff of Latoya 17.5 H (11.5-14.5) % Plt Count 303 (130-400) K/uL MPV 10.9 H (7.4-10.4) fL Immature Gran % (Auto) 0.2 % Neut % (Auto) 51.9 % Lymph % (Auto) 38.0 % Reynolds % (Auto) 5.6 % Eos % (Auto) 3.5 % Baso % (Auto) 0.8 % Immature Gran # (Auto) 0.01 (0.00-0.02) K/uL Neut # (Auto) 3.46 (1.4-6.5) K/uL Lymph # (Auto) 2.52 (1.2-3.4) K/uL Reynolds # (Auto) 0.37 (0.11-0.59) K/uL Eos # (Auto) 0.23 (0-0.5) K/uL Baso # (Auto) 0.05 (0-0.2) K/uL Sodium (136-145) mmol/L Potassium (3.5-5.1) mmol/L Chloride (98-107) mmol/L Carbon Dioxide (21-32) mmol/L Anion Gap (3-11) BUN (7-18) mg/dl Creatinine (0.6-1.2) mg/dl Est Cr Clr Drug Dosing ml/min Est GFR ( Amer) Est GFR (Non-Af Amer) BUN/Creatinine Ratio (10-20) Glucose (70-99) mg/dl Calcium (8.5-10.1) mg/dl Total Bilirubin (0.2-1) mg/dl AST (15-37) U/L ALT (12-78) U/L Alkaline Phosphatase (45-117) U/L Total Protein (6.4-8.2) gm/dl Albumin (3.4-5.0) gm/dl Globulin (2.5-4.0) gm/dl Albumin/Globulin Ratio (0.9-2) Lipase (73-393) U/L Urine Color Urine Appearance (Clear) Urine pH (4.5-7.5) Ur Specific Bethesda (1.000-1.030) Urine Protein (Negative) Urine Glucose (UA) (Negative) Urine Ketones (Negative) Urine Blood (Negative) Urine Nitrite (Negative) Urine Bilirubin (Negative) Urine Urobilinogen (Negative) Ur Leukocyte Esterase (Negative) Urine WBC (Auto) (0-5) /hpf Urine RBC (Auto) (0-4) /hpf U Hyaline Cast (Auto) (0-5) /lpf U Epithel Cells (Auto) (0-5) /lpf Urine Bacteria (Auto) (Negative) POC Ur Test (NEG)
[2018-07-26] MEDS ORDERED: BISACODYL 10 MG SUPP PR STA (13:26)
[2018-07-26] MEDS: LACTATED RINGER'S 1,000 ML IV SCH ×2 (14:45→19:42)
[2018-07-26] MEDS ORDERED: DOCUSATE SODIUM 100 MG CAP PO SCH (21:00)
[2018-07-26] MEDS ORDERED: ESCITALOPRAM OXALATE 10 MG TAB PO SCH (21:00)
[2018-07-27] MEDS: LACTATED RINGER'S 1,000 ML IV SCH ×3 (00:39→11:40)
[2018-07-27] MEDS: HYDROmorphone INJ 0.5 MG/0.5 ML SYR IV PRN ×2 (00:41→08:28)
[2018-07-27] MEDS: CIPROFLOXACIN 500 MG TAB PO SCH (08:28)
[2018-07-27] MEDS: metroNIDAZOLE 500 MG TAB PO SCH (08:28)
--- NOTE | 2018-07-27 09:11 | Gastroenterology Progress Note ---
Date of Service July 27, 2018 Assessment & Plan (1) Pancreatitis: 32 year old female with history of necrotizing gallstone pancreatitis s/p ERCP w/ stenting and cholecysectomy who presents w/ recurrent upper abdominal pain and nausea, no vomiting. LFTs unremarkable, lipase nearly 1,000 CT w/ ileus, mild acute pancreatitis. There are small fluid pocket versus pseudocyst in the mid pancreatic body measuring ? resolution from larger collection on the prior study, improvement of perigastric collection, improving pseudocyst at the splenic hilum. - NPO for bowel rest - Trial clears when ready then advance to low fat - Antiemtics PRN - Narcotic analgesia PRN - Can continue OP ABX - Please change fluids to LR 200 mL/hr once bag finishes - Keep ERCP as scheduled for now. Will discuss with attending - likely plan to cancel OP CT. Will need to discuss with Dr. Guerrero as well. Thank you for allowing us to participate in the care of this patient. Please call with any acute changes, questions or concerns. Please see addendum below with additional recommendation from my supervising physician. Supervising Physician Co-Signing Physician Notes I have seen and examined the patient with GABRIELA Barragan whose note reflects our findings and plan. Subjective Pt was seen and evaluated, chart reviewed. Feeling well this AM. On LR 200 ml/hr. Less abd pain. No nausea, vomiting. Moving bowels. No black or bloody stools. No fever, chills, CP, SOB Constitutional: no fever, no chills and no fatigue Respiratory: no cough, no dyspnea and no wheezing Cardiovascular: no chest pain, no chest pain at rest, no dyspnea and no palpitations Gastrointestinal: + abdominal pain (epigastric, intermittent and mild); no bloating, no nausea, no coffee ground emesis, no hematemesis, no dysphagia, no cramping, no blood in stools and no melena Physical Exam Vital Signs (Past 24 Hours): Last Vital Signs Temp 37.0 C 07/27/18 07:08 Pulse 85 07/27/18 07:08 Resp 18 07/27/18 07:08 BP 154/90 H 07/27/18 07:08 Pulse Ox 99 07/27/18 07:08 Constitutional: well nourished, cooperative and comfortable; no acute distress Respiratory: normal respiratory effort, lungs clear to auscultation Cardiovascular: RRR, no murmur, no edema Gastrointestinal (Abdomen): Inspection/Auscultation: normal bowel sounds Percussion/Palpation: + abdomen tender (mild epigastric pain) and abdomen soft; no guarding and abdomen not rigid Skin: no rashes, warm and dry Results & Data Laboratory Results None this AM
[2018-07-27] MEDS ORDERED: TRAMADOL HCL 50 MG TABLET PO PRN (11:23)
--- NOTE | 2018-07-27 13:17 | Discharge Summary ---
Date of Service July 27, 2018 Admission HPI Per Admitting Provider 32-year-old female with a recent history of cholecystitis, biliary obstruction and subsequent necrotizing pancreatitis presents with acute epigastric pain since 7 PM tonight. Patient was hospitalized a number of times since May and received a cholecystectomy with biliary and pancreatic stent placement on July 10. Since her surgery, she has been recovering wellshe had some postsurgical pain that has progressively gotten better. She had couple days where she would have a little more tenderness, but no acute abdominal pain symptoms. Today she said that the pain started suddenly and was not exacerbated by food. Her last meal today was lunchtime. She has been watching her diet since the surgery and is decreased her fatty food intake. She has not had any vomiting, no diarrhea. She does have loose stools and is on Cipro Flagyl following the surgery. She states that she did have some dizziness when the abdominal pain started. Principal Diagnosis abdominal pain, pancreatitis, ileus Discharge Exam GENERAL: Awake, alert to person, place, and time, nontoxic-appearing, in no distress HENT: Normocephalic, atraumatic. Mucus membranes appear moist. EYES: Normal conjunctiva. Sclera non-icteric. EOMI. NECK: Supple. Full range of motion. No JVD RESPIRATORY: Clear to auscultation. Normal work of breathing. CARDIAC: Regular rate, normal rhythm. Extremities warm and well perfused, good capillary refill. ABDOMEN: Inspection: 4 healing laparoscopic scars, no bruising. Soft, non- distended. NO tenderness to palpation in epigastrum. No rebound or guarding. Small ~3cm soft subdermal mass palpated beneath laparoscopic scar above the umbilicus, this is nontender. Bowel sounds are normal. NEURO: No focal gross focal motor deficits noted. Sensation in tact. CN II-XII grossly in tact. SKIN: Rash not present. No jaundice noted. Right wrist IV site in tact. PSYCH: Appropriate mood and affect. Cooperative. Exam as done by Rebecca Ojeda MD, Records Custodian. Discharge Data Allergies Allergy/AdvReac Type Severity Reaction Status Date / Time Sulfa (Sulfonamide AdvReac Intermediate Nausea/Vomi Verified 07/25/18 23:29 Antibiotics) ting Consultations 07/26/18 02:53 Consult Gastroenterology Routine Consult General Surgery Routine Ordered Studies 07/25/18 23:07 CT abd pelvis IV con only Urgent Hospital Course (1) Pancreatitis: 32-year-old female with a recent history of cholecystitis, biliary obstruction and subsequent necrotizing pancreatitis presents with acute epigastric pain several hours prior to admission 10Apr. Abdominal pain with h/o recent gallstone necrotizing pancreatitis complicated by ileus and pancreatic cyst Recent history: -diagnosed initially with gallstone pancreatitis in May 2018. [facility] from 06/05/18 - 06/08/18. Transferred to [facility] on 06/08/18 and was admitted through 06/12/18. -Subsequently had laparoscopic cholecystectomy (Dr. Rayo [facility]) on 07/10/2018 and discharged home on 07/05/2018 on ciprofloxacin and metronidazole. Was prescribed oxycodone for symptomatic relief of pain but had not needed pain medication in several days. Zofran for nausea. Kept f/u with PCP. -subsequent biliary stent placed as well -plan had been for f/u abd CT Jul -- will keep as scheduled, per [facility]. -has not had f/u with gen surgery due to pt missing their phone call/miscommunications. On admission: Lipase was elevated [address] showed interval cholecystectomy, pancreatic stent in good place, small fluid pocket v pseudocyst in mid- pancreatic body ~2cm -- residual from prev larger collection. Improved perigastric collection. Stable pseudocyst at splenic hilum ~2.7cm. Also gentle reactive ileus that is nonobstructive. Fecal load in colon. The patient remained afebrile, no white count. Continued outpatient course of Cipro/Flagyl (since her surgery). Clinical improvement with aggressive IV hydration, pain control, antiemetics, bowel regimen. Seen by GI and surgery - no plan for acute intervention at this time - plan to keep follow up: repeat CT scan on the to assess pancreatic fluid collection/pseudocysts for the need of Axios stent placement/drainage. And Scheduled for ERCP with Dr. Guerrero on August 17 for CBD stent removal. Other ongoing medical problems (no changes to home medications): Depression, Continue escitalopram Iron deficiency anemia Iron deficiency, had been started on Fe supplementation recently, held iron supplementation during admission, safe to resume on discharge. (2) Epigastric abdominal pain: (3) Pancreatic cyst: (4) Depression: Total Time Total Time Spent Total Time Spent (In Minutes): 35 Discharge Plan Discharge Items Patient Disposition: Home - Self-Care Reason For Visit: RECURRENT PANCREATITIS Discharge Diagnosis: recurrent pancreatitis, ileus Condition: Good Discharge Goals: Decrease discomfort, Improve disease control, Improve function and Improve nutritional status Activity: Per 'Additional Instructions' section Lifting: Gradually increase as tolerated Bathing: No limitations Sexual Activity: When tolerated Exercise/Sports: Gradually increase as tolerated Driving/Machine Use: No limitations Non-emergency contact: Primary Care Provider, Surgeon and Linux Architect Call non-emergency contact if: you have any medication questions, your symptoms worsen, your pain is not controlled and your pain is worsening Follow-up/Referrals: Vivek Urban, [Primary Care Provider] - Diet: Low Fat Addtl Provider Instructions: You were admitted due to severe abdominal pain and recurrent pancreatitis. You were hydrated with IV fluids, rested your bowel, and then slowly increased your diet again. Pain control was acheived. You were seen by General Surgery and they determined that you did not require any surgical intervention at this time, and that you were not experiencing any post surgical complications. You were also seen and examined by gastroenterology and they do not think you require urgent ERCP at this time - it will remain as scheduled, as well as your outpatient CAT scan of the abdomen. Please keep all your follow up appointments with your surgeon and activities leader. Adhere to a low fiber diet, and maintain good hydration (aim for at least 70 ozs of water per day). If your symptoms recur or your pain is not controlled, you are not able to keep liquids down, have increased vomiting and fevers, or if you are concerned, please seek medical attention by calling your specialists, PCP or 911. Be Well A Rusty CARRILLO Prescriptions: Continued metronidazole 500 mg tablet 500 mg PO TID RF: 0 ciprofloxacin HCl 500 mg tablet 500 mg PO BID RF: 0 docusate sodium [Stool Softener] 100 mg capsule 100 mg PO HS RF: 0 ondansetron 4 mg tablet,disintegrating 4 mg PO TID PRN (Reason: Nausea) RF: 0 escitalopram oxalate 10 mg tablet 10 mg PO HS RF: 0 28-800 mg-mcg Tablet 1 tab PO DAILY RF: 0 Stand-Alone Forms: Call Back Authorization, [facility] Discharge Orders: Discharge Order (Routine); Ordered 07/27/18 Ordered By: Rebecca Ojeda Admission Data Admit Date/Time: 07/26/18 01:53 Attending Provider: Yenifer Clark Admit Provider: Wilber Ojeda Primary Care Provider: Vivek Urban Other Providers: Kerry Rayo ; Roxanne Kennedy Emily Service: Medical Other Interventions: Discharge Summary Assessment (RN) Last Done: 07/27/18 14:13 Pending Studies at Discharge: No DC Date/Time DO NOT enter until pt leaves facility: 07/27/18 14:27 Supervising Physician Co-Signing Physician Notes Resident Physician Supervision Note: I independently interviewed and examined the patient and verified the weldon history and physical, reviewed labs and image studies, discussed the case with the resident Dr. Ojeda and agree with the findings and care plan. Time spent in discharge 35 min Resident Activity Tracking Resident Involvement: Resident Care Provided Care Provided: Adult Hospital Medicine
== END 2018-07-27 14:27 | disposition home or self-care (01) | DRG 440 ==
LOC: ED 21:10 → 2W 07-26 01:53 → SUATTDRO 07-26 01:53 → 2W 07-26 02:38
DX: K85.90 Acute pancreatitis without necrosis or infection, unspecified; F32.9 Major depressive disorder, single episode, unspecified; Z79.899 Other long term (current) drug therapy; D50.9 Iron deficiency anemia, unspecified

== ENCOUNTER 2018-08-06 19:49 | Inpatient (IN) ==
[2018-08-06] MEDS ORDERED: SODIUM CHLORIDE 0.9% 1000ML 1,000 ML IV SCH (20:15)
[2018-08-06] MEDS ORDERED: HYDROmorphone INJ 1 MG/ML SYRINGE IV STA ×2 (20:34→23:18)
[2018-08-06 20:50] LABS: Appearance Urine Clear (Clear); Bilirubin Urine Negative (Negative); Blood Urine Negative (Negative); Color Urine Yellow; Glucose Urine UA Negative (Negative); Ketones Urine Trace (Negative); Leukocyte Esterase Urine Negative (Negative); Nitrite Urine Negative (Negative); Protein Urine Negative (Negative); Specific Gravity Urine 1.033 (1.000-1.030); Urobilinogen Urine Negative (Negative); pH Urine 5.5 (4.5-7.5)
[2018-08-06 21:48] LABS: Basophils # (auto) 0.04 K/uL (0-0.2); Basophils % (auto) 0.5 %; Eosinophils # (auto) 0.18 K/uL (0-0.5); Eosinophils % (auto) 2.3 %; Hematocrit (blood only) 33.7 % (37-47); Hemoglobin 10.7 g/dL (12.0-16.0); Immature Granulocytes # (auto) 0.01 K/uL (0.00-0.02); Immature Granulocytes % (auto) 0.1 %; Lymphocytes # (auto) 3.13 K/uL (1.2-3.4); Lymphocytes % (auto) 39.3 %; Mean Corpuscular Hgb Conc 31.8 g/dL (32-36); Mean Corpuscular Volume 81.2 fL (80-100); Mean Platelet Volume 11.1 fL (7.4-10.4); Monocytes # (auto) 0.53 K/uL (0.11-0.59); Monocytes % (auto) 6.7 %; Neutrophils # (auto) 4.07 K/uL (1.4-6.5); Neutrophils % (auto) 51.1 %; Platelet Count 279 K/uL (130-400); RDW Coefficient of Variation 17.3 % (11.5-14.5); RDW Standard Deviation 52.4 fL (36.4-46.3); Red Blood Count 4.15 M/uL (4.2-5.4); White Blood Count 7.96 K/uL (4.8-10.8)
[2018-08-06 22:02] LABS: iSTAT Creatinine 0.8 mg/dl (0.6-1.3); iSTAT Hemoglobin 10.9 g/dl (12.0-16.0); iSTAT Ionized Calcium 1.21 mmol/l (1.12-1.32); iSTAT Potassium 4.1 mEq/L (3.3-5.0)
[2018-08-06 22:10] LABS: Albumin Level 3.7 gm/dl (3.4-5.0); BUN Creatinine Ratio 16.6 (10-20); Calcium 9.4 mg/dl (8.5-10.1); Creatinine Clr Calc Pharmacy 100.7 ml/min; Est GFR (African American) 102.2; Est GFR (Non-African American) 88.2; Potassium 4.1 mmol/L (3.5-5.1)
[2018-08-06 22:13] LABS: Albumin Globulin Ratio 0.9 (0.9-2); Bilirubin,Total 0.2 mg/dl (0.2-1); Total Protein 7.7 gm/dl (6.4-8.2)
[2018-08-06] MEDS ORDERED: IOVERSOL 100ml IV PRN (22:20)
--- NOTE | 2018-08-06 22:31 | CT Scan Report ---
ABDOMEN AND PELVIS CT WITH IV CONTRAST CT DOSE: 457.13 mGy.cm HISTORY: Epigastric abdominal pain. h/o pancreatitis, ab pain TECHNIQUE: Multiaxial CT images of the abdomen and pelvis were performed following the use of intrave nous contrast. A dose lowering technique was utilized adhering to the principles of ALARA. COMPARISON STUDY: Abdomen and pelvis CT 07/25/2018. FINDINGS: The lung bases are clear. No pneumoperitoneum. No pneumatosis. The common bile duct stent i s in good position. Prior cholecystectomy. Trace pneumobilia. No hepatic or splenic masses. Normal ki dneys and adrenal glands. Peripancreatic inflammatory change surrounding the tail the pancreas. There is also a multiloculated cystic focus at the splenic hilum measuring 3.6 cm. This is similar to the prior study and favors a pseudocyst. Stable cystic focus within the junction of the body/tail the drew creas measuring 2 cm. This may also represent a pseudocyst. The splenic vein and portal veins remain patent. Evidence for prior midline incision. The bladder, uterus, and bilateral adnexa are unremarkab le. No pelvic free fluid. Moderate well-formed stool seen within the colon. No bowel wall thickening or obstruction. Subcentimeter mesenteric lymph nodes do not meet CT criteria for pathologic involveme nt. IMPRESSION: 1. Persistent peripancreatic inflammatory change surrounding the tail the pancreas. This likely repre sents acute pancreatitis. No evidence for pancreatic necrosis at this time. 2. There are 2 cystic foci seen within the junction of the body/tail the pancreas and within the sple leslie hilum. These remain unchanged and favor pancreatic pseudocysts. 3. No bowel wall thickening or obstruction. 4. Prior cholecystectomy. 5. The common bile duct stent appears in good position. 6. Moderate well-formed stool within the colon. Electronically signed by: Narinder Radford M.D. 08/06/2018 10:29 PM
[2018-08-06] MEDS ORDERED: SODIUM CHLORIDE 0.9% 1000ML 1,000 ML IV ONE (23:18)
--- NOTE | 2018-08-07 00:51 | Emergency Department Note ---
Entered by Yonatan Bourne acting as a scribe for History of Present Illness General Chief complaint: Abdominal Pain Stated complaint: UPPER-MID ABDOMINAL PAIN, PANCREATIS Time Seen by Provider: 08/06/18 20:03 Source: patient History of Present Illness Provider complaint: Abdominal pain Onset (ago): day(s) (Last couple days) Location: abdomen Radiation: non-radiation Severity: similar to prior episodes Pain Consistency: + constant and + other (Worsening) Maximum Pain Intensity: 7 Relieved By: + none Exacerbated By: + none Associated symptoms: + fever/chills (No fever); no nausea/vomiting The patient is a 32 year old female w/ PMHx of cholecystitis, biliary obstruction, and pancreatitis who presents to the ED w/ CC of upper abdominal pain that has been present for the past couple days but got worse today. She denies any nausea, vomiting, urinary symptoms, or changes in her bowel. Given her extensive abdominal medical history she states this feels similar to pain she has had in the past. The patient did state she had a CT scan done at [facility] that showed a questionable blood clot so she has a follow up with vascular at [facility]. Prior to arrival she tried taking an Oxycodone to relieve the pain but it did not help much. She also mentioned that she has a biliary stent in place that she had fixed when she had her gallbladder removed. She notes that sometimes she gets chills when the pain is intense but denies any fevers. Along with her cholecystectomy in June 2018, she also had a in April 2018. Home Medications Home Medications Medication Instructions Recorded Confirmed Type escitalopram oxalate 10 mg PO HS 07/25/18 08/06/18 History oxycodone 10 mg PO Q8H PRN 08/06/18 08/06/18 History Allergies Allergy/AdvReac Type Severity Reaction Status Date / Time Sulfa (Sulfonamide AdvReac Intermediate Nausea/Vomi Verified 08/06/18 20:53 Antibiotics) ting Past Med/Surg History Medical History History of depression Pancreatitis Surgical History History of ERCP History of section 2/2 FAILURE TO PROGRESS; DOSED EPIDURAL TOTAL OF 2 C-SECTIONS S/P wrist surgery CYSTECTOMY (LEFT) Family History Other Family history non-contributory Social History Preferred Language: Greenlandic Communication Ability: Effective Beliefs That Will Affect Care: None marital status: Current Living Situation: Spouse Feels Safe at Home: Yes Smoking Status: Never smoker Second Hand Exposure: No Hx Alcohol Use: No Hx Substance Use: No Review of Systems See HPI for pertinent positives & negatives. and A total of 10 systems reviewed and were otherwise negative Physical Exam Vital Signs Vital Signs - 24 hr 08/06/18 19:59 08/06/18 20:51 08/06/18 20:52 Temperature 36.7 C Temperature Source Oral Sepsis Recent Fever Within 48 Hours No Sepsis New/Unexplained Change in Mental Status No Sepsis Action Taken by Nursing No Action Required Pulse Rate 92 H Pulse Rate [Apical] 76 Pulse Rate from SpO2 Sensor Respiratory Rate 18 16 Blood Pressure 154/93 H Blood Pressure [Right Arm] 138/82 Blood Pressure Mean 113 Blood Pressure Mean [Right Arm] 100 Pulse Oximetry 100 100 96 Oxygen Delivery Method Room Air Room Air 08/06/18 21:00 08/06/18 22:30 Temperature Temperature Source Sepsis Recent Fever Within 48 Hours Sepsis New/Unexplained Change in Mental Status Sepsis Action Taken by Nursing Pulse Rate 78 82 Pulse Rate [Apical] Pulse Rate from SpO2 Sensor 78 84 Respiratory Rate 17 16 Blood Pressure 128/87 134/95 Blood Pressure [Right Arm] Blood Pressure Mean 100 108 Blood Pressure Mean [Right Arm] Pulse Oximetry 96 98 Oxygen Delivery Method Room Air Room Air GENERAL: Well appearing, well nourished, NAD, non-toxic. EYE EXAM: Normal conjunctiva. PERRL, no anisocoria and EOM's grossly intact w/o pain. OROPHARYNX: Moist mucus membranes. NECK: Supple, no nuchal rigidity, no adenopathy, non-tender. no signs of meningismus. LUNGS: Clear to auscultation. Normal chest wall mechanics. HEART: NSR, no MRG. ABDOMEN: Abdomen soft, epigastric pain, no peritonitic, normo-active bowel sounds, no masses, no rebound or guarding. Negative obturator and psoas tests. BACK: No CVA TTP. SKIN: No rashes and no bruising. UPPER EXTREMITIES: Upper extremities are grossly normal. LOWER EXTREMITIES: No pitting edema. No calf pain. NEURO EXAM: Cranial nerves II-XII grossly intact, normal speech, moves all 4 extremities on command w/o issue. Course 2009: The patient was evaluated in room B05, and a complete history and physical examination were performed. 2114: I reviewed the patient's CT results from last week which stated there is a 2cm splenic artery aneurysm. 8: I reevaluated the patient and she is still in pain. After discussion, she is going to stay in the hospital for further observation. 2336: Dr. Inman [facility] Hospitalist was made aware of the patient and he is going to accept her for further evaluation. 0027: I spoke to Dr. Juan ZAMBRANO about the patient's case and he recommended that the patient stay for observation. Consultations Consultation #1: Dr. Inman [facility] Hospitalist was made aware of the patient and he is going to accept her for further evaluation. Time: 23:36 Consultation #2: I spoke to Dr. Juan ZAMBRANO about the patient's case and he recommended that the patient stay for observation. Time: 00:27 Administered Medications Ioversol (Optiray 320 100ml) 94 ml IV ONCE PRN PRN Reason: Interaction Checking Stop: 08/10/18 22:19 Last Admin: 08/06/18 22:20 Dose: 94 ml Documented by: [id number] Discontinued Medications Hydromorphone HCl (Dilaudid) 1 mg IV NOW STA Stop: 08/06/18 20:35 Last Admin: 08/06/18 21:46 Dose: 1 mg Documented by: [id number] Hydromorphone HCl (Dilaudid) 1 mg IV NOW STA Stop: 08/06/18 23:19 Last Admin: 08/06/18 23:27 Dose: 1 mg Documented by: [id number] Sodium Chloride (Nss 1000ml) 1,000 mls @ 999 mls/hr IV .Q1H1M DEON Stop: 08/06/18 21:15 Last Infusion: 08/06/18 23:30 Dose: 0 mls/hr Documented by: [id number] Admin: 08/06/18 21:41 Dose: 999 mls/hr Documented by: [id number] Sodium Chloride (Nss 1000ml) 1,000 mls @ 999 mls/hr IV .Q1H1M ONE Stop: 08/07/18 00:18 Last Admin: 08/06/18 23:27 Dose: 999 mls/hr Documented by: [id number] Medical Decision Making Medical Records Attestation: I reviewed the patient's medical records. Home Medications Current Medication List: was personally reviewed by me Laboratory Data Attestation: I reviewed the patient's lab results. Result diagrams: 08/06/18 21:28 08/06/18 21:28 Lab Results 08/06/18 08/06/18 08/06/18 Range/Units 20:30 20:30 21:28 WBC 7.96 (4.8-10.8) K/uL RBC 4.15 L (4.2-5.4) M/uL Hgb 10.7 L (12.0-16.0) g/dL POC Hgb (12.0-16.0) g/dl Hct 33.7 L (37-47) % POC Hct (37-47) % MCV 81.2 (80-100) fL MCH 25.8 (25-34) pg MCHC 31.8 L (32-36) g/dL RDW Std Deviation 52.4 H (36.4-46.3) fL RDW Coeff of Latoya 17.3 H (11.5-14.5) % Plt Count 279 (130-400) K/uL MPV 11.1 H (7.4-10.4) fL Immature Gran % (Auto) 0.1 % Neut % (Auto) 51.1 % Lymph % (Auto) 39.3 % [place] % (Auto) 6.7 % Eos % (Auto) 2.3 % Baso % (Auto) 0.5 % Immature Gran # (Auto) 0.01 (0.00-0.02) K/uL Neut # (Auto) 4.07 (1.4-6.5) K/uL Lymph # (Auto) 3.13 (1.2-3.4) K/uL [place] # (Auto) 0.53 (0.11-0.59) K/uL Eos # (Auto) 0.18 (0-0.5) K/uL Baso # (Auto) 0.04 (0-0.2) K/uL POC Sodium (135-144) mEq/L Sodium (136-145) mmol/L POC Potassium (3.3-5.0) mEq/L Potassium (3.5-5.1) mmol/L POC Chloride (101-112) mEq/L Chloride (98-107) mmol/L Carbon Dioxide (21-32) mmol/L POC Total CO2 (24-31) mEq/l Anion Gap (3-11) POC Anion Gap (16-25) mmol/L POC BUN (7-18) mg/dl BUN (7-18) mg/dl Creatinine (0.6-1.2) mg/dl POC Creatinine (0.6-1.3) mg/dl Est Cr Clr Drug Dosing ml/min Est GFR ( Amer) Est GFR (Non-Af Amer) BUN/Creatinine Ratio (10-20) Glucose (70-99) mg/dl POC Glucose (other) (70-99) mg/dl Calcium (8.5-10.1) mg/dl POC Ioniz Calcium [place] (1.12-1.32) mmol/l Total Bilirubin (0.2-1) mg/dl AST (15-37) U/L ALT (12-78) U/L Alkaline Phosphatase (45-117) U/L Total Protein (6.4-8.2) gm/dl Albumin (3.4-5.0) gm/dl Globulin (2.5-4.0) gm/dl Albumin/Globulin Ratio (0.9-2) Lipase (73-393) U/L Urine Color Yellow Urine Appearance Clear (Clear) Urine pH 5.5 (4.5-7.5) Ur Specific Duncan 1.033 H (1.000-1.030) Urine Protein Negative (Negative) Urine Glucose (UA) Negative (Negative) Urine Ketones Trace H (Negative) Urine Blood Negative (Negative) Urine Nitrite Negative (Negative) Urine Bilirubin Negative (Negative) Urine Urobilinogen Negative (Negative) Ur Leukocyte Esterase Negative (Negative) POC Ur Test NEG (NEG) 08/06/18 08/06/18 Range/Units 21:28 21:43 WBC (4.8-10.8) K/uL RBC (4.2-5.4) M/uL Hgb (12.0-16.0) g/dL POC Hgb 10.9 L (12.0-16.0) g/dl Hct (37-47) % POC Hct 32 L (37-47) % MCV (80-100) fL MCH (25-34) pg MCHC (32-36) g/dL RDW Std Deviation (36.4-46.3) fL RDW Coeff of Latoya (11.5-14.5) % Plt Count (130-400) K/uL MPV (7.4-10.4) fL Immature Gran % (Auto) % Neut % (Auto) % Lymph % (Auto) % [place] % (Auto) % Eos % (Auto) % Baso % (Auto) % Immature Gran # (Auto) (0.00-0.02) K/uL Neut # (Auto) (1.4-6.5) K/uL Lymph # (Auto) (1.2-3.4) K/uL [place] # (Auto) (0.11-0.59) K/uL Eos # (Auto) (0-0.5) K/uL Baso # (Auto) (0-0.2) K/uL POC Sodium 142 (135-144) mEq/L Sodium 143 (136-145) mmol/L POC Potassium 4.1 (3.3-5.0) mEq/L Potassium 4.1 (3.5-5.1) mmol/L POC Chloride 108 (101-112) mEq/L Chloride 110 H (98-107) mmol/L Carbon Dioxide 24 (21-32) mmol/L POC Total CO2 23 L (24-31) mEq/l Anion Gap 9.0 (3-11) POC Anion Gap 15.0 L (16-25) mmol/L POC BUN 16 (7-18) mg/dl BUN 15 (7-18) mg/dl Creatinine 0.88 (0.6-1.2) mg/dl POC Creatinine 0.8 (0.6-1.3) mg/dl Est Cr Clr Drug Dosing 100.7 ml/min Est GFR ( Amer) 102.2 Est GFR (Non-Af Amer) 88.2 BUN/Creatinine Ratio 16.6 (10-20) Glucose 98 (70-99) mg/dl POC Glucose (other) 98 (70-99) mg/dl Calcium 9.4 (8.5-10.1) mg/dl POC Ioniz Calcium Arielle 1.21 (1.12-1.32) mmol/l Total Bilirubin 0.2 (0.2-1) mg/dl AST 23 (15-37) U/L ALT 20 (12-78) U/L Alkaline Phosphatase 70 (45-117) U/L Total Protein 7.7 (6.4-8.2) gm/dl Albumin 3.7 (3.4-5.0) gm/dl Globulin 4.0 (2.5-4.0) gm/dl Albumin/Globulin Ratio 0.9 (0.9-2) Lipase 967 H (73-393) U/L Urine Color Urine Appearance (Clear) Urine pH (4.5-7.5) Ur Specific [place] (1.000-1.030) Urine Protein (Negative) Urine Glucose (UA) (Negative) Urine Ketones (Negative) Urine Blood (Negative) Urine Nitrite (Negative) Urine Bilirubin (Negative) Urine Urobilinogen (Negative) Ur Leukocyte Esterase (Negative) POC Ur Test (NEG) Imaging Data Radiologist's Impression: Radiology results as stated below per my review and the radiologist's interpretation: ABDOMEN AND PELVIS CT WITH IV CONTRAST CT DOSE: 457.13 mGy.cm HISTORY: Epigastric abdominal pain. h/o pancreatitis, ab pain TECHNIQUE: Multiaxial CT images of the abdomen and pelvis were performed following the use of intravenous contrast. A dose lowering technique was utilized adhering to the principles of ALARA. COMPARISON STUDY: Abdomen and pelvis CT 07/25/2018. FINDINGS: The lung bases are clear. No pneumoperitoneum. No pneumatosis. The common bile duct stent is in good position. Prior cholecystectomy. Trace pneumobilia. No hepatic or splenic masses. Normal kidneys and adrenal glands. Peripancreatic inflammatory change surrounding the tail the pancreas. There is also a multiloculated cystic focus at the splenic hilum measuring 3.6 cm. This is similar to the prior study and favors a pseudocyst. Stable cystic focus within the junction of the body/tail the pancreas measuring 2 cm. This may also represent a pseudocyst. The splenic vein and portal veins remain patent. Evidence for prior midline incision. The bladder, uterus, and bilateral adnexa a re unremarkable. No pelvic free fluid. Moderate well-formed stool seen within the colon. No bowel wall thickening or obstruction. Subcentimeter mesenteric lymph nodes do not meet CT criteria for pathologic involvement. IMPRESSION: 1. Persistent peripancreatic inflammatory change surrounding the tail the pancreas. This likely represents acute pancreatitis. No evidence for pancreatic necrosis at this time. 2. There are 2 cystic foci seen within the junction of the body/tail the pancreas and within the splenic hilum. These remain unchanged and favor pancreatic pseudocysts. 3. No bowel wall thickening or obstruction. 4. Prior cholecystectomy. 5. The common bile duct stent appears in good position. 6. Moderate well-formed stool within the colon. Electronically signed by: Narinder Radford M.D. 08/06/2018 10:29 PM Blood Pressure Blood Pressure Findings: Elevated blood pressure Blood Pressure Disposition: further management by hospitalist ODALIS Owens The patient is a 32 year old female w/ PMHx of cholecystitis, biliary obstruction, and pancreatitis who presents to the ED w/ CC of upper abdominal pain that has been present for the past couple days but got worse today. Differential diagnoses includes but is not limited to gastritis, peptic ulcer disease, GERD, gallbladder disease, pancreatitis, small bowel obstruction, acute coronary syndrome, pericarditis, ischemic bowel, irritable bowel disease, irritable bowel syndrome, appendicitis, diverticulitis, malignancy, hernia, urinary tract infection, torsion, perforation, trauma, infectious. Patient was seen and evaluated the bedside. The patient was complaining some epigastric pain after eating. The patient states been ongoing for couple days but worse today. Patient does have prior history of cholecystitis with biliary obstruction status post stent placement necrotizing pancreatitis. The patient is not toxic in appearance but does have epigastric discomfort. Patient did a blood work completed along with CT of the abdomen pelvis. The patient has a normal white count. The patient does have chronic but stable anemia. Patient's kidney function is fairly unremarkable. Lipase is still elevated greater than 900. This is not much change from before but given the elevated lipase and the fact that CT does show acute pancreatitis I did discuss the patient with the on-call hospitalist. Patient's urinalysis and test negative. The patient was given additional IV fluids made n.p.o. and given pain medications. I did speak with the on-call coin box collector to further agree the patient needs bowel rest n.p.o. IV fluids and admission at this time. Impression & Plan Pancreatitis, Abdominal pain Discharge Plan Visit Data Chief Complaint: Abdominal Pain Stated Complaint: UPPER-MID ABDOMINAL PAIN, PANCREATIS ED Provider: Dirk Herman Discharge Problem: Pancreatitis, Abdominal pain Patient Disposition: Being Evaluated by Hospitalist Forms Stand Alone Forms: Call Back Authorization, [facility] Prescriptions Prescriptions: No Action oxycodone 10 mg tablet 10 mg PO Q8H PRN (Reason: Pain) RF: 0 escitalopram oxalate 10 mg tablet 10 mg PO HS RF: 0 Referrals Referrals: Vivek Urban DO [Primary Care Provider] - Discharge Problem: Pancreatitis Qualifiers: Chronicity: acute Pancreatitis type: unspecified pancreatitis type Acute pancreatitis complication: unspecified Qualified Code(s): K85.90 - Acute pancreatitis without necrosis or infection, unspecified Abdominal pain Qualifiers: Abdominal location: upper abdomen, unspecified Qualified Code(s): R10.10 - Upper abdominal pain, unspecified The scribe's documentation has been prepared under my direction and personally reviewed by me in its entirety. I confirm that the note above accurately reflects all work, treatment, procedures, and medical decision making performed by me.
--- NOTE | 2018-08-07 01:34 | History & Physical Report ---
Date of Service August 07, 2018 Assessment & Plan (1) Acute pancreatitis: 32yoF with hx of pancreatitis (most recent admission 07/26), and post depression presents with epigastric pain x 1 week which worsened over the weekend. Acute Pancreatitis -Afebrile, normal WBC -CT abdomen: persistent peripancreatic inflammation and 2 pancreatic pseudocysts, CBD stent in good position, moderate stool within colon -Lipase 967 (was 986 on 07/25 previous admission) -Received 2L NS in the Ed and dilaudid 1mg IV x 2 -Started on LR at 200cc/hr -Toradol 30mg IV Q6H PRN for pain -NPO -GI consulted: Dr. Martinez aware (was called by Dr. Herman) depression -Continue escitalopram Code: Full DVT prop: SCDs, encourage ambulation Dispo: Med/surg (2) Depression: (3) Pancreatic cyst: History of Present Illness Chief Complaint: Abdominal pain Primary Care Provider: Vivek Urban, DO 32yoF with hx of pancreatitis (most recent admission 07/26), and post depression presents with epigastric pain x 1 week which worsened over the weekend. A/w occasional chills. Per pt after cholecystectomy abdominal pain overall improved and not across upper abdomen anymore. Of note: pt reports having appt at [facility] coming up to fix splenic artery aneurysm and for ERCP to remove CBD stent and cysts Denies fever, PROCTOR/dizziness, cp, sob, abdominal pain, n/v, constipation/diarrhea, dysuria. Last BM was yesterday afternoon. Allergies Allergy/AdvReac Type Severity Reaction Status Date / Time Sulfa (Sulfonamide AdvReac Intermediate Nausea/Vomi Verified 08/06/18 20:53 Antibiotics) ting Home Medications Home Medications Medication Instructions Recorded Confirmed Type escitalopram oxalate 10 mg PO HS 07/25/18 08/06/18 History oxycodone 10 mg PO Q8H PRN 08/06/18 08/06/18 History Past Med/Surg History Medical History History of depression Pancreatitis Surgical History History of ERCP History of section 2/2 FAILURE TO PROGRESS; DOSED EPIDURAL TOTAL OF 2 C-SECTIONS S/P wrist surgery CYSTECTOMY (LEFT) Family History Other Family history non-contributory Social History Preferred Language: Faroese Communication Ability: Effective App[employer] Required: No Beliefs That Will Affect Care: None marital status: Current Living Situation: Family Current Living Situation Comment: spouse and baby Feels Safe at Home: Yes Safety Concerns: Feels Safe At This Time Smoking Status: Never smoker Second Hand Exposure: No Hx Alcohol Use: No Hx Substance Use: No Review of Systems Review of Systems: As per HPI Physical Exam Physical Exam: General: In NAD CV: RRR, no m/r/g PULM: CTAB equal breath sounds bilaterally ABDOMEN: +BS, non-distended, soft, mildly tender to palpation in epigastric and LUQ regions LE: no calf TTP, no LE edema Results & Data Vital Signs (Past 12 Hours) Vital Signs Temp Pulse Pulse Resp BP BP Pulse Ox 08/07/18 01:00 78 15 157/95 H 98 08/07/18 00:30 85 10 L 136/87 97 08/07/18 00:00 90 17 144/82 H 97 08/06/18 23:30 85 19 140/92 96 08/06/18 23:00 81 17 138/89 99 08/06/18 22:30 82 16 134/95 98 08/06/18 21:00 78 17 128/87 96 08/06/18 20:52 96 08/06/18 20:51 76 16 138/82 100 08/06/18 19:59 36.7 C 92 H 18 154/93 H 100 Laboratory Results Abnormal lab results 08/06/18 08/06/18 08/06/18 Range/Units 20:30 21:28 21:28 RBC 4.15 L (4.2-5.4) M/uL Hgb 10.7 L (12.0-16.0) g/dL POC Hgb (12.0-16.0) g/dl Hct 33.7 L (37-47) % POC Hct (37-47) % MCHC 31.8 L (32-36) g/dL RDW Std Deviation 52.4 H (36.4-46.3) fL RDW Coeff of Latoya 17.3 H (11.5-14.5) % MPV 11.1 H (7.4-10.4) fL Chloride 110 H (98-107) mmol/L POC Total CO2 (24-31) mEq/l POC Anion Gap (16-25) mmol/L Lipase 967 H (73-393) U/L Ur Specific [place] 1.033 H (1.000-1.030) Urine Ketones Trace H (Negative) 08/06/18 Range/Units 21:43 RBC (4.2-5.4) M/uL Hgb (12.0-16.0) g/dL POC Hgb 10.9 L (12.0-16.0) g/dl Hct (37-47) % POC Hct 32 L (37-47) % MCHC (32-36) g/dL RDW Std Deviation (36.4-46.3) fL RDW Coeff of Latoya (11.5-14.5) % MPV (7.4-10.4) fL Chloride (98-107) mmol/L POC Total CO2 23 L (24-31) mEq/l POC Anion Gap 15.0 L (16-25) mmol/L Lipase (73-393) U/L Ur Specific Success (1.000-1.030) Urine Ketones (Negative) Diagnostic Findings ABDOMEN AND PELVIS CT WITH IV CONTRAST CT DOSE: 457.13 mGy.cm HISTORY: Epigastric abdominal pain. h/o pancreatitis, ab pain TECHNIQUE: Multiaxial CT images of the abdomen and pelvis were performed following the use of intravenous contrast. A dose lowering technique was utilized adhering to the principles of ALARA. COMPARISON STUDY: Abdomen and pelvis CT 07/25/2018. FINDINGS: The lung bases are clear. No pneumoperitoneum. No pneumatosis. The common bile duct stent is in good position. Prior cholecystectomy. Trace pneumobilia. No hepatic or splenic masses. Normal kidneys and adrenal glands. Peripancreatic inflammatory change surrounding the tail the pancreas. There is also a multiloculated cystic focus at the splenic hilum measuring 3.6 cm. This is similar to the prior study and favors a pseudocyst. Stable cystic focus within the junction of the body/tail the pancreas measuring 2 cm. This may also represent a pseudocyst. The splenic vein and portal veins remain patent. Evidence for prior midline incision. The bladder, uterus, and bilateral adnexa are unremarkable. No pelvic free fluid. Moderate well-formed stool seen within the colon. No bowel wall thickening or obstruction. Subcentimeter mesenteric lymph nodes do not meet CT criteria for pathologic involvement. IMPRESSION: 1. Persistent peripancreatic inflammatory change surrounding the tail the pancreas. This likely represents acute pancreatitis. No evidence for pancreatic necrosis at this time. 2. There are 2 cystic foci seen within the junction of the body/tail the pancreas and within the splenic hilum. These remain unchanged and favor pancreatic pseudocysts. 3. No bowel wall thickening or obstruction. 4. Prior cholecystectomy. 5. The common bile duct stent appears in good position. 6. Moderate well-formed stool within the colon. Code Status & VTE Plan Code Status Full VTE Prophylaxis Plan VTE Prophylaxis will be ordered: Yes Supervising Physician Co-Signing Physician Notes Attending addendum: I have physically seen this patient, have supervised the medical residents activities, and agree with the H&P unless as otherwise noted. Assessment and Plan: Acute on chronic pancreatitis- CT with persistent peripancreatic inflammation, 2 pancreatic pseudocysts, CBD stent in good position, stable mildly elevated lipase of 967. Continue IV fluid rehydration with LR at 200 cc/h, in addition to 2 L normal saline given in the ED. Toradol 30 mg IV every 6 hours as needed pain. Pantoprazole 40 mg IV daily. Zofran 4 mg IV every 6 hours as needed. NPO GI consult. Remainder of orders and notations as noted. Resident Activity Tracking Resident Involvement: Resident Care Provided Care Provided: Adult Hospital Medicine (1) Acute pancreatitis Acute pancreatitis complication: unspecified Pancreatitis type: unspecified pancreatitis type Qualified Code(s): K85.90 - Acute pancreatitis without necrosis or infection, unspecified
[2018-08-07] MEDS: KETOROLAC 30 MG/ML VIAL IV PRN ×3 (02:24→22:03)
[2018-08-07] MEDS: LACTATED RINGER'S 1,000 ML IV SCH ×5 (02:25→22:00)
[2018-08-07] MEDS ORDERED: Nursing to Pharmacy Communication ONE (06:19)
[2018-08-07 06:24] LABS: Basophils # (auto) 0.02 K/uL (0-0.2); Basophils % (auto) 0.4 %; Eosinophils # (auto) 0.15 K/uL (0-0.5); Hematocrit (blood only) 32.5 % (37-47); Hemoglobin 10.3 g/dL (12.0-16.0); Immature Granulocytes # (auto) 0.01 K/uL (0.00-0.02); Immature Granulocytes % (auto) 0.2 %; Lymphocytes # (auto) 1.99 K/uL (1.2-3.4); Lymphocytes % (auto) 39.6 %; Mean Corpuscular Hgb Conc 31.7 g/dL (32-36); Mean Corpuscular Volume 80.8 fL (80-100); Mean Platelet Volume 10.4 fL (7.4-10.4); Monocytes # (auto) 0.28 K/uL (0.11-0.59); Monocytes % (auto) 5.6 %; Neutrophils # (auto) 2.57 K/uL (1.4-6.5); Neutrophils % (auto) 51.2 %; Platelet Count 220 K/uL (130-400); RDW Coefficient of Variation 17.6 % (11.5-14.5); RDW Standard Deviation 52.1 fL (36.4-46.3); Red Blood Count 4.02 M/uL (4.2-5.4); White Blood Count 5.02 K/uL (4.8-10.8)
[2018-08-07] MEDS ORDERED: PROCHLORPERAZINE 5 MG in SYRINGE 4 ML IV PRN (06:51)
[2018-08-07 06:53] LABS: Albumin Level 3.1 gm/dl (3.4-5.0); BUN Creatinine Ratio 15.3 (10-20); Calcium 8.8 mg/dl (8.5-10.1); Creatinine Clr Calc Pharmacy 129.3 ml/min; Est GFR (African American) 135.4; Est GFR (Non-African American) 116.8; Potassium 4.2 mmol/L (3.5-5.1)
[2018-08-07 06:56] LABS: Albumin Globulin Ratio 0.9 (0.9-2); Bilirubin,Total 0.2 mg/dl (0.2-1); Globulin 3.5 gm/dl (2.5-4.0); Total Protein 6.6 gm/dl (6.4-8.2)
[2018-08-07] MEDS ORDERED: POLYETHYLENE (MIRALAX) 17 GM PACK PO SCH (09:00)
--- NOTE | 2018-08-07 10:34 | Gastrointestinal Consultation ---
Date of Consultation August 07, 2018 Assessment & Plan (1) Pancreatitis: 32 year old female with history of necrotizing gallstone pancreatitis s/p ERCP w/ stenting and cholecystectomy who presents w/ recurrent upper abdominal pain and nausea, no vomiting. LFTs unremarkable, lipase nearly 1,000 CT w/ acute pancreatitis although improving CT from prior. On exam, there is no abdominal pain with deep palpation but she does report intermittent episodes of upper abdominal cramping/spasm which improves on PRN analgesia. She has had persistently elevated lipase. DDX discussed: resolving necrotizing pancreatitis vs acute, mild pancreatitis vs IBS vs other - LR 200 mL/hr - NPO for bowel rest - Trial clears when ready - Antiemtics PRN - Analgesia PRN - Will add scheduled Bentyl 10 mg TID - She has OP vacular surgery evaluation tomorrow in [place] - If not discharged will need to cancel, reschedule that appointment - Keep OP EUS/ERCP in [place] as scheduled Thank you for allowing us to participate in the care of this patient. Please call with any acute changes, questions or concerns. Please see addendum below with additional recommendation from my supervising physician. Supervising Physician Co-Signing Physician Notes I have seen and examined the patient with GABRIELA Billingsley. 32 yo fm recently post with gallstone pancreatitis s/p most recent ERCP end of 07/04 with plastic biliary stent in place, prior pancreatic cysts (recent imaging) showing 2 cm pancreatic cyst without over communication, reportedly with a splenic artery aneurysm. She has minimal pain today but reports going to the bathroom more frequents. PE significant for well nourished female in nad, cv- rrr no mrg, pulm - ctab, abd - midline scar, soft nt nd +bs, Labs significant for elevated lipase. Imaging reviewed Would continue with IV LR for presumed pancreatitis- limit meds associated with pancretitis, outpt appt with [place] for her splenic artery aneurysm will need re-scheduled, trial of Bentyl for her pain, could also consider Questran 1 gram tid-qid given looser bowel movements today that she reports are non-bloody. History of Present Illness Reason for Consultation: pancreatitis Requesting Physician: Amairani Attending Physician: Balwinder Bales History of Present Illness 32 year old female with history of gallstone pancreatitis initially presenting in May w/ RUQ pain, nausea and vomiting. At that time, imaging was concerning for biliary dilation, PD dilation, necrotizing pancreatiits w/ suspected choledocholithiasis. She underwent ERCP w/ stone removal and stent placement w/ improvement of symptoms and improvement of her liver function tests. Surgery was involved w/ plans for cholecysctectomy in about 4-6 weeks. She had developed worsening abd pain, repeat abd imaging w/ necrotizing pancreatitis, CT signs of pancreas duct discontinuity, with worsening abd pain, leukocytosis and febrile episodes. She was eventually transferred to [facility] [place], remained there from 06/08/18 to 06/12/18. She was seen by GI service there, treated with antibiotics, diet advancement but no further intervention. She was subsequently re-admitted x 3 w/ recurrent pancreatitis. Is now S/P cholecystectomy. Notes she was discharged home and had been doing ok. Would have intermittent upper abdominal pain, however, was tolerable. Was admitted 07/25/18 w/ acute worsening of abdominal pain, recieved IVF, analgesia nad was discharged home. Had OP CT concerning for splenic vein thrombus, splenic artery aneurysm and was referred to OP vascular surgery and plan for EUS/ERCP in [place] w/ Dr. Guerrero and Dr. Woods. She notes decreased appetite and return of epigastric pain (burning, dull) associated w/ nausea but no vomiting over the weekend. Pain became uncontrollable and presented to the ED. In the ED she was afebrile w/o leukocytosis. H&H at baseline w/ normal PLT count. Her liver function studies were unremarkable w/ elevated lipase > 1000. Kidney function normal. ETOH: none in 1-2 years Marijuana: none OTC supplements: none New meds: escitalopram Family history of pancreatitis: none Family history of pancreatic CA: none CT ABD/Pelvis 08/06/18: persistent peripancreatic inflammatory change surrounding the tail the pancreas. This likely represents acute pancreatitis. No evidence for pancreatic necrosis at this time. There are 2 cystic foci seen within the junction of the body/tail the pancreas and within the splenic hilum. These remain unchanged and favor pancreatic pseudocysts.No bowel wall thickening or obstruction.Prior cholecystectomy. The common bile duct stent appears in good position. Moderate well-formed stool within the colon. CT ABD/Pelvis 07/31/18: Improved findings of necrotic pancreatitis with a small residual area of walled off necrosis in the pancreatic body region. Probable pseudocyst adjacent to the pancreatic tail and splenic hilum. In addition, adjacent to this pseudocyst, there appears to be an approximately 2 cm splenic artery aneurysm CT ABD/Pelvis 07/25/18: Findings of pancreatitis.Developing 2.7 cm pseudocyst splenic hilum.Improved and/or diminished volume of a perigastric complex fluid pocket .Interval cholecystectomy. Pancreatic stent in good position. Additional pseudocyst measuring 1.6 cm near the pancreatic body. This is diminished in volume from the prior study.Generalized reactive ileus with increased fecal load within the colon CT Panc protocol 06/30/18: Gas noted within the dominant walled off necrosis within the pancreatic body and tail. Unless there has been instrumentation such as attempted transgastric drainage, this is highly suspicious for infection. Overall collections are slightly smaller than on the prior exam though the degree of associated inflammatory change/fat autodigestion is similar to increased from prior. Wall off necrosis evident both within the pancreas and tracking to the lesser sac and splenic hilum. Overall worsened pancreatic parenchymal edema, which limits evaluation for viable tissue. Allowing for this, stable distribution of enhancing pancreatic parenchyma in the distalmost tail and pancreatic head.Reactive gastric wall thickening. Apparent tract to the gastric lumen from the dominant walled off necrotic collection may be postprocedural or indicate a developing fistula. Bibasilar atelectasis, left greater than right. CT ABD/Pelvis 06/22/18: Interval evolution of necrotizing pancreatitis with more well-defined acute necrotic collections in the pancreatic body-tail, the largest measuring 4.9 cm in diameter. New collection measuring 2.8 cm along the gastric serosa the region of the lesser sac. No evidence of gas within these collections to suggest infection. Viable pancreatic parenchyma primarily in the pancreatic head and neck as well as at the distal most pancreatic tail. Discontinuity of the pancreatic duct between the distalmost tail and pancreatic neck suspected. Decreased retroperitoneal inflammatory change.Resolved bilateral pleural effusions and anasarca with near resolution of ascites.Improved aeration of the lung bases. CT abd/pelvis 06/04/18: possible necrotizing pancreatitis, w suspected choledocholithiasis, cholelithiasis, cholecystitis, and presence of intra/extra hepatic biliary ductal dilation, borderline pancreatic duct dilation. ERCP 07/10/18: Prior biliary sphincterotomy appeared open.A biliary and a pancreatic duct stents were seen in the major papilla. These were removed. The entire main bile duct was dilated. Extensive amount of choledocholithiasis was found. Complete removal was accomplished by balloon extraction.Common bile duct was successfully dilated.One plastic stent was placed into the common bile duct in view of significant choledocholithiasis. ERCP 06/05/18: choledocholithiasis removal, biliary sphincterectomy, stent p lacements in CBD and ventral pancreatic ducts. Allergies Allergy/AdvReac Type Severity Reaction Status Date / Time Sulfa (Sulfonamide AdvReac Intermediate Nausea/Vomi Verified 08/06/18 20:53 Antibiotics) ting Home Medications Home Medications Medication Instructions Recorded Confirmed Type escitalopram oxalate 10 mg PO HS 07/25/18 08/06/18 History oxycodone 10 mg PO Q8H PRN 08/06/18 08/06/18 History Patient History Medical History History of depression Pancreatitis Surgical History History of ERCP History of section 2/2 FAILURE TO PROGRESS; DOSED EPIDURAL TOTAL OF 2 C-SECTIONS S/P wrist surgery CYSTECTOMY (LEFT) Family History Other Family history non-contributory Social History Preferred Language: Telugu Communication Ability: Effective Powder Mixer Required: No Beliefs That Will Affect Care: None marital status: Current Living Situation: Family Current Living Situation Comment: spouse and baby Feels Safe at Home: Yes Safety Concerns: Feels Safe At This Time Smoking Status: Never smoker Second Hand Exposure: No Hx Alcohol Use: No Hx Substance Use: No Review of Systems Constitutional: no fever, no body aches, no weakness and no insomnia Respiratory: no cough, no dyspnea, no pain on inspiration and no wheezing Cardiovascular: no chest pain, no radiating jaw, neck or arm pain, no dyspnea on exertion and no palpitations Gastrointestinal: + abdominal pain, + early satiety and + nausea; no belching, no heartburn, no vomiting, no coffee ground emesis, no hematemesis, no pain with swallowing, no dysphagia, no cramping, no excessive flatulence, no change in bowel habits, no change in stools, no constipation, no diarrhea/loose stools, no fecal incontinence, no constant urge to pass stools, no blood in stools and no melena Physical Exam Constitutional: WD/WN, vitals as above well developed and well nourished; no acute distress and not ill appearing Respiratory: normal respiratory effort, lungs clear to auscultation Cardiovascular: RRR, no murmur, no edema Gastrointestinal (Abdomen): normal bowel sounds, soft, nontender, no hepatosplenomegaly Skin: no rashes, warm and dry Results & Data Vital Signs (Past 12 Hours) Vital Signs Temp Pulse Pulse Resp BP BP Pulse Ox 08/07/18 06:51 36.4 C L 80 18 136/80 98 08/07/18 02:11 36.5 C 79 16 143/92 H 97 08/07/18 01:57 77 14 157/95 H 95 08/07/18 01:00 78 15 157/95 H 98 08/07/18 00:30 85 10 L 136/87 97 08/07/18 00:00 90 17 144/82 H 97 08/06/18 23:30 85 19 140/92 96 08/06/18 23:00 81 17 138/89 99 Laboratory Results 08/07/18 08/07/18 08/06/18 Range/Units 06:00 06:00 21:43 WBC 5.02 (4.8-10.8) K/uL RBC 4.02 L (4.2-5.4) M/uL Hgb 10.3 L (12.0-16.0) g/dL POC Hgb 10.9 L (12.0-16.0) g/dl Hct 32.5 L (37-47) % POC Hct 32 L (37-47) % MCV 80.8 (80-100) fL MCH 25.6 (25-34) pg MCHC 31.7 L (32-36) g/dL RDW Std Deviation 52.1 H (36.4-46.3) fL RDW Coeff of Latoya 17.6 H (11.5-14.5) % Plt Count 220 (130-400) K/uL MPV 10.4 (7.4-10.4) fL Immature Gran % (Auto) 0.2 % Neut % (Auto) 51.2 % Lymph % (Auto) 39.6 % [place] % (Auto) 5.6 % Eos % (Auto) 3.0 % Baso % (Auto) 0.4 % Immature Gran # (Auto) 0.01 (0.00-0.02) K/uL Neut # (Auto) 2.57 (1.4-6.5) K/uL Lymph # (Auto) 1.99 (1.2-3.4) K/uL [place] # (Auto) 0.28 (0.11-0.59) K/uL Eos # (Auto) 0.15 (0-0.5) K/uL Baso # (Auto) 0.02 (0-0.2) K/uL POC Sodium 142 (135-144) mEq/L Sodium 142 (136-145) mmol/L POC Potassium 4.1 (3.3-5.0) mEq/L Potassium 4.2 (3.5-5.1) mmol/L POC Chloride 108 (101-112) mEq/L Chloride 113 H (98-107) mmol/L Carbon Dioxide 22 (21-32) mmol/L POC Total CO2 23 L (24-31) mEq/l Anion Gap 7.0 (3-11) POC Anion Gap 15.0 L (16-25) mmol/L POC BUN 16 (7-18) mg/dl BUN 11 (7-18) mg/dl Creatinine 0.69 (0.6-1.2) mg/dl POC Creatinine 0.8 (0.6-1.3) mg/dl Est Cr Clr Drug Dosing 129.3 ml/min Est GFR ( Amer) 135.4 Est GFR (Non-Af Amer) 116.8 BUN/Creatinine Ratio 15.3 (10-20) Glucose 96 (70-99) mg/dl POC Glucose (other) 98 (70-99) mg/dl Calcium 8.8 (8.5-10.1) mg/dl POC Ioniz Calcium Arielle 1.21 (1.12-1.32) mmol/l Total Bilirubin 0.2 (0.2-1) mg/dl AST 16 (15-37) U/L ALT 16 (12-78) U/L Alkaline Phosphatase 62 (45-117) U/L Total Protein 6.6 (6.4-8.2) gm/dl Albumin 3.1 L (3.4-5.0) gm/dl Globulin 3.5 (2.5-4.0) gm/dl Albumin/Globulin Ratio 0.9 (0.9-2) Lipase 1021 H (73-393) U/L Urine Color Urine Appearance (Clear) Urine pH (4.5-7.5) Ur Specific [place] (1.000-1.030) Urine Protein (Negative) Urine Glucose (UA) (Negative) Urine Ketones (Negative) Urine Blood (Negative) Urine Nitrite (Negative) Urine Bilirubin (Negative) Urine Urobilinogen (Negative) Ur Leukocyte Esterase (Negative) POC Ur Test (NEG) 08/06/18 08/06/18 08/06/18 Range/Units 21:28 21:28 20:30 WBC 7.96 (4.8-10.8) K/uL RBC 4.15 L (4.2-5.4) M/uL Hgb 10.7 L (12.0-16.0) g/dL POC Hgb (12.0-16.0) g/dl Hct 33.7 L (37-47) % POC Hct (37-47) % MCV 81.2 (80-100) fL MCH 25.8 (25-34) pg MCHC 31.8 L (32-36) g/dL RDW Std Deviation 52.4 H (36.4-46.3) fL RDW Coeff of Latoya 17.3 H (11.5-14.5) % Plt Count 279 (130-400) K/uL MPV 11.1 H (7.4-10.4) fL Immature Gran % (Auto) 0.1 % Neut % (Auto) 51.1 % Lymph % (Auto) 39.3 % [place] % (Auto) 6.7 % Eos % (Auto) 2.3 % Baso % (Auto) 0.5 % Immature Gran # (Auto) 0.01 (0.00-0.02) K/uL Neut # (Auto) 4.07 (1.4-6.5) K/uL Lymph # (Auto) 3.13 (1.2-3.4) K/uL [place] # (Auto) 0.53 (0.11-0.59) K/uL Eos # (Auto) 0.18 (0-0.5) K/uL Baso # (Auto) 0.04 (0-0.2) K/uL POC Sodium (135-144) mEq/L Sodium 143 (136-145) mmol/L POC Potassium (3.3-5.0) mEq/L Potassium 4.1 (3.5-5.1) mmol/L POC Chloride (101-112) mEq/L Chloride 110 H (98-107) mmol/L Carbon Dioxide 24 (21-32) mmol/L POC Total CO2 (24-31) mEq/l Anion Gap 9.0 (3-11) POC Anion Gap (16-25) mmol/L POC BUN (7-18) mg/dl BUN 15 (7-18) mg/dl Creatinine 0.88 (0.6-1.2) mg/dl POC Creatinine (0.6-1.3) mg/dl Est Cr Clr Drug Dosing 100.7 ml/min Est GFR ( Amer) 102.2 Est GFR (Non-Af Amer) 88.2 BUN/Creatinine Ratio 16.6 (10-20) Glucose 98 (70-99) mg/dl POC Glucose (other) (70-99) mg/dl Calcium 9.4 (8.5-10.1) mg/dl POC Ioniz Calcium Arielle (1.12-1.32) mmol/l Total Bilirubin 0.2 (0.2-1) mg/dl AST 23 (15-37) U/L ALT 20 (12-78) U/L Alkaline Phosphatase 70 (45-117) U/L Total Protein 7.7 (6.4-8.2) gm/dl Albumin 3.7 (3.4-5.0) gm/dl Globulin 4.0 (2.5-4.0) gm/dl Albumin/Globulin Ratio 0.9 (0.9-2) Lipase 967 H (73-393) U/L Urine Color Yellow Urine Appearance Clear (Clear) Urine pH 5.5 (4.5-7.5) Ur Specific [place] 1.033 H (1.000-1.030) Urine Protein Negative (Negative) Urine Glucose (UA) Negative (Negative) Urine Ketones Trace H (Negative) Urine Blood Negative (Negative) Urine Nitrite Negative (Negative) Urine Bilirubin Negative (Negative) Urine Urobilinogen Negative (Negative) Ur Leukocyte Esterase Negative (Negative) POC Ur Test (NEG) 08/06/18 Range/Units 20:30 WBC (4.8-10.8) K/uL RBC (4.2-5.4) M/uL Hgb (12.0-16.0) g/dL POC Hgb (12.0-16.0) g/dl Hct (37-47) % POC Hct (37-47) % MCV (80-100) fL MCH (25-34) pg MCHC (32-36) g/dL RDW Std Deviation (36.4-46.3) fL RDW Coeff of Latoya (11.5-14.5) % Plt Count (130-400) K/uL MPV (7.4-10.4) fL Immature Gran % (Auto) % Neut % (Auto) % Lymph % (Auto) % [place] % (Auto) % Eos % (Auto) % Baso % (Auto) % Immature Gran # (Auto) (0.00-0.02) K/uL Neut # (Auto) (1.4-6.5) K/uL Lymph # (Auto) (1.2-3.4) K/uL [place] # (Auto) (0.11-0.59) K/uL Eos # (Auto) (0-0.5) K/uL Baso # (Auto) (0-0.2) K/uL POC Sodium (135-144) mEq/L Sodium (136-145) mmol/L POC Potassium (3.3-5.0) mEq/L Potassium (3.5-5.1) mmol/L POC Chloride (101-112) mEq/L Chloride (98-107) mmol/L Carbon Dioxide (21-32) mmol/L POC Total CO2 (24-31) mEq/l Anion Gap (3-11) POC Anion Gap (16-25) mmol/L POC BUN (7-18) mg/dl BUN (7-18) mg/dl Creatinine (0.6-1.2) mg/dl POC Creatinine (0.6-1.3) mg/dl Est Cr Clr Drug Dosing ml/min Est GFR ( Amer) Est GFR (Non-Af Amer) BUN/Creatinine Ratio (10-20) Glucose (70-99) mg/dl POC Glucose (other) (70-99) mg/dl Calcium (8.5-10.1) mg/dl POC Ioniz Calcium Arielle (1.12-1.32) mmol/l Total Bilirubin (0.2-1) mg/dl AST (15-37) U/L ALT (12-78) U/L Alkaline Phosphatase (45-117) U/L Total Protein (6.4-8.2) gm/dl Albumin (3.4-5.0) gm/dl Globulin (2.5-4.0) gm/dl Albumin/Globulin Ratio (0.9-2) Lipase (73-393) U/L Urine Color Urine Appearance (Clear) Urine pH (4.5-7.5) Ur Specific [place] (1.000-1.030) Urine Protein (Negative) Urine Glucose (UA) (Negative) Urine Ketones (Negative) Urine Blood (Negative) Urine Nitrite (Negative) Urine Bilirubin (Negative) Urine Urobilinogen (Negative) Ur Leukocyte Esterase (Negative) POC Ur Test NEG (NEG) (1) Pancreatitis Acute pancreatitis complication: unspecified Chronicity: acute Pancreatitis type: unspecified pancreatitis type Qualified Code(s): K85.90 - Acute pancreatitis without necrosis or infection, unspecified
--- NOTE | 2018-08-07 13:56 | Hospitalist Progress Note ---
Date of Service August 07, 2018 Assessment & Plan (1) Abdominal pain: - Presented with acute epigastric pain -- likely related to acute mild pancreatitis vs. resolving necrotizing pancreatitis vs. IBS vs. other. - Has been re-admitted over last 2 months for acute cholecystitis & pancreatitis, s/p cholecystectomy and ERCP with CBD stent placement on 07/10/18. - Most recent admission for acute pancreatitis was 07/26-07/27. - Lipase level 967 --> 1021; will trend qAM. - CT A/P showed persistent pancreatitis & pancreatic pseudocysts. - LR at 200 cc/hr; NPO -- advanced to [facility] for lunch. - Toradol IV prn pain; Bentyl 10 mg TID scheduled. - GI consulted, appreciate input. No indication for surgical intervention at this time. - Is scheduled for ERCP with CBD stent removal in near future at [facility]. (2) Pancreatitis: - Concern for acute pancreatitis as noted above; may be developing chronic pancreatitis. (3) Depression: - Continue Lexapro as prescribed. (4) Splenic artery aneurysm: - Scheduled to follow up at [place] with vascular surgery on 08/08, will need to reschedule appt. (5) DVT prophylaxis: - Hold for possible procedure. Dispo: Med/surg; discharge pending improvement in abd pain. Supervising Physician Co-Signing Physician Notes Attending Attestation - Chart reviewed, care plan d/w ROSALIE Shafer. I agree w/ the weldon components of her documentation. Labs, imaging reviewed. Complicated GI history dating back to 05/2018. At that time developed necrotizing pancreatitis in setting of choledocholithiasis/acute cholecystitis. s/p ERCP with biliary stent placement. Ultimately required transfer to [facility] during that May admission. Several boughts of acute pancreatitis since. Now with suspected acute recurrent pancreatitis. ?is patient also developing chronic pancreatitis? Treat acute pancreatitis with copious IV fluids (LR), pain control, etc. Appreciate [facility] GI consult & recs. Balwinder Bales MD Subjective Pt. is doing well overall. Abd pain improved, is rated as a 3/10 on pain scale, was rated as a 8/10 yesterday. Denies nausea/vomiting, diarrhea. Has appt at 9 am milka at [facility] with vascular surgery -- will need to reschedule. Review of Systems Review of Systems: All systems reviewed & are unremarkable except as noted in HPI & below Constitutional: no fever, no chills, no fatigue and no weakness Respiratory: no cough, no dyspnea and no wheezing Cardiovascular: no chest pain, no palpitations and no edema Gastrointestinal: + abdominal pain; no bloating, no nausea, no vomiting, no constipation and no diarrhea/loose stools Genitourinary: no difficulty urinating Musculoskeletal: no back pain and no joint pain Integumentary: no non-healing lesions Allergy / Immunological: no rash Physical Exam Physical Exam: General: Resting comfortably in no apparent distress; A&OX3 HEENT: NC/AT; PERRLA with EOMI; [place] conjunctiva, MMM. Neck: Supple and nontender Cardiac: RRR w/o murmurs, gallops or rubs Lungs: CTA bilaterally; No rhonchi, wheezing, or rales Abdomen: Bowel normoactive X 4; Tenderness to deep palpation on epigastric region. Extremities: Warm. No edema present Neuro: No focal weakness Skin: No rash Results & Data Vital Signs (Past 12 Hours) Vital Signs Temp Pulse Pulse Pulse Resp BP BP 08/07/18 12:47 37.2 C 72 20 138/81 08/07/18 06:51 36.4 C L 80 18 136/80 08/07/18 02:11 36.5 C 79 16 143/92 H 08/07/18 01:57 77 14 157/95 H Pulse Ox 08/07/18 12:47 98 08/07/18 06:51 98 08/07/18 02:11 97 08/07/18 01:57 95 Laboratory Results 08/07/18 08/07/18 08/06/18 Range/Units 06:00 06:00 21:43 WBC 5.02 (4.8-10.8) K/uL RBC 4.02 L (4.2-5.4) M/uL Hgb 10.3 L (12.0-16.0) g/dL POC Hgb 10.9 L (12.0-16.0) g/dl Hct 32.5 L (37-47) % POC Hct 32 L (37-47) % MCV 80.8 (80-100) fL MCH 25.6 (25-34) pg MCHC 31.7 L (32-36) g/dL RDW Std Deviation 52.1 H (36.4-46.3) fL RDW Coeff of Latoya 17.6 H (11.5-14.5) % Plt Count 220 (130-400) K/uL MPV 10.4 (7.4-10.4) fL Immature Gran % (Auto) 0.2 % Neut % (Auto) 51.2 % Lymph % (Auto) 39.6 % [place] % (Auto) 5.6 % Eos % (Auto) 3.0 % Baso % (Auto) 0.4 % Immature Gran # (Auto) 0.01 (0.00-0.02) K/uL Neut # (Auto) 2.57 (1.4-6.5) K/uL Lymph # (Auto) 1.99 (1.2-3.4) K/uL [place]eth # (Auto) 0.28 (0.11-0.59) K/uL Eos # (Auto) 0.15 (0-0.5) K/uL Baso # (Auto) 0.02 (0-0.2) K/uL POC Sodium 142 (135-144) mEq/L Sodium 142 (136-145) mmol/L POC Potassium 4.1 (3.3-5.0) mEq/L Potassium 4.2 (3.5-5.1) mmol/L POC Chloride 108 (101-112) mEq/L Chloride 113 H (98-107) mmol/L Carbon Dioxide 22 (21-32) mmol/L POC Total CO2 23 L (24-31) mEq/l Anion Gap 7.0 (3-11) POC Anion Gap 15.0 L (16-25) mmol/L POC BUN 16 (7-18) mg/dl BUN 11 (7-18) mg/dl Creatinine 0.69 (0.6-1.2) mg/dl POC Creatinine 0.8 (0.6-1.3) mg/dl Est Cr Clr Drug Dosing 129.3 ml/min Est GFR ( Amer) 135.4 Est GFR (Non-Af Amer) 116.8 BUN/Creatinine Ratio 15.3 (10-20) Glucose 96 (70-99) mg/dl POC Glucose (other) 98 (70-99) mg/dl Calcium 8.8 (8.5-10.1) mg/dl POC Ioniz Calcium Arielle 1.21 (1.12-1.32) mmol/l Total Bilirubin 0.2 (0.2-1) mg/dl AST 16 (15-37) U/L ALT 16 (12-78) U/L Alkaline Phosphatase 62 (45-117) U/L Total Protein 6.6 (6.4-8.2) gm/dl Albumin 3.1 L (3.4-5.0) gm/dl Globulin 3.5 (2.5-4.0) gm/dl Albumin/Globulin Ratio 0.9 (0.9-2) Lipase 1021 H (73-393) U/L Urine Color Urine Appearance (Clear) Urine pH (4.5-7.5) Ur Specific [place] (1.000-1.030) Urine Protein (Negative) Urine Glucose (UA) (Negative) Urine Ketones (Negative) Urine Blood (Negative) Urine Nitrite (Negative) Urine Bilirubin (Negative) Urine Urobilinogen (Negative) Ur Leukocyte Esterase (Negative) POC Ur Test (NEG) 08/06/18 08/06/18 08/06/18 Range/Units 21:28 21:28 20:30 WBC 7.96 (4.8-10.8) K/uL RBC 4.15 L (4.2-5.4) M/uL Hgb 10.7 L (12.0-16.0) g/dL POC Hgb (12.0-16.0) g/dl Hct 33.7 L (37-47) % POC Hct (37-47) % MCV 81.2 (80-100) fL MCH 25.8 (25-34) pg MCHC 31.8 L (32-36) g/dL RDW Std Deviation 52.4 H (36.4-46.3) fL RDW Coeff of Latoya 17.3 H (11.5-14.5) % Plt Count 279 (130-400) K/uL MPV 11.1 H (7.4-10.4) fL Immature Gran % (Auto) 0.1 % Neut % (Auto) 51.1 % Lymph % (Auto) 39.3 % [place]ud[place] % (Auto) 6.7 % Eos % (Auto) 2.3 % Baso % (Auto) 0.5 % Immature Gran # (Auto) 0.01 (0.00-0.02) K/uL Neut # (Auto) 4.07 (1.4-6.5) K/uL Lymph # (Auto) 3.13 (1.2-3.4) K/uL [place] # (Auto) 0.53 (0.11-0.59) K/uL Eos # (Auto) 0.18 (0-0.5) K/uL Baso # (Auto) 0.04 (0-0.2) K/uL POC Sodium (135-144) mEq/L Sodium 143 (136-145) mmol/L POC Potassium (3.3-5.0) mEq/L Potassium 4.1 (3.5-5.1) mmol/L POC Chloride (101-112) mEq/L Chloride 110 H (98-107) mmol/L Carbon Dioxide 24 (21-32) mmol/L POC Total CO2 (24-31) mEq/l Anion Gap 9.0 (3-11) POC Anion Gap (16-25) mmol/L POC BUN (7-18) mg/dl BUN 15 (7-18) mg/dl Creatinine 0.88 (0.6-1.2) mg/dl POC Creatinine (0.6-1.3) mg/dl Est Cr Clr Drug Dosing 100.7 ml/min Est GFR ( Amer) 102.2 Est GFR (Non-Af Amer) 88.2 BUN/Creatinine Ratio 16.6 (10-20) Glucose 98 (70-99) mg/dl POC Glucose (other) (70-99) mg/dl Calcium 9.4 (8.5-10.1) mg/dl POC Ioniz Calcium Arielle (1.12-1.32) mmol/l Total Bilirubin 0.2 (0.2-1) mg/dl AST 23 (15-37) U/L ALT 20 (12-78) U/L Alkaline Phosphatase 70 (45-117) U/L Total Protein 7.7 (6.4-8.2) gm/dl Albumin 3.7 (3.4-5.0) gm/dl Globulin 4.0 (2.5-4.0) gm/dl Albumin/Globulin Ratio 0.9 (0.9-2) Lipase 967 H (73-393) U/L Urine Color Yellow Urine Appearance Clear (Clear) Urine pH 5.5 (4.5-7.5) Ur Specific [place] 1.033 H (1.000-1.030) Urine Protein Negative (Negative) Urine Glucose (UA) Negative (Negative) Urine Ketones Trace H (Negative) Urine Blood Negative (Negative) Urine Nitrite Negative (Negative) Urine Bilirubin Negative (Negative) Urine Urobilinogen Negative (Negative) Ur Leukocyte Esterase Negative (Negative) POC Ur Test (NEG) 08/06/18 Range/Units 20:30 WBC (4.8-10.8) K/uL RBC (4.2-5.4) M/uL Hgb (12.0-16.0) g/dL POC Hgb (12.0-16.0) g/dl Hct (37-47) % POC Hct (37-47) % MCV (80-100) fL MCH (25-34) pg MCHC (32-36) g/dL RDW Std Deviation (36.4-46.3) fL RDW Coeff of Latoya (11.5-14.5) % Plt Count (130-400) K/uL MPV (7.4-10.4) fL Immature Gran % (Auto) % Neut % (Auto) % Lymph % (Auto) % [place] % (Auto) % Eos % (Auto) % Baso % (Auto) % Immature Gran # (Auto) (0.00-0.02) K/uL Neut # (Auto) (1.4-6.5) K/uL Lymph # (Auto) (1.2-3.4) K/uL [place] # (Auto) (0.11-0.59) K/uL Eos # (Auto) (0-0.5) K/uL Baso # (Auto) (0-0.2) K/uL POC Sodium (135-144) mEq/L Sodium (136-145) mmol/L POC Potassium (3.3-5.0) mEq/L Potassium (3.5-5.1) mmol/L POC Chloride (101-112) mEq/L Chloride (98-107) mmol/L Carbon Dioxide (21-32) mmol/L POC Total CO2 (24-31) mEq/l Anion Gap (3-11) POC Anion Gap (16-25) mmol/L POC BUN (7-18) mg/dl BUN (7-18) mg/dl Creatinine (0.6-1.2) mg/dl POC Creatinine (0.6-1.3) mg/dl Est Cr Clr Drug Dosing ml/min Est GFR ( Amer) Est GFR (Non-Af Amer) BUN/Creatinine Ratio (10-20) Glucose (70-99) mg/dl POC Glucose (other) (70-99) mg/dl Calcium (8.5-10.1) mg/dl POC Ioniz Calcium Arielle (1.12-1.32) mmol/l Total Bilirubin (0.2-1) mg/dl AST (15-37) U/L ALT (12-78) U/L Alkaline Phosphatase (45-117) U/L Total Protein (6.4-8.2) gm/dl Albumin (3.4-5.0) gm/dl Globulin (2.5-4.0) gm/dl Albumin/Globulin Ratio (0.9-2) Lipase (73-393) U/L Urine Color Urine Appearance (Clear) Urine pH (4.5-7.5) Ur Specific [place] (1.000-1.030) Urine Protein (Negative) Urine Glucose (UA) (Negative) Urine Ketones (Negative) Urine Blood (Negative) Urine Nitrite (Negative) Urine Bilirubin (Negative) Urine Urobilinogen (Negative) Ur Leukocyte Esterase (Negative) POC Ur Test NEG (NEG) (1) Pancreatitis Acute pancreatitis complication: unspecified Chronicity: acute Pancreatitis type: unspecified pancreatitis type Qualified Code(s): K85.90 - Acute pancreatitis without necrosis or infection, unspecified (2) Abdominal pain Abdominal location: upper abdomen, unspecified Qualified Code(s): R10.10 - Upper abdominal pain, unspecified
[2018-08-07] MEDS: DICYCLOMINE HCL 10 MG CAP PO SCH ×2 (15:03→20:40)
[2018-08-07] MEDS ORDERED: ESCITALOPRAM OXALATE 10 MG TAB PO SCH (21:00)
[2018-08-08] MEDS: LACTATED RINGER'S 1,000 ML IV SCH ×3 (02:51→12:48)
[2018-08-08] MEDS: DICYCLOMINE HCL 10 MG CAP PO SCH ×2 (08:01→14:18)
[2018-08-08 08:09] LABS: BUN Creatinine Ratio 6.9 (10-20); Calcium 8.9 mg/dl (8.5-10.1); Creatinine Clr Calc Pharmacy 139.4 ml/min; Est GFR (African American) 138.8; Est GFR (Non-African American) 119.7; Potassium 3.7 mmol/L (3.5-5.1)
--- NOTE | 2018-08-08 11:18 | Gastroenterology Progress Note ---
Date of Service August 08, 2018 Assessment & Plan (1) Pancreatitis: 32 year old female with history of necrotizing gallstone pancreatitis s/p ERCP w/ stenting and cholecystectomy who presents w/ recurrent upper abdominal pain and nausea, no vomiting. LFTs unremarkable, lipase nearly 1,000 CT w/ acute pancreatitis although improving CT from prior. On exam, there is no abdominal pain with deep palpation but she does report intermittent episodes of upper abdominal cramping/spasm which improves on PRN analgesia. She has had persistently elevated lipase. DDX discussed: resolving necrotizing pancreatitis vs acute, mild pancreatitis vs IBS vs other She was stated on Bentyl. This AM is feeling well, has required less narcotic analgesia. Is tolerating diet wants to go home. - No GI contraindication to discharge if she is tolerating diet - Low fat diet as tolerated - Antiemtics PRN - Please send home w/ scheduled Bentyl 10 mg TID - She has OP vacular surgery evaluation tomorrow in [place] - If not discharged will need to cancel, reschedule that appointment - Keep OP EUS/ERCP in [place] as scheduled GI to sign off. Thank you for allowing us to participate in the care of this patient. Please call with any acute changes, questions or concerns. Please see addendum below with additional recommendation from my supervising physician. Supervising Physician Co-Signing Physician Notes I have seen and examined the patient and discussed the management with GABRIELA Billingsley. Walking the halls in no acute distress. Agree with assessment and plan in its entirety as documented in Mamta's A/P. Subjective Pt was seen and evaluated, chart reviewed. Feeling well. Pain resolved. Toleratd diet. No nausea, vomiting. Wants to go home. Review of Systems Constitutional: no fever, no body aches, no weakness and no weight loss Respiratory: no cough, no dyspnea, no pain on inspiration and no wheezing Cardiovascular: no chest pain, no radiating jaw, neck or arm pain, no dyspnea on exertion and no palpitations Gastrointestinal: no abdominal pain, no heartburn, no nausea, no vomiting, no coffee ground emesis, no dysphagia, no cramping, no change in bowel habits, no diarrhea/loose stools, no blood in stools and no melena Physical Exam Constitutional: WD/WN, vitals as above well developed and well nourished; no acute distress and not ill appearing Respiratory: normal respiratory effort, lungs clear to auscultation Cardiovascular: RRR, no murmur, no edema Gastrointestinal (Abdomen): normal bowel sounds, soft, nontender, no hepatosplenomegaly Skin: no rashes, warm and dry Results & Data Vital Signs (Past 12 Hours) Vital Signs Temp Pulse Resp BP Pulse Ox 08/08/18 07:22 36.9 C 82 16 143/89 H 99 Laboratory Results 08/08/18 Range/Units 06:43 Sodium 142 (136-145) mmol/L Potassium 3.7 (3.5-5.1) mmol/L Chloride 112 H (98-107) mmol/L Carbon Dioxide 22 (21-32) mmol/L Anion Gap 8.0 (3-11) BUN 4 L D (7-18) mg/dl Creatinine 0.64 (0.6-1.2) mg/dl Est Cr Clr Drug Dosing 139.4 ml/min Est GFR ( Amer) 138.8 Est GFR (Non-Af Amer) 119.7 BUN/Creatinine Ratio 6.9 L (10-20) Glucose 86 (70-99) mg/dl Calcium 8.9 (8.5-10.1) mg/dl Lipase 439 H (73-393) U/L (1) Pancreatitis Acute pancreatitis complication: unspecified Chronicity: acute Pancreatitis type: unspecified pancreatitis type Qualified Code(s): K85.90 - Acute pancreatitis without necrosis or infection, unspecified
--- NOTE | 2018-08-08 15:14 | Discharge Summary ---
Date of Service August 08, 2018 Admission HPI Per Admitting Provider 32yoF with hx of pancreatitis (most recent admission 07/26), and post depression presents with epigastric pain x 1 week which worsened over the weekend. A/w occasional chills. Per pt after cholecystectomy abdominal pain overall improved and not across upper abdomen anymore. Of note: pt reports having appt at [place] coming up to fix splenic artery aneurysm and for ERCP to remove CBD stent and cysts Denies fever, PROCTOR/dizziness, cp, sob, abdominal pain, n/v, constipation/diarrhea, dysuria. Last BM was yesterday afternoon. Admission Exam Per Admitting Provider Constitutional: WD/WN, vitals as above ENMT: external ear and nose normal, oropharynx normal Respiratory: normal respiratory effort, lungs clear to auscultation Cardiovascular: RRR, no murmur, no edema Gastrointestinal (Abdomen): Inspection/Auscultation: abdomen normal to inspection, normal bowel sounds and + abdominal surgical incision; abdomen not distended and Evans-Perkins sign absent Percussion/Palpation: + abdomen tender (epigastric) and + abdominal mass (under umbilical scar); no guarding and abdomen not rigid Musculoskeletal: no cyanosis or clubbing, extremities motor strength 5/5 Skin: no rashes, warm and dry Neurologic: PERRL, EOMI, accommodation nl, no face palsy, no dysarthria CN's II-XI intact bilaterally Psychiatric: A+Ox3, euthymic affect Principal Diagnosis Abdominal Pain Discharge Exam General: Resting comfortably in no apparent distress; A&OX3 HEENT: NC/AT; PERRLA with EOMI; [place] conjunctiva, MMM. Neck: Supple and nontender Cardiac: RRR w/o murmurs, gallops or rubs Lungs: CTA bilaterally; No rhonchi, wheezing, or rales Abdomen: Bowel normoactive X 4; Nontender to light palpation. Extremities: Warm. No edema present Neuro: No focal weakness Skin: No rash Discharge Data Allergies Allergy/AdvReac Type Severity Reaction Status Date / Time Sulfa (Sulfonamide AdvReac Intermediate Nausea/Vomi Verified 08/06/18 20:53 Antibiotics) ting Consultations 08/06/18 23:35 ED Decision to Admit Stat 08/07/18 02:11 Consult Gastroenterology Routine Ordered Studies 08/06/18 20:05 CT abd pelvis IV con only Stat Hospital Course (1) Abdominal pain: Presented with acute epigastric pain -- likely related to acute mild pancreatitis vs. resolving necrotizing pancreatitis vs. IBS vs. other. Has been re-admitted over last 2 months for acute cholecystitis & pancreatitis, s/p cholecystectomy and ERCP with CBD stent placement on 07/10/18. Most recent admission for acute pancreatitis was 07/26-07/27. Lipase level 967 --> 1021 --> 439. CT A/P on admission showed persisent pancreatitis and pancreatic pseudocysts. GI consulted, did not recommend surgical intervention. Diet was advanced to CLD on 08/07 then low fat diet on 08/08. Abd pain improved, was having regular BMs and denied N/V. Will follow up at [facility] on 08/15 for ERCP, CBD stent removal. (2) Pancreatitis: Concern for acute pancreatitis at admission as noted above. (3) Depression: Continued Lexapro as prescribed. (4) Splenic artery aneurysm: Scheduled to follow up at [place] with vascular surgery on 08/14. (5) DVT prophylaxis: Held for procedure. Stable for discharge to home on 08/08/18. Total Time Total Time Spent Total Time Spent (In Minutes): >30 minutes Total Time Includes: Examination of the Patient, Discharge Planning, Medication Reconciliation, Communication With Other Providers and Other Discharge Plan Discharge Items Patient Disposition: Home - Self-Care Reason For Visit: ABDOMINAL PAIN Discharge Diagnosis: Abdominal Pain Condition: Fair Discharge Goals: Decrease discomfort, Diagnostic testing, Improve disease control, Improve function, Increase independence, Improve nutritional status, Prevent disease and Therapeutic intervention Activity: As commented below Lifting: Wait until after follow-up appointment Exercise/Sports: Wait until after follow-up appointment Non-emergency contact: Primary Care Provider and Chamber Worker Call non-emergency contact if: you have any medication questions, your symptoms worsen, your pain is not controlled, your pain is worsening, your pain is unusual for you, your pain is concerning for you and you have a fever Follow-up/Referrals: Vivek Urban, [Primary Care Provider] - 08/11/18 9:20 am (Please, follow up with Dr. Vivek Urban on TuesdayAugust 11 at 9:20 am. *If you need to change this appointment, call the office at [phone].) Mamta Alfonso [Nurse Practitioner] - 08/30/18 11:45 am (Please, follow up at [facility]astro[facility] Office with Mamta OCHOA on TuesdayAugust 30 at 12:00 pm (arrive 11:45 am). *This office is located at [address] in [place]. If you need to change this appointment, call the office at [phone].) Ollie Castro MD [Outside Practitioners] - 08/14/18 9:00 am (Please, follow up at [facility] in [place] with Dr. Ollie Castro on TuesdayAugust 14 at 9:00 am. *This office is located at [address] in [place]. It is in The [facility] building. This building is a big glass building attached to the parking garage and sits behind the main hospital. You will take the main elevator to the 4th floor. If you need to change this appointment, call the office at [phone].) Diet: Low Fat Addtl Provider Instructions: 1. Abdominal Pain * Acute pain may be related to resolving necrotizing pancreatitis vs. acute mild pancreatitis vs. other. * Please continue Zofran 4 mg every 6 hours for nausea/vomiting. * Please continue Oxycodone 10 mg every 6 hours as needed for acute pain. * Please continue Bentyl 10 mg four times daily for abdominal pain/spasms. Prescription was sent to [facility]. * Please continue a low fat diet at home. * Please follow up for scheduled procedure at [facility] on Wednesday August 15, 2018. 2. Splenic Artery Aneuryism * Please follow up with vascular surgery at [facility] on Tuesday August 14, 2018. Prescriptions: New dicyclomine 10 mg Capsule 10 mg PO TID 10 Days Qty: 30 RF: 0 ondansetron HCl [Zofran] 4 mg tablet 4 mg PO Q8H Qty: 1 RF: 0 Continued oxycodone 10 mg tablet 10 mg PO Q8H PRN (Reason: Pain) RF: 0 escitalopram oxalate 10 mg tablet 10 mg PO HS RF: 0 Stand-Alone Forms: Call Back Authorization, [facility]/Other Patient Handouts: Lipase Porcine Amylase Porcine Protease Porcine Oral tablet, Pancreatic Enzymes Oral capsule gastro-resistant sprinkles, Lipase, ERCP, Pancreatitis, Chronic Pain, Chronic Pain Cycle, Chronic Pain Manage Meds, Chronic Pain Therapies Mind Body, Pancreatitis Acute Dc, Pancreatitis Chronic Dc Discharge Orders: Discharge Order (Routine); Ordered 08/08/18 Ordered By: Alecia Shafer Admission Data Admit Date/Time: 08/07/18 01:33 Attending Provider: Balwinder Bales Admit Provider: Livan Inman Primary Care Provider: Vivek Urban Other Providers: Livan Inman ; Bravo Martinez Service: Surgical Services Other Interventions: Discharge Summary Assessment (RN) Last Done: 08/08/18 18:48 Pending Studies at Discharge: No DC Date/Time DO NOT enter until pt leaves facility: 08/08/18 19:23 Supervising Physician Co-Signing Physician Notes Attending Attestation & Discharge Note: Pt seen/examined, chart reviewed, discharge care plan d/w PA Alecia Shafer. I agree w/ the weldon components of her discharge summary. 32yo female with h/o necrotizing pancreatitis in the setting of acute cholecystitis earlier this year, s/p CBD stent and lap alejandra, who presented with abdominal pain. Lipase was again elevated likely c/w another episode of acute pancreatitis. Treated in customary fashion with bowel rest, IV fluids, pain meds, etc. Ultimately resumed on diet and was advanced as tolerated. Lipase improved while here. She has follow-up with [facility] for CBD stent retrieval as well as addressing her splenic artery aneurysm. I question if the patient is now developing chronic pancreatitis as her lipase is staying elevated in between episodes of apparent acute pancreatitis. She also has abdominal discomfort on most days. Discharge exam: gen - NAD eyes - no icterus mouth - MMM heart - RRR, s1, s2 lungs - CTA b/l abd - soft NT ND BS+ no HSM ext - no edema Balwinder Bales MD
== END 2018-08-08 19:23 | disposition home or self-care (01) | DRG 439 ==
LOC: ED 19:49 → SUATTDRO 08-07 01:33 → 3N 08-07 01:33